=== PATIENT | male | born 1955 | race Caucasian/White ===

== ENCOUNTER → 2020-09-05 07:55 | Outpatient (REF) | payer MEDICARE, SELFPAY ==
[2020-09-05 08:21] LABS: MANUAL DIFF FLAG NO
[2020-09-05 08:33] LABS: Basophils Absolute Auto 0.1 X10*3/uL (0.0-0.2); Basophils Percent Auto 0.7 % (0-2); Eosinophils Absolute Auto 0.3 X10*3/uL (0.0-0.4); Eosinophils Percent Auto 4.3 % (0-4); Hematocrit 48.6 % (42-52); Hemoglobin 16.1 g/dl (14.0-18.0); Imm Gran Abs Auto 0.02 X10*3/uL (0.00-0.03); Imm Gran Pct Auto 0.3 % (0.0-0.4); Lymphocytes Absolute Auto 1.9 X10*3/uL (1.2-4.9); Lymphocytes Percent Auto 26.2 % (20-40); Mean Corpuscular HGB Conc 33.1 g/dl (31.0-36.0); Mean Corpuscular Hemoglobin 29.7 pg (27.0-33.0); Mean Corpuscular Volume 89.5 fL (80-98); Mean Platelet Volume 9.5 fL (9.4-12.4); Monocytes Absolute Auto 0.5 X10*3/uL (0.1-1.2); Monocytes Percent Auto 6.3 % (2-11); Neutrophils Absolute Auto 4.6 X10*3/uL (2.0-8.3); Neutrophils Percent Auto 62.2 % (45-73); Platelet Count 258 X10*3/uL (160-400); Red Blood Count 5.43 X10*6/uL (4.60-5.80); White Blood Count 7.4 X10*3/uL (4.8-10.8)
[2020-09-05 09:00] LABS: Alanine Aminotransferase 31 U/L (0-40); Albumin Level 4.6 g/dL (3.5-5.0); Alkaline Phosphatase 90 U/L (39-117); Anion Gap 13 (12-20); Aspartate Amino Transferase 25 U/L (5-37); Bilirubin Total 0.7 mg/dL (0.0-1.0); Blood Urea Nitrogen 13 mg/dL (9-16); Calcium 9.2 mg/dL (8.4-10.2); Carbon Dioxide 28 mmol/L (22-29); Chloride 104 mmol/L (96-108); Cholesterol 106 mg/dL; Estimated Glomerular Filt Rate > 60; Glucose Random 94 mg/dL (60-115); HDL Cholesterol 26 mg/dL; LDL Cholesterol Calculated 65 mg/dl; Potassium 5.2 mmol/L (3.3-5.1); Sodium 140 mmol/L (135-145); Total Protein 7.2 g/dL (6.5-8.0); Triglycerides 76 mg/dL
[2020-09-05 09:26] LABS: Prostate Specific Antigen Scr 1.62 ng/mL (<0.05-4.0); Thyroid Stimulating Hormone 0.67 uIU/mL (0.32-4.0)
--- NOTE | 2020-09-05 15:00 | CA_ITS ---
Transthoracic Echocardiogram Patient (Last, First, Middle): Neeta Zuleta D Gender: Male Date of : 1955 Age: 65 Procedure Date: 09/05/2020 Procedure Type: Transthoracic Echocardiogram Location: OP Height: 167.64 cm Weight: 89.81 kg BSA: 1.99 m2 Heart Rate: bpm BP: 119 / 75 mmHg Cloth Tester: VICKI Referring MD: Arden Bustillo MD Symptoms: I25.5 ISCHEMIC CMP, I25.10 CAD W/O ANGINA NON RHEUU I35. Study Quality: Technically Difficult ECG Rhythm: Sinus Conclusions: - The left ventricular systolic function is low normal. The visually estimated ejection fraction is between 50-55%. - The inferoseptal wall and basal inferior segment are akinetic. - There is moderate calcification of the aortic valve. There is mild aortic valve stenosis. Findings Left Ventricle Normal left ventricular cavity size. There is mildly increased left ventricular wall thickness. The left ventricular systolic function is low normal. The visually estimated ejection fraction is between 50-55%. There is evidence of regional wall motion abnormalities. Diastolic function is normal for age. Wall Motion Rest Echo Findings The inferoseptal wall and basal inferior segment are akinetic. Right Ventricle Normal right ventricular cavity size and systolic function. Atria The left atrium is normal in size. The right atrium is normal in size. Aortic Valve There is moderate calcification of the aortic valve. There is mild aortic valve stenosis. The peak aortic velocity is 2.21 m/s with a calculated peak gradient of 20 mmHg. There is no aortic valve regurgitation. Mitral Valve The mitral valve appears normal. There is trace mitral valve regurgitation. There is no mitral valve stenosis. Pulmonic Valve The pulmonic valve was not well visualized. Tricuspid Valve Normal tricuspid valve structure. There is trace tricuspid valve regurgitation. The pulmonary artery systolic pressure is normal. Great Vessels The asc aorta is normal in size. Venous The inferior vena cava is normal in size and collapses greater than 50% with inspiration. Pericardium/Pleural There is no evidence of pericardial effusion. Prior Study Comparison No significant change compared to prior study dated: 02/07/2019. Measurements M-Mode Liner Measurements Normals - Women/Men AOV Cusps: 1.70 1.5-2.6 cm/m2 2D Linear Measurements IVSd: 1.13 0.6-0.9/0.6-1.0 cm LVIDd: 5.23 3.9-5.3/4.2-5.9 cm LVIDd Index: 2.63 2.4-3.2/2.2-3.1 cm/m2 LVIDs: 4.17 2.0-3.6 cm LVPWd: 1.03 0.7-1.1 cm Ao Root: 3.70 2.1-3.5 cm LA Diam: 2.90 2.7-3.8/3.0-4.0 cm LAIDs Index: 1.46 1.5-2.3 cm/m2 LV Mass: 270.95 67-162/88-224 g LV Mass Index: 136.16 43-95/49-115 g/m2 LVOT Diam: 2.20 3.0+(-)1.3 cm 2D Systolic Function EF 4C: 63.70 >55% EF 2C: 48.10 >55% EF BiP: 56.50 >55% Mitral Valve MV Pk E: 0.68 MV PK A: 0.90 MV Decel Time: 187.00 E/A: 0.80 E'Lateral: 10.90 E'Medial: 5.11 E/E' Med: 13.30 E/E' Lat: 6.20 PHT: 55.00 MVA PHT: 4.00 Decel [place]: 3.64 Aortic Valve AoV Pk Naveen: 2.21 AoV Pk Grad: 20.00 RUBIO Cont.VTI: 1.45 LVOT LVOT Pk Naveen: 0.85 LVOT Mn Naveen: 0.57 LVOT VTI: 0.18 LVOT Pk Grad: 3.00 LVOT Mn Grad: 2.00 LVOT Diam: 2.20 LVOT Area: 3.80 Diastolic Function MV Pk E: 0.68 MV Pk A: 0.90 E/A: 0.80 E'Medial: 5.11 E/E' Med: 13.30 E' Laterial: 10.90 E/E' Lat: 6.20 Tricuspid Valve RA Press: 3.00 Great Vessels Aorta Ao Root-2D: 3.70 2.0-3.7 cm Ao Asc: 3.50 2.1-3.4 cm Pulmonary Valve PV Pk Naveen: 1.24 Peak PV Grad: 6.00 Updated in Other Vendor System with Status of Final Dima Petersen MD electronically signed on 09/07/2020 10:15:50 AM with status of Final
== END ==
LOC: HO.CARD 07:55
PROVIDERS: Absent Provider Internal Medicine; PCP Internal Medicine; Visit Provider Internal Medicine Cardiovascular Disease
DX: I25.5 Ischemic cardiomyopathy (principal); I25.10 Atherosclerotic heart disease of native coronary artery without angina pectoris; I35.0 Nonrheumatic aortic (valve) stenosis; I10 Essential (primary) hypertension; E78.00 Pure hypercholesterolemia, unspecified
CPT/HCPCS: 36415; 80053; 80061; 84153; 84443; 85025; 93306

== ENCOUNTER → 2020-09-23 11:05 | Outpatient (BNVA) | payer MEDICARE, SELFPAY | PROVIDERS: PCP Internal Medicine; Visit Provider Internal Medicine Cardiovascular Disease | DX: I25.10 Atherosclerotic heart disease of native coronary artery without angina pectoris (principal); I25.5 Ischemic cardiomyopathy; Z79.899 Other long term (current) drug therapy | CPT/HCPCS: 93005; 99212 ==

== ENCOUNTER → 2021-03-31 09:42 | Outpatient (BNVA) | payer MEDICARE, SELFPAY | PROVIDERS: PCP Internal Medicine; Referring Provider Internal Medicine; Visit Provider Internal Medicine Cardiovascular Disease | DX: I25.10 Atherosclerotic heart disease of native coronary artery without angina pectoris (principal); I25.5 Ischemic cardiomyopathy | CPT/HCPCS: 99212 ==

== ENCOUNTER 2021-06-29 09:20 | Emergency (ER) | payer MEDICARE, SELFPAY ==
[2021-06-29 10:04] VITALS: BP 142/79; PULSE 60; RESP 18; TEMP 37; O2SAT 94; BMI 30.7
[2021-06-29 11:39] VITALS: BP 122/76; PULSE 59; RESP 18; O2SAT 95
--- NOTE | 2021-06-29 11:40 | ED_ITS ---
HPI - Back Pain/Injury General Chief Complaint: Back Pain/Injury Stated Complaint: Back Pain No Injury Time Seen by Provider: 06/29/21 11:32 Source: patient Mode of arrival: ambulatory Limitations: no limitations History of Present Illness HPI Narrative: 66 yo M pmhx low back pain, obesity,COPD, CAD, brain aneurysm presents to the ED with atraumatic lower back pain X2 weeks progressively worsening. Patient tells me that he has had low back pain for a very long time, however has never been this bad. He tells me that the pain is in the lower back, and radiates down to his left leg, just above the knee. He rates the pain a 10/10 constant, and severe in nature, worse with movement better at rest. He has seen his PCP for this complaint, who gave him a medicine for pain, patient states that is not helping him. Patient tells me that the pain is so bad that he has not been able to sleep for 3 days. Denies bowel/urinary incontinence, urinary retention, sensory and motor deficits, fevers, chills, nausea, vomiting, weakness, abdominal pain, chest pain, shortness of breath, dizziness, fevers, trauma. Patient has no history of IV drug use. No previous spine surgeries. No hx of kidney stones MD elicited complaint: back pain Pertinent past history: prior back pain Onset (ago): week(s) (2) Timing: constant Severity: severe Pain scale (0-10): 10 Similar Symptoms Previously: Yes Quality: sharp Location: lumbar spine Radiation: left upper leg Exacerbating factors: movement Relieving factors: immobilization Associated symptoms: denies other symptoms Treatments prior to arrival: NSAIDS and prescription analgesics Work related injury: No Related Data Home Medications Medication Instructions Recorded Confirmed aspirin 81 mg tablet,delayed 81 mg PO DAILY 07/07/20 06/25/21 release (Adult Aspirin Regimen) fluticasone propionate 230 1 puff INHALATION BID g 07/07/20 06/25/21 mcg-salmeterol 21 mcg/actuation HFA inhaler (Advair HFA) ipratropium 20 mcg-albuterol 100 1 puff INHALATION QID 07/07/20 06/25/21 mcg/actuation mist for inhalation (Combivent Respimat) diazepam 10 mg tablet 10 mg PO TID PRN 04/14/21 06/25/21 Previous Rx's Medication Instructions Recorded atenolol 25 mg tablet 25 mg PO DAILY #90 tab 04/29/20 nitroglycerin 0.4 mg sublingual 0.4 mg SUBLINGUAL Q5M PRN #20 tab 07/07/20 tablet (Nitrostat) CPAP #1 ea 10/06/20 rosuvastatin 40 mg tablet 40 mg PO DAILY #90 tab 10/24/20 fluticasone propionate 50 2 spray INTRANASAL DAILY #3 ea 11/20/20 mcg/actuation nasal spray,suspension (Flonase Allergy Relief) fexofenadine 180 mg tablet 180 mg PO DAILY 90 Days #90 tab 01/08/21 losartan 50 mg tablet 50 mg PO DAILY 90 Days #90 tab 02/09/21 baclofen 10 mg tablet 10 mg PO BID PRN #14 tab 06/25/21 diclofenac sodium 1 % topical gel 2 g TOPICAL QID PRN 10 Days #100 g 06/25/21 (Arthritis Pain (diclofenac)) lidocaine 4 % topical patch 1 patch TOPICAL DAILY PRN #15 ea 06/25/21 (Aspercreme (lidocaine)) cyclobenzaprine 10 mg tablet 10 mg PO TID PRN #14 tab 06/29/21 lidocaine 5 % topical patch 1 patch TOPICAL DAILY PRN 10 Days 06/29/21 #15 ea oxycodone 5 mg tablet 5 mg PO Q8H PRN 5 Days #10 tab 06/29/21 prednisone 20 mg tablet 40 mg PO DAILY 5 Days #10 tab 06/29/21 Allergies Allergy/AdvReac Type Severity Reaction Status Date / Time atorvastatin [Lipitor] Allergy Unknown Leg cramps Verified 06/25/21 10:47 ezetimibe [Zetia] Allergy Unknown shoulder Verified 06/25/21 10:47 pain lisinopril Allergy Unknown cough Verified 06/25/21 10:47 rosuvastatin [Crestor] Allergy Unknown Leg cramps Verified 06/25/21 10:47 Review of Systems Review of Systems: Constitutional : No Weight loss, No Fever, No Chills, No Fatigue, No Malaise ENT/Mouth : No sore throat, No Rhinorrhea Eyes: No Eye Pain, No Swelling, No Redness Cardiovascular : No Chest Pain, No SOB, No Dyspnea on Exertion, No Orthopnea, No Edema, No Palpitations Respiratory : No Cough, No Sputum, No Wheezing Gastrointestinal : No Nausea, No Vomiting, No Diarrhea, No Constipation, No abdominal Pain, No Hematochezia, No Melena Genitourinary : No Dysuria, No Urinary Frequency, No Hematuria, Musculoskeletal : No joint pain, No Myalgias, No Joint Swelling, + back pain Skin : No Skin Lesions, No rash Neuro : No Weakness, No Numbness, No Dizziness, No Headache Psych : No Anxiety/Panic, No Depression All other systems reviewed and are negative Yes all other systems are reviewed and are negative [facility] Past Medical History Attestation statement: The following information was validated with the patient. Source: old records reviewed and nursing notes reviewed Medical History Allergic rhinitis Anxiety Chronic sinusitis COPD (chronic obstructive pulmonary disease) Coronary artery disease Hypercholesterolemia Hypertension Ischemic cardiomyopathy Lyme disease Obstructive sleep apnea Otitis media Pericarditis Pulmonary nodule Sinusitis Surgical History Brain aneurysm Family History Family History Father No problems noted. Mother CVD (cardiovascular disease) Social History Social History Housing: House Alcohol intake: current Alcohol intake frequency: holidays/special occasions only Alcohol type: beer Patient Tobacco Use Status: Never used Tobacco e-Cigarette/Vaping Use: Never Used Advance Directives: No Advance Directives Information Provided: No service: No Current occupational status: disabled Cognitive needs: No Hearing needs: No Vision needs: No Physical Exam Vital Signs: Vital Signs: Last Vital Signs Temp 97.6 F 06/29/21 12:56 Pulse 54 06/29/21 12:56 Resp 14 06/29/21 12:56 BP 127/75 06/29/21 12:56 Pulse Ox 95 06/29/21 12:56 BMI result Body Mass Index 30.7 VSS Appearance: Alert.? Oriented X3.? No acute distress.? Head: Normocephalic, atraumatic, no step-offs or deformities Eyes: Pupils equal, round and reactive to light.? ENT: Pharynx normal.? Neck: Normal inspection.? Neck supple.? CVS: Normal heart rate and rhythm.? Pulses normal.? Respiratory: No respiratory distress.? Breath sounds normal.? Abdomen: Soft and nontender.? Skin: Skin warm and dry.? Normal skin color.? Normal skin turgor.? Extremities: No lower extremity edema.? No calf ttp. 5/5 strength to bilateral upper and lower extremities + pain with getting up from wheelchair, able to ambulated with alot of pain, no ataxia Back: No midline tenderness, no C-spine tenderness, full range of motion, no CVA tenderness bilaterally. + Staight leg raise on left negative on right Neuro: Oriented X 3.? No motor deficit.? No sensory deficit. Course Reevaluation(s) Reevaluation #1: Due to patient's severe pain and IV will be put in, he will be given Dilaudid for pain. Time: 12:14 Reevaluation #2: Significant improvement after administration of Dilaudid IV. Patient's vital signs are stable. He is not able to ambulate around the room. He appears much more comfortable. At this time I feel is the patient is safe for discharge home. I have advised him to follow-up with his PCP as he will likely require more imaging. I have also advised him to return with new or worsening symptoms. Comfortable with discharge home. Time: 13:13 MDM - Back Pain/Injury MDM Narrative Medical decision making narrative: 1147 66-year-old male presents to the emergency department with atraumatic back pain x2 weeks, severe pain, 10/10 constant nature worse with movement better at rest, radiating to left leg above knee. Patient reports inability to sleep x3 days due to pain. He tells me size PCP will give him pain meds and are not working. No fevers or chills or history of IV drug use. Physical examination significant or pain with range of motion however, patient has full range of motion. No midline tenderness. 2+ reflexes to lower extremities equal bilateral. No sensory motor deficits. No saddle paresthesias. No focal neuro deficits. Ambulating with a steady gait. Based off patient history and physical examination cauda equina and epidural abscess unlikely. This is likely sciatica. Plan at this time is to obtain a COVID test. Medical Records Attestation: I reviewed the patient's medical records. Lab Data Attestation: I reviewed the patient's lab results. Labs: Lab Results 06/29/21 Range/Units 11:42 COVID-19 ([facility]) Negative (Negative) COVID-19 Clin Com See Note Critical Care Time Critical Care Time Critical Care Time: No Discharge Plan Discharge Clinical Impression: Sciatica Patient Disposition: Home, Self-Care Instructions: Sciatica (ED) Additional Instructions: Take your medications as prescribed. If you were prescribed antibiotics today, it is important that you take your medication to their entirety, do not skip any doses, do not finish them early. Stop taking baclofen. Follow-up with your primary care provider this week. Return to the emergency department with new or worsening symptoms. Such as fevers, chills, inability to control urine/stool, weakness, chest pain, shortness of breath, inability to feel lower extremitites. In case of emergency call 911 I attest that I have reviewed patients [place], and at the time prescribing the patient a controlled substance is appropriate based off of patients diagnosis and treatment plan. Prescriptions: New lidocaine 5 % adhesive patch,medicated 1 patch topical DAILY PRN (Reason: pain) 10 Days Qty: 15 RF: 0 oxycodone 5 mg tablet 5 mg PO Q8H PRN (Reason: pain) 5 Days Qty: 10 RF: 0 prednisone 20 mg tablet 40 mg PO DAILY 5 Days Qty: 10 RF: 0 cyclobenzaprine 10 mg tablet 10 mg PO TID PRN (Reason: muscle spasm) Qty: 14 RF: 0 No Action atenolol 25 mg tablet 25 mg PO DAILY Qty: 90 RF: 2 rosuvastatin 40 mg tablet 40 mg PO DAILY Qty: 90 RF: 2 fluticasone propionate [Flonase Allergy Relief] 50 mcg/actuation spray,suspension 2 spray intranasal DAILY Qty: 3 RF: 2 losartan 50 mg tablet 50 mg PO DAILY 90 Days Qty: 90 RF: 3 aspirin [Adult Aspirin Regimen] 81 mg tablet,delayed release (DR/EC) 81 mg PO DAILY RF: 0 Combivent Respimat 20-100 mcg/actuation mist 1 puff inhalation QID RF: 0 Advair HFA 230-21 mcg/actuation HFA aerosol inhaler 1 puff inhalation BID RF: 0 nitroglycerin [Nitrostat] 0.4 mg tablet, sublingual 0.4 mg sublingual Q5M PRN (Reason: chest pain) Qty: 20 RF: 0 fexofenadine 180 mg tablet 180 mg PO DAILY 90 Days Qty: 90 RF: 3 diazepam 10 mg tablet 10 mg PO TID PRNRF: 0 (DME) CPAP See Rx Instructions .Route .MEDSUPPLY Qty: 1 RF: 0 baclofen 10 mg tablet 10 mg PO BID PRN (Reason: pain) Qty: 14 RF: 0 diclofenac sodium [Arthritis Pain (diclofenac)] 1 % gel 2 g topical QID PRN (Reason: pain) 10 Days Qty: 100 RF: 0 lidocaine [Aspercreme (lidocaine HCl)] 4 % adhesive patch,medicated 1 patch topical DAILY PRN (Reason: pain) Qty: 15 RF: 0 Referrals: Po,Mariel Saunders MD [Primary Care Provider] - 2 days Stand Alone Forms: Work/School Release
[2021-06-29] MEDS: Lidocaine 4 % Patch ADH..PATCH 1 PATCH TRANSDERMA (12:12)
[2021-06-29] MEDS: Cyclobenzaprine HCl 10 MG TABLET PO (12:12)
[2021-06-29 12:20] LABS: COVID-19 Test Negative (Negative)
[2021-06-29] MEDS: HYDROmorphone HCl 0.5 MG/0.5 ML SYRINGE IVPUSH (12:25)
[2021-06-29 12:56] VITALS: BP 127/75; PULSE 54; RESP 14; TEMP 36.4; O2SAT 95
== END 2021-06-29 13:28 | disposition home or self-care (01) ==
PROVIDERS: Physician Assistant; Emergency Provider Emergency Medicine; PCP Internal Medicine
DX: M54.40 Lumbago with sciatica, unspecified side (principal); I10 Essential (primary) hypertension; J44.9 Chronic obstructive pulmonary disease, unspecified; I25.10 Atherosclerotic heart disease of native coronary artery without angina pectoris; Z20.822 Contact with and (suspected) exposure to COVID-19
CPT/HCPCS: 36415; 87635; 96374; 99284; J1170

== ENCOUNTER 2021-07-08 11:30 | Outpatient (REF) | payer MEDICARE, SELFPAY ==
--- NOTE | ~2021-07-08 | XR_ITS ---
EXAMINATION: XR LUMBOSACRAL SPINE WITH OBLIQUES CLINICAL INFORMATION: Low back pain. COMPARISON: None TECHNIQUE: AP, both oblique, and lateral views of the lumbar spine. Lateral view of the lumbosacral junction. FINDINGS: There is normal lumbar lordosis and spinal alignment. Mild degenerative disc disease and bilateral facet arthropathy is seen at L4-L5 and L5-S1. Mild to moderate multilevel marginal osteophyte formation is seen most pronounced on the right at L2-L3 and on the left at L4-L5. The vertebral bodies are intact. The neural foramina are patent. The soft tissues are unremarkable XR/XR lumbar spine 6V w bending IMPRESSION: L4-L5 and L5-S1 mild degenerative disc disease and bilateral facet arthropathy.
== END 2021-07-08 11:31 | disposition home or self-care (01) ==
LOC: HO.XRAY 11:30
PROVIDERS: Visit Provider Nurse Practitioner Acute Care
DX: M54.50 Low back pain, unspecified (principal); M79.605 Pain in left leg
CPT/HCPCS: 72114

== ENCOUNTER 2021-08-25 08:04 | Outpatient (REF) | payer MEDICARE, SELFPAY ==
[2021-08-25 08:51] LABS: MANUAL DIFF FLAG NO
[2021-08-25 09:44] LABS: Basophils Absolute Auto 0.1 X10*3/uL (0.0-0.2); Basophils Percent Auto 0.9 % (0-2); Eosinophils Absolute Auto 0.4 X10*3/uL (0.0-0.4); Eosinophils Percent Auto 4.7 % (0-4); Hemoglobin 15.4 g/dl (14.0-18.0); Imm Gran Abs Auto 0.02 X10*3/uL (0.00-0.03); Imm Gran Pct Auto 0.3 % (0.0-0.4); Lymphocytes Absolute Auto 1.8 X10*3/uL (1.2-4.9); Lymphocytes Percent Auto 23.6 % (20-40); Mean Corpuscular HGB Conc 32.8 g/dl (31.0-36.0); Mean Corpuscular Hemoglobin 29.7 pg (27.0-33.0); Mean Corpuscular Volume 90.6 fL (80.0-98.0); Mean Platelet Volume 9.7 fL (9.4-12.4); Monocytes Absolute Auto 0.5 X10*3/uL (0.1-1.2); Monocytes Percent Auto 6.6 % (2-11); Neutrophils Absolute Auto 4.9 x10*3/uL (2.0-8.3); Neutrophils Percent Auto 63.9 % (45-73); Platelet Count 236 X10*3/uL (160-400); Red Blood Count 5.19 X10*6/uL (4.60-5.80); Red Cell Distribution Width 12.7 % (11.0-16.0); White Blood Count 7.6 X10*3/uL (4.8-10.8)
[2021-08-25 10:12] LABS: Alanine Aminotransferase 40 U/L (0-40); Albumin Level 4.4 g/dL (3.5-5.0); Alkaline Phosphatase 82 U/L (39-117); Anion Gap 18 (12-20); Aspartate Amino Transferase 28 U/L (5-37); Bilirubin Total 0.7 mg/dL (0.0-1.0); Blood Urea Nitrogen 15 mg/dL (9-16); Calcium 9.4 mg/dL (8.4-10.2); Carbon Dioxide 23 mmol/L (22-29); Chloride 109 mmol/L (96-108); Cholesterol 119 mg/dL; Estimated Glomerular Filt Rate > 60; Glucose Random 94 mg/dL (60-115); HDL Cholesterol 27 mg/dL; LDL Cholesterol Calculated 77 mg/dl; Sodium 145 mmol/L (135-145); Total Protein 7.3 g/dL (6.5-8.0); Triglycerides 75 mg/dL
[2021-08-25 10:13] LABS: B Type Natriuretic Peptide 26 pg/mL (<100)
[2021-08-25 10:35] LABS: Free T4 (Free Thyroxine) 0.79 ng/dL (0.71-1.85); Prostate Specific Antigen Scr 2.31 ng/mL (<0.05-4.0); Thyroid Stimulating Hormone 1.18 uIU/mL (0.32-4.0)
[2021-08-25 10:56] LABS: Folate 8.2 ng/mL (> or = 4.0); Vitamin B12 556 pg/mL (200-900)
[2021-08-26 11:41] LABS: CRP High Sensitivity 1.4 mg/L
== END 2021-08-25 08:05 | disposition home or self-care (01) ==
LOC: HO.LAB 08:04
PROVIDERS: Internal Medicine Cardiovascular Disease; PCP Internal Medicine; Visit Provider Internal Medicine
DX: Z13.1 Encounter for screening for diabetes mellitus (principal); Z12.5 Encounter for screening for malignant neoplasm of prostate; E78.00 Pure hypercholesterolemia, unspecified; I25.5 Ischemic cardiomyopathy; I25.10 Atherosclerotic heart disease of native coronary artery without angina pectoris; E78.5 Hyperlipidemia, unspecified
CPT/HCPCS: 36415; 80053; 80061; 82607; 82746; 83880; 84153; 84439; 84443; 85025; 86141

== ENCOUNTER → 2021-09-01 13:57 | Outpatient (REF) | payer MEDICARE, SELFPAY ==
--- NOTE | 2021-09-01 13:59 | CA_ITS ---
Transthoracic Echocardiogram Patient (Last, First, Middle): Neeta Zuleta D Gender: Male Date of : 1955 Age: 66 Procedure Date: 09/01/2021 Procedure Type: Transthoracic Echocardiogram Location: OP Height: 167.64 cm Weight: 88.45 kg BSA: 1.98 m2 Heart Rate: bpm BP: 127 / 80 mmHg [place]: VH/OT Referring MD: Arden Bustillo MD Symptoms: I25.5 - Ischemic cardiomyopathy Study Quality: Fair ECG Rhythm: Sinus Conclusions: - The left ventricular systolic function is low normal. The calculated ejection fraction is 51% by biplane method. - The basal inferior and basal inferolateral segments are akinetic. - Mildly increased right ventricular cavity size. - There is moderate calcification of the aortic valve. There is mild aortic valve stenosis. - There is mild dilatation of the sinuses of Valsalva measuring 4.20 cm and no dilatation of the ascending aorta measuring 3.60 cm. Findings Left Ventricle Normal left ventricular cavity size. There is mildly increased left ventricular wall thickness. The left ventricular systolic function is low normal. The calculated ejection fraction is 51% by biplane method. E/E prime ratio is <8, consistent with normal filling pressures. Evidence suggests grade I (mild) diastolic dysfunction. Wall Motion Rest Echo Findings The basal inferior and basal inferolateral segments are akinetic. Right Ventricle Mildly increased right ventricular cavity size. There is normal right ventricular systolic function. Atria Both atria are normal in size. Aortic Valve There is moderate calcification of the aortic valve. There is mild aortic valve stenosis. The peak aortic velocity is 2.00 m/s with a calculated peak gradient of 16 mmHg. The mean gradient is 9 mmHg. The aortic valve area is 1.62 cm2. There is no aortic valve regurgitation. Dimensionless index 0.43. Mitral Valve The mitral valve appears normal. There is no mitral valve regurgitation. There is no mitral valve stenosis. Pulmonic Valve The pulmonic valve is likely normal. Tricuspid Valve Normal tricuspid valve structure. There is no tricuspid valve regurgitation. The pulmonary artery systolic pressure is normal. Great Vessels There is mild dilatation of the sinuses of Valsalva measuring 4.20 cm and no dilatation of the ascending aorta measuring 3.60 cm. Venous The inferior vena cava is normal in size and collapses greater than 50% with inspiration. Pericardium/Pleural There is no evidence of pericardial effusion. Prior Study Comparison Changes noted compared to prior study dated: 09/05/2020. Increase in ascending aortic dimension. Measurements 2D Linear Measurements IVSd: 1.04 0.6-0.9/0.6-1.0 cm LVIDd: 5.00 3.9-5.3/4.2-5.9 cm LVIDd Index: 2.53 2.4-3.2/2.2-3.1 cm/m2 LVIDs: 3.58 2.0-3.6 cm LVPWd: 1.04 0.7-1.1 cm Ao Root: 4.20 2.1-3.5 cm LA Diam: 3.80 2.7-3.8/3.0-4.0 cm LAIDs Index: 1.92 1.5-2.3 cm/m2 LV Mass: 239.09 67-162/88-224 g LV Mass Index: 120.75 43-95/49-115 g/m2 LVOT Diam: 2.50 3.0+(-)1.3 cm 2D Systolic Function EF 4C: 54.60 >55% EF 2C: 42.50 >55% EF BiP: 50.90 >55% Mitral Valve MV Pk E: 0.40 MV PK A: 0.71 MV Decel Time: 160.00 E/A: 0.60 E'Lateral: 8.16 E'Medial: 4.68 E/E' Med: 8.60 E/E' Lat: 4.90 PHT: 47.00 MVA PHT: 4.68 Decel Iron: 2.51 Aortic Valve AoV Pk Naveen: 2.00 AoV Mn Naveen: 1.37 AoV VTI: 0.50 AoV Pk Grad: 16.00 Aov Mn Grad: 9.00 RUBIO Cont.VTI: 1.62 LVOT LVOT Pk Naveen: 0.84 LVOT Mn Naveen: 0.54 LVOT VTI: 0.17 LVOT Pk Grad: 3.00 LVOT Mn Grad: 1.00 LVOT Diam: 2.50 LVOT Area: 4.91 Diastolic Function MV Pk E: 0.40 MV Pk A: 0.71 E/A: 0.60 E'Medial: 4.68 E/E' Med: 8.60 E' Laterial: 8.16 E/E' Lat: 4.90 Right Ventricle TAPSE (mm): 22.00 TVS' Naveen: 8.00 Tricuspid Valve TR Pk Naveen: 2.11 TR Pk Grad: 18.00 Great Vessels Aorta Ao Root-2D: 4.20 2.0-3.7 cm Sinus of Valsalva: 4.20 2.0-3.5 cm Ao Asc: 3.60 2.1-3.4 cm Pulmonary Valve PV Pk Naveen: 0.97 Peak PV Grad: 4.00 Updated in Other Vendor System with Status of Final Dima Petersen MD electronically signed on 09/01/2021 4:26:58 PM with status of Final
== END ==
LOC: HO.CARD 13:57
PROVIDERS: Visit Provider Internal Medicine Cardiovascular Disease
DX: I25.5 Ischemic cardiomyopathy (principal)
CPT/HCPCS: 93306

== ENCOUNTER → 2021-10-15 12:33 | Outpatient (BNVA) | payer MEDICARE, SELFPAY | PROVIDERS: PCP Internal Medicine; Referring Provider Internal Medicine; Visit Provider Internal Medicine Cardiovascular Disease | DX: I25.10 Atherosclerotic heart disease of native coronary artery without angina pectoris (principal); I25.5 Ischemic cardiomyopathy; I35.0 Nonrheumatic aortic (valve) stenosis | CPT/HCPCS: 93005; 99212 ==

== ENCOUNTER 2021-12-31 11:44 | Outpatient (REF) | payer MEDICARE, SELFPAY | END 2021-12-31 11:45 | disposition home or self-care (01) | LOC: HO.LNP 11:44 | PROVIDERS: Visit Provider Otolaryngology | DX: R82.71 Bacteriuria (principal); B48.8 Other specified mycoses; B37.9 Candidiasis, unspecified | CPT/HCPCS: 87071; 87102; 87107; 87205 ==

== ENCOUNTER 2022-02-03 08:44 | Outpatient (REF) | payer MEDICARE, SELFPAY ==
[2022-02-03 14:07] LABS: Alanine Aminotransferase 34 U/L (0-40); Albumin Level 4.6 g/dL (3.5-5.0); Alkaline Phosphatase 76 U/L (39-117); Anion Gap 15 (12-20); Aspartate Amino Transferase 30 U/L (5-37); Bilirubin Total 0.7 mg/dL (0.0-1.0); Blood Urea Nitrogen 16 mg/dL (9-16); Calcium 9.1 mg/dL (8.4-10.2); Carbon Dioxide 27 mmol/L (22-29); Chloride 105 mmol/L (96-108); Cholesterol 128 mg/dL; Estimated Glomerular Filt Rate > 60; Glucose Fasting 100 mg/dL (60-99); HDL Cholesterol 31 mg/dL; LDL Cholesterol Calculated 78 mg/dl; Potassium 5.3 mmol/L (3.3-5.1); Sodium 142 mmol/L (135-145); Total Protein 7.2 g/dL (6.5-8.0); Triglycerides 98 mg/dL
== END 2022-02-03 08:45 | disposition home or self-care (01) ==
LOC: HO.LAB 08:44
PROVIDERS: Nurse Practitioner Family; PCP Internal Medicine; Visit Provider Internal Medicine Cardiovascular Disease
DX: I25.10 Atherosclerotic heart disease of native coronary artery without angina pectoris (principal); Z13.1 Encounter for screening for diabetes mellitus
CPT/HCPCS: 36415; 80053; 80061

== ENCOUNTER 2022-02-08 08:12 | Outpatient (REF) | payer MEDICARE, SELFPAY ==
[2022-02-08 09:50] LABS: Anion Gap 13 (12-20); Blood Urea Nitrogen 8 mg/dL (9-16); Calcium 8.9 mg/dL (8.4-10.2); Carbon Dioxide 29 mmol/L (22-29); Chloride 104 mmol/L (96-108); Cholesterol 114 mg/dL; Estimated Glomerular Filt Rate > 60; Glucose Random 97 mg/dL (60-115); HDL Cholesterol 33 mg/dL; LDL Cholesterol Calculated 66 mg/dl; Potassium 5.1 mmol/L (3.3-5.1); Sodium 141 mmol/L (135-145); Triglycerides 76 mg/dL
== END 2022-02-08 08:13 | disposition home or self-care (01) ==
LOC: HO.LAB 08:12
PROVIDERS: PCP Internal Medicine; Visit Provider Nurse Practitioner Family
DX: E87.5 Hyperkalemia (principal); I25.10 Atherosclerotic heart disease of native coronary artery without angina pectoris
CPT/HCPCS: 36415; 80048; 80061

== ENCOUNTER → 2022-03-25 09:39 | Outpatient (BNVA) | payer MEDICARE, SELFPAY | PROVIDERS: PCP Internal Medicine; Referring Provider Internal Medicine; Visit Provider Internal Medicine Cardiovascular Disease | DX: I25.10 Atherosclerotic heart disease of native coronary artery without angina pectoris (principal); I25.5 Ischemic cardiomyopathy; I35.0 Nonrheumatic aortic (valve) stenosis; R07.89 Other chest pain; I77.89 Other specified disorders of arteries and arterioles | CPT/HCPCS: 99212 ==

== ENCOUNTER → 2022-06-21 10:12 | Outpatient (REF) | payer MEDICARE, SELFPAY ==
--- NOTE | 2022-06-21 10:17 | CA_ITS ---
Transthoracic Echocardiogram Patient (Last, First, Middle): Neeta Zuleta D Gender: Male Date of : 1955 Age: 67 Procedure Date: 06/21/2022 Procedure Type: Transthoracic Echocardiogram Location: OP Height: 167.64 cm Weight: 86.18 kg BSA: 1.96 m2 Heart Rate: bpm BP: 120 / 75 mmHg Technical Professional: [email or web address] Referring MD: Arden Bustillo MD Symptoms: I25.5 - Ischemic cardiomyopathy Study Quality: Adequate Conclusions: - The left ventricular systolic function is mildly decreased. The calculated ejection fraction is 52% by biplane method. - The basal inferior and basal inferolateral segments are akinetic. - Mildly increased right ventricular cavity size. - There is moderate calcification of the aortic valve. There is mild aortic valve stenosis. Findings Left Ventricle Normal left ventricular cavity size. There is normal left ventricular wall thickness. The left ventricular systolic function is mildly decreased. The calculated ejection fraction is 52% by biplane method. There is evidence of regional wall motion abnormalities. Diastolic function is normal for age. LV peak GLS -14.9%. Wall Motion Rest Echo Findings The basal inferior and basal inferolateral segments are akinetic. Right Ventricle Mildly increased right ventricular cavity size. There is normal right ventricular systolic function. Atria Mild biatrial enlargement. Aortic Valve There is moderate calcification of the aortic valve. There is mild aortic valve stenosis. The mean gradient is 13 mmHg. The aortic valve area is 1.80 cm2. There is no aortic valve regurgitation. Mitral Valve The mitral valve appears normal. There is mild mitral annular calcification. There is no mitral valve regurgitation. There is no mitral valve stenosis. Pulmonic Valve The pulmonic valve is likely normal. Tricuspid Valve There is trace tricuspid valve regurgitation. There is no evidence of pulmonary hypertension. Great Vessels Top normal ascending aortic size at 3.8cm. Venous The inferior vena cava is normal in size and collapses greater than 50% with inspiration. Pericardium/Pleural There is no evidence of pericardial effusion. Prior Study Comparison No significant change compared to prior study dated: 09/01/2021. Measurements 2D Linear Measurements IVSd: 0.94 0.6-0.9/0.6-1.0 cm LVIDd: 5.27 3.9-5.3/4.2-5.9 cm LVIDd Index: 2.69 2.4-3.2/2.2-3.1 cm/m2 LVIDs: 4.66 2.0-3.6 cm LVPWd: 0.83 0.7-1.1 cm LA Diam: 3.10 2.7-3.8/3.0-4.0 cm LAIDs Index: 1.58 1.5-2.3 cm/m2 LV Mass: 210.34 67-162/88-224 g LV Mass Index: 107.32 43-95/49-115 g/m2 LVOT Diam: 2.30 3.0+(-)1.3 cm 2D Systolic Function EF 4C: 49.20 >55% EF 2C: 54.50 >55% EF BiP: 51.70 >55% Mitral Valve MV Pk E: 0.78 MV PK A: 0.77 MV Decel Time: 193.00 E/A: 1.00 E'Lateral: 11.40 E'Medial: 8.81 E/E' Med: 8.90 E/E' Lat: 6.90 PHT: 57.00 MVA PHT: 3.86 Decel [place]: 4.05 Aortic Valve AoV Pk Naveen: 2.35 AoV Mn Naveen: 1.72 AoV VTI: 0.52 AoV Pk Grad: 22.00 Aov Mn Grad: 13.00 RUBIO Cont.VTI: 1.80 LVOT LVOT Pk Naveen: 1.00 LVOT Mn Naveen: 0.68 LVOT VTI: 0.23 LVOT Pk Grad: 4.00 LVOT Mn Grad: 2.00 LVOT Diam: 2.30 LVOT Area: 4.15 Diastolic Function MV Pk E: 0.78 MV Pk A: 0.77 E/A: 1.00 E'Medial: 8.81 E/E' Med: 8.90 E' Laterial: 11.40 E/E' Lat: 6.90 Right Ventricle TAPSE (mm): 24.40 TVS' Naveen: 10.10 Tricuspid Valve TR Pk Naveen: 1.77 TR Pk Grad: 13.00 RA Press: 3.00 RVSP: 16.00 Great Vessels Aorta Sinus of Valsalva: 4.17 2.0-3.[address] [place]: 3.58 1.7-3.4 cm Ao Asc: 3.80 2.1-3.4 cm Updated in Other Vendor System with Status of Final Dima Petersen MD electronically signed on 06/23/2022 8:38:32 AM with status of Final
== END ==
LOC: HO.CARD 10:12
PROVIDERS: PCP Internal Medicine; Visit Provider Internal Medicine Cardiovascular Disease
DX: I25.5 Ischemic cardiomyopathy (principal)
CPT/HCPCS: 93306

== ENCOUNTER → 2022-09-30 12:31 | Outpatient (BNVA) | payer MEDICARE, SELFPAY | PROVIDERS: PCP Internal Medicine; Referring Provider Internal Medicine; Visit Provider Internal Medicine Cardiovascular Disease | DX: I35.0 Nonrheumatic aortic (valve) stenosis (principal); I25.10 Atherosclerotic heart disease of native coronary artery without angina pectoris; I77.89 Other specified disorders of arteries and arterioles | CPT/HCPCS: 93005; 99212 ==

== ENCOUNTER 2022-11-21 10:02 | Emergency (ER) | payer MEDICARE, SELFPAY ==
--- NOTE | ~2022-11-21 | XR_ITS ---
EXAMINATION: XR CHEST CLINICAL INFORMATION: Cough, shortness of breath. COMPARISON: 07/17/2013. TECHNIQUE: 2 views of the chest were obtained. FINDINGS: No significant abnormality is noted involving the heart, lungs, mediastinum, bony thorax or soft tissues. XR/XR chest 2V IMPRESSION: No acute cardiopulmonary process.
[2022-11-21 10:15] VITALS: BP 136/88; PULSE 80; RESP 20; TEMP 36.8; O2SAT 91; BMI 31.8
--- NOTE | 2022-11-21 10:44 | ED.GENADULT ---
HPI - General Adult General Chief complaint: Upper Respiratory Symptoms Stated complaint: Diff breathing Time Seen by Provider: 11/21/22 10:34 Source: patient Limitations: no limitations History of Present Illness HPI narrative: 67-year-old male with longstanding history of COPD and hypertension. Patient states over the last 24-36 hours increasing cough and chest congestion and discomfort with coughing. Patient states sputum production is white nature minimal to no relief with inhaler treatments at home. Patient has a tobacco history but has quit some time ago. Patient positive sick contact at home with a similar symptoms. No recent travel history no other sick contacts. Symptoms mild to moderate no other complaints at this time. Patient is without fever or chills. Related Data Home Medications Medication Instructions Recorded Confirmed fluticasone propionate 230 1 puff inhalation BID 07/07/20 10/13/22 mcg-salmeterol 21 mcg/actuation HFA inhaler (Advair HFA) ipratropium 20 mcg-albuterol 100 1 puff inhalation QID 07/07/20 10/13/22 mcg/actuation mist for inhalation (Combivent Respimat) diazepam 10 mg tablet 10 mg PO TID PRN 04/14/21 10/13/22 atenolol 25 mg tablet 12.5 mg PO DAILY 10/15/21 10/13/22 [id number] 3.5 0 drp otic (ears) 02/09/22 10/13/22 mg-10,000 unit/mL-1 % ear drops,susp Previous Rx's Medication Instructions Recorded CPAP #1 ea 10/06/20 cyclobenzaprine 10 mg tablet 10 mg PO TID PRN muscle spasm #14 07/08/21 tabs nitroglycerin 0.4 mg sublingual 0.4 mg sublingual Q5M PRN chest 02/05/22 tablet (Nitrostat) pain #25 tabs losartan 50 mg tablet 50 mg PO DAILY #90 tabs 03/24/22 rosuvastatin 40 mg tablet 40 mg PO DAILY #90 tabs 03/24/22 aspirin 81 mg tablet,delayed 81 mg PO DAILY #30 tabs 09/30/22 release (Ecotrin Low Strength) azithromycin 250 mg tablet 250 mg PO DAILY 5 days #5 tabs 11/21/22 benzonatate 100 mg capsule 100 mg PO TID PRN cough #14 caps 11/21/22 prednisone 20 mg tablet 40 mg PO DAILY 5 days #10 tabs 11/21/22 Allergies Allergy/AdvReac Type Severity Reaction Status Date / Time atorvastatin [Lipitor] Allergy Unknown Leg cramps Verified 11/21/22 10:15 ezetimibe [Zetia] Allergy Unknown shoulder Verified 11/21/22 10:15 pain lisinopril Allergy Unknown cough Verified 11/21/22 10:15 rosuvastatin [Crestor] Allergy Unknown Leg cramps Verified 11/21/22 10:15 Review of Systems Review of Systems: General: No fever, no chills Ophthalmology: No vision changes, no discharge ENT: No sore throat, no ear pain Cardiovascular: Positive chest wall pain with coughing, intermittent shortness of breath Respiratory: Positive wheezing, positive cough, positive white sputum Muscle skeletal: No malaise, no back pain, no neck pain, no extremity pain GI: no nausea vomiting, no diarrhea Skin: No rash Immunology: No immunocompromised Hematology: No bleeding, no bruising PMFSH Past Medical History Attestation statement: The following information was validated with the patient. Medical History Allergic rhinitis Anxiety Aortic stenosis Chronic sinusitis COPD (chronic obstructive pulmonary disease) Coronary artery disease Hypercholesterolemia Hypertension Ischemic cardiomyopathy Lyme disease Obstructive sleep apnea Otitis media Pericarditis Pulmonary nodule Sinusitis Surgical History Brain aneurysm Family History Family History Father No problems noted. Mother CVD (cardiovascular disease) Social History Social History Housing: House Alcohol intake: current Alcohol intake frequency: holidays/special occasions only Alcohol type: beer Patient Tobacco Use Status: Former Tobacco user e-Cigarette/Vaping Use: Never Used Advance Directives: No Advance Directives Information Provided: Yes service: No Current occupational status: disabled Cognitive needs: No Hearing needs: No Vision needs: Yes Physical Exam ED Vital Signs: Vital Signs - 24 hr 11/21/22 10:15 11/21/22 10:59 Temperature 98.3 F Pulse Rate 80 Respiratory Rate 20 20 Blood Pressure 136/88 Pulse Oximetry 91 L Oxygen Delivery Method Room Air BMI result Body Mass Index 31.8 General appearance: Awake, alert, cooperative, in no acute distress Skin: Warm, dry, no rash Eyes: PERRL, EOMI, no icterus ENT: Oropharynx normal, uvula midline Neck: Soft supple full range of motion Pulmonary: Breath sounds coarse wheezes bilaterally, no accessory muscle use Cardiovascular: Regular rate and rhythm, no murmurs and rubs, positive chest wall tenderness with palpation no crepitus Abdomen: Soft nontender, no rebound or guarding, positive bowel sounds Extremities: No deformity, nontender, no peripheral edema noted Neuro: Alert oriented x3, no focal deficit Psych: Normal affect Course Course Course Narrative: Viral URI COVID-19 Pneumonia Acute bronchitis COPD exacerbation Patient is 67-year-old male with extensive history of COPD with baseline O2 sat 93%. Patient states worsening cough and congestion of the past 24-36 hours. presents with similar symptoms at this time. No fever chills. Decreased relief with inhalers at home. At this time chest x-ray present DuoNeb x1 60 mg prednisone p.o. 200 mg Tessalon Perles p.o. 11:38 status post treatment increased aeration. The patient's chest x-ray was read as negative but who is here with the same symptoms was read as right middle lobe pneumonia will likely treat this patient with a Z-Cristian at this time patient denies being on any blood thinners. Will also place patient on a course of steroids with Tessalon Perles for coughing. Patient encouraged to follow-up with PCP. Return if symptoms worsen Medications Administered Discontinued Medications Generic Name Dose Route Start Last Admin Trade Name Freq PRN Reason Stop Dose Admin Benzonatate 200 mg 11/21/22 10:43 11/21/22 10:56 Benzonatate 100 Mg Capsule PO 11/21/22 10:44 200 mg ONCE ONE Administration Albuterol Sulfate 2.5 mg/ 0 mg 11/21/22 10:41 11/21/22 10:57 Albuterol/Ipratropium 3 ml INHALE 11/21/22 10:42 1 each ONCE ONE Administration Prednisone 60 mg 11/21/22 10:41 11/21/22 10:56 Prednisone 20 Mg Tablet PO 11/21/22 10:42 60 mg ONCE ONE Administration Medical Decision Making Lab Data Labs: Lab Results 11/21/22 Range/Units 10:19 Influenza Type A (PCR) NEGATIVE (Negative) Influenza Type B (PCR) NEGATIVE (Negative) RSV RNA Qual (PCR) NEGATIVE (Negative) SARS-CoV-2 RNA (RT-PCR) NEGATIVE (Negative) Radiology Impression Discussion of test interpretation with radiology: I have reviewed the radiologist's reading. Radiologist Impression: Chest x-rays negative Discharge Plan Discharge Clinical Impression: COPD exacerbation Patient Disposition: Home, Self-Care Instructions: COPD (Chronic Obstructive Pulmonary Disease) (ED) Additional Instructions: Continue breathing treatments at home Start prednisone tomorrow as he overdosed here today Other medications as directed Return if symptoms worsen Follow-up with PCP Prescriptions: New benzonatate 100 mg capsule 100 mg PO TID PRN (Reason: cough) Qty: 14 0RF prednisone 20 mg tablet 40 mg PO DAILY 5 Days Qty: 10 0RF Rx Instructions: Start prednisone 11/22/2022 azithromycin 250 mg tablet 250 mg PO DAILY 5 Days Qty: 5 0RF Rx Instructions: 500 mg day 1 250 mg day 2 through 5 No Action nitroglycerin [Nitrostat] 0.4 mg tablet, sublingual 0.4 mg sublingual Q5M PRN (Reason: chest pain) Qty: 25 0RF Rx Instructions: do not exceed 3 doses per episode losartan 50 mg tablet 50 mg PO DAILY Qty: 90 3RF rosuvastatin 40 mg tablet 40 mg PO DAILY Qty: 90 3RF Combivent Respimat 20-100 mcg/actuation mist 1 puff inhalation QID Rx Instructions: space evenly during waking hours Advair HFA 230-21 mcg/actuation HFA aerosol inhaler 1 puff inhalation BID diazepam 10 mg tablet 10 mg PO TID PRN (DME) CPAP See Rx Instructions .Route .MEDSUPPLY Qty: 1 0RF Rx Instructions: As directed cyclobenzaprine 10 mg tablet 10 mg PO TID PRN (Reason: muscle spasm) Qty: 14 0RF [id number] 3.5-10,000-1 mg/mL-unit/mL-% drops,suspension 0 drp otic (ears) atenolol 25 mg tablet 12.5 mg PO DAILY aspirin [Ecotrin Low Strength] 81 mg tablet,delayed release (DR/EC) 81 mg PO DAILY Qty: 30 1RF
[2022-11-21] MEDS: Benzonatate 100 MG CAPSULE 200 MG PO (10:56)
[2022-11-21] MEDS: predniSONE 20 MG TABLET 60 MG PO (10:56)
--- NOTE | 2022-11-21 10:58 | PC.NURSE ---
pt a&ox3, lungs in/ex wheezing, pt medicated per order, RT in to give updraft, will continue to monitor
[2022-11-21 10:59] VITALS: RESP 20; O2SAT 96
[2022-11-21 11:04] LABS: Influenza A PCR NEGATIVE (Negative); Influenza B PCR NEGATIVE (Negative); Resp Syncy Virus RNA Qual PCR NEGATIVE (Negative); SARS COV2 PCR INHOUSE NEGATIVE (Negative)
== END 2022-11-21 12:01 | disposition home or self-care (01) ==
PROVIDERS: Emergency Provider Emergency Medicine Emergency Medical Services; PCP Internal Medicine
DX: J44.1 Chronic obstructive pulmonary disease with (acute) exacerbation (principal); R06.02 Shortness of breath; Z20.822 Contact with and (suspected) exposure to COVID-19; Z20.828 Contact with and (suspected) exposure to other viral communicable diseases; Z79.899 Other long term (current) drug therapy
CPT/HCPCS: 0241U; 71046; 94640; 99283

== ENCOUNTER 2022-11-30 09:38 | Emergency (ER) | payer MEDICARE, SELFPAY ==
--- NOTE | ~2022-11-30 | XR_ITS ---
EXAMINATION: XR CHEST CLINICAL INFORMATION: Cough. COMPARISON: Chest x-ray 09/21/2022 TECHNIQUE: 2 views of the chest were obtained. FINDINGS: The lungs are hyperinflated with platelike atelectasis left lung base. Heart size and perivascular is normal. There is moderate spondylosis dorsal spine. No aggressive lytic or sclerotic process seen. XR/XR chest 2V IMPRESSION: 1. Hyperinflated lungs with platelike atelectasis left lung base. 2. Moderate spondylosis dorsal spine.
[2022-11-30 09:54] VITALS: BP 127/84; PULSE 71; RESP 18; O2SAT 92; BMI 30.7
[2022-11-30] MEDS: Albuterol/Iprat 2.5/0.5MG 3 ML AMPUL.NEB INHALE (11:23)
[2022-11-30 11:51] VITALS: PULSE 68; RESP 16; O2SAT 92
[2022-11-30 12:03] LABS: COVID-19 Test Negative (Negative); IDNOW Serial# 08D9AD1C
[2022-11-30] MEDS: predniSONE 20 MG TABLET 60 MG PO (13:22)
--- NOTE | 2022-11-30 13:29 | PC.NURSE ---
pt medicated per MAR.
== END 2022-11-30 13:30 | disposition home or self-care (01) ==
PROVIDERS: Physician Assistant Medical; Emergency Provider Emergency Medicine; PCP Internal Medicine
DX: J44.1 Chronic obstructive pulmonary disease with (acute) exacerbation (principal); R06.02 Shortness of breath; I10 Essential (primary) hypertension; E78.00 Pure hypercholesterolemia, unspecified
CPT/HCPCS: 71046; 87635; 94640; 99284

== ENCOUNTER 2023-02-10 10:35 | Outpatient (AMB) | payer MEDICARE, SELFPAY ==
[2023-02-10 10:42] VITALS: BP 122/70; PULSE 63; O2SAT 95; BMI 32.0
--- NOTE | 2023-02-10 10:42 | MHC.PC.OV ---
Vital Signs 02/10/23 10:42 Height 5 ft 6 in Weight 198 lb 8 oz BMI 32.0 BP 122/70 Blood Pressure Location Lt brachial Position Sitting Pulse 63 Pulse Source Pulse Oximeter Pulse Oximetry (%) 95 Oxygen Delivery Method Room Air Intake Visit Reasons: 2mth f/u COPD Intake Note: pt is here for COPD Manager Telecom Required: No Accompanied by: Spouse Allergies atorvastatin [Lipitor] Allergy (Unknown, Verified 02/10/23 10:46) Leg cramps ezetimibe [Zetia] Allergy (Unknown, Verified 02/10/23 10:46) shoulder pain lisinopril Allergy (Unknown, Verified 02/10/23 10:46) cough rosuvastatin [Crestor] Allergy (Unknown, Verified 02/10/23 10:46) Leg cramps Tobacco use date assessed: 12/09/22 Fall risk assessment: No Falls in past year Last assessed Fall Risk: 02/10/23 Dental Screening Dental Screen Date: 02/10/23 Did you have a dental visit in the last 12 months?: Yes Did you have a dental problem in the last 6 months where you did not have access to dental care?: No Was dental information given to patient?: Patient has dentist HPI HPI Comments History of Present Illness Details 67-year-old male past medical history significant for COPD, hypercholesteremia, ischemic cardiomyopathy, CAROL, hypertension and CAD.? Patient last seen in December for hospital discharge follow-up for COPD exacerbation. Patient reports today for follow up visit. Patient states still having chest congestion times. Patient reports seen takes Mucinex with good effect and he is able to clear out. Patient reports having to use a rescue inhaler 1 time daily occasionally twice a day based on the humidity. Patient denies fever, chills, cough. Patient reports has an appointment with pulmonology in March. Seeing [place], on abx prednisone ears stopped leaking. Patient reports started back on his ciprofloxacin ear drops as the leaking reaturned when he stopped the prednisone and antibiotics. Patient advised to follow-up with ENT to notify them that he restarted on his ciprofloxacin ear drops. COUNT INCLUDES THE [facility] Medical History Allergic rhinitis Anxiety Aortic stenosis Chronic sinusitis COPD (chronic obstructive pulmonary disease) Coronary artery disease Hypercholesterolemia Hypertension Ischemic cardiomyopathy Lyme disease Obstructive sleep apnea Otitis media Pericarditis Pulmonary nodule Sinusitis Surgical History Brain aneurysm Family History Father No problems noted. Mother CVD (cardiovascular disease) Social History Housing: House Alcohol intake: current Alcohol intake frequency: holidays/special occasions only Alcohol type: beer Patient Tobacco Use Status: Former Tobacco user e-Cigarette/Vaping Use: Never Used service: No Current occupational status: disabled Cognitive needs: No Hearing needs: No Vision needs: Yes Questionnaire Thrive Questionnaire Date Thrive assessed: 12/09/22 JEREMIAH-7 AMB Questionnaire JEREMIAH-7 Date JEREMIAH - 7 assessed: 12/09/22 Source: Developed by Drs. Bhavin Arreola, Guillermina Tyler, Fadi Ty and colleagues, with an educational juan from [employer]. Review of Systems Const Denies chills, Denies fatigue, Denies fever(s) and Denies poor appetite Eyes Denies no additional complaints ENT Reports Normal hearing present Card Denies chest pain, Denies syncope, Denies rapid heart rate and Reports dyspnea Resp Denies cough, Reports dyspnea and Reports wheezing GI Denies change in stool character, Denies constipation, Denies diarrhea, Denies nausea and Denies vomiting Denies dysuria, Denies urinary frequency and Denies urinary urgency Neuro Reports Normal hearing present, Denies confusion and Denies syncope Psych Denies confusion Endo Denies fatigue Aller/Immun Reports wheezing Physical exam (Primary Care) Vital Signs: Last Vital Signs Pulse 63 02/10/23 10:42 BP 122/70 02/10/23 10:42 Pulse Ox 95 02/10/23 10:42 Oxygen Delivery Method Room Air 02/10/23 10:42 BMI result Body Mass Index 32.0 Tobacco/Smoking Status: Tobacco use Status Tobacco use date assessed 12/09/22 02/10/23 10:43 Patient Tobacco Use Status Former Tobacco user 02/10/23 10:43 e-Cigarette/Vaping Use Never Used 02/10/23 10:43 Thrive Assessment: Date of Thrive Assessment Date Thrive assessed 12/09/22 02/10/23 10:43 Const General: No confusion Orientation/consciousness: No confusion HENMT Head: Yes normocephalic and Yes atraumatic Ears: external ears normal and TM's normal bilaterally Eyes Conjunctivae: conjunctivae normal Chest Chest palpation & inspection: normal inspection of the chest Resp Effort & Inspection: normal respiratory effort Auscultation: clear to auscultation bilaterally, crackles on the right in the lower lung luna (Fine crackle RLL), no rhonchi and no wheezes Cardio Rate: regular rate Rhythm: regular rhythm Heart sounds: S1 normal heart sound present and S2 normal heart sound present GI Inspection: Yes normal to inspection Neuro General: No confusion Cranial nerves: Yes Normal hearing present Extrem General: No edema Assessment and Plan Assessment & Plan (1) Obstructive sleep apnea: Comment: CPAP using Q night > 4 hours and benefits patient (10/2021), cannot tolerate CPAP 05/2022 Code(s): G47.33 - Obstructive sleep apnea (adult) (pediatric) Plan: Continue to use CPAP nightly for greater than 4 hours a night. (2) COPD (chronic obstructive pulmonary disease): Code(s): J44.9 - Chronic obstructive pulmonary disease, unspecified Qualifiers: COPD type: emphysema Emphysema type: unspecified Qualified Code(s): J43.9 - Emphysema, unspecified Plan: Continue on current inhalers. Patient advised to follow-up if he develops any increase or worsening shortness of breath, fevers, chills, cough Patient advise can take [id number] Mucinex for chest congestion. Keep scheduled follow-up with pulmonology (3) Hypercholesterolemia: Code(s): E78.00 - Pure hypercholesterolemia, unspecified Plan: Continue on rosuvastatin Avoid fried foods, chicken skin, eggs, butter,margarine, pastries and? red meat. Plan Keep scheduled follow-up with PCP in April follow-up sooner if needed. Coding Level of Care Code Est Pt Level 3 (39260) Diagnoses Obstructive sleep apnea G47.33 COPD (chronic obstructive pulmonary disease) J43.9 COPD type: emphysema Emphysema type: unspecified Hypercholesterolemia E78.00
== END 2023-02-10 11:15 | disposition home or self-care (01) ==
PROVIDERS: PCP Internal Medicine; Visit Provider Nurse Practitioner Family
DX: G47.33 Obstructive sleep apnea (adult) (pediatric) (principal); J43.9 Emphysema, unspecified; E78.00 Pure hypercholesterolemia, unspecified
CPT/HCPCS: 99213

== ENCOUNTER 2023-03-24 07:37 | Outpatient (REF) | payer MEDICARE, SELFPAY ==
[2023-03-24 07:54] LABS: MANUAL DIFF FLAG NO
[2023-03-24 09:15] LABS: Basophils Absolute Auto 0.1 X10*3/uL (0.0-0.2); Basophils Percent Auto 1.1 % (0-2); Eosinophils Absolute Auto 0.4 X10*3/uL (0.0-0.4); Eosinophils Percent Auto 5.4 % (0-4); Hematocrit 45.7 % (42.0-52.0); Hemoglobin 15.2 g/dl (14.0-18.0); Imm Gran Abs Auto 0.02 X10*3/uL (0.00-0.03); Imm Gran Pct Auto 0.3 % (0.0-0.4); Lymphocytes Absolute Auto 1.7 X10*3/uL (1.2-4.9); Lymphocytes Percent Auto 22.1 % (20-40); Mean Corpuscular HGB Conc 33.3 g/dl (31.0-36.0); Mean Corpuscular Volume 90.3 fL (80.0-98.0); Monocytes Absolute Auto 0.5 X10*3/uL (0.1-1.2); Neutrophils Absolute Auto 4.9 x10*3/uL (2.0-8.3); Neutrophils Percent Auto 64.1 % (45-73); Platelet Count 224 X10*3/uL (160-400); Red Blood Count 5.06 X10*6/uL (4.60-5.80); Red Cell Distribution Width 12.2 % (11.0-16.0); White Blood Count 7.6 X10*3/uL (4.8-10.8)
[2023-03-24 09:19] LABS: Estimated Average Glucose 117 mg/dL; Hemoglobin A1c % 5.7 % (<6.0)
[2023-03-24 09:48] LABS: Alanine Aminotransferase 47 U/L (0-40); Albumin Level 4.1 g/dL (3.5-5.0); Alkaline Phosphatase 81 U/L (39-117); Anion Gap 14 (12-20); Aspartate Amino Transferase 32 U/L (5-37); Bilirubin Total 0.4 mg/dL (0.0-1.0); Blood Urea Nitrogen 17 mg/dL (9-16); Calcium 8.9 mg/dL (8.4-10.2); Carbon Dioxide 28 mmol/L (22-29); Chloride 105 mmol/L (96-108); Cholesterol 120 mg/dL (<200); Estimated Glomerular Filt Rate > 60; Glucose Random 97 mg/dL (60-115); HDL Cholesterol 29 mg/dL (>40); LDL Cholesterol Calculated 72 mg/dL (<100); Potassium 4.6 mmol/L (3.3-5.1); Sodium 142 mmol/L (135-145); Triglycerides 97 mg/dL (<150)
[2023-03-24 10:12] LABS: Free T4 (Free Thyroxine) 0.77 ng/dL (0.71-1.85); Thyroid Stimulating Hormone 1.15 uIU/mL (0.32-4.0)
[2023-03-24 10:22] LABS: Prostate Specific Antigen Scr 2.35 ng/mL (<0.05-4.0); Vitamin B12 399 pg/mL (200-900)
== END 2023-03-24 07:38 | disposition home or self-care (01) ==
LOC: HO.LAB 07:37
PROVIDERS: PCP Internal Medicine; Visit Provider Internal Medicine
DX: E78.00 Pure hypercholesterolemia, unspecified (principal); Z12.5 Encounter for screening for malignant neoplasm of prostate; R73.02 Impaired glucose tolerance (oral)
CPT/HCPCS: 36415; 80053; 80061; 82607; 82746; 83036; 84153; 84439; 84443; 85025

== ENCOUNTER 2023-04-14 08:19 | Outpatient (AMB) | payer MEDICARE, SELFPAY ==
[2023-04-14 08:22] VITALS: BP 104/62; PULSE 57; O2SAT 98; BMI 32.4
--- NOTE | 2023-04-14 08:22 | A.OFFPC_ITS ---
Vital Signs 04/14/23 08:22 Height 5 ft 6 in Weight 91.172 kg BMI 32.4 BP 104/62 Blood Pressure Location Lt brachial Position Sitting Pulse 57 Pulse Source Pulse Oximeter Pulse Oximetry (%) 98 Oxygen Delivery Method Room Air Intake Visit Reasons: cad Allergies atorvastatin [Lipitor] Allergy (Unknown, Verified 04/14/23 08:22) Leg cramps ezetimibe [Zetia] Allergy (Unknown, Verified 04/14/23 08:22) shoulder pain lisinopril Allergy (Unknown, Verified 04/14/23 08:22) cough rosuvastatin [Crestor] Allergy (Unknown, Verified 04/14/23 08:22) Leg cramps Medication List - Last Reconciled 04/14/23 by Mariel Smyth MD aspirin (Ecotrin Low Strength) 81 mg PO DAILY atenolol 25 mg PO DAILY azelastine 2 sprays intranasal BID [CPAP As directed] cyclobenzaprine 10 mg PO TID PRN diazepam 10 mg PO TID PRN fluticasone propion-salmeterol 230-21 mcg/actuation (Advair HFA) 2 puffs inhalation BID ipratropium-albuterol 20-100 mcg/actuation (Combivent Respimat) 1 puff inhalation QID losartan 50 mg PO DAILY nitroglycerin (Nitrostat) 0.4 mg sublingual Q5M PRN rosuvastatin 40 mg PO DAILY Tobacco use date assessed: 12/09/22 Fall risk assessment: No Falls in past year Last assessed Fall Risk: 04/14/23 Dental Screening Dental Screen Date: 04/14/23 Did you have a dental visit in the last 12 months?: Yes Did you have a dental problem in the last 6 months where you did not have access to dental care?: No Was dental information given to patient?: Patient has dentist HPI cad HPI Details 68-year-old obese male with multiple med ical problems coronary artery disease COPD hypertension obstructive sleep apnea ischemic cardiomyopathy hypercholesterolemia history of brain aneurysm aortic stenosis with large thoracic aorta coming in for follow-up. Patient was last seen in February 2023. Review of the notes patient follows up with Pulmonary seen March [address] Dowling. For the sleep apnea by Paps not been used due to postnasal drip and ear congestion patient has been advised to have low-dose CT done for lung cancer screening counseled Advair should be taking twice a day patient was given allergy nasal spray. Review of the notes patient has been seen by the nurse practitioner in December for possible hospitalization for bronchitis treated with Zithromax and prednisone. Patient also had a tele health visit in December 06 with young neuro surgery for the brain aneurysm status post coiling December 2018. Has been advised continued non operative ups revisional management MRI of the brain without contrast early December 2019 for [facility] Medical History Allergic rhinitis Anxiety Aortic stenosis Chronic sinusitis COPD (chronic obstructive pulmonary disease) Coronary artery disease Hypercholesterolemia Hypertension Ischemic cardiomyopathy Lyme disease Obstructive sleep apnea Otitis media Pericarditis Pulmonary nodule Sinusitis Surgical History Brain aneurysm Family History Father No problems noted. Mother CVD (cardiovascular disease) Social History Housing: House Alcohol intake: current Alcohol intake frequency: holidays/special occasions only Alcohol type: beer Patient Tobacco Use Status: Former Tobacco user Tobacco use type: Cigarette e-Cigarette/Vaping Use: Never Used service: No Current occupational status: disabled Cognitive needs: No Hearing needs: No Vision needs: Yes Questionnaire PHQ-9 Over the last 2 weeks, how often have you been bothered by any of the following problems? 1. Little interest or pleasure in doing things: not at all 2. Feeling down, depressed, or hopeless: not at all 3. Trouble falling or staying asleep, or sleeping too much: not at all 4. Feeling tired or having little energy: not at all 5. Poor appetite or overeating: not at all 6. Feeling bad about yourself - or that you are a failure or have let yourself or your family down: not at all 7. Trouble concentrating on things, such as reading the newspaper or watching television: not at all 8. Moving or speaking so slowly that other people could have noticed. Or the opposite - being so fidgety or restless that you have been moving around a lot more than usual: not at all 9. Thoughts that you would be better off or of hurting yourself in some way: not at all Total score: 0 Depression Screening Interpretation: Negative Depression Screening Done: Yes Source: Developed by Drs. Bhavin Arreola, Fadi Lemus and colleagues, with an educational juan from [employer]. Thrive Questionnaire Date Thrive assessed: 12/09/22 AUDIT C Alcohol Use Questionnaire (AUDIT-C) 1. How often do you have a drink containing alcohol?: Monthly or less 2. How many drinks containing alcohol do you have on a typical day when you are drinking?: 1 or 2 3. How often do you have six or more drinks on one occasion?: Never Total Score: 1 Score Reviewed/Action Taken: Yes (reviewed, no action taken) JEREMIAH-7 AMB Questionnaire JEREMIAH-7 Date JEREMIAH - 7 assessed: 12/09/22 Source: Developed by Drs. Bhavin Arreola, Fadi Lemus and colleagues, with an educational juan from [employer]. Physical exam (Primary Care) Vital Signs: Last Vital Signs Pulse 57 04/14/23 08:22 BP 104/62 04/14/23 08:22 Pulse Ox 98 04/14/23 08:22 Oxygen Delivery Method Room Air 04/14/23 08:22 BMI result Body Mass Index 32.4 Tobacco/Smoking Status: Tobacco use Status Tobacco use date assessed 12/09/22 04/14/23 08:23 Patient Tobacco Use Status Former Tobacco user 04/14/23 08:23 Tobacco use type Cigarette 04/14/23 08:23 e-Cigarette/Vaping Use Never Used 04/14/23 08:23 PHQ-9: PHQ-9 Score PHQ-9: Total score 0 04/14/23 09:02 Depression Screening Interpretation: Negative Thrive Assessment: Date of Thrive Assessment Date Thrive assessed 12/09/22 04/14/23 08:23 Const General: alert; No acute distress Eyes Conjunctivae: conjunctivae normal Resp Auscultation: clear to auscultation bilaterally Cardio Rate: regular rate Rhythm: regular rhythm GI Inspection: Yes normal to inspection Extrem General: Yes normal to inspection and No edema Office Procedures Flu Questionnaire Does the patient have a severe egg allergy?: No Does the patient have severe life threatening allergies?: No Does the patient have a fever or illness today?: No Has the patient ever had Guillain-[place] Syndrome?: No Has the patient ever had any past reaction to a flu shot?: No Immunizations flu vacc [id number] 6mos up(PF) 60 mcg(15 mcgx4)/0.5 mL IM syringe Performing Provider: Mariel Smyth MD [facility] Administered by: Jane Maldonado CMA on 04/14/23 09:31 Dose Route Admin Location Dispensed Lot Number Expiration Date NDC [employer] 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 September 2021 low normal ejection fraction mild aortic stenosis 1.6 cm2 June 2022The left ventricular systolic function is mildly decreased. The calculated ejection fraction is 52% by biplane method. - The basal inferior and basal inferolateral segments are akinetic. - Mildly increased right ventricular cavity size. - There is moderate calcification of the aortic valve. There is mild aortic valve stenosis. 1.8 Code(s): I25.10 - Atherosclerotic heart disease of [place] coronary artery without angina pectoris Qualifiers: Associated angina: without angina Coronary Disease-Associated Artery/Lesion type: [place] artery [place] vs. transplanted heart: [place] heart Qualified Code(s): I25.10 - Atherosclerotic heart disease of [place] coronary artery without angina pectoris Plan: Control the cholesterol, weight, blood pressure continue with aspirin (2) COPD (chronic obstructive pulmonary disease): Code(s): J44.9 - Chronic obstructive pulmonary disease, unspecified Qualifiers: COPD type: emphysema Emphysema type: unspecified Qualified Code(s): J43.9 - Emphysema, unspecified Plan: Patient follows up with Pulmonary and advised to increase Advair to twice a day and to rinse mouth after using patient continues on the Combivent p.r.n. (3) Hypertension: Code(s): I10 - Essential (primary) hypertension Qualifiers: Hypertension type: primary hypertension Qualified Code(s): I10 - Essential (primary) hypertension Plan: Continue with blood pressure medication. Decrease salt intake and exercise on losartan 50 mg once a day and atenolol 25 mg once a day (4) Obstructive sleep apnea: Comment: CPAP using Q night > 4 hours and benefits patient (10/2021), cannot tolerate CPAP 05/2022 Code(s): G47.33 - Obstructive sleep apnea (adult) (pediatric) Plan: Patient cannot tolerate the CPAP and has not been using it (5) Ischemic cardiomyopathy: Comment: The left ventricular systolic function is mildly decreased. The calculated ejection fraction is 52% by biplane method. - The basal inferior and basal inferolateral segments are akinetic. - Mildly increased right ventricular cavity size. - There is moderate calcification of the aortic valve. There is mild aortic valve stenosis. Code(s): I25.5 - Ischemic cardiomyopathy Plan: Continue to follow-up with cardiology (6) Hypercholesterolemia: Code(s): E78.00 - Pure hypercholesterolemia, unspecified Plan: Avoid fried foods, chicken skin, eggs, butter margarine, pastries and meat. 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, small right ICA 1.6 mm, December 2018 Code(s): I67.1 - Cerebral aneurysm, nonruptured Plan: Patient continues to follow-up with neurosurgeon and planned MRA in December 2023 (8) Obesity (BMI 30.0-34.9): Code(s): E66.9 - Obesity, unspecified Plan: Diet and exercise (9) Aortic stenosis: Comment: Echocardiogram 1.6 cm September 2021, June 2022 1.8 Code(s): I35.0 - Nonrheumatic aortic (valve) stenosis Plan: Continue to follow-up with echocardiogram (10) Impaired glucose tolerance: Code(s): R73.02 - Impaired glucose tolerance (oral) Plan: Decrease the amount of carbohydrate intake, pasta, bread, rice and potatoes are all sugar and that is aside from all the sweet stuff, remember that fruits are good but they are Sweet also. (11) Right shoulder pain: Code(s): M25.511 - Pain in right shoulder (12) Knee osteoarthritis: Code(s): M17.9 - Osteoarthritis of knee, unspecified Plan: discussed about glucosamine chondroitin and dicofenac gel (13) Nasal congestion: Code(s): R09.81 - Nasal congestion Plan: will be seeing ENT . placed on azelastine nasal spray (14) Generalized anxiety disorder: Code(s): F41.1 - Generalized anxiety disorder Orders: Orders Influenza [id number] Immunization Today Z23 - Encounter for immunization Medications: New azelastine administer into each nostril 2 sprays intranasal BID 30 mL 0RF diazepam 10 mg PO TID PRN 90 tabs 0RF anxiety F41.1 - Generalized anxiety dis order, H66.90 - Otitis media, unspecified, unspecified ear Coding Level of Care Code Est Pt Level 4 (93841) Diagnoses Coronary artery disease involving [place] coronary artery of [place] heart without angina pectoris I25.10 Associated angina: without angina Coronary Disease-Associated Artery/Lesion type: [place] artery [place] vs. transplanted heart: [place] heart Pulmonary emphysema, unspecified emphysema type J43.9 COPD type: emphysema Emphysema type: unspecified Primary hypertension I10 Hypertension type: primary hypertension Obstructive sleep apnea G47.33 Ischemic cardiomyopathy I25.5 Hypercholesterolemia E78.00 Brain aneurysm I67.1 Obesity (BMI 30.0-34.9) E66.9 Aortic stenosis I35.0 Impaired glucose tolerance R73.02 Right shoulder pain M25.511 Knee osteoarthritis M17.9 Nasal congestion R09.81 Generalized anxiety disorder F41.1 Additional Codes PHQ-9 - 73886 - PHQ-9 Billing: ([id number])
== END 2023-04-14 09:43 | disposition home or self-care (01) ==
PROVIDERS: PCP Internal Medicine; Visit Provider Internal Medicine
DX: Z23 Encounter for immunization (principal)
CPT/HCPCS: 90471; 90686; 99214

== ENCOUNTER 2023-04-27 12:13 | Outpatient (REF) | payer MEDICARE, SELFPAY | END 2023-04-27 12:14 | disposition home or self-care (01) | LOC: HO.HOSX 12:13 | PROVIDERS: Visit Provider Orthopaedic Surgery | DX: Z13.89 Encounter for screening for other disorder (principal) ==

== ENCOUNTER 2023-04-28 07:55 | Outpatient (REF) | payer MEDICARE, SELFPAY ==
--- NOTE | ~2023-04-28 | XR_ITS ---
EXAMINATION: XR SHOULDER, RIGHT CLINICAL INFORMATION: Pain in right shoulder COMPARISON: None available. TECHNIQUE: Two views of the right shoulder. FINDINGS: Mild degenerative changes in the acromioclavicular joint with joint space narrowing and hypertrophic change. Degenerative changes with hypertrophic change along the glenoid. Irregular 1.5 cm, heterogeneous calcification in the soft tissues adjacent to the humeral head of indeterminate etiology. Evaluation limited as only AP and Y transscapular views were provided for requesting physician. XR/XR shoulder RT min 2V IMPRESSION: Mild degenerative changes in the acromioclavicular and glenohumeral joints. Irregular 1.5 cm, heterogeneous calcification in the soft tissues adjacent to the humeral head of indeterminate etiology. Evaluation limited as only AP and Y transscapular views were provided for requesting physician. Dedicated series of images, CT scan or MRI should be considered for further evaluation. .
== END 2023-04-28 07:56 | disposition home or self-care (01) ==
LOC: HO.HOSX 07:55
PROVIDERS: Visit Provider Orthopaedic Surgery
DX: M25.511 Pain in right shoulder (principal); M25.811 Other specified joint disorders, right shoulder; Z79.899 Other long term (current) drug therapy
CPT/HCPCS: 20610; 73030; 99202; J3301

== ENCOUNTER 2023-04-28 10:02 | Outpatient (AMB) | payer MEDICARE, SELFPAY ==
--- NOTE | 2023-04-28 10:04 | MHC.OFFVIS ---
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 X rays were updated in the office today. The patient reports he previously had injections for cortisone 20 years ago and it helped. He would like to have injections today. He has never had physical therapy for his shoulder. He has not tried ice or heat and he takes ibuprofen as needed. He denies any weakness. He denies any numbness or tingling in either of his upper extremities. Allergies atorvastatin [Lipitor] Allergy (Unknown, Verified 04/28/23 10:04) Leg cramps ezetimibe [Zetia] Allergy (Unknown, Verified 04/28/23 10:04) shoulder pain lisinopril Allergy (Unknown, Verified 04/28/23 10:04) cough rosuvastatin [Crestor] Allergy (Unknown, Verified 04/28/23 10:04) Leg cramps Medication List - Last Reconciled 04/28/23 by Jessica Estrada RN aspirin (Ecotrin Low Strength) 81 mg PO DAILY atenolol 25 mg PO DAILY azelastine 2 sprays intranasal BID [CPAP As directed] cyclobenzaprine 10 mg PO TID PRN diazepam 10 mg PO TID PRN fluticasone propion-salmeterol 230-21 mcg/actuation (Advair HFA) 2 puffs inhalation BID ipratropium-albuterol 20-100 mcg/actuation (Combivent Respimat) 1 puff inhalation QID losartan 50 mg PO DAILY nitroglycerin (Nitrostat) 0.4 mg sublingual Q5M PRN rosuvastatin 40 mg PO DAILY [facility] Medical History Aortic stenosis Chronic sinusitis Sinusitis Otitis media Lyme disease Pericarditis Allergic rhinitis Hypercholesterolemia Ischemic cardiomyopathy Obstructive sleep apnea Anxiety Pulmonary nodule Hypertension COPD (chronic obstructive pulmonary disease) Coronary artery disease Surgical History Brain aneurysm Family History Father No problems noted. Mother CVD (cardiovascular disease) Social History Housing: House Alcohol intake: current Alcohol intake frequency: holidays/special occasions only Alcohol type: beer Patient Tobacco Use Status: Former Tobacco user Tobacco use type: Cigarette e-Cigarette/Vaping Use: Never Used service: No Current occupational status: disabled Cognitive needs: No Hearing needs: No Vision needs: Yes Physical Exam Vital Signs: BMI result Body Mass Index 32.3 Const Other: Well-nourished well-developed very friendly male awake alert and oriented x3 in no acute distress Extrem Other: Bilateral upper extremity examination shows good capillary refill, no skin lesions noted, normal sensation light touch Right shoulder examination shows slightly decreased range of motion when compared to his left shoulder, 4+ out of 5 strength with supraspinatus testing, positive impingement signs, tenderness over his acromioclavicular joint, no instability Office Procedures Joint Injection/Drain Joint Injection/Drain Primary Site: right shoulder Prep: site was prepped using aseptic technique Injected: 40 mg of, Kenalog and 1% plain lidocaine Procedure: The patient tolerated the procedure well Coding 06568 - Large joint Procedure code (CPT) selection complete Results Reviewed Results Reviewed: 04/28/23 10:22 Lidocaine HCl 2 % MPF [Xylocaine 2 % MPF] 5 ml .ROUTE .STK-MED ONE Triamcinolone Acetonide [Kenalog-40] 40 mg .ROUTE .STK-MED ONE X-rays of the patient's right shoulder taken today show severe acromioclavicular joint narrowing, a type 3 acromion, no acute bony abnormalities Assessment & Plan Assessment & Plan (1) Impingement of right shoulder: Code(s): M25.811 - Other specified joint disorders, right shoulder Plan: Mr. Zuleta presents with right shoulder pain due to impingement syndrome and rotator cuff tendinosis versus possible rotator cuff tearing. I had a lengthy discussion with the patient regarding the treatment options. He does not wish to get an MRI. The risks and benefits of a cortisone injection were discussed at length with the patient. The patient wished to proceed. He tolerated the injection well. He will continue with his home stretching program and activity modifications. He will follow up with me on an as-needed basis should his symptoms not plateau at an unacceptable level over the next few months. Feel free to call me at any time should questions regarding his orthopedic management arise. Thank you very much for asking me to see this very friendly gentleman. I spent 22 minutes in reviewing the patient's records and imaging studies, seeing the patient and documenting in the medical record. Orders: Orders XR shoulder RT min 2V Today M25.511 - Pain in right shoulder AMB Joint Injection/Aspiration Today M25.811 - Other specified joint disorders, right shoulder Coding Level of Care Code New Pt Level 2 (35731) Diagnoses Impingement of right shoulder M25.811 CPT Codes Coding - 34705 Large joint: 93560 - Large joint ([id number])
[2023-04-28 10:14] VITALS: BMI 32.3
== END 2023-04-28 10:38 | disposition home or self-care (01) ==
PROVIDERS: PCP Internal Medicine; Visit Provider Orthopaedic Surgery
DX: M25.811 Other specified joint disorders, right shoulder (principal)
CPT/HCPCS: 20610; 99204

== ENCOUNTER 2023-05-02 10:43 | Outpatient (AMB) | payer MEDICARE, SELFPAY ==
--- NOTE | 2023-05-02 10:45 | MHC.OFFVIS ---
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 This has been occurring for a few months and he did try a splint for a while but he did not feel relief. He is open to injections for this today. Allergies atorvastatin [Lipitor] Allergy (Unknown, Verified 05/02/23 10:48) Leg cramps ezetimibe [Zetia] Allergy (Unknown, Verified 05/02/23 10:48) shoulder pain lisinopril Allergy (Unknown, Verified 05/02/23 10:48) cough rosuvastatin [Crestor] Allergy (Unknown, Verified 05/02/23 10:48) Leg cramps Medication List - Last Reconciled 05/02/23 by Jessica Estrada RN aspirin (Ecotrin Low Strength) 81 mg PO DAILY atenolol 25 mg PO DAILY azelastine 2 sprays intranasal BID [CPAP As directed] cyclobenzaprine 10 mg PO TID PRN diazepam 10 mg PO TID PRN fluticasone propion-salmeterol 230-21 mcg/actuation (Advair HFA) 2 puffs inhalation BID ipratropium-albuterol 20-100 mcg/actuation (Combivent Respimat) 1 puff inhalation QID losartan 50 mg PO DAILY nitroglycerin (Nitrostat) 0.4 mg sublingual Q5M PRN rosuvastatin 40 mg PO DAILY 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 The patient reports having a trigger finger on the left index finger. She states this has been occurring for months. He confirms use of a splint, which did not give him relief. He states he is open to an injection today. [facility] Medical History Aortic stenosis Chronic sinusitis Sinusitis Otitis media Lyme disease Pericarditis Allergic rhinitis Hypercholesterolemia Ischemic cardiomyopathy Obstructive sleep apnea Anxiety Pulmonary nodule Hypertension COPD (chronic obstructive pulmonary disease) Coronary artery disease Surgical History Brain aneurysm Family History Father No problems noted. Mother CVD (cardiovascular disease) Social History Housing: House Alcohol intake: current Alcohol intake frequency: holidays/special occasions only Alcohol type: beer Patient Tobacco Use Status: Former Tobacco user Tobacco use type: Cigarette e-Cigarette/Vaping Use: Never Used service: No Current occupational status: disabled Cognitive needs: No Hearing needs: No Vision needs: Yes Review of Systems Const All systems reviewed & are unremarkable except as noted in HPI and below Physical Exam Const General: cooperative and no acute distress Orientation/consciousness: patient oriented x3 Resp Effort & Inspection: normal respiratory effort and able to speak in complete sentences Cardio Peripheral pulses: Peripheral pulses 2+ throughout Skin General skin exam: no rashes or lesions noted Neuro General: patient oriented x3 Extrem Other: Bilateral index fingers: Normal to inspection. No ecchymosis, erythema, or edema. Able to perform full finger flexion, extension, abduction, adduction, finger cross, okay sign, and thumbs up without deficit. Able to make a closed fist. Sensation intact. Capillary refill is brisk. Radial pulse intact. No active locking today. Tenderness to palpation at the A1 joceline both index fingers. Office Procedures Joint Injection/Drain Joint Injection/Drain Primary Site: right trigger finger Secondary Site: left trigger finger Prep: site was prepped using aseptic technique, ethochloride spray was applied and injection warnings given Injected: with 1 mL of (2% plain lido ) and decadron (1cc) Approach Used: other (A1 Joceline ) Procedure: The patient tolerated the procedure well, but had some pain with the injection and there was some relief with the local anesthesia Coding 45274 - Small Joint Procedure code (CPT) selection complete Results Reviewed Results Reviewed: 05/02/23 10:59 Lidocaine HCl 1 % [Xylocaine 1 %] 2 ml .ROUTE .STK-MED ONE dexAMETHasone sod phosphate [Decadron] 4 mg .ROUTE .STK-MED ONE Assessment & Plan Assessment & Plan (1) Trigger finger, right index finger: Code(s): M65.321 - Trigger finger, right index finger (2) Trigger finger, left index finger: Code(s): M65.322 - Trigger finger, left index finger Plan Mr. Zuleta is a 68-year-old male who presents in the office today for an evaluation of left hand pain. The patient reports having a trigger finger on the left index finger. She states this has been occurring for months. He confirms use of a splint, which did not give him relief. He states he is open to an injection today. The patient was offered a cortisone injection in the bilateral left index fingers. The patient was explained the risk, benefits, and alternatives to receiving this injection. After receiving consent for the injection, the patient had the procedure done while in office today. The patient tolerated the procedure well with no complications. However, the patient also reports pain over the PIP and CMC joints of the bilateral hands. I did state that trigger finger is not related to those joints and therefore, it is likely due to arthritic pain. We will try the trigger finger injections while in the office because he is convinced he has trigger fingers and to see if this helps to alleviate is symptoms. If not he will follow up accordingly. Follow up will be PRN, or sooner if needed. Patient Instructions: Scribed for Eliane Solo PA-C by Kalani Thacker, medical service representative, on 05/02/2023 at 10:59 am, EST. Coding Level of Care Code New Pt Level 4 (75265) Diagnoses Trigger finger, right index finger M65.321 Trigger finger, left index finger M65.322 CPT Codes Coding - 76378 - Small joint: 58382 - Small Joint ([id number])
== END 2023-05-02 11:15 | disposition home or self-care (01) ==
PROVIDERS: PCP Internal Medicine; Visit Provider Physician Assistant
DX: M65.321 Trigger finger, right index finger (principal); M65.322 Trigger finger, left index finger
CPT/HCPCS: 20550; 99214

== ENCOUNTER → 2023-05-02 10:43 | Outpatient (BNVA) | payer MEDICARE, SELFPAY | PROVIDERS: PCP Internal Medicine; Visit Provider Physician Assistant | DX: M65.322 Trigger finger, left index finger (principal); M65.321 Trigger finger, right index finger | CPT/HCPCS: 20600; 99212; J1100 ==

== ENCOUNTER 2023-05-30 11:36 | Outpatient (AMB) | payer MEDICARE, SELFPAY ==
[2023-05-30 13:03] VITALS: BP 118/66; PULSE 76; TEMP 36.2; O2SAT 93; BMI 32.3
--- NOTE | 2023-05-30 13:03 | MHC.OFFWIV ---
Intake Vital Signs 05/30/23 13:03 Height 5 ft 6 in Weight 200 lb BMI 32.3 BP 118/66 Blood Pressure Location Rt brachial Position Sitting Pulse 76 Pulse Source Pulse Oximeter Temp 97.2 F Temp Source Temporal Artery Scan Pulse Oximetry (%) 93 Oxygen Delivery Method Room Air Intake Visit Reasons: est/UPPSER RESP [phone] Intake Note: pt is here for c/o upper resp issues, congestion, hx of COPD Patient Tobacco Use Status: Former Tobacco user Allergies atorvastatin [Lipitor] Allergy (Unknown, Verified 05/30/23 13:03) Leg cramps ezetimibe [Zetia] Allergy (Unknown, Verified 05/30/23 13:03) shoulder pain lisinopril Allergy (Unknown, Verified 05/30/23 13:03) cough rosuvastatin [Crestor] Allergy (Unknown, Verified 05/30/23 13:03) Leg cramps Do you need a note to return to daycare/school/sports/work: Yes HPI HPI Comments History of Present Illness Details The patient presents to urgent care for evaluation of shortness of breath cough congestion. Patient feels as though he is having COPD flare for the past several days. He has been using his nebulizer a couple times today. He denies fever chills chest pain nausea vomiting PFSH Medical History Aortic stenosis Chronic sinusitis Sinusitis Otitis media Lyme disease Pericarditis Allergic rhinitis Hypercholesterolemia Ischemic cardiomyopathy Obstructive sleep apnea Anxiety Pulmonary nodule Hypertension COPD (chronic obstructive pulmonary disease) Coronary artery disease Surgical History Brain aneurysm Family History Father No problems noted. Mother CVD (cardiovascular disease) Housing: House Alcohol intake: current Alcohol intake frequency: holidays/special occasions only Alcohol type: beer Patient Tobacco Use Status: Former Tobacco user Tobacco use type: Cigarette e-Cigarette/Vaping Use: Never Used service: No Current occupational status: disabled Cognitive needs: No Hearing needs: No Vision needs: Yes Review of Systems ENT Denies dizziness, Reports nasal congestion and Reports sore throat Card Denies rapid heart rate, Denies dyspnea and Denies dyspnea on exertion Resp Denies dyspnea and Denies dyspnea on exertion GI Denies dyspepsia and Denies heartburn Musc Denies arthralgias and Denies muscle cramps Neuro Denies dizziness, Denies focal weakness and Denies Other visual disturbances Physical Exam Vital Signs: Last Vital Signs Temp 97.2 F 05/30/23 13:03 Pulse 76 05/30/23 13:03 BP 118/66 05/30/23 13:03 Pulse Ox 93 05/30/23 13:03 Oxygen Delivery Method Room Air 05/30/23 13:03 BMI result Body Mass Index 32.3 Const General: healthy appearing and no acute distress HEENT Mouth: Normal oral and palatal mucosa present Resp Other: Bilateral coarse expiratory wheezing and rhonchi Effort & Inspection: normal respiratory effort and able to speak in complete sentences Cardio Rate: regular rate Rhythm: regular rhythm Assessment & Plan Assessment & Plan (1) COPD exacerbation: Code(s): J44.1 - Chronic obstructive pulmonary disease with (acute) exacerbation Plan Symptoms consistent with COPD flare. Patient feels very strongly that he needs an antibiotic. Discussed that prednisone and azithromycin would be a good combination. Patient initially felt that ?a Zithromax and does not work on him?. I discussed that because of his previous experience of needing another antibiotic does not mean that zpack today would be ineffective. Patient was urged to return here if symptoms worsen. Medications: New prednisone Take 4 tabs p.o. daily x4 days 10 mg PO DAILY 16 tabs 0RF azithromycin For 250 mg dose pack: take 500 mg today (day 1), then 250 mg for 4 days (days 2-5) PO 6 tabs 0RF Coding Level of Care Code Est Pt Level 3 (56151) Diagnoses COPD exacerbation J44.1
== END 2023-05-30 13:48 | disposition home or self-care (01) ==
PROVIDERS: PCP Internal Medicine; Visit Provider Emergency Medicine
DX: J44.1 Chronic obstructive pulmonary disease with (acute) exacerbation (principal)
CPT/HCPCS: 99213

== ENCOUNTER 2023-06-21 14:27 | Outpatient (AMB) | payer MEDICARE, SELFPAY ==
--- NOTE | 2023-06-21 15:34 | AM.OFFWIN_ITS ---
Intake Vital Signs 06/21/23 15:39 Height 5 ft 6 in Weight 210 lb 6 oz BMI 34.0 BP 124/80 Blood Pressure Location Rt brachial Position Sitting Pulse 70 Pulse Source Pulse Oximeter Temp 97.7 F Temp Source Oral Pulse Oximetry (%) 93 Oxygen Delivery Method Room Air Intake Visit Reasons: EP sinus congestion pressure [phone] Intake Note: Pt is here today c/o sinus congestion and pressure x1week Patient Tobacco Use Status: Former Tobacco user Allergies atorvastatin [Lipitor] Allergy (Unknown, Verified 06/21/23 15:57) Leg cramps ezetimibe [Zetia] Allergy (Unknown, Verified 06/21/23 15:57) shoulder pain lisinopril Allergy (Unknown, Verified 06/21/23 15:57) cough rosuvastatin [Crestor] Allergy (Unknown, Verified 06/21/23 15:57) Leg cramps Medication List - Last Reconciled 06/21/23 by Tod Acharya MD aspirin (Ecotrin Low Strength) 81 mg PO DAILY atenolol 25 mg PO DAILY azelastine 2 sprays intranasal BID [CPAP As directed] cyclobenzaprine 10 mg PO TID PRN diazepam 10 mg PO TID PRN fluticasone propion-salmeterol 230-21 mcg/actuation (Advair HFA) 2 puffs inhalation BID ipratropium-albuterol 20-100 mcg/actuation (Combivent Respimat) 1 puff inhalation QID losartan 50 mg PO DAILY nitroglycerin (Nitrostat) 0.4 mg sublingual Q5M PRN rosuvastatin 40 mg PO DAILY HPI EP sinus congestion pressure [phone] HPI Details Patient presents for a sick visit. Reporting symptoms of sinus congestion, sore throat and difficulty swallowing. Low-grade fever. No family member is sick. No recent travel. Patient reports symptoms of malaise and fatigue. [facility] Medical History Aortic stenosis Chronic sinusitis Sinusitis Otitis media Lyme disease Pericarditis Allergic rhinitis Hypercholesterolemia Ischemic cardiomyopathy Obstructive sleep apnea Anxiety Pulmonary nodule Hypertension COPD (chronic obstructive pulmonary disease) Coronary artery disease Surgical History Brain aneurysm Family History Father No problems noted. Mother CVD (cardiovascular disease) Social History Housing: House Alcohol intake: current Alcohol intake frequency: holidays/special occasions only Alcohol type: beer Patient Tobacco Use Status: Former Tobacco user Tobacco use type: Cigarette e-Cigarette/Vaping Use: Never Used service: No Current occupational status: disabled Cognitive needs: No Hearing needs: No Vision needs: Yes Physical Exam Vital Signs: Last Vital Signs Temp 97.7 F 06/21/23 15:39 Pulse 70 06/21/23 15:39 BP 124/80 06/21/23 15:39 Pulse Ox 93 06/21/23 15:39 Oxygen Delivery Method Room Air 06/21/23 15:39 BMI result Body Mass Index 34.0 Const General: cooperative and healthy appearing Nutritional Appearance: well nourished Orientation/consciousness: patient oriented x3 Limitations: no limitations HEENT Head: Yes normal to inspection Eyes General: appearance normal, both eyes and all related structures Neck Neck: Yes normal visual inspection Chest Chest palpation & inspection: normal palpation of entire chest wall Resp Effort & Inspection: normal respiratory effort Neuro General: patient oriented x3 Assessment & Plan Assessment & Plan (1) Upper respiratory tract infection: Code(s): J06.9 - Acute upper respiratory infection, unspecified Plan: Antibiotics ordered. Increase fluid intake. Tylenol for aches and pains. If symptoms worsen, follow-up here for a recheck. Coding Level of Care Code Est Pt Level 3 (75639) Diagnoses Upper respiratory tract infection J06.9
[2023-06-21 15:39] VITALS: BP 124/80; PULSE 70; TEMP 36.5; O2SAT 93; BMI 34.0
== END 2023-06-21 16:18 | disposition home or self-care (01) ==
PROVIDERS: PCP Internal Medicine; Visit Provider Internal Medicine
DX: J06.9 Acute upper respiratory infection, unspecified (principal)
CPT/HCPCS: 99213

== ENCOUNTER 2023-07-20 08:16 | Outpatient (AMB) | payer MEDICARE, SELFPAY ==
--- NOTE | 2023-07-20 08:24 | MHC.OFFWIV ---
Intake Vital Signs 07/20/23 08:37 Height 5 ft 6 in BP 118/68 Blood Pressure Location Rt brachial Position Sitting Pulse 80 Pulse Source Pulse Oximeter Temp 97.9 F Temp Source Oral Pulse Oximetry (%) 93 Oxygen Delivery Method Room Air Intake Visit Reasons: EP, congestion, ears clogged ([phone]) Intake Note: pt is here for c.o congestion, ears leaking since tuesday Patient Tobacco Use Status: Former Tobacco user Allergies atorvastatin [Lipitor] Allergy (Unknown, Verified 07/20/23 08:25) Leg cramps ezetimibe [Zetia] Allergy (Unknown, Verified 07/20/23 08:25) shoulder pain lisinopril Allergy (Unknown, Verified 07/20/23 08:25) cough rosuvastatin [Crestor] Allergy (Unknown, Verified 07/20/23 08:25) Leg cramps Do you need a note to return to daycare/school/sports/work: No HPI HPI Comments History of Present Illness Details This is a 68-year-old male with a past medical history of COPD not currently oxygen dependent presenting for evaluation of congestion in his ears bilaterally. Patient denies having any overt ear pain, fevers, chills, sore throat or sinus tenderness. Patient is also not coughing and denies any dyspnea. Patient has not taken any medication for treatment of his discomfort. The patient's states that he has hearing loss that she feels has worsened. [facility] Medical History Aortic stenosis Chronic sinusitis Sinusitis Otitis media Lyme disease Pericarditis Allergic rhinitis Hypercholesterolemia Ischemic cardiomyopathy Obstructive sleep apnea Anxiety Pulmonary nodule Hypertension COPD (chronic obstructive pulmonary disease) Coronary artery disease Surgical History Brain aneurysm Family History Father No problems noted. Mother CVD (cardiovascular disease) Social History Housing: House Alcohol intake: current Alcohol intake frequency: holidays/special occasions only Alcohol type: beer Patient Tobacco Use Status: Former Tobacco user Tobacco use type: Cigarette e-Cigarette/Vaping Use: Never Used service: No Current occupational status: disabled Cognitive needs: No Hearing needs: No Vision needs: Yes Review of Systems Const All systems reviewed & are unremarkable except as noted in HPI and below Eyes Reports no additional complaints ENT Reports otalgia (congestion, no overt pain, bilaterally), Denies post nasal drip and Denies sore throat Card Reports as per HPI Resp Reports as per HPI Skin/Breast Reports system reviewed and no additional complaints, except as documented Psych Reports no additional complaints Physical Exam Vital Signs: Last Vital Signs Temp 97.9 F 07/20/23 08:37 Pulse 80 07/20/23 08:37 BP 118/68 07/20/23 08:37 Pulse Ox 93 07/20/23 08:37 Oxygen Delivery Method Room Air 07/20/23 08:37 afebrile Const General: cooperative, comfortable and no acute distress Nutritional Appearance: overweight Orientation/consciousness: patient oriented x3 Limitations: no limitations HEENT Head: Yes normal to inspection Ears: external ears normal, TM's abnormal bilaterally (bulging bilaterally, no erythema, no fluid level) and EAC's normal General nose exam: Normal external nose present Face and sinus: Yes normal facial exam and No sinus tenderness Mouth: Normal oral and palatal mucosa present and moist mucous membranes Throat: Yes posterior oropharynx normal and No postnasal drainage Eyes Conjunctivae: conjunctivae normal Sclerae: sclerae normal Pupils: Equal, round and reactive pupils present EOM: EOMs intact bilaterally Neck Lymphatic: no lymphadenopathy noted Resp Effort & Inspection: normal respiratory effort, able to speak in complete sentences, normal respiratory pattern and no use of accessory muscles Auscultation: diminished lung sounds (throughout) Cardio Rate: regular rate Rhythm: regular rhythm Skin General skin exam: no rashes or lesions noted Neuro General: patient oriented x3 Cranial nerves: Yes Equal, round and reactive pupils present Psych Appearance: grossly normal Mental Status: mental status grossly normal Insight: Good insight present (Psych) Judgement: Good judgement present (Psych) Assessment & Plan Assessment & Plan (1) Viral sinusitis: Code(s): J32.9 - Chronic sinusitis, unspecified; B97.89 - Other viral agents as the cause of diseases classified elsewhere Plan: OTC antihistamine such as loratadine daily for the next 7-10 days. Ibuprofen or Tylenol as needed. Coding Level of Care Code Est Pt Level 3 (55227) Diagnoses Viral sinusitis J32.9; B97.89 Time Spent (min) 20
[2023-07-20 08:37] VITALS: BP 118/68; PULSE 80; TEMP 36.6; O2SAT 93
== END 2023-07-20 09:31 | disposition home or self-care (01) ==
PROVIDERS: PCP Internal Medicine; Visit Provider Nurse Practitioner Family
DX: J32.9 Chronic sinusitis, unspecified (principal); B97.89 Other viral agents as the cause of diseases classified elsewhere; J44.1 Chronic obstructive pulmonary disease with (acute) exacerbation
CPT/HCPCS: 99213

== ENCOUNTER 2023-07-28 13:16 | Outpatient (AMB) | payer MEDICARE, SELFPAY ==
[2023-07-28 13:38] VITALS: BMI 33.9
--- NOTE | 2023-07-28 13:38 | A.OFFVIS_ITS ---
Intake Vital Signs 07/28/23 13:38 Height 5 ft 6 in Weight 210 lb BMI 33.9 Intake Visit Reasons: ov- right shoulder pain last injection 04/28/23 Intake Note: Neeta is 68 year old Male who present for a follow up Right shoulder pain. His last injection was 04/28/2023. The patient states that he got fairly good relief from the injection. He denies any weakness in his shoulder. He has resumed light weightlifting at home. Allergies atorvastatin [Lipitor] Allergy (Unknown, Verified 07/28/23 13:44) Leg cramps ezetimibe [Zetia] Allergy (Unknown, Verified 07/28/23 13:44) shoulder pain lisinopril Allergy (Unknown, Verified 07/28/23 13:44) cough rosuvastatin [Crestor] Allergy (Unknown, Verified 07/28/23 13:44) Leg cramps Medication List - Last Reconciled 07/28/23 by Kevin Escamilla MD aspirin (Ecotrin Low Strength) 81 mg PO DAILY atenolol 25 mg PO DAILY azelastine 2 sprays intranasal BID azelastine intranasal [CPAP As directed] cyclobenzaprine 10 mg PO TID PRN diazepam 10 mg PO TID PRN fluticasone propion-salmeterol 230-21 mcg/actuation (Advair HFA) 2 puffs inhalation BID ipratropium-albuterol 20-100 mcg/actuation (Combivent Respimat) 1 puff inhalati on QID losartan 50 mg PO DAILY nitroglycerin (Nitrostat) 0.4 mg sublingual Q5M PRN rosuvastatin 40 mg PO DAILY [facility] Medical History Aortic stenosis Chronic sinusitis Sinusitis Otitis media Lyme disease Pericarditis Allergic rhinitis Hypercholesterolemia Ischemic cardiomyopathy Obstructive sleep apnea Anxiety Pulmonary nodule Hypertension COPD (chronic obstructive pulmonary disease) Coronary artery disease Surgical History Brain aneurysm Family History Father No problems noted. Mother CVD (cardiovascular disease) Social History Housing: House Alcohol intake: current Alcohol intake frequency: holidays/special occasions only Alcohol type: beer Patient Tobacco Use Status: Former Tobacco user Tobacco use type: Cigarette e-Cigarette/Vaping Use: Never Used service: No Current occupational status: disabled Cognitive needs: No Hearing needs: No Vision needs: Yes Physical Exam Vital Signs: BMI result Body Mass Index 33.9 Const Other: Well-nourished well-developed very friendly male awake alert and oriented x3 in no acute distress Extrem Other: Bilateral upper extremity examination shows good capillary refill, no skin lesions noted, normal sensation light touch Right shoulder examination shows almost full range of motion when compared to his left shoulder, 4+ out of 5 strength with supraspinatus testing, positive impingement signs, tenderness over his acromioclavicular joint, no instability Results Reviewed Results Reviewed: X-rays of the patient's right shoulder show severe acromioclavicular joint narrowing, a type 3 acromion, no acute bony abnormalities Assessment & Plan Assessment & Plan (1) Impingement of right shoulder: Code(s): M25.811 - Other specified joint disorders, right shoulder Plan Mr. Zuleta presents with intermittent right shoulder discomfort due to impingement syndrome. I had a lengthy discussion with the patient regarding the treatment options. At this point the patient's symptoms are tolerable to him. He will continue with his home exercise program. The do's and don'ts of lifting were discussed at length with the patient. He will follow up with me on an as- needed basis should his symptoms worsen in any way. Feel free to call me at any time should questions regarding his orthopedic management arise. I spent 22 minutes in reviewing the patient's records and imaging studies, seeing the patient and documenting in the medical record. Coding Level of Care Code Est Pt Level 2 (27313) Diagnoses Impingement of right shoulder M25.811
== END 2023-07-28 14:06 | disposition home or self-care (01) ==
PROVIDERS: PCP Internal Medicine; Visit Provider Orthopaedic Surgery
DX: M75.41 Impingement syndrome of right shoulder (principal); M25.811 Other specified joint disorders, right shoulder
CPT/HCPCS: 99213

== ENCOUNTER → 2023-07-28 13:16 | Outpatient (BNVA) | payer MEDICARE, SELFPAY | PROVIDERS: PCP Internal Medicine; Visit Provider Orthopaedic Surgery | DX: M25.811 Other specified joint disorders, right shoulder (principal) | CPT/HCPCS: 99212 ==

== ENCOUNTER → 2023-09-06 09:50 | Outpatient (REF) | payer MEDICARE, SELFPAY ==
--- NOTE | 2023-09-06 09:52 | CA_ITS ---
Transthoracic Echocardiogram Patient (Last, First, Middle): Neeta Zuleta D Gender: Male Date of : 1955 Age: 68 Procedure Date: 09/06/2023 Procedure Type: Transthoracic Echocardiogram Location: OP Height: 167.64 cm Weight: 92.99 kg BSA: 2.02 m2 Heart Rate: bpm BP: 124 / 80 mmHg Magnetic Healer: Referring MD: Arden Bustillo MD Symptoms: I35.0 - Nonrheumatic aortic (valve) stenosis Study Quality: Fair ECG Rhythm: Sinus Conclusions: - The left ventricular systolic function is mildly decreased. The calculated ejection fraction is 50% by biplane method. - The inferoseptal wall, the basal inferior, and basal inferolateral segments are akinetic. - There is moderate calcification of the aortic valve. There is mild to moderate aortic valve stenosis. Findings Left Ventricle Normal left ventricular cavity size. There is mildly increased left ventricular wall thickness. The left ventricular systolic function is mildly decreased. The calculated ejection fraction is 50% by biplane method. There is evidence of regional wall motion abnormalities. Diastolic function is normal for age. Wall Motion Rest Echo Findings The inferoseptal wall, the basal inferior, and basal inferolateral segments are akinetic. Right Ventricle Mildly increased right ventricular cavity size. There is mildly decreased right ventricular systolic function. Atria Both atria are normal in size. Aortic Valve There is moderate calcification of the aortic valve. There is mild to moderate aortic valve stenosis. There is trace (trivial) aortic valve regurgitation. Mitral Valve The mitral valve appears normal. There is trace mitral valve regurgitation. There is no mitral valve stenosis. Pulmonic Valve The pulmonic valve is likely normal. Tricuspid Valve Normal tricuspid valve structure. There is trace tricuspid valve regurgitation. There is no evidence of pulmonary hypertension. Great Vessels The asc aorta is normal in size. Venous The inferior vena cava is normal in size and collapses greater than 50% with inspiration. Pericardium/Pleural There is a trivial pericardial effusion. Prior Study Comparison No significant change compared to prior study dated: 06/21/2022. Measurements 2D Linear Measurements IVSd: 1.21 0.6-0.9/0.6-1.0 cm LVIDd: 4.52 3.9-5.3/4.2-5.9 cm LVIDd Index: 2.24 2.4-3.2/2.2-3.1 cm/m2 LVIDs: 3.05 2.0-3.6 cm LVPWd: 1.23 0.7-1.1 cm Ao Root: 3.80 2.1-3.5 cm LA Diam: 3.20 2.7-3.8/3.0-4.0 cm LAIDs Index: 1.58 1.5-2.3 cm/m2 LV Mass: 254.60 67-162/88-224 g LV Mass Index: 126.04 43-95/49-115 g/m2 LVOT Diam: 2.00 3.0+(-)1.3 cm 2D Systolic Function EF 4C: 53.60 >55% EF 2C: 44.40 >55% EF BiP: 49.70 >55% Mitral Valve MV Pk E: 0.51 MV PK A: 0.73 MV Decel Time: 190.00 E/A: 0.70 E'Lateral: 10.20 E'Medial: 5.66 E/E' Med: 9.00 E/E' Lat: 5.00 PHT: 56.00 MVA PHT: 3.93 Decel Baker: 2.68 Aortic Valve AoV Pk Naveen: 2.10 AoV Mn Naveen: 1.32 AoV VTI: 0.46 AoV Pk Grad: 18.00 Aov Mn Grad: 9.00 RUBIO Cont.VTI: 1.28 LVOT LVOT Pk Naveen: 0.75 LVOT Mn Naveen: 0.51 LVOT VTI: 0.19 LVOT Pk Grad: 2.00 LVOT Mn Grad: 1.00 LVOT Diam: 2.00 LVOT Area: 3.14 Diastolic Function MV Pk E: 0.51 MV Pk A: 0.73 E/A: 0.70 E'Medial: 5.66 E/E' Med: 9.00 E' Laterial: 10.20 E/E' Lat: 5.00 Right Ventricle TAPSE (mm): 17.00 TVS' Naveen: 9.00 Tricuspid Valve TR Pk Naveen: 1.99 TR Pk Grad: 16.00 RA Press: 3.00 RVSP: 19.00 Great Vessels Aorta Ao Root-2D: 3.80 2.0-3.7 cm Ao Asc: 3.50 2.1-3.4 cm Pulmonary Valve PV Pk Naveen: 1.06 Peak PV Grad: 4.00 Updated in Other Vendor System with Status of Final Dima Petersen MD electronically signed on 09/06/2023 10:38:12 AM with status of Final
== END ==
LOC: HO.CARD 09:50
PROVIDERS: PCP Internal Medicine; Visit Provider Internal Medicine Cardiovascular Disease
DX: I35.0 Nonrheumatic aortic (valve) stenosis (principal)
CPT/HCPCS: 93306

== ENCOUNTER → 2023-09-06 09:52 | Outpatient (BNV) | payer MEDICARE, SELFPAY | PROVIDERS: PCP Internal Medicine; Visit Provider Internal Medicine | DX: I35.0 Nonrheumatic aortic (valve) stenosis (principal) | CPT/HCPCS: 93306 ==

== ENCOUNTER 2023-09-23 14:43 | Outpatient (AMB) | payer MEDICARE, SELFPAY ==
[2023-09-23 14:48] VITALS: BP 130/70; PULSE 84; O2SAT 91; BMI 32.0
--- NOTE | 2023-09-23 14:48 | A.OFFPC_ITS ---
Vital Signs 09/23/23 14:48 Height 5 ft 6 in Weight 198 lb BMI 32.0 BP 130/70 Blood Pressure Location Lt brachial Position Sitting Pulse 84 Pulse Source Pulse Oximeter Pulse Oximetry (%) 91 L Oxygen Delivery Method Room Air Intake Visit Reasons: COPD Intake Note: Patient is here to follow up on COPD. Stone Mason Required: No Gm Video: Present Accompanied by: Spouse Allergies atorvastatin [Lipitor] Allergy (Unknown, Verified 09/23/23 14:48) Leg cramps ezetimibe [Zetia] Allergy (Unknown, Verified 09/23/23 14:48) shoulder pain lisinopril Allergy (Unknown, Verified 09/23/23 14:48) cough rosuvastatin [Crestor] Allergy (Unknown, Verified 09/23/23 14:48) Leg cramps Tobacco use date assessed: 09/23/23 Fall risk assessment: No Falls in past year Last assessed Fall Risk: 09/23/23 Dental Screening Dental Screen Date: 09/23/23 Did you have a dental visit in the last 12 months?: Yes Did you have a dental problem in the last 6 months where you did not have access to dental care?: No Was dental information given to patient?: Patient has dentist HPI COPD HPI Details 68-year-old obese male with hypertension COPD coronary artery disease obstructive sleep apnea cardiomyopathy hypercholesterolemia history of brain aneurysm aortic stenosis impaired glucose tolerance coming in for follow-up. Patient was last seen in April 2023. Declined colonoscopy.. Review of the notes had echocardiogram September 2023The left ventricular systolic function is mildly decreased. The calculated ejection fraction is 50% by biplane method. - The inferoseptal wall, the basal infer ior, and basal inferolateral segments are akinetic. - There is moderate calcification of the aortic valve. There is mild to moderate aortic valve stenosis. Patient also has been seeing orthopedics for right shoulder pain diagnosis of impingement of the right shoulder had injections done in April 2023. Patient has had recurrent sinus problems also and in May 2023 was seen by ear nose and throat diagnosis of allergic rhinitis [facility] Medical History Aortic stenosis Chronic sinusitis Sinusitis Otitis media Lyme disease Pericarditis Allergic rhinitis Hypercholesterolemia Ischemic cardiomyopathy Obstructive sleep apnea Anxiety Pulmonary nodule Hypertension COPD (chronic obstructive pulmonary disease) Coronary artery disease Surgical History Brain aneurysm Family History Father No problems noted. Mother CVD (cardiovascular disease) Social History Housing: House Alcohol intake: current Alcohol intake frequency: holidays/special occasions only Alcohol type: beer Patient Tobacco Use Status: Former Tobacco user Tobacco use type: Cigarette e-Cigarette/Vaping Use: Never Used Second Hand Smoke Exposure: Yes service: No Current occupational status: disabled Cognitive needs: No Hearing needs: No Vision needs: Yes Questionnaire PHQ-9 Over the last 2 weeks, how often have you been bothered by any of the following problems? 1. Little interest or pleasure in doing things: not at all 2. Feeling down, depressed, or hopeless: not at all 3. Trouble falling or staying asleep, or sleeping too much: not at all 4. Feeling tired or having little energy: not at all 5. Poor appetite or overeating: not at all 6. Feeling bad about yourself - or that you are a failure or have let yourself or your family down: not at all 7. Trouble concentrating on things, such as reading the newspaper or watching television: not at all 8. Moving or speaking so slowly that other people could have noticed. Or the opposite - being so fidgety or restless that you have been moving around a lot more than usual: not at all 9. Thoughts that you would be better off or of hurting yourself in some way: not at all Total score: 0 Depression Screening Interpretation: Negative Depression Screening Done: Yes Source: Developed by Drs. Bhavin Arreola, Guillermina Tyler, Fadi Ty and colleagues, with an educational juan from [employer]. Thrive Questionnaire Date Thrive assessed: 09/23/23 I am a: Patient What is your living situation today?: I have a steady place to live Within the past 12 months, did the food you bought not last and you didn't have the money to get more?: Never true Within the past 12 months, did you worry whether your food would run out before you got money to buy more?: Never true Do you have trouble paying for medicines?: No Do you have trouble getting transportation to medical appointments?: No Do you have trouble paying your heating and electricity bill?: No Do you have trouble taking care of your child, family member or friend?: No Do you have trouble with day-to-day activities such as bathing, preparing meals, shopping, managing finances, etc.?: No Are you currently unemployed and looking for a job?: No Are you interested in more education?: No Currently or been in a relationship where the following occur: no concerns reported THRIVE Score: 0 AUDIT C Alcohol Use Questionnaire (AUDIT-C) 1. How often do you have a drink containing alcohol?: Monthly or less 2. How many drinks containing alcohol do you have on a typical day when you are drinking?: 1 or 2 Total Score: 1 JEREMIAH-7 AMB Questionnaire JEREMIAH-7 Date JEREMIAH - 7 assessed: 09/23/23 Feeling nervous, anxious, or on edge: 0 = Not at all Not being able to stop or control worryin = Not at all Worrying too much about different things: 0 = Not at all Trouble relaxin = Not at all Being so restless that it is hard to sit still: 0 = Not at all Becoming easily annoyed or irritable: 0 = Not at all Feeling afraid as if something awful might happen: 0 = Not at all Total JEREMIAH-7 score (0-4 normal; 5-9 mild; 10-14 moderate; 15-21 severe): 0 Source: Developed by Drs. Bhavin Arreola, Guillermina Tyler, Fadi Ty and colleagues, with an educational juan from [employer]. Physical exam (Primary Care) Vital Signs: Last Vital Signs Pulse 84 09/23/23 14:48 BP 130/70 09/23/23 14:48 Pulse Ox 91 L 09/23/23 14:48 Oxygen Delivery Method Room Air 09/23/23 14:48 BMI result Body Mass Index 32.0 Tobacco/Smoking Status: Tobacco use Status Tobacco use date assessed 09/23/23 09/23/23 14:50 Patient Tobacco Use Status Former Tobacco user 09/23/23 14:50 Tobacco use type Cigarette 09/23/23 14:50 e-Cigarette/Vaping Use Never Used 09/23/23 14:50 PHQ-9: PHQ-9 Score PHQ-9: Total score 0 09/23/23 14:50 Depression Screening Interpretation: Negative Thrive Assessment: Date of Thrive Assessment Date Thrive assessed 09/23/23 09/23/23 14:50 Currently or been in a relationship where the following occur: no concerns reported Const General: alert; No acute distress Eyes Conjunctivae: conjunctivae normal Resp Auscultation: clear to auscultation bilaterally Cardio Rate: regular rate Rhythm: regular rhythm GI Inspection: Yes normal to inspection Extrem General: Yes normal to inspection and No edema Assessment and Plan Assessment & Plan (1) Coronary artery disease: Comment: NSTEMI July 2013 angioplasty EF 50-55% akinetic inferobasal 01/2018, echo February 2019 low normal ejection fraction grade 1 diastolic dysfunction. September 2021 low normal ejection fraction mild aortic stenosis 1.6 cm2 June 2022The left ventricular systolic function is mildly decreased. The calculated ejection fraction is 52% by biplane method. - The basal inferior and basal inferolateral segments are akinetic. - Mildly increased right ventricular cavity size. - There is moderate calcification of the aortic valve. There is mild aortic valve stenosis. 1.8 Code(s): I25.10 - Atherosclerotic heart disease of [place] coronary artery without angina pectoris Qualifiers: Coronary Disease-Associated Artery/Lesion type: [place] artery [place] vs. transplanted heart: [place] heart Associated angina: without angina Qualified Code(s): I25.10 - Atherosclerotic heart disease of [place] coronary artery without angina pectoris Plan: Control the cholesterol, weight, blood pressure and continue with aspirin (2) COPD (chronic obstructive pulmonary disease): Code(s): J44.9 - Chronic obstructive pulmonary disease, unspecified Qualifiers: COPD type: emphysema Emphysema type: unspecified Qualified Code(s): J43.9 - Emphysema, unspecified Plan: Continue with the inhalers as needed has Jeaniet (3) Hypertension: Code(s): I10 - Essential (primary) hypertension Qualifiers: Hypertension type: primary hypertension Qualified Code(s): I10 - Essential (primary) hypertension Plan: Continue with blood pressure medication. Decrease salt intake and exercise takes losartan 50 mg once a day atenolol 25 mg once a day (4) Obstructive sleep apnea: Comment: CPAP using Q night > 4 hours and benefits patient (10/2021), cannot tolerate CPAP 05/2022 Code(s): G47.33 - Obstructive sleep apnea (adult) (pediatric) Plan: Continue with CPAP more than 4 hours a night and benefits from this (5) Ischemic cardiomyopathy: Comment: The left ventricular systolic function is mildly decreased. The calculated ejection fraction is 52% by biplane method. - The basal inferior and basal inferolateral segments are akinetic. - Mildly increased right ventricular cavity size. - There is moderate calcification of the aortic valve. There is mild aortic valve stenosis. Code(s): I25.5 - Ischemic cardiomyopathy Plan: Continued follow-up with cardiology (6) Hypercholesterolemia: Code(s): E78.00 - Pure hypercholesterolemia, unspecified Plan: Avoid fried foods, chicken skin, eggs, butter margarine, pastries and meat. Be it pork or beef they have a lot of cholesterol LDL goal of less than 70 and triglyceride of less than 150. 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 (8) Obesity (BMI 30.0-34.9): Code(s): E66.9 - Obesity, unspecified Plan: Diet and exercise (9) Aortic stenosis: Comment: Echocardiogram 1.6 cm September 2021, June 2022 1.8 Code(s): I35.0 - Nonrheumatic aortic (valve) stenosis Plan: Continue to monitor. Medications: Refilled aspirin (Ecotrin Low Strength) 81 mg PO DAILY 30 tabs 1RF diazepam 10 mg PO TID PRN 90 tabs 0RF anxiety F41.1 - Generalized anxiety disorder, H66.90 - Otitis media, unspecified, unspecified ear losartan 50 mg PO DAILY 90 tabs 3RF nitroglycerin (Nitrostat) do not exceed 3 doses per episode 0.4 mg sublingual Q5M PRN 25 tabs 0RF chest pain rosuvastatin 40 mg PO DAILY 90 tabs 3RF atenolol 25 mg PO DAILY 90 tabs 2RF Coding Level of Care Code Est Pt Level 4 (17319) Diagnoses Coronary artery disease involving [place] coronary artery of [place] heart without angina pectoris I25.10 Coronary Disease-Associated Artery/Lesion type: [place] artery [place] vs. transplanted heart: [place] heart Associated angina: without angina Pulmonary emphysema, unspecified emphysema type J43.9 COPD type: emphysema Emphysema type: unspecified Primary hypertension I10 Hypertension type: primary hypertension Obstructive sleep apnea G47.33 Ischemic cardiomyopathy I25.5 Hypercholesterolemia E78.00 Brain aneurysm I67.1 Obesity (BMI 30.0-34.9) E66.9 Aortic stenosis I35.0
== END 2023-09-23 15:41 | disposition home or self-care (01) ==
PROVIDERS: PCP Internal Medicine; Visit Provider Internal Medicine
DX: I25.10 Atherosclerotic heart disease of native coronary artery without angina pectoris (principal); J43.9 Emphysema, unspecified; E66.9 Obesity, unspecified; Z68.32 Body mass index [BMI] 32.0-32.9, adult; I10 Essential (primary) hypertension; G47.33 Obstructive sleep apnea (adult) (pediatric); I25.5 Ischemic cardiomyopathy; E78.00 Pure hypercholesterolemia, unspecified; I67.1 Cerebral aneurysm, nonruptured; I35.0 Nonrheumatic aortic (valve) stenosis
CPT/HCPCS: 99214

== ENCOUNTER 2023-09-29 10:33 | Outpatient (AMB) | payer MEDICARE, SELFPAY ==
[2023-09-29 10:42] VITALS: BP 120/80; PULSE 77; BMI 31.3
--- NOTE | 2023-09-29 10:42 | A.OFFVIS_ITS ---
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 Required: No Allergies atorvastatin [Lipitor] Allergy (Unknown, Verified 09/23/23 14:48) Leg cramps ezetimibe [Zetia] Allergy (Unknown, Verified 09/23/23 14:48) shoulder pain lisinopril Allergy (Unknown, Verified 09/23/23 14:48) cough rosuvastatin [Crestor] Allergy (Unknown, Verified 09/23/23 14:48) Leg cramps Medication List - Last Reconciled 09/29/23 by Arden Bustillo MD amoxicillin-pot clavulanate 875-125 mg 1 tab PO BID aspirin (Ecotrin Low Strength) 81 mg PO DAILY atenolol 25 mg PO DAILY azelastine intranasal ciprofloxacin-dexamethasone 0.3-0.1 % drps otic (ears) [CPAP As directed] cyclobenzaprine 10 mg PO TID PRN diazepam 10 mg PO TID PRN fluticasone propion-salmeterol 500-50 mcg/dose (Wixela Inhub) 1 inh inhalation BID ipratropium-albuterol 20-100 mcg/actuation (Combivent Respimat) 1 puff inhalation QID losartan 50 mg PO DAILY nitroglycerin (Nitrostat) 0.4 mg sublingual Q5M PRN rosuvastatin 40 mg PO DAILY HPI HPI Comments History of Present Illness Details Neeta comes for follow up. He is accompanied by his . Said recently had some exposure to coal and subsequently developed some upper respiratory symptoms and also feels congestion in his chest. He is wheezing. Did call your office yesterday and was prescribed antibiotics. Comes today. He said generally he has no new cardiac symptoms. His echocardiogram recently shows low normal LVEF about 50% with regional wall motion of the consistent with prior myocardial infarction [id number] aortic stenosis. This is not significantly changed since before. He is taking all his medications. Denies any anginal sounding chest discomfort. Does not exercise much. Denies any heart failure symptoms of orthopnea, PND, leg edema. Takes all his medications regularly. No prolonged palpitations irregular heartbeat. [facility] Medical History Aortic stenosis Chronic sinusitis Sinusitis Otitis media Lyme disease Pericarditis Allergic rhinitis Hypercholesterolemia Ischemic cardiomyopathy Obstructive sleep apnea Anxiety Pulmonary nodule Hypertension COPD (chronic obstructive pulmonary disease) Coronary artery disease Surgical History Brain aneurysm Family History Father No problems noted. Mother CVD (cardiovascular disease) Social History Housing: House Alcohol intake: current Alcohol intake frequency: holidays/special occasions only Alcohol type: beer Patient Tobacco Use Status: Former Tobacco user Tobacco use type: Cigarette e-Cigarette/Vaping Use: Never Used Second Hand Smoke Exposure: Yes service: No Current occupational status: disabled Cognitive needs: No Hearing needs: No Vision needs: Yes Review of Systems Const Denies chills, Denies fatigue, Denies fever(s), Denies frequent falls, Denies weakness, Denies weight gain and Denies weight loss ENT Denies dizziness Card Denies chest pain, Denies leg edema, Denies lightheadedness, Denies palpitations, Denies dyspnea, Denies dyspnea on exertion, Denies orthopnea and Denies other (loss of consciousness) Resp Denies cough, Denies dyspnea and Denies dyspnea on exertion GI Denies hematochezia and Denies change in stool character Musc Denies abnormal gait, Denies muscle weakness, Denies numbness, Denies radiating pain into limb and Denies tingling Neuro Denies abnormal gait, Denies dizziness, Denies frequent falls, Denies numbness, Denies tingling and Denies weakness Endo Denies fatigue and Denies palpitations Physical Exam Vital Signs: Last Vital Signs Pulse 77 09/29/23 10:42 BP 120/80 09/29/23 10:42 BMI result Body Mass Index 31.3 Const General: cooperative, comfortable, no acute distress, alert and awake Nutritional Appearance: obese Orientation/consciousness: patient oriented x3 Limitations: no limitations Neck Neck: Yes trachea midline, Yes supple and Yes no JVD Resp Effort & Inspection: normal respiratory effort Auscultation: wheezes scattered wheezes and diminished lung sounds Cardio Jugular venous distension: no JVD Palpation: normal PMI Rate: regular rate Rhythm: regular rhythm Heart sounds: S1 normal heart sound present, S2 normal heart sound present and Murmur heart sound present systolic early and soft Skin General skin exam: no rashes or lesions noted Neuro General: patient oriented x3 and no focal motor deficits Extrem General: Yes no clubbing, cyanosis or edema Psych Appearance: grossly normal Office Procedures EKG Details: EKG shows normal sinus rhythm with prior anteroseptal DE with nonspecific ST T wave changes [id number], Complete Assessment & Plan Assessment & Plan (1) Coronary artery disease: Comment: NSTEMI July 2013 angioplasty EF 50-55% akinetic inferobasal 01/2018, echo February 2019 low normal ejection fraction grade 1 diastolic dysfunction. September 2021 low normal ejection fraction mild aortic stenosis 1.6 cm2 June 2022The left ventricular systolic function is mildly decreased. The calculated ejection fraction is 52% by biplane method. - The basal inferior and basal inferolateral segments are akinetic. - Mildly increased right ventricular cavity size. - There is moderate calcification of the aortic valve. There is mild aortic valve stenosis. 1.8 Code(s): I25.10 - Atherosclerotic heart disease of [place] coronary artery without angina pectoris Qualifiers: Coronary Disease-Associated Artery/Lesion type: [place] artery [place] vs. transplanted heart: [place] heart Associated angina: without angina Qualified Code(s): I25.10 - Atherosclerotic heart disease of [place] coronary artery without angina pectoris Plan: CAD with prior myocardial infarction with no stenting. He is currently doing well from cardiac perspective. No anginal sounding chest discomfort. Continue low-dose aspirin therapy. Continue aggressive blood pressure control which is currently well optimized. Continue high-intensity statin therapy with target goal LDL closer to 60 mg/dL. Importance of regular physical activity was discussed with him. (2) Ischemic cardiomyopathy: Comment: The left ventricular systolic function is mildly decreased. The calculated ejection fraction is 52% by biplane method. - The basal inferior and basal inferolateral segments are akinetic. - Mildly increased right ventricular cavity size. - There is moderate calcification of the aortic valve. There is mild aortic valve stenosis. Code(s): I25.5 - Ischemic cardiomyopathy Plan: Ischemic cardiomyopathy without worsening symptoms or signs of heart failure. Continue current neurohormonal modulation with atenolol and losartan. His LV systolic function has remained at low end of normal. Signs and symptoms of heart failure were discussed. Continue optimization of his pulmonary function. Given his extensive wheezing may benefit from steroid therapy. This will be pursued through your office (3) Aortic stenosis: Comment: Echocardiogram 1.6 cm September 2021, June 2022 1.8 Code(s): I35.0 - Nonrheumatic aortic (valve) stenosis Plan: Aortic stenosis with mild progression with [id number] aortic stenosis. Continue aggressive vascular risk factor modifications above. No interventions required at this point time. Follow-up echocardiogram in 1 year's time. Will follow up in the clinic in 1 year's time, sooner p.r.n.. Thank you for allowing me to partake in his care Coding Level of Care Code Est Pt Level 4 (95384) Diagnoses Coronary artery disease involving [place] coronary artery of [place] heart without angina pectoris I25.10 Coronary Disease-Associated Artery/Lesion type: [place] artery [place] vs. transplanted heart: [place] heart Associated angina: without angina Ischemic cardiomyopathy I25.5 Aortic stenosis I35.0 CPT Codes EKG - CPT: [id number], Complete ([id number])
== END 2023-09-29 11:06 | disposition home or self-care (01) ==
PROVIDERS: Visit Provider Internal Medicine Cardiovascular Disease
DX: I25.10 Atherosclerotic heart disease of native coronary artery without angina pectoris (principal); I25.5 Ischemic cardiomyopathy; I35.0 Nonrheumatic aortic (valve) stenosis
CPT/HCPCS: 93010; 99214

== ENCOUNTER → 2023-09-29 10:33 | Outpatient (BNVA) | payer MEDICARE, SELFPAY | PROVIDERS: Visit Provider Internal Medicine Cardiovascular Disease | DX: I25.10 Atherosclerotic heart disease of native coronary artery without angina pectoris (principal); I25.5 Ischemic cardiomyopathy; I35.0 Nonrheumatic aortic (valve) stenosis | CPT/HCPCS: 93005; 99212 ==

== ENCOUNTER 2024-01-25 10:05 | Outpatient (AMB) | payer MEDICARE, SELFPAY ==
[2024-01-25 10:10] VITALS: BP 142/80; PULSE 79; O2SAT 95; BMI 32.1
--- NOTE | 2024-01-25 10:10 | MHC.PC.OV ---
Vital Signs 01/25/24 10:10 01/25/24 10:51 Height 5 ft 6 in Weight 199 lb BMI 32.1 BP 142/80 H 130/80 Blood Pressure Location Lt brachial Lt brachial Position Sitting Sitting Pulse 79 Pulse Source Pulse Oximeter Pulse Oximetry (%) 95 Oxygen Delivery Method Room Air Intake Visit Reasons: 3mth f/u Allergies atorvastatin [Lipitor] Allergy (Unknown, Verified 01/25/24 10:11) Leg cramps ezetimibe [Zetia] Allergy (Unknown, Verified 01/25/24 10:11) shoulder pain lisinopril Allergy (Unknown, Verified 01/25/24 10:11) cough rosuvastatin [Crestor] Allergy (Unknown, Verified 01/25/24 10:11) Leg cramps Tobacco use date assessed: 09/23/23 Fall risk assessment: No Falls in past year Last assessed Fall Risk: 01/25/24 Dental Screening Dental Screen Date: 09/23/23 HPI 3mth f/u HPI Details 69-year-old obese male with coronary artery disease and STEMI July 2013 COPD hypertension obstructive sleep apnea ischemic cardiomyopathy hypercholesterolemia brain aneurysm aortic stenosis coming in for follow-up. Last seen in 09/21/2023. Patient has declined colonoscopy. Review of the notes has been following up with the neurosurgeon telephone visit in January 02 2024 coil embolization right superior cerebellar artery December 06/2019 8 mm coiled basilar artery 5-6 years ago. 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 Patient on Wixela. Patient also has seen Cardiology in 02/21/2024 recent echo low normal ejection fraction 50% aortic valve 1.8 target LDL closer to 60. With his ear problem ENT note 09/23/2023 diagnosis of candidal otitis externa right ear clotrimazole solution with clotrimazole betamethasone cream [facility] Medical History (Updated 01/25/24 @ 10:37 by Mariel Smyth MD) Viral sinusitis Aortic stenosis Chronic sinusitis Sinusitis Otitis media Lyme disease Pericarditis Allergic rhinitis Hypercholesterolemia Ischemic cardiomyopathy Obstructive sleep apnea Anxiety Pulmonary nodule Hypertension COPD (chronic obstructive pulmonary disease) Coronary artery disease Surgical History Brain aneurysm Family History Father No problems noted. Mother CVD (cardiovascular disease) Social History Housing: House Alcohol intake: current Alcohol intake frequency: holidays/special occasions only Alcohol type: beer Patient Tobacco Use Status: Former Tobacco user Tobacco use type: Cigarette e-Cigarette/Vaping Use: Never Used Second Hand Smoke Exposure: Yes service: No Current occupational status: disabled Cognitive needs: No Hearing needs: No Vision needs: Yes Questionnaire PHQ-9 Over the last 2 weeks, how often have you been bothered by any of the following problems? 1. Little interest or pleasure in doing things: not at all 2. Feeling down, depressed, or hopeless: not at all 3. Trouble falling or staying asleep, or sleeping too much: not at all 4. Feeling tired or having little energy: not at all 5. Poor appetite or overeating: not at all 6. Feeling bad about yourself - or that you are a failure or have let yourself or your family down: not at all 7. Trouble concentrating on things, such as reading the newspaper or watching television: not at all 8. Moving or speaking so slowly that other people could have noticed. Or the opposite - being so fidgety or restless that you have been moving around a lot more than usual: not at all 9. Thoughts that you would be better off or of hurting yourself in some way: not at all Total score: 0 Depression Screening Interpretation: Negative Depression Screening Done: Yes Source: Developed by Drs. Bhavin Arreola, Guillermina Tyler, Fadi Ty and colleagues, with an educational ujan from [employer]. Thrive Questionnaire Date Thrive assessed: 09/23/23 AUDIT C Alcohol Use Questionnaire (AUDIT-C) 1. How often do you have a drink containing alcohol?: Monthly or less 2. How many drinks containing alcohol do you have on a typical day when you are drinking?: 1 or 2 Total Score: 1 JEREMIAH-7 AMB Questionnaire JEREMIAH-7 Date JEREMIAH - 7 assessed: 09/23/23 Source: Developed by Drs. Bhavin Arreola, Guillermina Tyler, Fadi Ty and colleagues, with an educational juan from [employer]. Physical exam (Primary Care) Vital Signs: Last Vital Signs Pulse 79 01/25/24 10:10 BP 142/80 H 01/25/24 10:10 Pulse Ox 95 01/25/24 10:10 Oxygen Delivery Method Room Air 01/25/24 10:10 BMI result Body Mass Index 32.1 Tobacco/Smoking Status: Tobacco use Status Tobacco use date assessed 09/23/23 01/25/24 10:11 Patient Tobacco Use Status Former Tobacco user 01/25/24 10:11 Tobacco use type Cigarette 01/25/24 10:11 e-Cigarette/Vaping Use Never Used 01/25/24 10:11 PHQ-9: PHQ-9 Score PHQ-9: Total score 0 01/25/24 10:11 Depression Screening Interpretation: Negative Thrive Assessment: Date of Thrive Assessment Date Thrive assessed 09/23/23 01/25/24 10:11 Const General: alert; No acute distress Eyes Conjunctivae: conjunctivae normal Resp Auscultation: clear to auscultation bilaterally Cardio Rate: regular rate Rhythm: regular rhythm GI Inspection: Yes normal to inspection Extrem General: Yes normal to inspection and No edema Assessment and Plan Assessment & Plan (1) Coronary artery disease: Comment: NSTEMI July 2013 angioplasty EF 50-55% akinetic inferobasal 01/2018, echo February 2019 low normal ejection fraction grade 1 diastolic dysfunction. September 2021 low normal ejection fraction mild aortic stenosis 1.6 cm2 June 2022The left ventricular systolic function is mildly decreased. The calculated ejection fraction is 52% by biplane method. - The basal inferior and basal inferolateral segments are akinetic. - Mildly increased right ventricular cavity size. - There is moderate calcification of the aortic valve. There is mild aortic valve stenosis. 1.8 Code(s): I25.10 - Atherosclerotic heart disease of mcgrath coronary artery without angina pectoris Qualifiers: Coronary Disease-Associated Artery/Lesion type: mcgrath artery [place] vs. transplanted heart: mcgrath heart Associated angina: without angina Qualified Code(s): I25.10 - Atherosclerotic heart disease of mcgrath coronary artery without angina pectoris Plan: Control the cholesterol, weight, blood pressure, diabetes continue on aspirin 81 mg once a day (2) COPD (chronic obstructive pulmonary disease): Code(s): J44.9 - Chronic obstructive pulmonary disease, unspecified Qualifiers: COPD type: emphysema Emphysema type: unspecified Qualified Code(s): J43.9 - Emphysema, unspecified Plan: Patient follows up with Pulmonary continuing with with Brooke and Lara (3) Hypertension: Code(s): I10 - Essential (primary) hypertension Qualifiers: Hypertension type: primary hypertension Qualified Code(s): I10 - Essential (primary) hypertension Plan: Continue with blood pressure medication. Decrease salt intake and exercise on atenolol 25 mg once a day losartan 50 mg once a day (4) Obstructive sleep apnea: Comment: CPAP using Q night > 4 hours and benefits patient (10/2021), cannot tolerate CPAP 05/2022 Code(s): G47.33 - Obstructive sleep apnea (adult) (pediatric) Plan: Continue to use the CPAP more than 4 hours a night and benefits from this (5) Ischemic cardiomyopathy: Comment: The left ventricular systolic function is mildly decreased. The calculated ejection fraction is 52% by biplane method. - The basal inferior and basal inferolateral segments are akinetic. - Mildly increased right ventricular cavity size. - There is moderate calcification of the aortic valve. There is mild aortic valve stenosis. Code(s): I25.5 - Ischemic cardiomyopathy Plan: Patient follows up with Cardiology continuing to monitor aortic valve stenosis. (6) Hypercholesterolemia: Code(s): E78.00 - Pure hypercholesterolemia, unspecified Plan: Avoid fried foods, chicken skin, eggs, butter margarine, pastries and meat. Be it pork or beef they have a lot of cholesterol LDL goal of less than 60 if possible. 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 Panel Today I10 - Essential (primary) hypertension Free T4 (Free Thyroxine) Today I10 - Essential (primary) hypertension Lipid Panel Today E78.00 - Pure hypercholesterolemia, unspecified, I10 - Essential (primary) hypertension Magnesium Today I10 - Essential (primary) hypertension Complete Blood Count Auto Diff Today I10 - Essential (primary) hypertension B Type Natriuretic Peptide Today I10 - Essential (primary) hypertension Thyroid Stimulating Hormone Today I10 - Essential (primary) hypertension Vitamin B12 and Folate Today I10 - Essential (primary) hypertension Prostate Specific Antigen Scr Today I10 - Essential (primary) hypertension Coding Level of Care Code Est Pt Level 4 (74282) Diagnoses Coronary artery disease involving mcgrath coronary artery of mcgrath heart without angina pectoris I25.10 Coronary Disease-Associated Artery/Lesion type: mcgrath artery [place] vs. transplanted heart: mcgrath heart Associated angina: without angina Pulmonary emphysema, unspecified emphysema type J43.9 COPD type: emphysema Emphysema type: unspecified Primary hypertension I10 Hypertension type: primary hypertension Obstructive sleep apnea G47.33 Ischemic cardiomyopathy I25.5 Hypercholesterolemia E78.00 Brain aneurysm I67.1 Otitis media H66.90
[2024-01-25 10:51] VITALS: BP 130/80
== END 2024-01-25 11:02 | disposition home or self-care (01) ==
PROVIDERS: PCP Internal Medicine; Visit Provider Internal Medicine
DX: I25.10 Atherosclerotic heart disease of native coronary artery without angina pectoris (principal); J43.9 Emphysema, unspecified; I10 Essential (primary) hypertension; G47.33 Obstructive sleep apnea (adult) (pediatric); I25.5 Ischemic cardiomyopathy; E78.00 Pure hypercholesterolemia, unspecified; I67.1 Cerebral aneurysm, nonruptured; H66.90 Otitis media, unspecified, unspecified ear
CPT/HCPCS: 99214

== ENCOUNTER 2024-04-03 08:49 | Outpatient (AMB) | payer MEDICARE, SELFPAY ==
--- NOTE | 2024-04-03 09:10 | AM.OFFVISNUR ---
Intake Visit Reasons: Flu Shot Allergies atorvastatin [Lipitor] Allergy (Unknown, Verified 01/25/24 10:11) Leg cramps ezetimibe [Zetia] Allergy (Unknown, Verified 01/25/24 10:11) shoulder pain lisinopril Allergy (Unknown, Verified 01/25/24 10:11) cough rosuvastatin [Crestor] Allergy (Unknown, Verified 01/25/24 10:11) Leg cramps Office Procedures Flu Questionnaire Does the patient have a severe egg allergy?: No Does the patient have severe life threatening allergies?: No Does the patient have a fever or illness today?: No Has the patient ever had Guillain-[place] Syndrome?: No Has the patient ever had any past reaction to a flu shot?: No Assessment & Plan Assessment & Plan Orders: Orders Influenza [id number] Immunization Today Z23 - Encounter for immunization Medications: New Fluarix Triv [id number] (PF) (flu vacc [id number] 6mos up(PF)) 0.5 mL IM ONCE 0.5 mL 0RF NS Z23 - Encounter for immunization
== END 2024-04-03 09:11 | disposition home or self-care (01) ==
PROVIDERS: PCP Internal Medicine; Visit Provider Internal Medicine
DX: Z23 Encounter for immunization (principal)

== ENCOUNTER → 2024-04-03 08:49 | Outpatient (BNVA) | payer MEDICARE, SELFPAY | PROVIDERS: PCP Internal Medicine; Visit Provider Internal Medicine | DX: Z23 Encounter for immunization (principal) | CPT/HCPCS: 90471; 90656 ==

== ENCOUNTER 2024-06-04 08:01 | Outpatient (REF) | payer MEDICARE, SELFPAY ==
[2024-06-04 08:19] LABS: MANUAL DIFF FLAG NO
[2024-06-04 08:25] LABS: Basophils Absolute Auto 0.1 X10*3/uL (0.0-0.2); Basophils Percent Auto 0.8 % (0-2); Eosinophils Absolute Auto 0.4 X10*3/uL (0.0-0.4); Hematocrit 46.6 % (42.0-52.0); Hemoglobin 15.2 g/dl (14.0-18.0); Imm Gran Abs Auto 0.01 X10*3/uL (0.00-0.03); Imm Gran Pct Auto 0.1 % (0.0-0.4); Lymphocytes Absolute Auto 1.7 X10*3/uL (1.2-4.9); Lymphocytes Percent Auto 22.9 % (20-40); Mean Corpuscular HGB Conc 32.6 g/dl (31.0-36.0); Mean Corpuscular Hemoglobin 29.2 pg (27.0-33.0); Mean Corpuscular Volume 89.6 fL (80.0-98.0); Monocytes Absolute Auto 0.6 X10*3/uL (0.1-1.2); Monocytes Percent Auto 7.5 % (2-11); Neutrophils Absolute Auto 4.8 x10*3/uL (2.0-8.3); Neutrophils Percent Auto 63.7 % (45-73); Platelet Count 211 X10*3/uL (160-400); Red Cell Distribution Width 13.1 % (11.0-16.0); White Blood Count 7.6 X10*3/uL (4.8-10.8)
[2024-06-04 08:56] LABS: B Type Natriuretic Peptide 20 pg/mL (<100)
[2024-06-04 09:02] LABS: Alanine Aminotransferase 49 U/L (0-40); Albumin Level 4.1 g/dL (3.5-5.0); Alkaline Phosphatase 98 U/L (39-117); Anion Gap 12 (12-20); Aspartate Amino Transferase 42 U/L (5-37); Bilirubin Total 0.5 mg/dL (0.0-1.0); Blood Urea Nitrogen 17 mg/dL (9-16); Carbon Dioxide 28 mmol/L (22-29); Chloride 107 mmol/L (96-108); Cholesterol 102 mg/dL (<200); Estimated Glomerular Filt Rate > 60; Glucose Random 107 mg/dL (60-115); HDL Cholesterol 24 mg/dL (>40); LDL Cholesterol Calculated 66 mg/dL (<100); Magnesium 2.1 mg/dL (1.6-2.6); Potassium 4.6 mmol/L (3.3-5.1); Sodium 142 mmol/L (135-145); Total Protein 7.2 g/dL (6.5-8.0); Triglycerides 60 mg/dL (<150)
[2024-06-04 09:16] LABS: Free T4 (Free Thyroxine) 0.84 ng/dL (0.71-1.85)
[2024-06-04 09:32] LABS: Folate 4.5 ng/mL (> or = 4.0); Prostate Specific Antigen Scr 2.57 ng/mL (<0.05-4.0); Vitamin B12 524 pg/mL (200-900)
== END 2024-06-04 08:02 | disposition home or self-care (01) ==
LOC: HO.LAB 08:01
PROVIDERS: PCP Internal Medicine; Visit Provider Internal Medicine
DX: I10 Essential (primary) hypertension (principal); E78.00 Pure hypercholesterolemia, unspecified; Z12.5 Encounter for screening for malignant neoplasm of prostate
CPT/HCPCS: 36415; 80053; 80061; 82607; 82746; 83735; 83880; 84153; 84439; 84443; 85025

== ENCOUNTER 2024-06-06 10:02 | Outpatient (AMB) | payer MEDICARE, SELFPAY ==
[2024-06-06 10:09] VITALS: BP 136/78; PULSE 79; O2SAT 96; BMI 33.7
--- NOTE | 2024-06-06 10:09 | MHC.PC.OV ---
Vital Signs 06/06/24 10:09 Height 5 ft 6 in Weight 209 lb BMI 33.7 BP 136/78 Blood Pressure Location Lt brachial Position Sitting Pulse 79 Pulse Source Pulse Oximeter Pulse Oximetry (%) 96 Oxygen Delivery Method Room Air Intake Visit Reasons: 3mth f/u Allergies atorvastatin [Lipitor] Allergy (Unknown, Verified 06/06/24 10:09) Leg cramps ezetimibe [Zetia] Allergy (Unknown, Verified 06/06/24 10:09) shoulder pain lisinopril Allergy (Unknown, Verified 06/06/24 10:09) cough rosuvastatin [Crestor] Allergy (Unknown, Verified 06/06/24 10:09) Leg cramps Medication List - Last Reconciled 06/06/24 by Mariel Smyth MD aspirin (Ecotrin Low Strength) 81 mg PO DAILY atenolol 25 mg PO DAILY azelastine intranasal diazepam 10 mg PO TID PRN fluticasone propion-salmeterol 500-50 mcg/dose (Wixela Inhub) 1 inh inhalation BID ipratropium-albuterol 20-100 mcg/actuation (Combivent Respimat) 1 puff inhalation QID losartan 50 mg PO DAILY magnesium 250 mg PO DAILY nitroglycerin (Nitrostat) 0.4 mg sublingual Q5M PRN rosuvastatin 40 mg PO DAILY Tobacco use date assessed: 06/06/24 Fall risk assessment: No Falls in past year Last assessed Fall Risk: 06/06/24 Dental Screening Dental Screen Date: 06/06/24 Did you have a dental visit in the last 12 months?: Yes Did you have a dental problem in the last 6 months where you did not have access to dental care?: No Was dental information given to patient?: Patient has dentist HPI 3mth f/u HPI Details The patient is a 69-year-old male presenting with multiple chronic conditions including coronary artery disease, COPD, hypertension, ischemic cardiomyopathy, and obstructive sleep apnea. He experiences issues with CPAP usage due to nasal congestion. The patient's history of obstructive sleep apnea has been complicated by intolerance to CPAP therapy due to persistent nasal blockage despite the use of nasal sprays and allergy medications. Surgical coiling was performed for a right intracranial aneurysm in 2018. A follow-up noted a small right ICA aneurysm. He has been diagnosed with aortic stenosis with an echocardiogram revealing a valve area of 1.8 cm? as of June 2022. There is also a noted history of elevated blood glucose and liver function tests, indicating potential glucose intolerance and hepatic steatosis. The patient has gained 11 pounds recently, possibly due to decreased activity and dietary indiscretions. Additionally, he suffers from generalized anxiety disorder and managed effectively with medication. Recent complaints include significant nasal congestion and generalized joint pain, possibly secondary to arthritis. - Reports difficulty maintaining physical activity due to joint pain. - Recently gained weight, reportedly 11 pounds, possibly related to dietary habits and decreased activity. - Discusses reliance on [id number] pain medications for joint discomfort. - Respiratory: Reports nasal congestion but no significant increase in phlegm production. - Musculoskeletal: Reports generalized joint pain but denies acute related injuries. - Gastrointestinal: Denies change in bowel movements. - Genitourinary: Reports strong-smelling urine. - Appetite/Nutrition: Reports recent decrease in appetite. - Labs: Elevated blood glucose noted at 107 mg/dL; LDL cholesterol recorded at 66 mg/dL; liver function tests mildly elevated. - Echocardiogram: Aortic stenosis with valve area at 1.8 cm? as of June 2022. [facility] Medical History (Updated 06/06/24 @ 15:46 by Mariel Smyth MD) Viral sinusitis Aortic stenosis Chronic sinusitis Sinusitis Otitis media Lyme disease Pericarditis Allergic rhinitis Hypercholesterolemia Ischemic cardiomyopathy Obstructive sleep apnea Anxiety Pulmonary nodule Hypertension COPD (chronic obstructive pulmonary disease) Coronary artery disease Surgical History Brain aneurysm Family History Father No problems noted. Mother CVD (cardiovascular disease) Social History Housing: House Alcohol intake: current Alcohol intake frequency: holidays/special occasions only Alcohol type: beer Patient Tobacco Use Status: Former Tobacco user Tobacco use type: Cigarette e-Cigarette/Vaping Use: Never Used Second Hand Smoke Exposure: Yes service: No Current occupational status: disabled Cognitive needs: No Hearing needs: No Vision needs: Yes Questionnaire PHQ-9 Over the last 2 weeks, how often have you been bothered by any of the following problems? 1. Little interest or pleasure in doing things: not at all 2. Feeling down, depressed, or hopeless: not at all 3. Trouble falling or staying asleep, or sleeping too much: not at all 4. Feeling tired or having little energy: not at all 5. Poor appetite or overeating: not at all 6. Feeling bad about yourself - or that you are a failure or have let yourself or your family down: not at all 7. Trouble concentrating on things, such as reading the newspaper or watching television: not at all 8. Moving or speaking so slowly that other people could have noticed. Or the opposite - being so fidgety or restless that you have been moving around a lot more than usual: not at all 9. Thoughts that you would be better off or of hurting yourself in some way: not at all Total score: 0 Depression Screening Interpretation: Negative Depression Screening Done: Yes Source: Developed by Drs. Bhavin Arreola, Guillermina Tyler, Fadi Ty and colleagues, with an educational juan from [employer]. Thrive Questionnaire Date Thrive assessed: 06/06/24 I am a: Patient What is your living situation today?: I have a steady place to live Within the past 12 months, did the food you bought not last and you didn't have the money to get more?: Never true Within the past 12 months, did you worry whether your food would run out before you got money to buy more?: Never true Do you have trouble paying for medicines?: No Do you have trouble getting transportation to medical appointments?: No Do you have trouble paying your heating and electricity bill?: No Do you have trouble taking care of your child, family member or friend?: No Do you have trouble with day-to-day activities such as bathing, preparing meals, shopping, managing finances, etc.?: No Are you currently unemployed and looking for a job?: No Are you interested in more education?: No Currently or been in a relationship where the following occur: No concerns reported THRIVE Score: 0 AUDIT C Alcohol Use Questionnaire (AUDIT-C) 1. How often do you have a drink containing alcohol?: Monthly or less 2. How many drinks containing alcohol do you have on a typical day when you are drinking?: 1 or 2 3. How often do you have six or more drinks on one occasion?: Never Total Score: 1 JEREMIAH-7 AMB Questionnaire JEREMIAH-7 Date JEREMIAH - 7 assessed: 06/06/24 Feeling nervous, anxious, or on edge: 0 = Not at all Not being able to stop or control worryin = Not at all Worrying too much about different things: 0 = Not at all Trouble relaxin = Not at all Being so restless that it is hard to sit still: 0 = Not at all Becoming easily annoyed or irritable: 0 = Not at all Feeling afraid as if something awful might happen: 0 = Not at all Total JEREMIAH-7 score (0-4 normal; 5-9 mild; 10-14 moderate; 15-21 severe): 0 Source: Developed by Drs. Bhavin Arreola, Guillermina Tyler, Fadi Ty and colleagues, with an educational juan from [employer]. Physical exam (Primary Care) Vital Signs: Last Vital Signs Pulse 79 06/06/24 10:09 BP 136/78 06/06/24 10:09 Pulse Ox 96 06/06/24 10:09 Oxygen Delivery Method Room Air 06/06/24 10:09 BMI result Body Mass Index 33.7 Tobacco/Smoking Status: Tobacco use Status Tobacco use date assessed 06/06/24 06/06/24 10:10 Patient Tobacco Use Status Former Tobacco user 06/06/24 10:10 Tobacco use type Cigarette 06/06/24 10:10 e-Cigarette/Vaping Use Never Used 06/06/24 10:10 PHQ-9: PHQ-9 Score PHQ-9: Total score 0 06/06/24 11:11 Depression Screening Interpretation: Negative Thrive Assessment: Date of Thrive Assessment Date Thrive assessed 06/06/24 06/06/24 10:10 Currently or been in a relationship where the following occur: No concerns reported Coding Level of Care Code Est Pt Level 4 (46625) Complex EM visit Add On G2211 Diagnoses COPD exacerbation J44.1 Coronary artery disease involving chitina coronary artery of chitina heart without angina pectoris I25.10 Coronary Disease-Associated Artery/Lesion type: chitina artery [place] vs. transplanted heart: chitina heart Associated angina: without angina Primary hypertension I10 Hypertension type: primary hypertension Obstructive sleep apnea G47.33 Ischemic cardiomyopathy I25.5 Hypercholesterolemia E78.00 Brain aneurysm I67.1 Obesity (BMI 30.0-34.9) E66.9 Nonrheumatic aortic valve stenosis I35.0 Cardiac valve disease etiology: nonrheumatic Generalized anxiety disorder F41.1 Assessment & Plan Assessment & Plan (1) COPD exacerbation: Code(s): J44.1 - Chronic obstructive pulmonary disease with (acute) exacerbation Category: Medical Plan: Patient is prescribed antibiotic. Declined steroids. Continue with the inhalers (2) Coronary artery disease: Comment: NSTEMI July 2013 angioplasty EF 50-55% akinetic inferobasal 01/2018, echo February 2019 low normal ejection fraction grade 1 diastolic dysfunction. September 2021 low normal ejection fraction mild aortic stenosis 1.6 cm2 June 2022The left ventricular systolic function is mildly decreased. The calculated ejection fraction is 52% by biplane method. - The basal inferior and basal inferolateral segments are akinetic. - Mildly increased right ventricular cavity size. - There is moderate calcification of the aortic valve. There is mild aortic valve stenosis. 1.8 Code(s): I25.10 - Atherosclerotic heart disease of chit[place] coronary artery without angina pectoris Category: Medical Qualifiers: Coronary Disease-Associated Artery/Lesion type: ch[place] artery [place] vs. transplanted heart: ch[place] heart Associated angina: without angina Qualified Code(s): I25.10 - Atherosclerotic heart disease of [place] coronary artery without angina pectoris Plan: Control the cholesterol, weight, blood pressure, continue with aspirin 81 mg once a day (3) Hypertension: Code(s): I10 - Essential (primary) hypertension Category: Medical Qualifiers: Hypertension type: primary hypertension Qualified Code(s): I10 - Essential (primary) hypertension Plan: Continue with blood pressure medication. Decrease salt intake and exercise continue with atenolol 25 mg once a day losartan 50 mg once a day (4) Obstructive sleep apnea: Comment: CPAP using Q night > 4 hours and benefits patient (10/2021), cannot tolerate CPAP 05/2022 Code(s): G47.33 - Obstructive sleep apnea (adult) (pediatric) Category: Medical Plan: Patient can not tolerate the CPAP (5) Ischemic cardiomyopathy: Comment: The left ventricular systolic function is mildly decreased. The calculated ejection fraction is 52% by biplane method. - The basal inferior and basal inferolateral segments are akinetic. - Mildly increased right ventricular cavity size. - There is moderate calcification of the aortic valve. There is mild aortic valve stenosis. Code(s): I25.5 - Ischemic cardiomyopathy Category: Medical Plan: Continue to follow up with Cardiology (6) Hypercholesterolemia: Code(s): E78.00 - Pure hypercholesterolemia, unspecified Category: Medical Plan: Avoid fried foods, chicken skin, eggs, butter margarine, pastries and meat. Be it pork or beef they have a lot of cholesterol on rosuvastatin 40 mg once a day (7) Brain aneurysm: Comment: Right cerebellar aneurysm status post coiling April 2018, small right ICA 1.6 mm, December 2018 Code(s): I67.1 - Cerebral aneurysm, nonruptured Category: Surgical Plan: Continue to follow-up with neurosurgeon (8) Obesity (BMI 30.0-34.9): Code(s): E66.9 - Obesity, unspecified Category: Medical Plan: Diet and exercise (9) Aortic stenosis: Comment: Echocardiogram 1.6 cm September 2021, June 2022 1.8 Code(s): I35.0 - Nonrheumatic aortic (valve) stenosis Category: Medical Qualifiers: Cardiac valve disease etiology: nonrheumatic Qualified Code(s): I35.0 - Nonrheumatic aortic (valve) stenosis Plan: Patient is being followed up with another echo next year. (10) Generalized anxiety disorder: Code(s): F41.1 - Generalized anxiety disorder Category: Medical Plan: Continue with present medication and is stable Plan - Coronary Artery Disease: Continue current regimen including aspirin and rosuvastatin 40 mg daily. - Chronic Obstructive Pulmonary Disease: Maintain use of Combivent and Wixela. Consider adding corticosteroids if symptoms persist. - Obstructive Sleep Apnea and Congestion: Continue azelastine nasal spray and Claritin. Discussed use of Flonase for additional relief. Suggest considering revisit to sleep specialist if CPAP intolerance continues. - Hypertension: Continue losartan 50 mg daily. - Congestion: Start doxycycline for sinus-related infection symptoms. - Generalized Anxiety Disorder: Continue current management and monitor symptoms. - Arthritis: Encourage Voltaren gel for joint pain. Educate on limiting use of ibuprofen to protect renal function. - General: Lifestyle modification for weight reduction recommended, increase physical activity as tolerated. I emphasized the importance of maintaining current medication for coronary artery disease and COPD. We discussed potential plans if congestion persists, including possible nasal corticosteroids. For the weight gain and joint pain, I reiterated the need for both physical activity and dietary modifications. We reviewed the current lipid management and agreed on the necessity of maintaining LDL below 70. I advised on the safe use of NSAIDs and recommended trying topical agents like Voltaren gel for joint pain. The decision to use doxycycline was confirmed due to prior success in alleviating sinusitis symptoms. We discussed the next echocardiogram for aortic stenosis monitoring to be scheduled. Instruction was given on increasing water intake to address urine concentration. - Use azelastine nasal spray regularly as prescribed. - Start doxycycline as instructed for congestion relief. - Apply Voltaren gel to affected joints as needed. - Continue taking all current prescribed medications. - Increase daily water intake to aid in urine dilution. - Follow a healthier diet and gradually increase physical activity. - Attend scheduled follow-up appointments, particularly for monitoring aortic stenosis. - Seek medical attention if symptoms worsen. Medications: New loratadine 10 mg PO DAILY 30 tabs 0RF doxycycline hyclate 100 mg PO BID 14 caps 0RF J44.1 - Chronic obstructive pulmonary disease with (acute) exacerbation
== END 2024-06-06 11:20 | disposition home or self-care (01) ==
PROVIDERS: PCP Internal Medicine; Visit Provider Internal Medicine
DX: J44.1 Chronic obstructive pulmonary disease with (acute) exacerbation (principal); I25.10 Atherosclerotic heart disease of native coronary artery without angina pectoris; Z68.33 Body mass index [BMI] 33.0-33.9, adult; E66.9 Obesity, unspecified; I10 Essential (primary) hypertension; G47.33 Obstructive sleep apnea (adult) (pediatric); I25.5 Ischemic cardiomyopathy; E78.00 Pure hypercholesterolemia, unspecified; I67.1 Cerebral aneurysm, nonruptured; I35.0 Nonrheumatic aortic (valve) stenosis; F41.1 Generalized anxiety disorder

== ENCOUNTER → 2024-06-06 10:02 | Outpatient (BNVA) | payer MEDICARE, SELFPAY | PROVIDERS: PCP Internal Medicine; Visit Provider Internal Medicine | DX: J44.1 Chronic obstructive pulmonary disease with (acute) exacerbation (principal); I25.10 Atherosclerotic heart disease of native coronary artery without angina pectoris; I10 Essential (primary) hypertension; I25.5 Ischemic cardiomyopathy; I67.1 Cerebral aneurysm, nonruptured; E78.00 Pure hypercholesterolemia, unspecified; G47.33 Obstructive sleep apnea (adult) (pediatric); E66.9 Obesity, unspecified; I35.0 Nonrheumatic aortic (valve) stenosis; F41.1 Generalized anxiety disorder | CPT/HCPCS: 96127; 99212 ==

== ENCOUNTER 2024-07-31 14:10 | Outpatient (REF) | payer MEDICARE, SELFPAY ==
--- OUTSIDE RECORDS SUMMARY | 2024-07-31 15:32 | XMS_ITS | Clinical Summary ---
Author Organization [facility] Address [address] [place] [address] Care Team Providers Care Drosser Name Role Phone Unknown, Primary Care Provider [...] this topic Medical Devices Implanted Type Area Real Time Trader Device Identifier Shelf Expiration Date Model / Serial / Lot Coil Hydroframe Hydrocoil V-Trak 19cm 6mm 10 Coil Stretch - [id number] - [id number] Implanted:Qty: 1 on 12/06/2018 at [facility] and [facility] 07/03/2023 7110-0 619 / / [id number] Coil Embolization [place] Ottosen V-Trak L28 Cm Od7 Mm 10 Coil - [id number] - [id number] Implanted:Qty: 1 on 12/06/2018 at [facility] and [facility] [employer] 07/03/2023 7110-0 728 / / [id number] Advance Directives For more information, please contact: [phone] Latest Code Status on File Code Status Date Activated Date Inactivated Comments Full Code 12/06/2018 11:09 AM 12/07/2018 4:28 PM This c ode status was ascertained in the following way: discussion with patient . Care Teams Drosser Relationship Specialty Start Date End Date Unknown, PCP - General 12/06/18
--- OUTSIDE RECORDS SUMMARY | 2024-07-31 15:32 | XMS_ITS | Encounter Summary ---
Author Organization [facility] and [facility] Address [address] [place] [address] Care Team Providers Care Chief Deputy Sheriff Name Role Phone Mariel Smyth MD Primary Care Provider [phone] Encounter Details Date Type Department Care Team (Late st Contact Info) Description 12/11/2018 Scanned Document [facility] at [address] [place] [phone] Josue Vaca MD [address] [place] [phone] Social History Tobacco Use Types Packs/Day Years [...] on filedocumented in this encounter Care Teams Chief Deputy Sheriff Relationship Specialty Start Date End Date Mariel Smyth MD [address] [place] [address] [place] [phone] PCP - General Internal Medicine 06/19/18 documented as of this encounter
--- OUTSIDE RECORDS SUMMARY | 2024-07-31 15:32 | XMS_ITS | Clinical Summary ---
Author Organization [address] [place] [address] Address [address] [place] [address] Phone Care Team Providers Care Status Controller Name Role Phone Mariel Smyth MD Primary Care Provider [phone] Surgical History Surgery Date Site/Laterality Comments OTHER SURGICAL HISTORY PROCEDURE:cerebral coiling Medical History Medical History Date Comments Hypertension DX:Hypertension Lyme disease DX:Lyme disease COPD (chronic obstructive pu lmonary disease) ([facility]) DX:COPD (chronic obstructive pulmonary disease) ([facility]) Coronary artery disease DX:Coron eric artery [...] this topic Medical Devices Implanted Type Area Clinical Study Manager Device Identifier Shelf Expiration Date Model / Serial / Lot Coil Hydroframe Hydrocoil V-Trak 19cm 6mm 10 Coil Stretch - [id number] Implanted:Qty: 1 on 12/06/2018 [employer] 07/03/2023 [id number] / / [id number] Coil Embolization [place] V-Trak L28 Cm Od7 Mm 10 Coil - [id number] Implanted:Qty: 1 on 12/06/2018 [employer] 07/03/2023 [id number] / / [id number] Care Teams Status Controller Relationship Specialty Start Date End Date Po, MD Mariel [address] [place] [address] [address] [facility] [place] [address] PCP - General Internal Medicine 06/25/24
--- OUTSIDE RECORDS SUMMARY | 2024-07-31 15:32 | XMS_ITS | Encounter Summary ---
Author Organization [facility] and [facility] Address [address] [place] [address] Care Team Providers Care Informatics Scientist Name Role Phone Mariel Smyth MD Primary Care Provider [phone] Encounter Details Date Type Department Care Team (Late st Contact Info) Description 12/15/2018 Scanned Document [facility] at [address] [address] Provider, Historical . Social History Tobacco Use [...] on filedocumented in this encounter Care Teams Informatics Scientist Relationship Specialty Start Date End Date Mariel Smyth MD [address] [place] [address] [place] [phone] PCP - General Internal Medicine 06/19/18 documented as of this encounter
--- OUTSIDE RECORDS SUMMARY | 2024-07-31 15:32 | XMS_ITS | Encounter Summary ---
Author Organization [facility] and [facility] Address [address] [place] [address] Care Team Providers Care Coding Validator Name Role Phone Mariel Smyth MD Primary Care Provider [phone] Encounter Details Date Type Department Care Team (Late st Contact Info) Description 11/13/2018 Scanned Document [facility] at [address] [address] Provider, Historical . Social History Tobacco Use [...] on filedocumented in this encounter Care Teams Coding Validator Relationship Specialty Start Date End Date Mariel Smyth MD [address] [place] [address] [place] [phone] PCP - General Internal Medicine 06/19/18 documented as of this encounter
--- OUTSIDE RECORDS SUMMARY | 2024-07-31 15:33 | XMS_ITS | Encounter Summary ---
Author Organization [facility] and [facility] Address [address] [place] [address] Care Team Providers Care Negotiator Sales Name Role Phone Mariel Smyth MD Primary Care Provider [phone] Reason for Referral * Imaging (Routine) - New Request Specialty Diagnoses / Procedures Referred By Yanna alford Referred To Contact Diagnostic Radiology Procedures MRA Brain without IV Contrast Neurosurgery at [address] [address] Phone: tel: fax: Referral ID Status Reason Start Date Expiration Date V isits Requested Visits Authorized [id number] New Request 12/30/2023 12/29/2024 1 1 Encounter Details Date Type Department Care Team (Late st Contact Info) Description 12/30/2023 Scanned Document Neurosurgery at [address] [address] Fna [place] . Social History Tobacco Use Types [...] on filedocumented in this encounter Care Teams Negotiator Sales Relationship Specialty Start Date End Date Mariel Smyth MD [address] [place] [address] [place] [phone] PCP - General Internal Medicine 06/19/18 documented as of this encounter
--- OUTSIDE RECORDS SUMMARY | 2024-07-31 15:33 | XMS_ITS | Encounter Summary ---
Author Organization [facility] and [facility] Address [address] [place] [address] Care Team Providers Care Inspector Production Plastic Parts Name Role Phone Mariel Smyth MD Primary Care Provider [phone] Reason for Visit * Reason Comments Triage Encounter Details Date Type Department Care Team ([facility] st Contact Info) Description 08/20/2021 Telephone [facility] at [address] [place] [address] Josue Vaca MD [address] [place] [address] [phone] Triage Social History Tobacco Use Types Packs/Day [...] regarding this. Please advise Mrs. Zuleta's Number: [phone] documented in this encounter Plan of Treatment Not on file documented as of this encounter Visit Diagnoses Not on filedocumented in this encounter Care Teams Inspector Production Plastic Parts Relationship Specialty Start Date End Date Po, MD Mariel [address] [place] [address] Dr Smith, PATRICE [phone] PCP - General Internal Medicine 06/19/18 documented as of this encounter
--- OUTSIDE RECORDS SUMMARY | 2024-07-31 15:33 | XMS_ITS | Encounter Summary ---
Author Organization [facility] and [facility] Address 20 [place] [address] Care Team Providers Care Bread Baker Name Role Phone Mariel Smyth MD Primary Care Provider [phone] Encounter Details Date Type Department Care Team (Late st Contact Info) Description 01/01/2020 Scanned Document [facility] SCHEDULING 25 [place], [place] [phone] Provider, Historical . Social History Tobacco Use [...] on filedocumented in this encounter Care Teams Bread Baker Relationship Specialty Start Date End Date Mariel Smyth MD [address] [place] [phone] PCP - General Internal Medicine 06/19/18 documented as of this encounter
--- OUTSIDE RECORDS SUMMARY | 2024-07-31 15:33 | XMS_ITS | Clinical Summary ---
Author Organization [facility] [employer] Address [address] [place] [address] Care Team Providers Care Behavioral Health Clinician Name Role Phone Mariel Smyth MD Primary Care Provider [phone] Allergies Active Allergy Reactions Criticality Noted Date [...] age to complete this topic Insurance MEDICARE [facility] MEDICARE [facility] MEDICARE BCBS Care Teams Behavioral Health Clinician Relationship Specialty Start Date End Date Mariel Smyth MD [address] [place] [address] [place] [phone] PCP - General Internal Medicine 06/19/18
--- OUTSIDE RECORDS SUMMARY | 2024-07-31 15:33 | XMS_ITS | Encounter Summary ---
Author Organization [facility] and [facility] Address [address] [place] [address] Care Team Providers Care Continuous Wave Operator Name Role Phone Mariel Smyth MD Primary Care Provider [phone] Encounter Details Date Type Department Care Team (Late st Contact Info) Description 04/25/2018 Scanned Document [facility] at [address] [place] [phone] Don Monique MD [address] [place] [phone] Social History Tobacco Use Types Packs/Day [...] on filedocumented in this encounter Care Teams Continuous Wave Operator Relationship Specialty Start Date End Date Mariel Smyth MD [address] [place] [address] [place] [phone] PCP - General Internal Medicine 06/19/18 documented as of this encounter
--- OUTSIDE RECORDS SUMMARY | 2024-07-31 15:33 | XMS_ITS | Encounter Summary ---
Author Organization [facility] and [facility] Address [address] [place] [address] Care Team Providers Care Retail Training Manager Name Role Phone Mariel Smyth MD Primary Care Provider [phone] Encounter Details Date Type Department Care Team (Late st Contact Info) Description 12/09/2020 Scanned Document [facility] at [address] [phone] Josue Vaca MD [address] [place] [address] [phone] Social History Tobacco Use Types Packs/Day Years [...] on filedocumented in this encounter Care Teams Retail Training Manager Relationship Specialty Start Date End Date Mariel Smyth MD [address] [place] [address] [place] [phone] PCP - General Internal Medicine 06/19/18 documented as of this encounter
--- OUTSIDE RECORDS SUMMARY | 2024-07-31 15:33 | XMS_ITS | Encounter Summary ---
Author Organization [facility] and [facility] Address [address] [place] [address] Care Team Providers Care Treasury Specialist Name Role Phone Mariel Smyth MD Primary Care Provider [phone] Encounter Details Date Type Department Care Team (Late st Contact Info) Description 06/07/2018 Scanned Document [facility] [address] [place] [address] [phone] Don Monique MD [address] [place] [address] [phone] Social History Tobacco Use Types Packs/Day Years [...] on filedocumented in this encounter Care Teams Treasury Specialist Relationship Specialty Start Date End Date Mariel Smyth MD [address] [place] [address] [place] [phone] PCP - General Internal Medicine 06/19/18 documented as of this encounter
--- OUTSIDE RECORDS SUMMARY | 2024-07-31 15:33 | XMS_ITS | Encounter Summary ---
Author Organization [facility] Address [address] [place] [address] Care Team Providers Care Fretted Instrument Inspector Name Role Phone Mariel Smyth MD Primary Care Provider [phone] Reason for Referral * Imaging (Routine) - Closed Specialty Diagnoses / Procedures Referred By Contac t Referred To Contact Diagnostic Radiology Procedures MRA Brain without IV Contrast Neurosurgery at [address] [address] Phone: tel: fax: Referral ID Status Reason Start Date Expiration Date Visits Re quested Visits Authorized [id number] Closed 12/03/2022 12/03/2023 1 1 Encounter Details Date Type Department Care Team (Late st Contact Info) Description 12/03/2022 Scanned Document Neurosurgery at [address] [place] [address] Fan [place] . Social History Tobacco Use [...] on filedocumented in this encounter Care Teams Fretted Instrument Inspector Relationship Specialty Start Date End Date Mariel Smyth MD [address] [place] [address] [facility] PATRICE [place] [phone] PCP - General Internal Medicine 06/19/18 documented as of this encounter
--- OUTSIDE RECORDS SUMMARY | 2024-07-31 15:33 | XMS_ITS | Encounter Summary ---
Author Organization [facility] and [facility] Address [address] [place] [address] Care Team Providers Care Tissue Recovery Technician Name Role Phone Mariel Smyth MD Primary Care Provider [phone] Encounter Details Date Type Department Care Team (Late st Contact Info) Description 12/28/2019 Scanned Document [facility] SCHEDULING [address] [place], [place] [phone] Provider, Historical . Social History Tobacco Use [...] on filedocumented in this encounter Care Teams Tissue Recovery Technician Relationship Specialty Start Date End Date Mariel Smyth MD [address] [place] [address] [place] [phone] PCP - General Internal Medicine 06/19/18 documented as of this encounter
[2024-07-31 16:02] LABS: Influenza A PCR NEGATIVE (Negative); Influenza B PCR NEGATIVE (Negative); Resp Syncy Virus RNA Qual PCR NEGATIVE (Negative); SARS COV2 PCR INHOUSE POSITIVE (Negative)
== END 2024-07-31 14:11 | disposition home or self-care (01) ==
LOC: HO.LAB 14:10
PROVIDERS: PCP Internal Medicine; Visit Provider Internal Medicine
DX: U07.1 COVID-19 (principal)
CPT/HCPCS: 0241U; 99212

== ENCOUNTER 2024-07-31 14:10 | Outpatient (AMB) | payer MEDICARE, SELFPAY ==
--- NOTE | 2024-07-31 14:14 | MHC.PC.OV ---
Vital Signs 07/31/24 14:16 Height 5 ft 6 in Weight 207 lb 8 oz BMI 33.5 BP 130/80 Blood Pressure Location Lt brachial Position Sitting Pulse 75 Pulse Source Pulse Oximeter Pulse Oximetry (%) 91 L Oxygen Delivery Method Room Air Intake Visit Reasons: sinus infection Certified Medication Technician Required: No Accompanied by: Spouse Allergies atorvastatin [Lipitor] Allergy (Unknown, Verified 07/31/24 14:29) Leg cramps ezetimibe [Zetia] Allergy (Unknown, Verified 07/31/24 14:29) shoulder pain lisinopril Allergy (Unknown, Verified 07/31/24 14:29) cough rosuvastatin [Crestor] Allergy (Unknown, Verified 07/31/24 14:29) Leg cramps Tobacco use date assessed: 07/31/24 Fall risk assessment: No Falls in past year Last assessed Fall Risk: 07/31/24 Dental Screening Dental Screen Date: 07/31/24 Did you have a dental visit in the last 12 months?: Yes Did you have a dental problem in the last 6 months where you did not have access to dental care?: No Was dental information given to patient?: Patient has dentist HPI sinus infection HPI Details states covid test last night positive The patient is a 69-year-old male presenting with a positive COVID-19 test result. The patient reported feeling weak and having taken multiple COVID-19 tests, with results ranging from positive to negative. The initial test was notably a year old. , which included earache, facial pain, and fatigue. Despite feeling unwell for several weeks, a recent fever of 101?F was noted post- services attended last Tuesday. The patient expressed concerns about developing bronchitis and potential postponement of surgery. He reported having started antibiotics in June, though symptoms of fatigue and malaise have persisted. The patient currently experiences respiratory symptoms with phlegm production, without a dry cough. The history also reveals concern over cholesterol management as the patient is on rosuvastatin, which should be temporarily halted during antiviral therapy for COVID-19. [facility] Medical History (Updated 07/31/24 @ 14:30 by Mariel Smyth MD) Viral sinusitis Aortic stenosis Chronic sinusitis Sinusitis Otitis media Lyme disease Pericarditis Allergic rhinitis Hypercholesterolemia Ischemic cardiomyopathy Obstructive sleep apnea Anxiety Pulmonary nodule Hypertension COPD (chronic obstructive pulmonary disease) Coronary artery disease Surgical History Brain aneurysm Family History Father No problems noted. Mother CVD (cardiovascular disease) Social History Housing: House Alcohol intake: current Alcohol intake frequency: holidays/special occasions only Alcohol type: beer Patient Tobacco Use Status: Former Tobacco user Tobacco use type: Cigarette e-Cigarette/Vaping Use: Never Used Second Hand Smoke Exposure: Yes service: No Current occupational status: disabled Cognitive needs: No Hearing needs: No Vision needs: Yes Questionnaire PHQ-9 Over the last 2 weeks, how often have you been bothered by any of the following problems? 1. Little interest or pleasure in doing things: not at all 2. Feeling down, depressed, or hopeless: not at all 3. Trouble falling or staying asleep, or sleeping too much: not at all 4. Feeling tired or having little energy: not at all 5. Poor appetite or overeating: not at all 6. Feeling bad about yourself - or that you are a failure or have let yourself or your family down: not at all 7. Trouble concentrating on things, such as reading the newspaper or watching television: not at all 8. Moving or speaking so slowly that other people could have noticed. Or the opposite - being so fidgety or restless that you have been moving around a lot more than usual: not at all 9. Thoughts that you would be better off or of hurting yourself in some way: not at all Total score: 0 Depression Screening Interpretation: Negative Depression Screening Done: Yes Source: Developed by Drs. Bhavin Arreola, Guillermina Tyler, Fadi Ty and colleagues, with an educational juan from [employer]. Thrive Questionnaire Date Thrive assessed: 07/31/24 I am a: Patient What is your living situation today?: I have a steady place to live Within the past 12 months, did the food you bought not last and you didn't have the money to get more?: Never true Within the past 12 months, did you worry whether your food would run out before you got money to buy more?: Never true Do you have trouble paying for medicines?: No Do you have trouble getting transportation to medical appointments?: No Do you have trouble paying your heating and electricity bill?: No Do you have trouble taking care of your child, family member or friend?: No Do you have trouble with day-to-day activities such as bathing, preparing meals, shopping, managing finances, etc.?: No Are you currently unemployed and looking for a job?: No Are you interested in more education?: No Currently or been in a relationship where the following occur: No concerns reported THRIVE Score: 0 AUDIT C Alcohol Use Questionnaire (AUDIT-C) 1. How often do you have a drink containing alcohol?: Monthly or less 2. How many drinks containing alcohol do you have on a typical day when you are drinking?: 1 or 2 3. How often do you have six or more drinks on one occasion?: Never Total Score: 1 JEREMIAH-7 AMB Questionnaire JEREMIAH-7 Date JEREMIAH - 7 assessed: 07/31/24 Feeling nervous, anxious, or on edge: 0 = Not at all Not being able to stop or control worryin = Not at all Worrying too much about different things: 0 = Not at all Trouble relaxin = Not at all Being so restless that it is hard to sit still: 0 = Not at all Becoming easily annoyed or irritable: 0 = Not at all Feeling afraid as if something awful might happen: 0 = Not at all Total JEREMIAH-7 score (0-4 normal; 5-9 mild; 10-14 moderate; 15-21 severe): 0 Source: Developed by Drs. Bhavin Arreola, Guillermina Tyler, Fadi Ty and colleagues, with an educational juan from [employer]. Physical exam (Primary Care) Vital Signs: Last Vital Signs Pulse 75 07/31/24 14:16 BP 130/80 07/31/24 14:16 Pulse Ox 91 L 07/31/24 14:16 Oxygen Delivery Method Room Air 07/31/24 14:16 BMI result Body Mass Index 33.5 Tobacco/Smoking Status: Tobacco use Status Tobacco use date assessed 07/31/24 07/31/24 14:19 Patient Tobacco Use Status Former Tobacco user 07/31/24 14:16 Tobacco use type Cigarette 07/31/24 14:16 e-Cigarette/Vaping Use Never Used 07/31/24 14:16 PHQ-9: PHQ-9 Score PHQ-9: Total score 0 07/31/24 14:22 Depression Screening Interpretation: Negative Thrive Assessment: Date of Thrive Assessment Date Thrive assessed 07/31/24 07/31/24 14:19 Currently or been in a relationship where the following occur: No concerns reported Const General: alert; No acute distress Eyes Conjunctivae: conjunctivae normal Resp Auscultation: clear to auscultation bilaterally Cardio Rate: regular rate Rhythm: regular rhythm GI Inspection: Yes normal to inspection Extrem General: Yes normal to inspection and No edema Coding Level of Care Code Est Pt Level 3 (82735) Diagnoses Coronary artery disease involving [place] coronary artery of [place] heart without angina pectoris I25.10 Associated angina: without angina Coronary Disease-Associated Artery/Lesion type: [place] artery [place] vs. transplanted heart: [place] heart Primary hypertension I10 Hypertension type: primary hypertension Hypercholesterolemia E78.00 Ischemic cardiomyopathy I25.5 Pulmonary emphysema, unspecified emphysema type J43.9 COPD type: emphysema Emphysema type: unspecified Obstructive sleep apnea G47.33 Brain aneurysm I67.1 Obesity (BMI 30.0-34.9) E66.9 Impaired glucose tolerance R73.02 Generalized anxiety disorder F41.1 COVID-19 virus infection U07.1 Assessment & Plan Assessment & Plan (1) Coronary artery disease: Comment: NSTEMI July 2013 angioplasty EF 50-55% akinetic inferobasal 01/2018, echo February 2019 low normal ejection fraction grade 1 diastolic dysfunction. September 2021 low normal ejection fraction mild aortic stenosis 1.6 cm2 June 2022The left ventricular systolic function is mildly decreased. The calculated ejection fraction is 52% by biplane method. - The basal inferior and basal inferolateral segments are akinetic. - Mildly increased right ventricular cavity size. - There is moderate calcification of the aortic valve. There is mild aortic valve stenosis. 1.8 Code(s): I25.10 - Atherosclerotic heart disease of [place] coronary artery without angina pectoris Category: Medical Qualifiers: Associated angina: without angina Coronary Disease-Associated Artery/Lesion type: [place] artery [place] vs. transplanted heart: [place] heart Qualified Code(s): I25.10 - Atherosclerotic heart disease of [place] coronary artery without angina pectoris Plan: on Aspirin, (2) Hypertension: Code(s): I10 - Essential (primary) hypertension Category: Medical Qualifiers: Hypertension type: primary hypertension Qualified Code(s): I10 - Essential (primary) hypertension (3) Hypercholesterolemia: Code(s): E78.00 - Pure hypercholesterolemia, unspecified Category: Medical (4) Ischemic cardiomyopathy: Comment: The left ventricular systolic function is mildly decreased. The calculated ejection fraction is 52% by biplane method. - The basal inferior and basal inferolateral segments are akinetic. - Mildly increased right ventricular cavity size. - There is moderate calcification of the aortic valve. There is mild aortic valve stenosis. 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 2018, small right ICA 1.6 mm, December 2018 Code(s): I67.1 - Cerebral aneurysm, nonruptured Category: Surgical (8) Obesity (BMI 30.0-34.9): Code(s): E66.9 - Obesity, unspecified Category: Medical (9) Impaired glucose tolerance: Code(s): R73.02 - Impaired glucose tolerance (oral) Category: Medical (10) Generalized anxiety disorder: Code(s): F41.1 - Generalized anxiety disorder Category: Medical (11) COVID-19 virus infection: Comment: 07/31/2024 Code(s): U07.1 - COVID-19 Category: Medical Plan - Administer antiviral medication, ensuring the patient halts rosuvastatin during the antiviral course due to potential drug interactions. - Conduct comprehensive diagnostic testing at the hospital for COVID-19, RSV, or influenza to confirm the diagnosis, given the current surge in COVID-19 and overlapping respiratory infections. - Advise symptomatic treatment, including Tylenol for muscle aches and C-Paclosia for sore throat, based on symptom presentation. - Prescribe Mucinex to assist with productive cough characterized by substantial phlegm. - Ensure adequate hydration to aid in symptom management. - Due to the significant overlap of COVID-19 and sinusitis symptoms, closely monitor symptom progression and consider further diagnostic evaluation if new symptoms develop. - Arrange for the patient's preoperative evaluation to be rescheduled post COVID-19 assessment and when the patient is cleared from infection. - Discuss test location logistics and registration process for the planned diagnostic testing. Orders: Orders SARS-CoV2/FLU/RSV Today U07.1 - COVID-19 Medications: New nirmatrelvir-ritonavir 300 mg (150 mg x 2)-100 mg (Paxlovid) take TWO 150 mg tablets of nirmatrelvir with ONE 100 mg tablet of ritonavir twice daily for 5 days PO 30 ea 0RF U07.1 - COVID-19
[2024-07-31 14:16] VITALS: BP 130/80; PULSE 75; O2SAT 91; BMI 33.5
--- OUTSIDE RECORDS SUMMARY | 2024-07-31 15:07 | XMS_ITS | Clinical Summary ---
Author Organization [address] [place] [address] Address [address] [place] [address] Phone Care Team Providers Care Examiner Rating Clerk Name Role Phone Mariel Smyth MD Primary Care Provider [phone] Surgical History Surgery Date Site/Laterality Comments OTHER SURGICAL HISTORY PROCEDURE:cerebral coiling Medical History Medical History Date Comments Hypertension DX:Hypertension Lyme disease DX:Lyme disease COPD (chronic obstructive pu lmonary disease) ([facility]/HCC) DX:COPD (chronic obstructive pulmonary disease) ([facility]) Coronary artery disease DX:Coron eric artery disease Cerebral aneurysm DX:Cerebral an eurysm Social History Tobacco Use Types Packs/Day Years Used Date Smoking Tobacco: Former Smokeless Tobacco: Never Alcohol Use Standard Drinks/Week Comments No 0 (1 standard drink = 0.6 oz pur e alcohol) Sex and Gender Information Value Date Recorded Sex Assigned at Not on file Gender Identity Not on file Sexual Orientation Not on file Obstetrics History Plan of Treatment Health Maintenance Due Date Last Done Comments DTaP,Tdap,and Td Vaccines (1 - Tdap) 01/22/1976 Zoster Vaccines (1 of 2) 2007 Pneumococcal Vaccine: 65+ Ye ars (1 of 1 - PCV) 2022 COVID-19 Vaccine ( - 2023-2 5 season) 2024 Influenza Vaccine (#1) 2024 Abdominal Aortic Aneurysm (A AA) Screen 06/25/2024 Cholesterol Screening (Lipid Panel) 06/25/2024 Colorectal Cancer Screening: Colonoscopy 06/25/2024 Depression Screening 06/25/2024 Falls Risk Assessment 06/25/2024 Hepatitis C Screening 06/25/2024 Medicare Annual Wellness Visit 06/25/2024 Social Influencers of Health Screening 06/25/2024 RSV Immunization Patients 60 + Years Old (1 - 1-dose 75+ series) 01/22/2032 HIB Vaccines Aged Out No longer eligi ble based on patient's age to complete this topic HPV Vaccines Aged Out No longer eligi ble based on patient's age to complete this topic Hepatitis A Vaccines Aged Out No long er eligible based on patient's age to complete this topic Hepatitis B Vaccines Aged Out No long er eligible based on patient's age to complete this topic IPV Vaccines Aged Out No longer eligi ble based on patient's age to complete this topic MMR Vaccines Aged Out No longer eligi ble based on patient's age to complete this topic Meningococcal ACWY Vaccine Aged Out N o longer eligible based on patient's age to complete this topic RSV Immunization Patients Un lio 20 months Aged Out No longer eligible b ased on patient's age to complete this topic Varicella Vaccines Aged Out No longer eligible based on patient's age to complete this topic Medical Devices Implanted Type Area Nutrition Representative Device Identifier Shelf Expiration Date Model / Serial / Lot Coil Hydroframe Hydrocoil V-Trak 19cm 6mm 10 Coil Stretch - [id number] Implanted:Qty: 1 on 12/06/2018 [employer] 07/03/2023 [id number] / / [id number] Coil Embolization Elverta Elverta V-Trak L28 Cm Od7 Mm 10 Coil - [id number] Implanted:Qty: 1 on 12/06/2018 [employer] 07/03/2023 [id number] / / [id number] Care Teams Examiner Rating Clerk Relationship Specialty Start Date End Date Po, MD Mariel [address] [place] [address] [address] [facility] [place] [address] PCP - General Internal Medicine 06/25/24
--- OUTSIDE RECORDS SUMMARY | 2024-07-31 15:07 | XMS_ITS | Encounter Summary ---
Author Organization [facility] Address [address] [place] [address] Care Team Providers Care Hob Mill Operator Name Role Phone Mariel Smyth MD Primary Care Provider [phone] Encounter Details Date Type Department Care Team (Late st Contact Info) Description 11/13/2018 Scanned Document [facility] [address] [address] Provider, Historical . Social History Tobacco Use Types Packs/Day Years Used Date Smoking Tobacco: Former Cigarettes Q uit: 11/2012 Smokeless Tobacco: Never Alcohol Use Standard Drinks/Week Comments Yes 0 (1 standard drink = 0.6 oz pur e alcohol) social beer drinker AUDIT-C Answer Date Recorded Frequency of Alcohol Consumption 2-4 times a tue06/19/2018 Average Number of Drinks Not on file 018 Frequency of Binge Drinking Not on file 06/03 Sex and Gender Information Value Date Recorded Sex Assigned at Not on file Legal Sex Male 2:04 PM EDT Gender Identity Not on file Sexual Orientation Not on file documented as of this encounter Plan of Treatment Not on file documented as of this encounter Procedures Procedure Name Priority Date/Time Associated Diagnosis Comments IR RESULT SCAN Routine 10/24/2018 documented in this encounter Results * IR Result Scan (10/24/2018) us Historical Provider IMG SCAN REPORTS Final Resul t documented in this encounter Visit Diagnoses Not on filedocumented in this encounter Care Teams Hob Mill Operator Relationship Specialty Start Date End Date Mariel Smyth MD [address] [place] [address] [place] [phone] PCP - General Internal Medicine 06/19/18 documented as of this encounter
--- OUTSIDE RECORDS SUMMARY | 2024-07-31 15:07 | XMS_ITS | Clinical Summary ---
Author Organization [facility] [address] Address [address] [place] [address] Care Team Providers Care Jointer Machine Name Role Phone Mariel Smyth MD Primary Care Provider [phone] Allergies Active Allergy Reactions Criticality Noted Date Comments Atorvastatin Other (See Comments) High 12/06/2018 Pt states it messes with my joints. Pt states it messes with my joints. Environmental Allergies 06/19/2018 Medications atenolol (TENORMIN) 25 MG tablet Take 0.5 tablets (12.5 mg total) by mouth daily. Patient taking 1/2 tab 12.5mg 1 8 Active diazePAM (VALIUM) 10 MG tablet Take 1 tablet (10 mg total) by mouth every 8 (eight) hours as needed. 5 8 Active COMBIVENT RESPIMAT 20-100 mcg/actuation inhaler Inhale 1 puff into the lungs 4 (four) times daily. 3 8 Active nitroGLYCERIN (NITROSTAT) 0.[address] 1 tablet (0.4 mg total) under the tongue as needed. 2 8 Active losartan (COZAAR) 50 MG tablet Take 1 tablet (50 mg total) by mouth daily. 5 8 Active rosuvastatin (CRESTOR) 40 MG tablet Take 1 tablet (40 mg total) by mouth daily. 6 8 Active aspirin 81 MG EC tablet Take 1 tablet (81 mg total) by mouth daily. Active fluticasone propionate (FLONASE) 50 mcg/actuation nasal spray Use 2 sprays in each nostril 2 (two) times daily. 1 Active albuterol (PROVENTIL, VENTOLIN) 2.5 mg /3 mL (0.083 %) nebulizer solution Take 3 mLs by nebulization every 6 (six) hours as needed for shortness of breath. 2 Active hydrocortisone- acetic acid (VOSOL-HC) otic solution Place 3 drops into both ears 2 (two) times daily. 1 Active ipratropium (ATROVENT) 0.02 % nebulizer solution Take 2.5 mLs (0.5 mg total) by nebulization every 6 (six) hours as needed. 2 Active neomycin-polymy rakan-hydrocortis one (CORTISPORIN) otic solution Place 3 drops into both ears 3 (three) times daily. 2 Active benzonatate (TESSALON) 200 mg capsule Take 1 capsule (200 mg total) by mouth 2 (two) times daily as needed. 3 Active ciprofloxacin-d examethasone (CIPRODEX) 0.3-0.1 % otic suspension Place 4 drops into the right ear 2 (two) times daily. 3 Active doxycycline hyclate (VIBRAMYCIN) 100 mg capsule Take 1 capsule (100 mg total) by mouth daily. 3 Active WIXELA INHUB 500-50 mcg/dose blister powder for inhalation Inhale 1 puff into the lungs 2 (two) times daily. 4 Active Active Problems Problem Noted Date Diagnosed Date Class 1 obesity 12/07/2021 HLD (hyperlipidemia) 12/07/2021 Hypertension 12/07/2021 COPD, mild 12/07/2021 Chest pain 11/13/2012 Tobacco use disorder 10/11/2012 Cerebral aneurysm, nonruptured Family History Medical History Relation Name Comments Colon cancer Father Coronary Artery Disease Mother Stroke Mother Coronary Artery Disease Sister 1 Heart attack Sister 1 High cholesterol Sister 1 Hypertension Sister 1 Diabetes Sister 2 Heart failure Sister 2 Relation Name Status Comments Father Mother Sister 1 Sister 2 Social History Tobacco Use Types Packs/Day Years Used Date Smoking Tobacco: Former Cigarettes Q uit: 11/2012 Smokeless Tobacco: Never Tobacco Cessation:Counseling Given: Not Answered Alcohol Use Standard Drinks/Week Comments Yes 0 [...] on file Sexual Orientation Not on file Last Filed Vital Signs Vital Sign Reading Time Taken Comments Blood Pressure 130/84 06/11/2019 9:47 AM EST Pulse - - Temperature 36.5 ??C (97.7 ??F) 06/19/2018 9:24 AM ES T Respiratory Rate - - Oxygen Saturation - - Inhaled Oxygen Concentration - - Weight 134.3 kg (296 lb) 01/02/2024 8:23 AM EDT Height 167.6 cm (5' 6 ) 01/02/2024 8:23 AM EDT Body Mass Index 47.78 01/02/2024 8:23 AM EDT Plan of Treatment Health Maintenance Due Date Last Done Comments HIV screening 1970 Diabetes screening 1975 Hepatitis C screening 1975 Tetanus adult (Td q 10,TDAP once) 1977 Lipid disorder screening 1997 Colon cancer screening, Colonoscopy 2002 Shingles vaccine (Shingrix) (1 of 2 - Shingrix (RZV) 2 Dose Standard Series) 2007 Pneumo Vaccine 65+ (2 of 2 - PCV) 01/20/2012 011 RSV Discussion (1 - Risk 60- 74 years 1-dose series) 2017 Aortic Aneurysm screening 2022 Influenza vaccine 02/02/2024 Covid-19 vaccine series ( - 2023- season) 2024 Meningococcal Vaccine Aged Out No mark deepika eligible based on patient's age to complete this topic Insurance MEDICARE [facility] MEDICARE [facility] MEDICARE BCBS Care Teams Jointer Machine Relationship Specialty Start Date End Date Mariel Smyth MD [address] [place] [address] [place] [phone] PCP - General Internal Medicine 06/19/18
--- OUTSIDE RECORDS SUMMARY | 2024-07-31 15:07 | XMS_ITS | Encounter Summary ---
Author Organization [facility] Address [address] [place] [address] Care Team Providers Care Technical Solutions Engineer Name Role Phone Mariel Smyth MD Primary Care Provider [phone] Reason for Referral * Imaging (Routine) - New Request Specialty Diagnoses / Procedures Referred By Yanna alford Referred To Contact Diagnostic Radiology Procedures MRA Brain without IV Contrast Neurosurgery at [address] [address] Phone: tel: fax: Referral ID Status Reason Start Date Expiration Date V isits Requested Visits Authorized [id number] New Request 12/30/2023 12/29/2024 1 1 Encounter Details Date Type Department Care Team (Late st Contact Info) Description 12/30/2023 Scanned Document Neurosurgery at [address] [address] [place] . Social History Tobacco Use Types Packs/Day [...] Procedure Name Priority Date/Time Associated Diagnosis Comments MRA BRAIN WO IV CONTRAST Routine 12/30/2023 9:09 AM EDT documented in this encounter Results * MRA Brain without IV Contrast (12/30/2023 9:09 AM EDT) Anatomical Region Laterality Modality Head, Vascular Magnetic Resonan ce Historical Provider IMG MRI ORDERABLES Final Res ult documented in this encounter Visit Diagnoses Not on filedocumented in this encounter Care Teams Technical Solutions Engineer Relationship Specialty Start Date End Date Mariel Smyth MD [address] [place] [address] [place] [phone] PCP - General Internal Medicine 06/19/18 documented as of this encounter
--- OUTSIDE RECORDS SUMMARY | 2024-07-31 15:07 | XMS_ITS | Encounter Summary ---
Author Organization [facility] Address [address] [place] [address] Care Team Providers Care Hot Roll Laminator Name Role Phone Mariel Smyth MD Primary Care Provider [phone] Encounter Details Date Type Department Care Team (Late st Contact Info) Description 12/11/2018 Scanned Document [facility] at [address] [place] [id number] Josue Vaca MD [address] [place] [phone] Social History Tobacco Use Types Packs/Day Years [...] on file documented as of this encounter Visit Diagnoses Not on filedocumented in this encounter Care Teams Hot Roll Laminator Relationship Specialty Start Date End Date Mariel Smyth MD [address] [place] [address] [place] [phone] PCP - General Internal Medicine 06/19/18 documented as of this encounter
--- OUTSIDE RECORDS SUMMARY | 2024-07-31 15:07 | XMS_ITS | Encounter Summary ---
Author Organization [facility] and [facility] Address 20 [place] [address] Care Team Providers Care Extrusion Technician Name Role Phone Mariel Smyth MD Primary Care Provider [phone] Reason for Referral * Imaging (Routine) - Closed Specialty Diagnoses / Procedures Referred By Contac t Referred To Contact Diagnostic Radiology Procedures MRA Brain without IV Contrast Neurosurgery at [address] [address] Phone: tel: fax: Referral ID Status Reason Start Date Expiration Date Visits Re quested Visits Authorized [id number] Closed 12/03/2022 12/03/2023 1 1 Encounter Details Date Type Department Care Team (Late st Contact Info) Description 12/03/2022 Scanned Document Neurosurgery at [address] [place] [address] [place] . Social History Tobacco Use [...] Comments MRA BRAIN WO IV CONTRAST Routine 11/24/2022 documented in this encounter Results * MRA Brain without IV Contrast (11/24/2022) Anatomical Region Laterality Modality Head, Vascular Magnetic Resonan ce us Historical Provider IMG MRI ORDERABLES Final Res ult documented in this encounter Visit Diagnoses Not on filedocumented in this encounter Care Teams Extrusion Technician Relationship Specialty Start Date End Date Mariel Smyth MD [address] [place] [address] Dr Bowser [facility] PATRICE [place] [phone] PCP - General Internal Medicine 06/19/18 documented as of this encounter
--- OUTSIDE RECORDS SUMMARY | 2024-07-31 15:07 | XMS_ITS | Encounter Summary ---
Author Organization [facility] and [facility] Address 20 [place] [address] Care Team Providers Care Ice Skating Teacher Name Role Phone Mariel Smyth MD Primary Care Provider [phone] Encounter Details Date Type Department Care Team (Late st Contact Info) Description 06/07/2018 Scanned Document [facility] at [address] [place] [address] [phone] Don Monique MD [address] [place] [phone] Social History Tobacco Use Types Packs/Day Years Used Date Smoking Tobacco: Never Assessed Sex and Gender Information Value Date Recorded Sex Assigned at Not on file Legal Sex Male 2:04 PM EDT Gender Identity Not on file Sexual Orientation Not on file documented as of this encounter Plan of Treatment Not on file documented as of this encounter Visit Diagnoses Not on filedocumented in this encounter Care Teams Ice Skating Teacher Relationship Specialty Start Date End Date Mariel Smyth MD [address] [place] [address] [place] [phone] PCP - General Internal Medicine 06/19/18 documented as of this encounter
--- OUTSIDE RECORDS SUMMARY | 2024-07-31 15:07 | XMS_ITS | Encounter Summary ---
Author Organization [facility] and [facility] Address 20 [place] [address] Care Team Providers Care Hand Clipper Name Role Phone Mariel Smyth MD Primary Care Provider [phone] Encounter Details Date Type Department Care Team (Late st Contact Info) Description 04/25/2018 Scanned Document [facility] at [address] [place] [phone] Don Monique MD [address] [place] [phone] Social History Tobacco Use Types Packs/Day Years [...] Procedure Name Priority Date/Time Associated Diagnosis Comments [facility] MRA HEAD Routine 04/21/2018 documented in this encounter Results * [facility] MRA Head (04/21/2018) Anatomical Region Laterality Modality Head, Vascular, Ortho Head Magne tic Resonance us Historical Provider IMG [facility] NON REP ORDERABLES F inal Result documented in this encounter Visit Diagnoses Not on filedocumented in this encounter Care Teams Hand Clipper Relationship Specialty Start Date End Date Mariel Smyth MD [address] [place] [address] [place] [phone] PCP - General Internal Medicine 06/19/18 documented as of this encounter
--- OUTSIDE RECORDS SUMMARY | 2024-07-31 15:07 | XMS_ITS | Encounter Summary ---
Author Organization [facility] and [facility] Address 20 [place] [address] Care Team Providers Care Rubbish Collector Name Role Phone Mariel Smyth MD Primary Care Provider [phone] Reason for Visit * Reason Comments Triage Encounter Details Date Type Department Care Team ([facility] st Contact Info) Description 08/20/2021 Telephone [facility] at [address] [place] [address] Josue Vaca MD [address] [place] [phone] Triage Social History Tobacco Use Types Packs/Day Years [...] on file documented as of this encounter Miscellaneous Notes * Telephone Encounter - Yuliana Larkin - 08/20/2021 8:41 AM EST Pt's called in asking if Dr. Vaca can give her a call back regarding pt. She stated that that his ears are still leaking fluid. She's not sure if this has to do with his coil but would like to speak with Dr. Vaca regarding this. Please advise Mrs. Zuleta's Number: [phone] documented in this encounter Plan of Treatment Not on file documented as of this encounter Visit Diagnoses Not on filedocumented in this encounter Care Teams Rubbish Collector Relationship Specialty Start Date End Date Po, MD Mariel [address] [place] [address] Dr Smith, PATRICE [phone] PCP - General Internal Medicine 06/19/18 documented as of this encounter
--- OUTSIDE RECORDS SUMMARY | 2024-07-31 15:07 | XMS_ITS | Encounter Summary ---
Author Organization [facility] and [facility] Address [address] [place] [address] Care Team Providers Care Airplane Tester Name Role Phone Mariel Smyth MD Primary Care Provider [phone] Encounter Details Date Type Department Care Team (Late st Contact Info) Description 12/28/2019 Scanned Document [facility] SCHEDULING 25 [place], [place] [phone] Provider, Historical . Social History Tobacco Use [...] Procedure Name Priority Date/Time Associated Diagnosis Comments LAB SCAN Routine 12/26/2019 documented in this encounter Results * Lab Scan (12/26/2019) us Historical Provider LAB BLOOD ORDERABLES Final R esult documented in this encounter Visit Diagnoses Not on filedocumented in this encounter Care Teams Airplane Tester Relationship Specialty Start Date End Date Mariel Smyth MD [address] [place] [address] [place] [phone] PCP - General Internal Medicine 06/19/18 documented as of this encounter
--- OUTSIDE RECORDS SUMMARY | 2024-07-31 15:07 | XMS_ITS | Encounter Summary ---
Author Organization [facility] and [facility] Address [address] [place] [address] Care Team Providers Care Proposal Specialist Name Role Phone Mariel Smyth MD Primary Care Provider [phone] Encounter Details Date Type Department Care Team (Late st Contact Info) Description 12/09/2020 Scanned Document [facility] at [address] [phone] Josue Vaca MD [address] [place] [phone] Social History Tobacco Use Types Packs/Day Years [...] on filedocumented in this encounter Care Teams Proposal Specialist Relationship Specialty Start Date End Date Mariel Smyth MD [address] [place] [address] [place] [phone] PCP - General Internal Medicine 06/19/18 documented as of this encounter
--- OUTSIDE RECORDS SUMMARY | 2024-07-31 15:07 | XMS_ITS | Encounter Summary ---
Author Organization [facility] and [facility] Address [address] [place] [address] Care Team Providers Care Director Cardiovascular Name Role Phone Mariel Smyth MD Primary Care Provider [phone] Encounter Details Date Type Department Care Team (Late st Contact Info) Description 01/01/2020 Scanned Document [facility] SCHEDULING 25 [place], [place] [phone] Provider, Historical . Social History Tobacco Use [...] Name Priority Date/Time Associated Diagnosis Comments [facility] IR ANGIOGRAM Routine 01/01/2020 documented in this encounter Results * [facility] IR Angiogram (01/01/2020) Anatomical Region Laterality Modality X-Ray Angiograph y us Historical Provider IMG [facility] NON REP ORDERABLES F inal Result documented in this encounter Visit Diagnoses Not on filedocumented in this encounter Care Teams Director Cardiovascular Relationship Specialty Start Date End Date Mariel Smyth MD [address] [facility] [place] [phone] PCP - General Internal Medicine 06/19/18 documented as of this encounter
--- OUTSIDE RECORDS SUMMARY | 2024-07-31 15:07 | XMS_ITS | Clinical Summary ---
Author Organization [facility] Address [address] [place] [address] Care Team Providers Care Crankshaft Balancer Name Role Phone Unknown, Primary Care Provider Unavailabl e Allergies Active Allergy Reactions Criticality Noted Date Comments Atorvastatin Other (See Comments) High 12/06/2018 Pt states it messes with my joints. Medications Medication Sig Dispensed Refills Start Date End Date Status fluticasone-salmeter ol (ADVAIR DISKUS) 500-50 MCG/DOSE DISKUS 1 inhalation by Inhaled route 2 (two) times a day. 0 Active ipratropium-albutero l (COMBIVENT RESPIMAT) 20-100 MCG/ACT inhaler Inhale 1 puff into the lungs 4 (four) times a day. 0 Active atenolol (TENORMIN) tablet 25 mg Take 25 mg by mouth daily. 0 Active diazePAM (VALIUM) 10 MG tablet Take 10 mg by mouth every 6 (six) hours as needed for anxiety. 0 Active losartan (COZAAR) tablet 50 mg Take 50 mg by mouth daily. 0 Active aspirin EC 81 MG tablet Take 81 mg by mouth daily. 0 Active rosuvastatin (CRESTOR) tablet 40 mg Take 40 mg by mouth daily. 0 Active nitroglycerin (NITROSTAT) 0.[address] 0.4 mg under the tongue every 5 (five) minutes as needed for chest pain. 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 Social History Tobacco Use Types Packs/Day Years Used Date Smoking Tobacco: Former Smokeless Tobacco: Never Alcohol Use Standard Drinks/Week Comments No 0 (1 standard drink = 0.6 oz pur e alcohol) Sex and Gender Information Value Date Recorded Sex Assigned at Male 10/23/2018 11:29 AM EDT Gender Identity Male 10/24/2018 8:53 AM EDT Sexual Orientation Not on file Last Filed Vital Signs Vital Sign Reading Time Taken Comments Blood Pressure 131/80 01/01/2020 1:00 PM EDT Pulse 65 01/01/2020 1:00 PM EDT Temperature 37.1 ??C (98.8 ??F) 01/01/2020 9:15 AM ED T Respiratory Rate 18 01/01/2020 1:00 PM EDT Oxygen Saturation 91% 01/01/2020 1:00 PM EDT Inhaled Oxygen Concentration - - Weight 88.9 kg (196 lb) 01/01/2020 9:15 AM EDT Height 167.6 cm (5' 6 ) 01/01/2020 9:15 AM EDT Body Mass Index 31.64 01/01/2020 9:15 AM EDT Plan of Treatment Health Maintenance Due Date Last Done Comments Hepatitis C Screening 1957 COVID-19 Vaccine (#1) 1957 Pneumococcal Vaccine (1 of 2 - PCV) 1963 Depression Screening 1969 BMI Counseling 1975 Preventative Health Evaluation 1975 DTap / Tdap / Td (1 - Tdap) 01/22/1976 Colon Cancer Screening (Colonoscopy) 2002 Shingrix-Zoster Vaccine (1 of 2) 2007 Fall Risk Assessment 2022 Influenza Vaccine (#1) 2024 RSV Adult > 60+ Yrs or Pregn ant (1 - 1-dose 75+ series) 01/22/2032 Hepatitis B Vaccines Aged Out No long er eligible based on patient's age to complete this topic RSV Ped < 20 months Aged Out No longe r eligible based on patient's age to complete this topic Medical Devices Implanted Type Area Marketing Research Coordinator Device Identifier Shelf Expiration Date Model / Serial / Lot Coil Hydroframe Hydrocoil V-Trak 19cm 6mm 10 Coil Stretch - [id number] - [id number] Implanted:Qty: 1 on 12/06/2018 at [facility] and [facility] 07/03/2023 7110-0 619 / / [id number] Coil Embolization [place] V-Trak L28 Cm Od7 Mm 10 Coil - [id number] - [id number] Implanted:Qty: 1 on 12/06/2018 at [facility] and [facility] [employer] 07/03/2023 7110-0 728 / / [id number] Advance Directives For more information, please contact: [phone] Latest Code Status on File Code Status Date Activated Date Inactivated Comments Full Code 12/06/2018 11:09 AM 12/07/2018 4:28 PM This c ode status was ascertained in the following way: discussion with patient . Care Teams Crankshaft Balancer Relationship Specialty Start Date End Date Unknown, PCP - General 12/06/18
--- OUTSIDE RECORDS SUMMARY | 2024-07-31 15:07 | XMS_ITS | Encounter Summary ---
Author Organization [facility] and [facility] Address [address] [place] [address] Care Team Providers Care Business Services Associate Name Role Phone Mariel Smyth MD Primary Care Provider [phone] Encounter Details Date Type Department Care Team (Late st Contact Info) Description 12/15/2018 Scanned Document [facility] at [address] [address] Provider, Historical . Social History Tobacco Use [...] Associated Diagnosis Comments IR RESULT SCAN Routine 12/06/2018 documented in this encounter Results * IR Result Scan (12/06/2018) us Historical Provider IMG SCAN REPORTS Final Resul t documented in this encounter Visit Diagnoses Not on filedocumented in this encounter Care Teams Business Services Associate Relationship Specialty Start Date End Date Mariel Smyth MD [address] [place] [address] [place] [phone] PCP - General Internal Medicine 06/19/18 documented as of this encounter
== END 2024-07-31 15:08 | disposition home or self-care (01) ==
PROVIDERS: PCP Internal Medicine; Visit Provider Internal Medicine
DX: I25.10 Atherosclerotic heart disease of native coronary artery without angina pectoris (principal); J43.9 Emphysema, unspecified; E66.9 Obesity, unspecified; Z68.33 Body mass index [BMI] 33.0-33.9, adult; I10 Essential (primary) hypertension; E78.00 Pure hypercholesterolemia, unspecified; I25.5 Ischemic cardiomyopathy; G47.33 Obstructive sleep apnea (adult) (pediatric); I67.1 Cerebral aneurysm, nonruptured; R73.02 Impaired glucose tolerance (oral); F41.1 Generalized anxiety disorder; U07.1 COVID-19

== ENCOUNTER 2024-08-22 09:17 | Outpatient (REF) | payer MEDICARE, SELFPAY ==
--- OUTSIDE RECORDS SUMMARY | 2024-08-22 10:15 | XMS_ITS | Encounter Summary ---
Author Organization [facility] and [facility] Address [address] [place] [address] Care Team Providers Care Director Of Annual Giving Name Role Phone Mariel Smyth MD Primary Care Provider [phone] Reason for Referral * Imaging (Routine) - Closed Specialty Diagnoses / Procedures Referred By Contac t Referred To Contact Diagnostic Radiology Procedures MRA Brain without IV Contrast Neurosurgery at [address] [address] Phone: tel: fax: Referral ID Status Reason Start Date Expiration Date Visits Re quested Visits Authorized [id number] Closed 12/03/2022 12/03/2023 1 1 Encounter Details Date Type Department Care Team (Late st Contact Info) Description 12/03/2022 Scanned Document Neurosurgery at [address] [place] [phone] [place] . Social History Tobacco Use [...] filedocumented in this encounter Care Teams Director Of Annual Giving Relationship Specialty Start Date End Date Mariel Smyth MD [address] [place] [address] Dr Bowser [facility] [place] [phone] PCP - General Internal Medicine 06/19/18 documented as of this encounter
--- OUTSIDE RECORDS SUMMARY | 2024-08-22 10:15 | XMS_ITS | Encounter Summary ---
Author Organization [facility] and [facility] Address [address] [place] [address] Care Team Providers Care Bullet Assembly Press Setter Operator Name Role Phone Mariel Smyth MD Primary Care Provider [phone] Encounter Details Date Type Department Care Team (Late st Contact Info) Description 11/13/2018 Scanned Document [facility] at [address] [address] Provider, Historical . Social History Tobacco Use [...] on filedocumented in this encounter Care Teams Bullet Assembly Press Setter Operator Relationship Specialty Start Date End Date Mariel Smyth MD [address] [place] [address] [place] [phone] PCP - General Internal Medicine 06/19/18 documented as of this encounter
--- OUTSIDE RECORDS SUMMARY | 2024-08-22 10:15 | XMS_ITS | Encounter Summary ---
Author Organization [facility] and [facility] Address [address] [place] [address] Care Team Providers Care Child Protective Investigator Name Role Phone Mariel Smyth MD Primary Care Provider [phone] Reason for Visit * Reason Comments Triage Encounter Details Date Type Department Care Team ([facility] st Contact Info) Description 08/20/2021 Telephone [facility] at [address] [place] [address] Josue Vaca MD [address] [place] [phone] Triage Social History Tobacco Use Types Packs/Day [...] regarding this. Please advise Mrs. Zuleta's Number: [phone] documented in this encounter Plan of Treatment Not on file documented as of this encounter Visit Diagnoses Not on filedocumented in this encounter Care Teams Child Protective Investigator Relationship Specialty Start Date End Date Po, MD Mariel [address] [place] [address] Dr [place], PATR[place] [phone] PCP - General Internal Medicine 06/19/18 documented as of this encounter
--- OUTSIDE RECORDS SUMMARY | 2024-08-22 10:15 | XMS_ITS | Encounter Summary ---
Author Organization [facility] and [facility] Address [address] [place] [address] Care Team Providers Care Motorcycle Service Technician Name Role Phone Mariel Smyth MD Primary Care Provider [phone] Encounter Details Date Type Department Care Team (Late st Contact Info) Description 06/07/2018 Scanned Document [facility] at [address] [place] [phone] Don Monique MD [address] [place] [phone] Social History Tobacco Use Types Packs/Day Years [...] on filedocumented in this encounter Care Teams Motorcycle Service Technician Relationship Specialty Start Date End Date Mariel Smyth MD [address] [place] [address] [place] [phone] PCP - General Internal Medicine 06/19/18 documented as of this encounter
--- OUTSIDE RECORDS SUMMARY | 2024-08-22 10:15 | XMS_ITS | Encounter Summary ---
Author Organization [facility] and [facility] Address [address] [place] [address] Care Team Providers Care Chief Librarian Work With Blind Name Role Phone Mariel Smyth MD Primary Care Provider [phone] Reason for Referral * Imaging (Routine) - New Request Specialty Diagnoses / Procedures Referred By Yanna alford Referred To Contact Diagnostic Radiology Procedures MRA Brain without IV Contrast Neurosurgery at [address] [address] Phone: tel: fax: Referral ID Status Reason Start Date Expiration Date V isits Requested Visits Authorized [id number] New Request 12/30/2023 12/29/2024 1 1 Encounter Details Date Type Department Care Team (Late st Contact Info) Description 12/30/2023 Scanned Document Neurosurgery at [address] [address] [place] . Social History Tobacco Use [...] filedocumented in this encounter Care Teams Chief Librarian Work With Blind Relationship Specialty Start Date End Date Mariel Smyth MD [address] [place] [address] [place] [phone] PCP - General Internal Medicine 06/19/18 documented as of this encounter
--- OUTSIDE RECORDS SUMMARY | 2024-08-22 10:15 | XMS_ITS | Encounter Summary ---
Author Organization [facility] and [facility] Address [address] [place] [address] Care Team Providers Care Washer Machine Name Role Phone Mariel Smyth MD Primary Care Provider Encounter Details Date Type Department Care Team (Late st Contact Info) Description 12/11/2018 Scanned Document [facility] at [address] [place] [phone] Josue Vaca MD [address] [place] [phone] Social History Tobacco Use Types Packs/Day Years [...] on filedocumented in this encounter Care Teams Washer Machine Relationship Specialty Start Date End Date Mariel Smyth MD [address] [place] [address] [place] [phone] PCP - General Internal Medicine 06/19/18 documented as of this encounter
--- OUTSIDE RECORDS SUMMARY | 2024-08-22 10:15 | XMS_ITS | Encounter Summary ---
Author Organization [facility] and [facility] Address [address] [place] [address] Care Team Providers Care Librarian Special Collections Name Role Phone Mariel mSyth MD Primary Care Provider [phone] Encounter Details Date Type Department Care Team (Late st Contact Info) Description 04/25/2018 Scanned Document [facility] at [address] [place] [phone] Don Monique MD [address] [place] [phone] Social History Tobacco Use Types Packs/Day [...] on filedocumented in this encounter Care Teams Librarian Special Collections Relationship Specialty Start Date End Date Mariel Smyth MD [address] [place] [address] [place] [phone] PCP - General Internal Medicine 06/19/18 documented as of this encounter
--- OUTSIDE RECORDS SUMMARY | 2024-08-22 10:15 | XMS_ITS | Clinical Summary ---
Author Organization [facility] Address [address] [place] [address] Care Team Providers Care Regeneration Operator Name Role Phone Mariel Smyth MD Primary Care Provider [phone] Allergies Active Allergy Reactions Criticality Noted Date [...] Team Description 08/13/2024 Telephone [facility] at [address] [place] [address] Abhijeet Romero MD Letter for [...] age to complete this topic Insurance MEDICARE [facility] MEDICARE [facility] MEDICARE [facility] Care Teams Regeneration Operator Relationship Specialty Start Date End Date Mariel Smyth MD [address] [place] [address] [place] [phone] PCP - General Internal Medicine 06/19/18
--- OUTSIDE RECORDS SUMMARY | 2024-08-22 10:15 | XMS_ITS | Clinical Summary ---
Author Organization [address] [facility] Address [address] [place] [address] Phone Care Team Providers Care Data Examination Clerk Name Role Phone Mariel Smyth MD Primary Care Provider [phone] Surgical History Surgery Date Site/Laterality Comments OTHER SURGICAL HISTORY PROCEDURE:cerebral coiling Medical History Medical History Date Comments Hypertension DX:Hypertension Lyme disease DX:Lyme disease COPD (chronic obstructive pu lmonary disease) ([facility]) DX:COPD (chronic obstructive pulmonary disease) ([facility] [...] Upcoming Encounters Date Type Department Care Team ([facility] Contact Info) Description 08/22/2024 2:00 PM EST Consult Orthopedic Surgery - [place] [address] [address] Hubert Lombardo MD [address] [place] [address] Health Maintenance Due Date Last Done Comments [...] this topic Medical Devices Implanted Type Area Blueprint Maker Device Identifier Shelf Expiration Date Model / Serial / Lot Coil Hydroframe Hydrocoil V-Trak 19cm 6mm 10 Coil Stretch - [id number] Implanted:Qty: 1 on 12/06/2018 [employer] 07/03/2023 [id number] / / [id number] Coil Embolization [place] V-Trak L28 Cm Od7 Mm 10 Coil - [id number] Implanted:Qty: 1 on 12/06/2018 [employer] 07/03/2023 [id number] / / [id number] Insurance MEDICARE [place]ICA[place] - [place] [facility] Care Teams Data Examination Clerk Relationship Specialty Start Date End Date Mariel Smyth MD [address] [place] [address] [address] [facility] [place] [address] PCP - General Internal Medicine 06/25/24
--- OUTSIDE RECORDS SUMMARY | 2024-08-22 10:15 | XMS_ITS | Clinical Summary ---
Author Organization [facility] Address [address] [place] [address] Care Team Providers Care Manager Primary Name Role Phone Unknown, Primary Care Provider [...] this topic Medical Devices Implanted Type Area Sound System Installer Device Identifier Shelf Expiration Date Model / Serial / Lot Coil Hydroframe Hydrocoil V-Trak 19cm 6mm 10 Coil Stretch - [id number] - [id number] Implanted:Qty: 1 on 12/06/2018 at [facility] 07/03/2023 [id number] / / [id number] Coil Embolization [place] V-Trak L28 Cm Od7 Mm 10 Coil - [id number] - [id number] Implanted:Qty: 1 on 12/06/2018 at [facility] and [facility] [employer] 07/03/2023 [id number] [id number] / / [id number] Advance Directives For more information, please contact: [phone] Latest Code Status on File Code Status Date Activated Date Inactivated Comments Full Code 12/06/2018 11:09 AM 12/07/2018 4:28 PM This c ode status was ascertained in the following way: discussion with patient . Care Teams Manager Primary Relationship Specialty Start Date End Date Unknown, PCP - General 12/06/18
--- OUTSIDE RECORDS SUMMARY | 2024-08-22 10:15 | XMS_ITS | Encounter Summary ---
Author Organization [facility] and [facility] Address [address] [place] [address] Care Team Providers Care Cake Icer Name Role Phone Mariel Smyth MD Primary Care Provider [phone] Encounter Details Date Type Department Care Team (Late st Contact Info) Description 12/09/2020 Scanned Document [facility] at [address] [phone] Josue Vaca MD [address] [place] [phone] Social History Tobacco Use Types Packs/Day Years [...] on filedocumented in this encounter Care Teams Cake Icer Relationship Specialty Start Date End Date Mariel Smyth MD [address] [place] [address] [place] [phone] PCP - General Internal Medicine 06/19/18 documented as of this encounter
--- OUTSIDE RECORDS SUMMARY | 2024-08-22 10:16 | XMS_ITS | Encounter Summary ---
Author Organization [facility] and [facility] Address [address] [place] [address] Care Team Providers Care Game Attendant Name Role Phone Mariel Smyth MD Primary Care Provider [phone] Encounter Details Date Type Department Care Team (Late st Contact Info) Description 01/01/2020 Scanned Document [facility]ENTER SCHEDULING [address] [place], [place] [phone] Provider, Historical . Social History Tobacco Use [...] on filedocumented in this encounter Care Teams Game Attendant Relationship Specialty Start Date End Date Mariel Smyth MD [address] [facility] [place] [phone] PCP - General Internal Medicine 06/19/18 documented as of this encounter
--- OUTSIDE RECORDS SUMMARY | 2024-08-22 10:16 | XMS_ITS | Encounter Summary ---
Author Organization [facility] and [facility] Address [address] [place] [address] Care Team Providers Care Market Director Name Role Phone Mariel Smyth MD Primary Care Provider [phone] Reason for Visit * Reason Onset Date Comments Letter for School/Work 08/13/2024 Encounter Details Date Type Department Care Team (Late st Contact Info) Description 08/13/2024 Telephone [facility] at [address] [place] [address] Abhijeet Romero MD [address] [place] [address] [place] [phone] Letter for School/Work Social History Tobacco [...] on file, patient could be reached at [phone]. documented in this encounter Plan of Treatment Not on file documented as of this encounter Visit Diagnoses Not on filedocumented in this encounter Care Teams Market Director Relationship Specialty Start Date End Date Mariel Smyth MD [address] [place] [address] [place] [phone] PCP - General Internal Medicine 06/19/18 documented as of this encounter
--- OUTSIDE RECORDS SUMMARY | 2024-08-22 10:16 | XMS_ITS | Encounter Summary ---
Author Organization [facility] and [facility] Address [address] [place] [address] Care Team Providers Care Precinct Captain Name Role Phone Mariel Smyth MD Primary Care Provider [phone] Encounter Details Date Type Department Care Team (Late st Contact Info) Description 12/28/2019 Scanned Document [facility] SCHEDULING [address] [place], [place] [phone] Provider, Historical . Social History Tobacco Use [...] on filedocumented in this encounter Care Teams Precinct Captain Relationship Specialty Start Date End Date Mariel Smyth MD [address] [place] [address] [place] [phone] PCP - General Internal Medicine 06/19/18 documented as of this encounter
[2024-08-22 13:54] LABS: Influenza A PCR NEGATIVE (Negative); Influenza B PCR NEGATIVE (Negative); Resp Syncy Virus RNA Qual PCR NEGATIVE (Negative); SARS COV2 PCR INHOUSE NEGATIVE (Negative)
== END 2024-08-22 09:18 | disposition home or self-care (01) ==
LOC: HO.LAB 09:17
PROVIDERS: PCP Internal Medicine; Visit Provider Physician Assistant
DX: J01.00 Acute maxillary sinusitis, unspecified (principal); H66.002 Acute suppurative otitis media without spontaneous rupture of ear drum, left ear; Z86.16 Personal history of COVID-19
CPT/HCPCS: 0241U; 99212

== ENCOUNTER 2024-08-22 09:17 | Outpatient (AMB) | payer MEDICARE, SELFPAY ==
--- NOTE | 2024-08-22 09:29 | MHC.OFFWIV ---
Intake Vital Signs 08/22/24 09:31 BP 124/80 Blood Pressure Location Rt brachial Position Sitting Pulse 76 Pulse Source Pulse Oximeter Temp 97.9 F Temp Source Oral Pulse Oximetry (%) 94 Oxygen Delivery Method Room Air Intake Visit Reasons: EP-stuffy nose, sinus issues Intake Note: Patient here for sinus pressure and congestion that has been present for a couple of weeks. Patient Tobacco Use Status: Former Tobacco user Allergies atorvastatin [Lipitor] Allergy (Unknown, Verified 08/22/24 09:30) Leg cramps ezetimibe [Zetia] Allergy (Unknown, Verified 08/22/24 09:30) shoulder pain lisinopril Allergy (Unknown, Verified 08/22/24 09:30) cough rosuvastatin [Crestor] Allergy (Unknown, Verified 08/22/24 09:30) Leg cramps HPI HPI Comments History of Present Illness Details History - The patient is a 69-year-old male presenting with sinus pain, ear-related symptoms, including pressure and fluid leakage, [id number] episode on 07/31 - Initial COVID-19 symptomatology included body aches, but cleared with ongoing ear issues potentially indicating a secondary bacterial infection. - Compliance with nasal spray usage provided by a inspector outside production is noted, though residual symptoms persist unmitigated. - History of recurrent ear infections due to eustachian tube dysfunction is recorded, sees ENT - Current symptoms present for approximately five days. - Denies shortness of breath or wheezing Physical Exam General: Cooperative, healthy appearing, comfortable and no acute distress Orientation/consciousness: Patient oriented x3 Limitations: No limitations Head: Normal to inspection Ears: Hearing grossly normal bilaterally, external ears normal, bilat TM's with fluid, bulging, erythema and loss of landmarks noted. Nose: Normal external nose present, Normal nares present and No nasal discharge present Face and sinus: Normal facial exam and Yes sinuses nontender Mouth: Normal oral and palatal mucosa present and moist mucous membranes Throat: Yes tonsils normal, Yes uvula midline. Posterior oropharynx erythema Eyes: Appearance normal, both eyes and all related structures Neck: Normal visual inspection Respiratory: slight exp wheeze on right side. Normal respiratory effort, able to speak in complete sentences, Actively coughing, no respiratory distress, not tachypneic, no tripod positioning and no use of accessory muscles. Cardiovascular: Regular rate and rhythm. Normal S1 and S2 Skin: No rashes or lesions noted Neuro: Patient oriented x3 Extremities: Normal to inspection and Yes no clubbing, cyanosis or edema [facility] Medical History (Updated 08/22/24 @ 09:57 by Ayesha López PA-C) Otitis media Viral sinusitis Aortic stenosis Chronic sinusitis Sinusitis Lyme disease Pericarditis Allergic rhinitis Hypercholesterolemia Ischemic cardiomyopathy Obstructive sleep apnea Anxiety Pulmonary nodule Hypertension COPD (chronic obstructive pulmonary disease) Coronary artery disease Surgical History Brain aneurysm Family History Father No problems noted. Mother CVD (cardiovascular disease) Social History Housing: House Alcohol intake: current Alcohol intake frequency: holidays/special occasions only Alcohol type: beer Patient Tobacco Use Status: Former Tobacco user Tobacco use type: Cigarette e-Cigarette/Vaping Use: Never Used Second Hand Smoke Exposure: Yes service: No Current occupational status: disabled Cognitive needs: No Hearing needs: No Vision needs: Yes Review of Systems Const All systems reviewed & are unremarkable except as noted in HPI and below Physical Exam Vital Signs: Last Vital Signs Temp 97.9 F 08/22/24 09:31 Pulse 76 08/22/24 09:31 BP 124/80 08/22/24 09:31 Pulse Ox 94 08/22/24 09:31 Oxygen Delivery Method Room Air 08/22/24 09:31 Assessment & Plan Assessment & Plan (1) Sinusitis, acute: Code(s): J01.90 - Acute sinusitis, unspecified Qualifiers: Sinusitis location: maxillary Recurrence: non-recurrent Qualified Code(s): J01.00 - Acute maxillary sinusitis, unspecified Plan: Plan The patient should continue with nasal spray treatments to manage sinus congestion. Due to symptoms suggestive of a secondary bacterial ear infection [id number], Augmentin has been prescribed. A course of oral steroids has also been prepared in the event of symptom exacerbation, with instructions to monitor symptoms closely and use the steroid burst only if wheezing or increased breath difficulty occurs. It is crucial to resume any previously halted COPD treatments, particularly the Wixelaa. Adherence to full treatment regimens, antibiotic course completion, and steroid administration guidelines was emphasized, in anticipation of improving current ear discomfort and preventing further complications, with planned follow-up for ongoing evaluation. Patient was informed and verbally consented to the use of an ambient scribe for clinic note documentation during this visit (2) Otitis media: Code(s): H66.90 - Otitis media, unspecified, unspecified ear Qualifiers: Otitis media type: suppurative Chronicity: acute Laterality: left Recurrence: non-recurrent Spontaneous tympanic membrane rupture: without spontaneous rupture Qualified Code(s): H66.002 - Acute suppurative otitis media without spontaneous rupture of ear drum, left ear Plan: as above Orders: Orders SARS-CoV2/FLU/RSV Today J01.90 - Acute sinusitis, unspecified Medications: New amoxicillin-pot clavulanate 875-125 mg 1 tab PO Q12H 14 tabs 0RF prednisone 40 mg (2 x 20 mg) PO DAILY 10 tabs 0RF Coding Level of Care Code Est Pt Level 3 (82606) Diagnoses Acute non-recurrent maxillary sinusitis J01.00 Sinusitis location: maxillary Recurrence: non-recurrent Non-recurrent acute suppurative otitis media of left ear without spontaneous rupture of tympanic membrane H66.002 Otitis media type: suppurative Chronicity: acute Laterality: left Recurrence: non-recurrent Spontaneous tympanic membrane rupture: without spontaneous rupture
--- OUTSIDE RECORDS SUMMARY | 2024-08-22 09:29 | XMS_ITS | Encounter Summary ---
Author Organization [facility] and [facility] Address [address] [place] [address] Care Team Providers Care Medical Anthropologist Name Role Phone Mariel Smyth MD Primary Care Provider [phone] Encounter Details Date Type Department Care Team (Late st Contact Info) Description 01/01/2020 Scanned Document [facility] SCHEDULING [address] [place], [place] [phone] Provider, Historical . Social History Tobacco Use [...] on filedocumented in this encounter Care Teams Medical Anthropologist Relationship Specialty Start Date End Date Mariel Smyth MD [address] [facility] [place] [phone] PCP - General Internal Medicine 06/19/18 documented as of this encounter
--- OUTSIDE RECORDS SUMMARY | 2024-08-22 09:29 | XMS_ITS | Encounter Summary ---
Author Organization [facility] and [facility] Address [address] [place] [address] Care Team Providers Care Field Hand Name Role Phone Mariel Smyth MD Primary Care Provider [phone] Encounter Details Date Type Department Care Team (Late st Contact Info) Description 12/11/2018 Scanned Document [facility] at [address] [place] [address] [phone] Josue Vaca MD [address] [place] [phone] Social History Tobacco Use Types Packs/Day Years [...] on filedocumented in this encounter Care Teams Field Hand Relationship Specialty Start Date End Date Mariel Smyth MD [address] [place] [address] [place] [phone] PCP - General Internal Medicine 06/19/18 documented as of this encounter
--- OUTSIDE RECORDS SUMMARY | 2024-08-22 09:29 | XMS_ITS | Clinical Summary ---
Author Organization [facility] Address [address] [place] [address] Phone Care Team Providers Care Environmental Engineering Aide Name Role Phone Mariel Smyth MD Primary Care Provider [phone] Surgical History Surgery Date Site/Laterality Comments OTHER SURGICAL HISTORY PROCEDURE:cerebral coiling Medical History Medical History Date Comments Hypertension DX:Hypertension Lyme disease DX:Lyme disease COPD (chronic obstructive pu lmonary disease) ([facility]) DX:COPD (chronic obstructive pulmonary disease) ([facility]) Coronary artery disease DX:Coron eric artery disease Cerebral aneurysm DX:Cerebral an eurysm Social History Tobacco Use Types Packs/Day Years Used Date Smoking Tobacco: Former Smokeless Tobacco: Never Alcohol Use Standard Drinks/Week Comments No 0 (1 standard drink = 0.6 oz pur e alcohol) Sex and Gender Information Value Date Recorded Sex Assigned at Not on file Legal Sex Male 10:21 AM EST Gender Identity Not on file Sexual Orientation Not on file Obstetrics History Plan of Treatment Upcoming Encounters Date Type Department Care Team ([facility] Contact Info) Description 08/22/2024 2:00 PM EST Consult Orthopedic Surgery - [place] [address] [address] Hubert Lombardo MD [address] [place] [phone] Health Maintenance Due Date Last Done Comments DTaP,Tdap,and Td Vaccines (1 - Tdap) 01/22/1976 Pneumococcal Vaccine: 50+ Ye ars (1 of 1 - PCV) 2007 Zoster Vaccines (1 of 2) 2007 COVID-19 Vaccine ( - 2023-2 5 season) [...] patient's age to complete this topic Meningococcal B Vacine Aged Out No lo nger eligible based on patient's age to complete this topic RSV Immunization Patients Un lio 20 months Aged Out No longer eligible b ased on patient's age to complete this topic Varicella Vaccines Aged Out No longer eligible based on patient's age to complete this topic Medical Devices Implanted Type Area Rocket Motor Mechanic Device Identifier Shelf Expiration Date Model / Serial / Lot Coil Hydroframe Hydrocoil V-Trak 19cm 6mm 10 Coil Stretch - [id number] Implanted:Qty: 1 on 12/06/2018 [employer] 07/03/2023 [id number] / / [id number] Coil Embolization [place] V-Trak L28 Cm Od7 Mm 10 Coil - [id number] Implanted:Qty: 1 on 12/06/2018 [employer] 07/03/2023 [id number] / / [id number] Insurance MEDICARE [place] - [place] [facility] Care Teams Environmental Engineering Aide Relationship Specialty Start Date End Date Mariel Smyth MD [address] [place] [address] [address] [facility] [place] [address] PCP - General Internal Medicine 06/25/24
--- OUTSIDE RECORDS SUMMARY | 2024-08-22 09:29 | XMS_ITS | Encounter Summary ---
Author Organization [facility] and [facility] Address [address] [place] [address] Care Team Providers Care Bending Machine Operator Name Role Phone Mariel Smyth MD Primary Care Provider [phone] Encounter Details Date Type Department Care Team (Late st Contact Info) Description 06/07/2018 Scanned Document [facility] at [address] [place] [phone] Don Monique MD [address] [place] [phone] Social History Tobacco Use Types Packs/Day Years [...] on filedocumented in this encounter Care Teams Bending Machine Operator Relationship Specialty Start Date End Date Mariel Smyth MD [address] [place] [address] [place] [phone] PCP - General Internal Medicine 06/19/18 documented as of this encounter
--- OUTSIDE RECORDS SUMMARY | 2024-08-22 09:29 | XMS_ITS | Encounter Summary ---
Author Organization [facility] and [facility] Address [address] [place] [address] Care Team Providers Care Pipe Fitter Soft Copper Name Role Phone Mariel Smyth MD Primary Care Provider [phone] Reason for Referral * Imaging (Routine) - Closed Specialty Diagnoses / Procedures Referred By Contac t Referred To Contact Diagnostic Radiology Procedures MRA Brain without IV Contrast Neurosurgery at [address] [address] Phone: tel: fax: Referral ID Status Reason Start Date Expiration Date Visits Re quested Visits Authorized [id number] Closed 12/03/2022 12/03/2023 1 1 Encounter Details Date Type Department Care Team (Late st Contact Info) Description 12/03/2022 Scanned Document Neurosurgery at [address] [place] [address] Fan [place] . Social History Tobacco Use [...] on filedocumented in this encounter Care Teams Pipe Fitter Soft Copper Relationship Specialty Start Date End Date Mariel Smyth MD [address] [place] [address] Dr Bowser [facility] PATRICE [place] [phone] PCP - General Internal Medicine 06/19/18 documented as of this encounter
--- OUTSIDE RECORDS SUMMARY | 2024-08-22 09:29 | XMS_ITS | Encounter Summary ---
Author Organization [facility] and [facility] Address [address] [place] [address] Care Team Providers Care Accounts Receivable Accountant Name Role Phone Mariel Smyth MD Primary Care Provider [phone] Encounter Details Date Type Department Care Team (Late st Contact Info) Description 12/28/2019 Scanned Document [facility] SCHEDULING [address] [place], [place] [phone] Provider, Historical . Social History Tobacco Use [...] on filedocumented in this encounter Care Teams Accounts Receivable Accountant Relationship Specialty Start Date End Date Mariel Smyth MD [address] [place] [address] [place] [phone] PCP - General Internal Medicine 06/19/18 documented as of this encounter
--- OUTSIDE RECORDS SUMMARY | 2024-08-22 09:29 | XMS_ITS | Clinical Summary ---
Author Organization [facility] Address [address] [place] [address] Care Team Providers Care Interior Decorator Paperhanging Name Role Phone Unknown, Primary Care Provider [...] this topic Medical Devices Implanted Type Area Forming Mill Operator Device Identifier Shelf Expiration Date Model / Serial / Lot Coil Hydroframe Hydrocoil V-Trak 19cm 6mm 10 Coil Stretch - [id number] - [id number] Implanted:Qty: 1 on 12/06/2018 at [facility] 07/03/2023 [id number] / / [id number] Coil Embolization [place] F[place] V-Trak L28 Cm Od7 Mm 10 Coil - [id number] - [id number] Implanted:Qty: 1 on 12/06/2018 at [facility] [employer] 07/03/2023 [id number] / / [id number] Advance Directives For more information, please contact: [phone] Latest Code Status on File Code Status Date Activated Date Inactivated Comments Full Code 12/06/2018 11:09 AM 12/07/2018 4:28 PM This c ode status was ascertained in the following way: discussion with patient . Care Teams Interior Decorator Paperhanging Relationship Specialty Start Date End Date Unknown, PCP - General 12/06/18
--- OUTSIDE RECORDS SUMMARY | 2024-08-22 09:29 | XMS_ITS | Encounter Summary ---
Author Organization [facility] Address [address] [place] [address] Care Team Providers Care Major Account Manager Name Role Phone Mariel Smyth MD Primary Care Provider [phone] Reason for Visit * Reason Onset Date Comments Letter for School/Work 08/13/2024 Encounter Details Date Type Department Care Team (Late st Contact Info) Description 08/13/2024 Telephone [facility] [address] [place] [address] Abhijeet Romero MD [address] [place] [address] [place] [address] Letter for School/Work Social History Tobacco Use Types Packs/Day Years [...] encounter Miscellaneous Notes * Telephone Encounter - Shobha Whitney - 08/13/2024 1:55 PM EST Patient of , patient and calling in requesting a letter be mailed to their home. Said patient is being summoned for jury duty and wanted to writing a letter regarding his condition and excusing him from duty. Please mail to address on file, patient could be reached at [phone]. documented in this encounter Plan of Treatment Not on file documented as of this encounter Visit Diagnoses Not on filedocumented in this encounter Care Teams Major Account Manager Relationship Specialty Start Date End Date Mariel Smyth MD [address] [place] [address] [place] [phone] PCP - General Internal Medicine 06/19/18 documented as of this encounter
--- OUTSIDE RECORDS SUMMARY | 2024-08-22 09:29 | XMS_ITS | Encounter Summary ---
Author Organization [facility] Address [address] [place] [address] Care Team Providers Care Continuous Miner Name Role Phone Mariel Smyth MD Primary Care Provider Reason for Referral * Imaging (Routine) - New Request Specialty Diagnoses / Procedures Referred By Yanna alford Referred To Contact Diagnostic Radiology Procedures MRA Brain without IV Contrast Neurosurgery at [address] [address] Phone: tel: fax: Referral ID Status Reason Start Date Expiration Date V isits Requested Visits Authorized [id number] New Request 12/30/2023 12/29/2024 1 1 Encounter Details Date Type Department Care Team (Late st Contact Info) Description 12/30/2023 Scanned Document Neurosurgery at [address] [address] Fan [place] . Social History Tobacco Use [...] filedocumented in this encounter Care Teams Continuous Miner Relationship Specialty Start Date End Date Mariel Smyth MD [address] [place] [address] [place] [phone] PCP - General Internal Medicine 06/19/18 documented as of this encounter
--- OUTSIDE RECORDS SUMMARY | 2024-08-22 09:29 | XMS_ITS | Encounter Summary ---
Author Organization [facility] and [facility] Address [address] [place] [address] Care Team Providers Care Scanning Clerk Name Role Phone Mariel Smyth MD Primary Care Provider [phone] Encounter Details Date Type Department Care Team (Late st Contact Info) Description 12/09/2020 Scanned Document [facility] at [address] [phone] Josue Vaca MD [address] [place] [address] [phone] Social History Tobacco Use Types Packs/Day Years [...] on filedocumented in this encounter Care Teams Scanning Clerk Relationship Specialty Start Date End Date Mariel Smyth MD [address] [place] [address] [place] [phone] PCP - General Internal Medicine 06/19/18 documented as of this encounter
--- OUTSIDE RECORDS SUMMARY | 2024-08-22 09:29 | XMS_ITS | Encounter Summary ---
Author Organization [facility] Address [address] [place] [address] Care Team Providers Care Ux Developer Name Role Phone Mariel Smyth MD Primary Care Provider [phone] Encounter Details Date Type Department Care Team (Late st Contact Info) Description 11/13/2018 Scanned Document [facility] at [address] [address] Provider, Historical . Social History Tobacco Use [...] on filedocumented in this encounter Care Teams Ux Developer Relationship Specialty Start Date End Date Mariel Smyth MD [address] [place] [address] [place] [phone] PCP - General Internal Medicine 06/19/18 documented as of this encounter
--- OUTSIDE RECORDS SUMMARY | 2024-08-22 09:29 | XMS_ITS | Encounter Summary ---
Author Organization [facility] and [facility] Address [address] [place] [address] Care Team Providers Care Frame Feeder Name Role Phone Mariel Smyth MD Primary Care Provider [phone] Encounter Details Date Type Department Care Team (Late st Contact Info) Description 12/15/2018 Scanned Document [facility] at [address] [address] Provider, Historical . Social History Tobacco Use [...] on filedocumented in this encounter Care Teams Frame Feeder Relationship Specialty Start Date End Date Mariel Smyth MD [address] [place] [address] [place] [phone] PCP - General Internal Medicine 06/19/18 documented as of this encounter
--- OUTSIDE RECORDS SUMMARY | 2024-08-22 09:29 | XMS_ITS | Encounter Summary ---
Author Organization [facility] and [facility] Address [address] [place] [address] Care Team Providers Care Cloth Neutralizer Name Role Phone Mariel Smyth MD Primary Care Provider [phone] Encounter Details Date Type Department Care Team (Late st Contact Info) Description 04/25/2018 Scanned Document [facility] at [address] [place] [phone] Don Monique MD [address] [place] [phone] Social History Tobacco Use Types Packs/Day [...] on filedocumented in this encounter Care Teams Cloth Neutralizer Relationship Specialty Start Date End Date Mariel Smyth MD [address] [place] [address] [place] [phone] PCP - General Internal Medicine 06/19/18 documented as of this encounter
--- OUTSIDE RECORDS SUMMARY | 2024-08-22 09:29 | XMS_ITS | Encounter Summary ---
Author Organization [facility] and [facility] Address [address] [place] [address] Care Team Providers Care Technician Support Association Name Role Phone Mariel Smyth MD Primary Care Provider [phone] Reason for Visit * Reason Comments Triage Encounter Details Date Type Department Care Team ([facility] st Contact Info) Description 08/20/2021 Telephone [facility] [address] [place] [address] Josue Vaca MD [address] [place] [phone] Triage Social History Tobacco Use Types Packs/Day [...] regarding this. Please advise Mrs. Zuleta's Number: [phone] documented in this encounter Plan of Treatment Not on file documented as of this encounter Visit Diagnoses Not on filedocumented in this encounter Care Teams Technician Support Association Relationship Specialty Start Date End Date Po, MD Mariel [address] [place] [address] Dr [place], PATRICE [phone] PCP - General Internal Medicine 06/19/18 documented as of this encounter
--- OUTSIDE RECORDS SUMMARY | 2024-08-22 09:29 | XMS_ITS | Clinical Summary ---
Author Organization [facility] [employer] Address [address] [place] [address] Care Team Providers Care Centerpuncher Name Role Phone Mariel Smyth MD Primary Care Provider [phone] Allergies Active Allergy Reactions Criticality Noted Date [...] Tobacco use disorder 10/11/2012 Cerebral aneurysm, nonruptured Encounters Date Type Department Care Team Description 08/13/2024 Telephone [facility] at [address], [address] [place] [address] Abhijeet Romero MD Letter for School/Work from Last 3 Months Family History Medical History Relation Name Comments [...] Shingrix (RZV) 2 Dose Standard Series) 2007 Pneumococcal Vaccine (50+ ye ars) (2 of 2 - PCV) 01/20/2012 01/19/2011 RSV Discussion (1 - Risk 60- 74 years 1-dose series) 2017 Aortic Aneurysm screening 2022 Influenza vaccine 02/02/2024 Covid-19 vaccine series ( - 2023- season) 2024 Meningococcal Vaccine Aged Out No mark deepika eligible based on patient's age to complete this topic Insurance MEDICARE [facility] MEDICARE [facility] MEDICARE [facility] Care Teams Centerpuncher Relationship Specialty Start Date End Date Mariel Smyth MD [address] [place] [address] [place] [phone] PCP - General Internal Medicine 06/19/18
[2024-08-22 09:31] VITALS: BP 124/80; PULSE 76; TEMP 36.6; O2SAT 94
== END 2024-08-22 10:14 | disposition home or self-care (01) ==
PROVIDERS: PCP Internal Medicine; Visit Provider Physician Assistant
DX: J01.00 Acute maxillary sinusitis, unspecified (principal); H66.002 Acute suppurative otitis media without spontaneous rupture of ear drum, left ear

== ENCOUNTER → 2024-09-18 09:59 | Outpatient (REF) | payer MEDICARE, SELFPAY ==
--- NOTE | 2024-09-18 10:01 | CA_ITS ---
Transthoracic Echocardiogram Patient (Last, First, Middle): Neeta Zuleta D Gender: Male Date of : 1955 Age: 69 Procedure Date: 09/18/2024 Procedure Type: Transthoracic Echocardiogram Location: OP Height: 167.64 cm Weight: 92.99 kg BSA: 2.02 m2 Heart Rate: bpm BP: 124 / 86 mmHg Land Surveyor Manager: MATEUSZ Referring MD: Arden Bustillo MD Symptoms: I35.0 - Nonrheumatic aortic (valve) stenosis Study Quality: Fair Conclusions: - 1. Mildly reduced LV ejection fraction 45-50% with impaired relaxation filling pattern with underlying wall motion abnormality consistent with coronary artery disease 2. Mild aortic stenosis 3. Normal RV systolic pressure 4. Upper limits of normal ascending aortic size 5. No gross pericardial effusion Findings Left Ventricle Normal left ventricular size, thickness, and systolic function. The visually estimated ejection fraction is between 45-50%. Spectral Doppler is indicative of an impaired relaxation filling pattern. E/E prime ratio is between 8 and 15 consistent with indeterminate filling pressures. Wall Motion Rest Echo Findings The mid inferoseptal segment is hypokinetic. The inferolateral wall, the basal inferior, and basal inferoseptal segments are akinetic. All other scored wall segments showed normal motion. Right Ventricle Normal right ventricular cavity size. There is normal right ventricular systolic function. Atria The left atrium is normal in size. Interatrial shunt cannot be excluded. The right atrium is normal in size. Aortic Valve There is moderate calcification of the aortic valve. There is mild thickening of the aortic valve. There is mild aortic valve stenosis. The peak aortic gradient is 18 mmHg.The mean gradient is 8 mmHg. The aortic valve area is 1.59 cm2. There is no aortic valve regurgitation. Mitral Valve There is mild anterior and posterior mitral leaflet thickening. There is trace mitral valve regurgitation. There is no mitral valve stenosis. Pulmonic Valve The pulmonic valve was not well visualized. Tricuspid Valve Likely normal tricuspid valve structure and function. There is mild tricuspid valve regurgitation. The right ventricular systolic pressure is normal. The right ventricular systolic pressure is 15 mmHg. Normal right atrial pressure. There is no evidence of pulmonary hypertension. Great Vessels The pulmonary artery was not well visualized. Small plaque is seen in the ascending aorta. Venous The inferior vena cava is normal in size and collapses greater than 50% with inspiration. Pericardium/Pleural There is no evidence of pericardial effusion. Prior Study Comparison No significant change compared to prior study dated: 09/06/2023. Measurements 2D Linear Measurements IVSd: 0.91 0.6-0.9/0.6-1.0 cm LVIDd: 5.07 3.9-5.3/4.2-5.9 cm LVIDd Index: 2.51 2.4-3.2/2.2-3.1 cm/m2 LVIDs: 4.01 2.0-3.6 cm LVPWd: 0.88 0.7-1.1 cm LA Diam: 3.10 2.7-3.8/3.0-4.0 cm LAIDs Index: 1.53 1.5-2.3 cm/m2 LV Mass: 201.09 67-162/88-224 g LV Mass Index: 99.55 43-95/49-115 g/m2 LVOT Diam: 2.10 3.0+(-)1.3 cm 2D Systolic Function EF 4C: 55.40 >55% EF 2C: 43.20 >55% EF BiP: 49.10 >55% Mitral Valve MV Pk E: 0.60 MV PK A: 0.87 MV Decel Time: 246.00 E/A: 0.70 E'Lateral: 9.68 E'Medial: 6.31 E/E' Med: 9.60 E/E' Lat: 6.20 PHT: 72.00 MVA PHT: 3.06 Decel [place]: 2.46 Aortic Valve AoV Pk Naveen: 2.15 AoV Mn Naveen: 1.31 AoV VTI: 0.44 AoV Pk Grad: 18.00 Aov Mn Grad: 8.00 RUBIO Cont.VTI: 1.59 LVOT LVOT Pk Naveen: 0.92 LVOT Mn Naveen: 0.69 LVOT VTI: 0.20 LVOT Pk Grad: 3.00 LVOT Mn Grad: 2.00 LVOT Diam: 2.10 LVOT Area: 3.46 Diastolic Function MV Pk E: 0.60 MV Pk A: 0.87 E/A: 0.70 E'Medial: 6.31 E/E' Med: 9.60 E' Laterial: 9.68 E/E' Lat: 6.20 Right Ventricle TAPSE (mm): 23.50 TVS' Naveen: 12.40 Tricuspid Valve TR Pk Naveen: 1.74 TR Pk Grad: 12.00 RA Press: 3.00 RVSP: 15.00 Great Vessels Aorta Sinus of Valsalva: 4.14 2.0-3.[address] [place]: 3.25 1.7-3.4 cm Ao Asc: 3.50 2.1-3.4 cm Updated in Other Vendor System with Status of Final Arden Bustillo MD electronically signed on 09/18/2024 12:01:39 PM with status of Final
--- OUTSIDE RECORDS SUMMARY | 2024-09-18 11:18 | XMS_ITS | Encounter Summary ---
Author Organization [facility] Address [address] [place] [address] Care Team Providers Care Java Front End Web Developer Name Role Phone Mariel Smyth MD Primary Care Provider [phone] Encounter Details Date Type Department Care Team (Late st Contact Info) Description 06/07/2018 Scanned Document [facility] at [address] [place] [address] [phone] Don Monique MD [address] [place] [address] [phone] Social History Tobacco Use Types Packs/Day Years [...] on filedocumented in this encounter Care Teams Java Front End Web Developer Relationship Specialty Start Date End Date Mariel Smyth MD [address] [place] [address] [place] [phone] PCP - General Internal Medicine 06/19/18 documented as of this encounter
--- OUTSIDE RECORDS SUMMARY | 2024-09-18 11:18 | XMS_ITS | Clinical Summary ---
Author Organization [address] [place] [address] Address [address] [place] [address] Phone Care Team Providers Care Front End Manager Name Role Phone Mariel Smyth MD Primary Care Provider [phone] Allergies Active Allergy Reactions Criticality Noted Date Comments Atorvastatin Other,Unknown High 12/06/2018 Pt states it messes with my joints. Medications atenoloL (TENORMIN) 25 mg tablet take 1 tablet (25 mg) orally daily Active losartan (COZAAR) 50 mg tablet Take 1 tablet (50 mg total) by mouth 1 (one) time each day. Active rosuvastatin (CRESTOR) 40 mg tablet Take 1 tablet (40 mg total) by mouth 1 (one) time each day. Active aspirin 81 mg EC tablet Take 1 tablet (81 mg total) by mouth daily. Active Combivent Respimat 20-100 mcg/actuation inhaler 1 PUFFS INHALATION 4 TIMES A DAY Active Wixela Inhub 500-50 mcg/dose diskus inhaler TAKE 1 INHALATION 2 TIMES A DAY FOR 90 DAYS RINSE MOUTH AND THROAT AFTER USE Active diazePAM (VALIUM) 10 mg tablet Take 1 tablet (10 mg total) by mouth 3 (three) times a day if needed for anxiety. Max Daily Amount: 30 mg Active Hospital, Clinic, or Other Facility Administered Medication Ordered Dose Route Frequency Start Date End Date Status triamcinolone acetonide (KENALOG-40) 40 mg/mL injection 40 mgIndications:Subacr omial bursitis of right shoulder joint 40 mg IAtc Once PRN Procedure 08/22/2024 08/22/2024 Ended Encounters Date Type Department Care Team Description 08/22/2024 2:00 PM EST Consult Orthopedic Surgery [facility] [address] [facility] [address] [place] [address] Hubert Lombardo MD Other specified joint disorders, right shoulder (Primary Dx); Subacromial bursitis of right shoulder joint from Last 3 Months Surgical History Surgery Date Site/Laterality Comments OTHER SURGICAL HISTORY PROCEDURE:cerebral coiling Medical History Medical History Date Comments Hypertension DX:Hypertension Lyme disease DX:Lyme disease COPD (chronic obstructive pu lmonary disease) (CMS/HCC) DX:COPD (chronic obstructive pulmonary disease) (HCC) Coronary artery disease DX:Coron eric artery disease [...] Sexual Orientation Not on file Obstetrics History Last Filed Vital Signs Vital Sign Reading Time Taken Comments Blood Pressure - - Pulse - - Temperature - - Respiratory Rate - - Oxygen Saturation - - Inhaled Oxygen Concentration - - Weight 93.4 kg (206 lb) 08/22/2024 2:09 PM EST Height 167.6 cm (5' 6 ) 08/22/2024 2:09 PM EST Body Mass Index 33.25 08/22/2024 2:09 PM EST Plan of Treatment Health Maintenance Due Date Last Done Comments Zoster Vaccines (1 of 2) 2007 Pneumococcal Vaccine: 50+ Years (2 of 2 - PCV) 01/20/2012 01/19/2011 RSV Immunization Patients 60+ Years Old (1 - Risk 60-74 years 1-dose series) 2017 COVID-19 Vaccine ( season) 2024 10/16/2021, 05/18/2021, 11/03/2020, Additional history exists Abdominal Aortic Aneurysm (AAA) Screen 06/25/2024 Cholesterol Screening (Lipid Panel) 06/25/2024 Colorectal Cancer Screening: Colonoscopy 06/25/2024 Depression Screening 06/25/2024 Falls Risk Assessment 06/25/2024 Hepatitis C Screening 06/25/2024 Medicare Annual Wellness Visit 06/25/2024 Social Influencers of Health Screening 06/25/2024 Hypertension/CHF/CAD Annual BMP Blood Test 08/22/2024 DTaP,Tdap,and Td Vaccines (3 - Td or Tdap) 01/25/2029 01/25/2019, 01/19/2011 Influenza Vaccine Completed 04/03/2024, , 04/05/2022, Additional history exists HIB Vaccines Aged Out No longer eligi [...] to complete this topic RSV Immunization Patients Under 20 months Aged Out No longer eligible based on patient's age to complete this topic Varicella Vaccines Aged Out No longer eligible based on patient's age to complete this topic Medical Devices Implanted Type Area Pharmacy Services Director Device Identifier Shelf Expiration Date Model / Serial / Lot Coil Hydroframe Hydrocoil V-Trak 19cm 6mm 10 Coil Stretch - [id number] Implanted:Qty: 1 on 12/06/2018 [employer] 07/03/2023 [id number] / / [id number] Coil Embolization [place] V-Trak L28 Cm Od7 Mm 10 Coil - [id number] Implanted:Qty: 1 on 12/06/2018 [employer] 07/03/2023 [id number] / / [id number] Procedures Procedure Name Priority Date/Time Associated Diagnosis Comments XR SHOULDER 2+ VIEWS RIGHT Routine 08/22/2024 2:29 PM EST Other specified joint disorders, right shoulder OR ARTHROCENTESIS/ASPI RATION/INJECTION MAJOR JOINT/BURSA W/O U/S GUIDANCE Routine 08/22/2024 2:00 PM EST Subacromial bursitis of right shoulder joint from Last 3 Months Results * XR Shoulder 2+ Views Right (08/22/2024 2:29 PM EST) Anatomical Region Laterality Modality Upper Extremities, Shoulder Right Comp uted Radiography Narrative 08/22/2024 5:50 PM EST 4 view x-rays of the right shoulder done today shows no acute fracture dislocations, there are moderate degenerative changes at the acromioclavicular and glenohumeral joint with osteophyte formation at the superior acromion and inferior glenoid. ??There is no osteophytes formed at the greater tuberosity of the humerus. ??1 cm radiopaque density in the soft tissues posterior to the humeral head possibly consistent with soft tissue or vascular calcification. No surrounding osseous lesions, appears well demarcated and may represent heterotopic ossification Impression: Moderate degenerative changes of the acromioclavicular and glenohumeral joints with radiopaque density posterior to the humeral head Hubert Lombardo MD IMG XR PROCEDURES Edited Result - Final * OR ARTHROCENTESIS/ASPIRATION/INJECTION MAJOR JOINT/BURSA W/O U/S GUIDANCE (08/22/2024 2:00 PM EST) Narrative Hubert Lombardo MD - 08/22/2024 2:00 PM EST Hubert Lombardo MD ? 08/22/2024 ??5:57 PM L Inj/Asp: R subacromial bursa Indications: pain Details: 22 G needle, posterior approach Medications: 40 mg triamcinolone acetonide 40 mg/mL Outcome: tolerated well, no immediate complications Site was prepped in standard fashion using alcohol swab, sterile technique was used to perform the injection, the patient tolerated the procedure well and a band-aid dressing was applied Informed Consent: ??Site: ??Right subacromial ??Laterality: ??Right ??Relevant images/test results available and reviewed: yes ?Health status cleared: ??Yes ??Procedure/treatment, purpose, treatment alternatives, risks/potential complications and benefits explained: yes ?Risk/complications/benefits details: ??Risk/complications/benefits details: ??Risks and benefits of corticosteroid injection were discussed, including risk of pain, bleeding, infection, tissue attenuation, tendon rupture, changes in skin color, and injury to surrounding structures such as arteries, veins and nerves. We also discussed the patient may develop worsening pain for a few days before having improvement in their symptoms. ??Patient questions answered: yes ?Patient agrees, verbalizes understanding, and wants to proceed: yes ?Consent given by: ??Patient ??Informed consent discussion completed by Physician/MARY with patient: ?? Verbal ??Pre-procedure timeout performed: yes ?? Hubert Lombardo MD IN CLINIC/BEDSIDE ORDERABLES Fin al Result from Last 3 Months Insurance MEDICARE MEDICAID - [place] [facility] Care Teams Front End Manager Relationship Specialty Start Date End Date Mariel Smyth MD [address] [place] [address] [address] [facility] [place] [address] PCP - General Internal Medicine 06/25/24
--- OUTSIDE RECORDS SUMMARY | 2024-09-18 11:18 | XMS_ITS | Encounter Summary ---
Author Organization [facility] Address [address] [place] [address] Care Team Providers Care Zoning Administrator Name Role Phone Mariel Smyth MD Primary Care Provider [phone] Encounter Details Date Type Department Care Team (Late st Contact Info) Description 12/11/2018 Scanned Document [facility] at [address] [place] [address] [phone] Josue Vaca MD [address] [place] [phone] Social History Tobacco Use Types Packs/Day Years [...] on filedocumented in this encounter Care Teams Zoning Administrator Relationship Specialty Start Date End Date Mariel Smyth MD [address] [place] [address] [place] [phone] PCP - General Internal Medicine 06/19/18 documented as of this encounter
--- OUTSIDE RECORDS SUMMARY | 2024-09-18 11:18 | XMS_ITS | Encounter Summary ---
Author Organization [facility] Address [address] [place] [address] Care Team Providers Care Fingerprint Technician Name Role Phone Mariel Smyth MD Primary Care Provider [phone] Encounter Details Date Type Department Care Team (Late st Contact Info) Description 04/25/2018 Scanned Document [facility] at [address] [place] [address] [phone] Don Monique MD [address] [place] [phone] Social History Tobacco Use Types Packs/Day [...] on filedocumented in this encounter Care Teams Fingerprint Technician Relationship Specialty Start Date End Date Mariel Smyth MD [address] [place] [address] [place] [phone] PCP - General Internal Medicine 06/19/18 documented as of this encounter
--- OUTSIDE RECORDS SUMMARY | 2024-09-18 11:18 | XMS_ITS | Encounter Summary ---
Author Organization [facility] Address [address] [place] [address] Care Team Providers Care Clinical Dietitian Name Role Phone Mariel Smyth MD Primary Care Provider Reason for Referral * Imaging (Routine) - New Request Specialty Diagnoses / Procedures Referred By Yanna alford Referred To Contact Diagnostic Radiology Procedures MRA Brain without IV Contrast Neurosurgery at [address] [address] Phone: tel: fax: Referral ID Status Reason Start Date Expiration Date V isits Requested Visits Authorized [id number] New Request 12/30/2023 12/29/2024 1 1 Encounter Details Date Type Department Care Team (Late st Contact Info) Description 12/30/2023 Scanned Document Neurosurgery at [address] [phone] [place] . Social History Tobacco Use [...] on filedocumented in this encounter Care Teams Clinical Dietitian Relationship Specialty Start Date End Date Mariel Smyth MD [address] [place] [address] [place] [phone] PCP - General Internal Medicine 06/19/18 documented as of this encounter
--- OUTSIDE RECORDS SUMMARY | 2024-09-18 11:18 | XMS_ITS | Continuity of Care Document ---
Author Organization [facility] Address [address] [place] [phone] Care Team Providers Care Crib Pad Maker Name Role Phone Mariel Smyth MD Primary Care Physician [phone] [place] [facility] [id number] Date(s): 05/10/24 - 09/07/24 [facility] [address] [place] [id number] Attending Physician: Matt Dowling MD Admitting Physician: Matt Dowling MD Referring Physician: Mariel Smyth MD Encounter Type: Pre-OutPatient One Time Allergies, Adverse Reactions, Alerts Substance Criticality Severity Reaction Reaction Severity Status Lipitor Active Immunizations Given and Recorded Vaccine Date Status Refusal Reason Tet/Diphth/Acel, Pertussis (oldterm) 1 01/19/11 Gi sridhar pneumococcal 23-valent vaccine 2 01/19/11 Given 1Admin Note: vis given 05/21/08 2Admin Note: vis given 04/08/09 Medications Albuterol NEBULIZER, 0 Refills, Maintenance, 08/27/13 12:59:00 PM EST Start Date: 08/27/13 Status: Ordered Repeat number: 1 albuterol 0.083% inhalation solution 3 mL = 2.5 mg, Inhalation, Every 6 hours, PRN for wheezing, J44.9, # 360 mL, 3 Refills, Maintenance, 10/01/22 1:52:00 PM EDT, Solution, [id number], Partial fill upon patient request if the prescription is for a schedule II opioid drug., 168, cm, 10/06/21 10:34:00 EDT, Height Start Date: 10/01/22 Status: Ordered Quantity: 360.0 Unit: mL Repeat number: 4 Aspirin = 81 mg, Daily, 0 Refills, Maintenance, 08/27/13 12:57:30 PM EST Start Date: 08/27/13 Status: Ordered Repeat number: 1 atenolol 25 mg oral tablet 1 tablet = 25 mg, By Mouth, Daily, 0 Refills, Maintenance, 10/24/13 1:54:17 PM EDT Start Date: 10/24/13 Status: Ordered Repeat number: 1 azelastine 137 mcg/inh (0.1%) nasal spray See Instructions, INHALE 2 SPRAYS INTO EACH NOSTRIL TWICE A DAY, # 90 Unknown, 1 Refills, Maintenance, 08/15/24 1:22:00 PM EST, [facility][id number], INHALE 2 SPRAYS INTO EACH NOSTRIL TWICE A DAY, 168, cm, 09/21/23 9:55:00 EDT, Height Start Date: 08/15/24 Status: Ordered Quantity: 90.0 Unit: Unknown Repeat number: 2 azelastine 137 mcg/inh (0.1%) nasal spray See Instructions, INHALE 2 SPRAYS INTO EACH NOSTRIL TWICE A DAY, # 90 Unknown, 1 Refills, Maintenance, 08/15/24 1:22:00 PM EST, [id number], 90, INHALE 2 SPRAYS INTO EACH NOSTRIL TWICE A DAY, 168,cm, 09/21/23 9:55:00 EDT, Height Start Date: 08/15/24 Status: Ordered Quantity: 90.0 Unit: Unknown Repeat number: 1 Azithromycin 5 Day Dose Pack 250 mg oral tablet 1 pack/packet, By Mouth, Once, # 6 tablet, 0 Refills, Soft Stop, 06/04/16 10:45:22 AM EST, Tablet, [facility][id number] Start Date: 06/04/16 Status: Ordered Quantity: 6.0 Unit: tablet Repeat number: 1 Breo Ellipta 200 mcg-25 mcg/inh inhalation powder 1 puffs, Inhalation, Daily, # 3 each, 3 Refills, Maintenance, 01/21/20 10:20:00 AM EDT, Powder, [facility] #1230, 1 puffs Inhalation Daily,x90 days, 168, cm, 01/21/20 10:13:00 EDT, Height Start Date: 01/21/20 Stop Date: 01/15/21 Status: Ordered Quantity: 3.0 Unit: each Repeat number: 4 Combivent Respimat 20 mcg-100 mcg/inh inhalation aerosol 1 puffs, Inhalation, 4 times a day, # 12 mL, 3 Refills, Maintenance, 04/30/24 8:33:00 AM EDT, [id number], 90, 1 PUFFS INHALATION 4 TIMES A DAY, 168, cm, 09/21/23 9:55:00 EDT, Height Start Date: 04/30/24 Status: Ordered Quantity: 12.0 Unit: mL Repeat number: 1 Crestor 40 mg oral tablet 1 tablet = 40 mg, By Mouth, Daily at bedtime, 0 Refills, Maintenance, 10/24/13 1:54:33 PM EDT Start Date: 10/24/13 Status: Ordered Repeat number: 1 dexamethasone 2 mg oral tablet = 2 mg, By Mouth, 3 times a day with meals, # 15 tablet, 0 Refills, Maintenance, 10/27/17 9:59:02 AMEDT, Tablet Start Date: 10/27/17 Status: Ordered Quantity: 15.0 Unit: tablet Repeat number: 1 diazepam 5 mg oral tablet 1 tablet = 5 mg, By Mouth, 2 times a day, 0 Refills, Maintenance, 08/27/13 12:58:10 PM EST Start Date: 08/27/13 Status: Ordered Repeat number: 1 docusate sodium 100 mg oral capsule 100 mg, 1, capsule, By Mouth, 2 times a day, Refills 0, Maintenance, 10/27/17 9:58:29 AM EDT Start Date: 10/27/17 Status: Ordered Repeat number: 1 famotidine 20 mg oral tablet 20 mg, By Mouth, 2 times a day, # 10 tablet, Refills 0, Tot. Refills 0, Maintenance, 10/27/17 9:59:05 AM EDT, Print Requisition Start Date: 10/27/17 Status: Ordered Quantity: 10.0 Unit: tablet Repeat number: 1 ipratropium 500 mcg/2.5 mL inhalation solution 500 mcg, 2.5, mL, Inhalation, 4 times a day, J44.9, # 120 each, Refills 3, Tot. Refills 3, Maintenance, 10/28/21 5:18:00 PM EDT, Inhalation Solution, Route to Pharmacy Electronically, [id number], [facility]/pharmacy #[id number], J44.9, 168, cm, 10/06/21 10:34:00 EDT, Height Start Date: 10/28/21 Status: Ordered Quantity: 120.0 Unit: each Repeat number: 4 losartan 50 mg oral tablet 1 tablet = 50 mg, By Mouth, Daily, 0 Refills, Maintenance, 10/24/13 1:54:23 PM EDT Start Date: 10/24/13 Status: Ordered Repeat number: 1 nitroglycerin 0.4 mg sublingual tablet 1 tablet = 0.4 mg, Sublingual, Every 5 minutes, 0 Refills, Maintenance, 08/27/13 12:57:57 PM EST Start Date: 08/27/13 Status: Ordered Repeat number: 1 ondansetron 4 mg oral tablet, disintegrating 1 tablet = 4 mg, By Mouth, Every 8 hours, PRN Nausea & Vomiting, # 10 tablet, 0 Refills, Maintenance, 10/27/17 9:58:56 AM EDT, Tablet Start Date: 10/27/17 Status: Ordered Quantity: 10.0 Unit: tablet Repeat number: 1 oxyCODONE 5 mg oral tablet 5 mg, By Mouth, Every 6 hours, PRN, # 20 tablet, Refills 0, Tot. Refills 0, Maintenance, Pain , Moderate, 10/27/17 9:59:08 AM EDT, Print Requisition Start Date: 10/27/17 Status: Ordered Quantity: 20.0 Unit: tablet Repeat number: 1 ProAir HFA 90 mcg/inh inhalation aerosol with adapter 2 puffs, Inhalation, 4 times a day, as directed 15 minutes before exercise, # 3 each, 4 Refills, Maintenance, 10/23/14 2:00:49 PM EDT, [facility]/pharmacy #[id number], 2 puffs Inhalation 4 times a day,Instr:as directed 15 minutes before exercise Start Date: 10/23/14 Status: Ordered Quantity: 3.0 Unit: each Repeat number: 5 Ventolin 90 mcg Inhaler 2, puffs, Inhalation, 4 times a day, Maintenance, 08/27/13 12:57:45 PM EST Start Date: 08/27/13 Status: Ordered Repeat number: 1 Brooke Inhub 500 mcg-50 mcg inhalation powder 1 inhalation, Inhalation, 2 times a day, AND THROAT AFTER USE., # 180 each, 3 Refills, Maintenance,07/02/24 10:19:00 AM EST, [id number], 90, TAKE 1 INHALATION 2 TIMES A DAY FOR 90 DAYS RINSE MOUTH AND THROAT AFTER USE, 168, cm, 09/21/23 9:55:00 EDT, Height Start Date: 07/02/24 Stop Date: 09/30/24 Status: Ordered Quantity: 180.0 Unit: each Repeat number: 1 Problem List Condition Confirmation Course Effective Dates Status Health St atus Informant Chest Pain Confirmed 11/13/12 Active HLD (hyperlipidemia) Confirmed Active Hypertension Confirmed Active COPD, mild Confirmed Active Obese class I Confirmed Active Tobacco Use Disorder Confirmed 10/11/12 Active Social History Social History Type Response Smoking Status Former smoker; Tobac co user in household: No; Other: quit November 2012; entered on: 10/24/13 Sex Male Sex Representation Male (finding) Patient Care team information Care Team Personnel Name: Mariel Smyth MD Position: Reference Physician Member Role: PCP Address: [address] [place] [address] Telecom: Name: Carmen Naik RN Position: [facility] OB RN Member Role: Primary Care Nurse Care Team Related Persons Name: CJ INGRAM Insurance Providers Guarantor name: ML REYNAGANEO Health Plan Information #: 1 Payer: MEDICARE PART B OUTPT Member Number: [id number] Policy Number: NA Group Number: NA Health Plan Information #: 2 Payer: MEDEX Member Number: [id number] Policy Number: NA Group Number: NA
--- OUTSIDE RECORDS SUMMARY | 2024-09-18 11:18 | XMS_ITS | Clinical Summary ---
Author Organization [facility] [address] [place] [address] Care Team Providers Care Health Occupations Instructor Name Role Phone Mariel Smyth MD Primary Care Provider [phone] Allergies Active Allergy Reactions Criticality Noted Date [...] Team Description 08/13/2024 Telephone [facility] at [address], [address] [place] [address] Abhijeet Romero MD Letter for [...] age to complete this topic Insurance MEDICARE [facility] MEDICARE [facility] MEDICARE [facility] Care Teams Health Occupations Instructor Relationship Specialty Start Date End Date Mariel Smyth MD [address] [place] [address] [place] [phone] PCP - General Internal Medicine 06/19/18
--- OUTSIDE RECORDS SUMMARY | 2024-09-18 11:18 | XMS_ITS | Encounter Summary ---
Author Organization [facility] and [facility] Address [address] [place] [address] Care Team Providers Care Traveling Nurse Name Role Phone Mariel Smyth MD Primary Care Provider [phone] Encounter Details Date Type Department Care Team (Late st Contact Info) Description 11/13/2018 Scanned Document [facility] at [address] [address] Provider, Historical . Social History Tobacco Use [...] on filedocumented in this encounter Care Teams Traveling Nurse Relationship Specialty Start Date End Date Mariel Smyth MD [address] [place] [address] [place] [phone] PCP - General Internal Medicine 06/19/18 documented as of this encounter
--- OUTSIDE RECORDS SUMMARY | 2024-09-18 11:18 | XMS_ITS | Encounter Summary ---
Author Organization [facility] and [facility] Address [address] [place] [address] Care Team Providers Care Shipping And Receiving Clerk Name Role Phone Mariel Smyth MD Primary Care Provider [phone] Encounter Details Date Type Department Care Team (Late st Contact Info) Description 12/09/2020 Scanned Document [facility] [address] [id number] Josue Vaca MD [address] [place] [phone] Social History Tobacco Use Types Packs/Day Years [...] on filedocumented in this encounter Care Teams Shipping And Receiving Clerk Relationship Specialty Start Date End Date Mariel Smyth MD [address] [place] [address] [place] [phone] PCP - General Internal Medicine 06/19/18 documented as of this encounter
--- OUTSIDE RECORDS SUMMARY | 2024-09-18 11:18 | XMS_ITS | Encounter Summary ---
Author Organization [facility] and [facility] Address [address] [place] [address] Care Team Providers Care Planer Chain Offbearer Name Role Phone Mariel Smyth MD Primary Care Provider [phone] Encounter Details Date Type Department Care Team (Late st Contact Info) Description 12/15/2018 Scanned Document [facility] [address] [address] Provider, Historical . Social History Tobacco Use [...] on filedocumented in this encounter Care Teams Planer Chain Offbearer Relationship Specialty Start Date End Date Mariel Smyth MD [address] [place] [address] [place] [phone] PCP - General Internal Medicine 06/19/18 documented as of this encounter
--- OUTSIDE RECORDS SUMMARY | 2024-09-18 11:18 | XMS_ITS | Encounter Summary ---
Author Organization [facility] and [facility] Address [address] [place] [address] Care Team Providers Care Tourist Information Officer Name Role Phone Mariel Smyth MD Primary Care Provider [phone] Reason for Referral * Imaging (Routine) - Closed Specialty Diagnoses / Procedures Referred By Contac t Referred To Contact Diagnostic Radiology Procedures MRA Brain without IV Contrast Neurosurgery at [address] [address] Phone: tel: fax: Referral ID Status Reason Start Date Expiration Date Visits Re quested Visits Authorized [id number] Closed 12/03/2022 12/03/2023 1 1 Encounter Details Date Type Department Care Team (Late st Contact Info) Description 12/03/2022 Scanned Document Neurosurgery at [address] [place] [phone] [address] [place] . Social History Tobacco Use [...] on filedocumented in this encounter Care Teams Tourist Information Officer Relationship Specialty Start Date End Date Mariel Smyth MD [address] [place] [address] Dr Bowser [facility] [place] [phone] PCP - General Internal Medicine 06/19/18 documented as of this encounter
--- OUTSIDE RECORDS SUMMARY | 2024-09-18 11:18 | XMS_ITS | Encounter Summary ---
Author Organization [facility] and [facility] Address [address] [place] [address] Care Team Providers Care Passport Support Associate Name Role Phone Mariel Smyth MD Primary Care Provider [phone] Reason for Visit * Reason Onset Date Comments Letter for School/Work 08/13/2024 Encounter Details Date Type Department Care Team (Late st Contact Info) Description 08/13/2024 Telephone [facility] at [address] [place] [address] Abhijeet Romero MD [address] [place] [address] [place] [address] Letter for School/Work Social History Tobacco [...] on file, patient could be reached at [phone]. documented in this encounter Plan of Treatment Not on file documented as of this encounter Visit Diagnoses Not on filedocumented in this encounter Care Teams Passport Support Associate Relationship Specialty Start Date End Date Mariel Smyth MD [address] [place] [address] [place] [phone] PCP - General Internal Medicine 06/19/18 documented as of this encounter
--- OUTSIDE RECORDS SUMMARY | 2024-09-18 11:18 | XMS_ITS | Encounter Summary ---
Author Organization [facility] and [facility] Address [address] [place] [address] Care Team Providers Care Human Resources Hr Representative Name Role Phone Mariel Smyth MD Primary Care Provider Encounter Details Date Type Department Care Team (Late st Contact Info) Description 01/01/2020 Scanned Document [facility] SCHEDULING [address] [place], [place] [id number] Provider, Historical . Social History Tobacco Use [...] on filedocumented in this encounter Care Teams Human Resources Hr Representative Relationship Specialty Start Date End Date Mariel Smyth MD [address] [facility] [place] [phone] PCP - General Internal Medicine 06/19/18 documented as of this encounter
--- OUTSIDE RECORDS SUMMARY | 2024-09-18 11:18 | XMS_ITS | Encounter Summary ---
Author Organization [facility] and [facility] Address [address] [place] [address] Care Team Providers Care Relief Salesperson Name Role Phone Mariel Smyth MD Primary Care Provider [phone] Reason for Visit * Reason Comments Triage Encounter Details Date Type Department Care Team ([facility] st Contact Info) Description 08/20/2021 Telephone [facility] [address] [place] [address] Josue Vaca MD [address] [place] [phone] Triage Social History Tobacco Use Types Packs/Day [...] regarding this. Please advise Mrs. Zuleta's Number: [phone] documented in this encounter Plan of Treatment Not on file documented as of this encounter Visit Diagnoses Not on filedocumented in this encounter Care Teams Relief Salesperson Relationship Specialty Start Date End Date Po, MD Mariel [address] [place] [address] Dr [place], [place] [phone] PCP - General Internal Medicine 06/19/18 documented as of this encounter
--- OUTSIDE RECORDS SUMMARY | 2024-09-18 11:18 | XMS_ITS | Clinical Summary ---
Author Organization [facility] Address [address] [place] [address] Care Team Providers Care Soubrette Name Role Phone Unknown, Md Primary Care Provider Unavailabl e Allergies Active [...] this topic Medical Devices Implanted Type Area Granulator Operator Device Identifier Shelf Expiration Date Model / Serial / Lot Coil Hydroframe Hydrocoil V-Trak 19cm 6mm 10 Coil Stretch - [id number] - [id number] Implanted:Qty: 1 on 12/06/2018 at [facility] 07/03/2023 7110-0 619 / / [id number] Coil Emb[employer] V-Trak L28 Cm Od7 Mm 10 Coil - [id number] - [id number] Implanted:Qty: 1 on 12/06/2018 at [facility] [employer] 07/03/2023 7110-0 728 / / [id number] Advance Directives For more information, please contact: [phone] Latest Code Status on File Code Status Date Activated Date Inactivated Comments Full Code 12/06/2018 11:09 AM 12/07/2018 4:28 PM This c ode status was ascertained in the following way: discussion with patient . Care Teams Soubrette Relationship Specialty Start Date End Date Unknown, PCP - General 12/06/18
--- OUTSIDE RECORDS SUMMARY | 2024-09-18 11:18 | XMS_ITS | Encounter Summary ---
Author Organization [facility] and [facility] Address [address] [place] [address] Care Team Providers Care Sales Review Clerk Name Role Phone Mariel Smyth MD Primary Care Provider [phone] Encounter Details Date Type Department Care Team (Late st Contact Info) Description 12/28/2019 Scanned Document [facility] SCHEDULING [address] [place], [place] [phone] Provider, Historical . Social History Tobacco Use [...] on filedocumented in this encounter Care Teams Sales Review Clerk Relationship Specialty Start Date End Date Mariel Smyth MD [address] [place] [address] [place] [phone] PCP - General Internal Medicine 06/19/18 documented as of this encounter
--- OUTSIDE RECORDS SUMMARY | 2024-09-18 11:18 | XMS_ITS | Encounter Summary ---
Author Organization [facility] Address [address] [place] [address] Care Team Providers Care Drafter Detail Name Role Phone Mariel Smyth MD Primary Care Provider [phone] Reason for Referral * Orthopedic (Routine) - Authorized Specialty Diagnoses / Procedures Referred By Yanna alford Referred To Contact Orthopedic Surgery / Orthopaedic Surgery Diagnoses Subacromial bursitis of right shoulder joint Procedures L Inj/Asp: R subacromial bursa Hubert Lombardo MD [address] [address] Phone: tel: fax: Referral ID Status Reason Start Date Expiration Date V isits Requested Visits Authorized [id number] Authorized 08/22/2024 08/22/2025 1 1 Reason for Visit * Reason Comments Consult Pain, limited mobili ty * Consultation (Routine) - Closed Specialty Diagnoses / Procedures Referred By Yanna alford Referred To Contact Hand Surgery / Orthopaedic Surgery Diagnoses Other specified joint disorders, right shoulder Mariel Smyth MD [address] [place] [address] [address] [facility] [place] [address] Phone: tel: fax: Hubert Lombardo MD [address] [address] Phone: tel: fax: Referral ID Status Reason Start Date Expiration Date V isits Requested Visits Authorized [id number] Closed Specialty Services Required 06/25/2024 06/25/2025 1 1 Encounter Details Date Type Department Care Team (Late st Contact Info) Description 08/22/2024 2:00 PM EST Consult Orthopedic Surgery - [place] 175 [facility] [address] [place] [phone] Hubert Lombardo MD 175 [facility] [address] [place] [address] Other specified joint disorders, right shoulder (Primary Dx); Subacromial bursitis of right shoulder joint Social History Tobacco Use Types Packs/Day Years [...] on file documented as of this encounter Last Filed Vital Signs Vital Sign Reading Time Taken Comments Blood Pressure - - Pulse - - Temperature - - Respiratory Rate - - Oxygen Saturation - - Inhaled Oxygen Concentration - - Weight 93.4 kg (206 lb) 08/22/2024 2:09 PM EST Height 167.6 cm (5' 6 ) 08/22/2024 2:09 PM EST Body Mass Index 33.25 08/22/2024 2:09 PM EST documented in this encounter Progress Notes * Hubert Lombardo MD - 08/22/2024 2:00 PM ESTAssociated Order(s): L Inj/Asp: R subacromial bursa Post-Procedure Diagnose(s): Subacromial bursitis of right shoulder joint Date: August 22, 2024 Chief Complaint: Right shoulder pain Date of injury/duration of symptoms: Chronic, worse in last 3 months, atraumatic HPI: Neeta Zuleta is a [id number]-[id number] 69 y.o. male presenting for right shoulder pain which has been chronic and worse in the last 3 months. Denies any injury or trauma to the shoulder. He reports his pain is worst with raising his arm overhead especially with abduction and reaching behind his back. He does admit to pain that keeps him up at night. Patient reports a past history of corticosteroidinjection into the right shoulder. His first was about 30 years ago with very good relief until 2 years ago. His last injection 2 years ago only provided him some temporary relief. This was done at [facility]. He has not been taking much Motrin or Tylenol for pain relief. He reports that physical therapy at this time would be very difficult due to other life stressors. However, he is motivated to do a home exercise regimen to stretch and strengthen his shoulder. Referral from 06/25/[address] Floyd reviewed today Past Medical History: Diagnosis Date Cerebral aneurysm DX:Cerebral aneurysm COPD (chronic obstructive pulmonary disease) ([facility]/HCC) DX:COPD (chronic obstructive pulmonary disease) (HCC) Coronary artery disease DX:Coronary artery disease Hypertension DX:Hypertension Lyme disease DX:Lyme disease Past Surgical History: Procedure Laterality Date OTHER SURGICAL HISTORY PROCEDURE:cerebral coiling No family history on file. Social History Socioeconomic History Marital status: Spouse name: Not on file Number of children: Not on file Years of education: Not on file Highest education level: Not on file Occupational History Not on file Tobacco Use Smoking status: Former Smokeless tobacco: Never Substance and Sexual Activity Alcohol use: No Drug use: No Sexual activity: Not on file Other Topics Concern Not on file Social History Narrative Not on file No current outpatient medications on file. Not on File Objective Right UE AROM FF/abduction/ER/IR: 150 /130 /50/L5 PROM FF/abduction 160/150 painful but 5/5 strength with rotator cuff strength testing at 0 and 90 degrees of abduction Supraspinatus: negative Maryellen's Test Subscapularis: negative Bear hug Impingement: positive Neer's Test positive Hawkin's Test AC Joint: no TTP pain with cross-body adduction Biceps: pain with Speed's test negative Yergason's test Labrum pain with O'briens Imaging/diagnostic studies: 4 view x-rays of the right shoulder done today shows no acute fracture dislocations, there are moderate degenerative changes at the acromioclavicular and glenohumeral joint with osteophyte formation at the superior acromion and inferior glenoid. There is no osteophytes formed at the greater tuberosity of the humerus. 1 cm radiopaque density in the soft tissues posterior to the humeral head consistent with possible soft tissue or vascular calcification. Impression: Moderate degenerative changes of the acromioclavicular and glenohumeral joints with 1 cm adiopaque density posterior to the humeral head Medical Decision Making (base on 2 out of 3 elements): Problems Addressed: Low- 1 stable chronic illness Tests Ordered and/or Reviewed: Low-Review of external notes: Note and referral from 06/25/2024 reviewed today and Low-Ordering of each test: To the right shoulder done today Risk Level: Low risk Assessment: Neeta Zuleta presents with right shoulder pain worsening in the last 3 months. X-rays done today show moderate degenerative changes of the acromioclavicular joint and glenohumeral joint. There is also a radiopaque density located in the soft tissue shadows posterior to the humeral head could she could be consistent with a soft tissue or vascular calcification. We reviewed his radiographs and explained his diagnosis and treatment options. I discussed the risk and benefits of nonoperative treatment with corticosteroid injections for symptomatic relief. I recommended a trial of a repeat corticosteroid injection at his last was 2 years ago. We discussed the potential for surgical treatment options down the line if he has persistent symptoms with MRI to better evaluation his shoulder pathologyand possibly undergoing shoulder arthroscopy. However recommend nonsurgical treatment options at this time. I did also provide the patient with a regimen of home exercises to strengthen his rotator cuff muscles as well as improve his mobility. I stressed the importance of doing these exercises daily. Risks and benefits of corticosteroid injection were discussed, including risk of pain, bleeding, infection, tissue attenuation, tendon rupture, changes in skin color, and injury to surrounding structures such as arteries, veins and nerves. We also discussed the patient may develop worsening pain for a few days before having improvement in their symptoms. Patient agreed to undergo a right subacromial corticosteroid injection today. We can follow-up withhim for any new, persistent, worsening symptoms. All the questions were answered at this time. L Inj/Asp: R subacromial bursa Indications: pain Details: 22 G needle, posterior approach Medications: 40 mg triamcinolone acetonide 40 mg/mL Outcome: tolerated well, no immediate complications Site was prepped in standard fashion using alcohol swab, sterile technique was used to perform the injection, the patient tolerated the procedure well and a band-aid dressing was applied Informed Consent: Site: Right subacromial Laterality: Right Relevant images/test results available and reviewed: yes Health status cleared: Yes Procedure/treatment, purpose, treatment alternatives, risks/potential complications and benefits explained: yes Risk/complications/benefits details: Risk/complications/benefits details: Risks and benefits of corticosteroid injection were discussed, including risk of pain, bleeding, infection, tissue attenuation, tendon rupture, changes in skin color, and injury to surrounding structures such as arteries, veins and nerves. We also discussed the patient may develop worsening pain for a few days before having improvement in their symptoms. Patient questions answered: yes Patient agrees, verbalizes understanding, and wants to proceed: yes Consent given by: Patient Informed consent discussion completed by Physician/MARY with patient: Verbal Pre-procedure timeout performed: yes Plan: Right shoulder acromioclavicular and glenohumeral arthritis -Right shoulder subacromial corticosteroid injection -Follow home regimen as provided for rotator cuff strengthening and stretching -follow-up six weeks Follow-up for any new, persistent, worsening symptoms Hubert Lombardo MD documented in this encounter Plan of Treatment Not on file documented as of this encounter Procedures Procedure Name Priority Date/Time Associated Diagnosis Comments NV ARTHROCENTESIS/ASPI RATION/INJECTION MAJOR JOINT/BURSA W/O U/S GUIDANCE Routine 08/22/2024 2:00 PM EST Subacromial bursitis of right shoulder joint documented in this encounter Results * XR Shoulder 2+ Views Right [...] radiopaque density posterior to the humeral head us Hubert Lombardo MD IMG XR PROCEDURES Edited Result - Final * NV ARTHROCENTESIS/ASPIRATION/INJECTION MAJOR JOINT/BURSA W/O U/S GUIDANCE (08/22/2024 2:00 PM EST) Hubert Hayes MD - 08/22/2024 2:00 PM EST Hubert [...] MD IN CLINIC/BEDSIDE ORDERABLES Fin al Result documented in this encounter Visit Diagnoses Diagnosis Other specified joint disorders, right shoulder- Primary Subacromial bursitis of right shoulder joint documented in this encounter Administered Medications Inactive Administered Medications - up to 3 most recent administrations Medication Order MAR Action Action Date Dose Rate Site triamcinolone acetonide (KENALOG-40) 40 mg/mL injection 40 mg 40 mg, intra-articular, Once PRN Procedure, Starting on Tue08/22/24 at 1400, For 1 doseIndications:Subacromial bursitis of right shoulder joint Given 08/22/2024 2:00 PM EST 40 mg documented in this encounter Historical Medications * This list may reflect changes made after this encounter. diazePAM (VALIUM) 10 mg tablet Take 1 tablet (10 mg total) by mouth 3 (three) times a day if needed for anxiety. Max Daily Amount: 30 mg Wixela Inhub 500-50 mcg/dose diskus inhaler TAKE 1 INHALATION 2 TIMES A DAY FOR 90 DAYS RINSE MOUTH AND THROAT AFTER USE Combivent Respimat 20-100 mcg/actuation inhaler 1 PUFFS INHALATION 4 TIMES A DAY aspirin 81 mg EC tablet Take 1 tablet (81 mg total) by mouth daily. rosuvastatin (CRESTOR) 40 mg tablet Take 1 tablet (40 mg total) by mouth 1 (one) time each day. losartan (COZAAR) 50 mg tablet Take 1 tablet (50 mg total) by mouth 1 (one) time each day. atenoloL (TENORMIN) 25 mg tablet take 1 tablet (25 mg) orally daily added in this encounter Orders Outpatient Referral Count Last Ordered Date Fir st Ordered Date AMB REFERRAL TO HAND SURGERY 1 08/22/2024 documented in this encounter Care Teams Drafter Detail Relationship Specialty Start Date End Date Mariel Smyth MD [address] [place] [address] Dr [address] [facility] [place] [address] PCP - General Internal Medicine 06/25/24 documented as of this encounter
--- OUTSIDE RECORDS SUMMARY | 2024-09-18 11:18 | XMS_ITS | Continuity of Care Document ---
Author Organization [facility] Address [address] [place] [address]- Care Team Providers Care Band Saw Filer Name Role Phone Po Mariel GUTIÉRREZ Primary Care Physician [phone] Encounter [facility] Date(s): 08/15/24 - 09/14/24 [facility] [address] [place] [address] Encounter Type: Triage Allergies, Adverse Reactions, Alerts Substance Criticality Severity [...] 1 Refills, Maintenance, 08/15/24 1:22:00 PM EST, [facility]/pharmacy #[id number], INHALE 2 SPRAYS INTO EACH NOSTRIL TWICE A DAY, 168, cm, 09/21/23 9:55:00 EDT, Height Start Date: 08/15/24 Status: Ordered Quantity: 90.0 Unit: Unknown Repeat number: 2 azelastine 137 mcg/inh (0.1%) nasal spray See Instructions, INHALE 2 SPRAYS INTO EACH NOSTRIL TWICE A DAY, # 90 Unknown, 1 Refills, Maintenance, 08/15/24 1:22:00 PM EST, [facility] STORE [id number], 90, INHALE 2 SPRAYS INTO EACH NOSTRIL TWICE A DAY, 168,cm, 09/21/23 9:55:00 EDT, Height Start Date: 08/15/24 Status: Ordered Quantity: 90.0 Unit: Unknown Repeat number: 1 Azithromycin 5 Day Dose Pack 250 mg oral tablet 1 pack/packet, By Mouth, Once, # 6 tablet, 0 Refills, Soft Stop, 06/04/16 10:45:22 AM EST, Tablet, [facility]/pharmacy #[id number] Start Date: 06/04/16 Status: Ordered Quantity: 6.0 Unit: tablet Repeat number: 1 Breo Ellipta 200 mcg-25 mcg/inh inhalation powder 1 puffs, Inhalation, Daily, # 3 each, 3 Refills, Maintenance, 01/21/20 10:20:00 AM EDT, Powder, [facility]/pharmacy #1230, 1 puffs Inhalation Daily,x90 days, 168, cm, 01/21/20 10:13:00 EDT, Height Start Date: 01/21/20 Stop Date: 01/15/21 Status: Ordered Quantity: 3.0 Unit: each Repeat number: 4 Combivent Respimat 20 mcg-100 mcg/inh inhalation aerosol 1 puffs, Inhalation, 4 times a day, # 12 mL, 3 Refills, Maintenance, 04/30/24 8:33:00 AM EDT, [id number], 90, 1 PUFFS INHALATION 4 TIMES A [...] EDT, Inhalation Solution, Route to Pharmacy Electronically, [id number], [facility]/pharmacy #1230, J44.9, 168, cm, 10/06/21 10:34:00 [...] 4 Refills, Maintenance, 10/23/14 2:00:49 PM EDT, [facility]/pharmacy #1230, 2 puffs Inhalation 4 times a day,Instr:as directed 15 minutes before exercise Start Date: 10/23/14 Status: Ordered Quantity: 3.0 Unit: each Repeat number: 5 Ventolin 90 mcg Inhaler 2, puffs, Inhalation, 4 times a day, Maintenance, 08/27/13 12:57:45 PM EST Start Date: 08/27/13 Status: Ordered Repeat number: 1 Wixela Inhub 500 mcg-50 mcg inhalation powder 1 inhalation, Inhalation, 2 times a day, AND THROAT AFTER USE., # 180 each, 3 Refills, Maintenance,07/02/24 10:19:00 AM EST, [id number], 90, TAKE 1 INHALATION 2 TIMES A [...] Position: Reference Physician Member Role: PCP Address: [address] [place] [address] Telecom: Name: Heena GONZALEZ, Carmen Position: [facility] RN Member Role: Primary Care Nurse Care Team Related Persons Name: CJ INGRAM Insurance Providers Guarantor name: ML NATALY Health Plan Information #: 1 Payer: MEDICARE PART B OUTPT Member Number: NA Policy Number: NA Group Number: NA Health Plan Information #: 2 Payer: MEDEX Member Number: NA Policy Number: NA Group Number: NA
== END ==
LOC: HO.CARD 09:59
PROVIDERS: PCP Internal Medicine; Visit Provider Internal Medicine Cardiovascular Disease
DX: I35.0 Nonrheumatic aortic (valve) stenosis (principal)
CPT/HCPCS: 93306

== ENCOUNTER → 2024-09-18 10:01 | Outpatient (BNV) | payer MEDICARE, SELFPAY | PROVIDERS: PCP Internal Medicine; Visit Provider Internal Medicine Cardiovascular Disease | DX: I25.10 Atherosclerotic heart disease of native coronary artery without angina pectoris (principal); I35.0 Nonrheumatic aortic (valve) stenosis; I36.1 Nonrheumatic tricuspid (valve) insufficiency; I70.0 Atherosclerosis of aorta | CPT/HCPCS: 93306 ==

== ENCOUNTER 2024-09-19 09:37 | Outpatient (AMB) | payer MEDICARE, SELFPAY ==
--- NOTE | 2024-09-19 09:44 | MHC.PC.OV ---
Vital Signs 09/19/24 09:45 Height 5 ft 6 in Weight 199 lb 6 oz BMI 32.2 BP 130/72 Blood Pressure Location Lt brachial Position Sitting Pulse 78 Pulse Source Pulse Oximeter Temp 97.1 F Temp Source Temporal Artery Scan Pulse Oximetry (%) 96 Oxygen Delivery Method Room Air Intake Visit Reasons: COPD,IGT Intake Note: Patient is here to follow up on COPD, IGT. Architecture Intern Required: No Casing Trimmer: Present Accompanied by: Spouse Allergies atorvastatin [Lipitor] Allergy (Unknown, Verified 09/19/24 09:45) Leg cramps ezetimibe [Zetia] Allergy (Unknown, Verified 09/19/24 09:45) shoulder pain lisinopril Allergy (Unknown, Verified 09/19/24 09:45) cough rosuvastatin [Crestor] Allergy (Unknown, Verified 09/19/24 09:45) Leg cramps Tobacco use date assessed: 09/19/24 Fall risk assessment: No Falls in past year Last assessed Fall Risk: 09/19/24 Dental Screening Dental Screen Date: 07/31/24 [facility] Medical History (Updated 09/19/24 @ 10:37 by Mariel Smyth MD) Otitis media Viral sinusitis Aortic stenosis Chronic sinusitis Sinusitis Lyme disease Pericarditis Allergic rhinitis Hypercholesterolemia Ischemic cardiomyopathy Obstructive sleep apnea Anxiety Pulmonary nodule Hypertension COPD (chronic obstructive pulmonary disease) Coronary artery disease Surgical History Brain aneurysm Family History Father No problems noted. Mother CVD (cardiovascular disease) Social History Housing: House Alcohol intake: current Alcohol intake frequency: holidays/special occasions only Alcohol type: beer Patient Tobacco Use Status: Former Tobacco user Tobacco use type: Cigarette e-Cigarette/Vaping Use: Never Used Second Hand Smoke Exposure: Yes service: No Current occupational status: disabled Cognitive needs: No Hearing needs: No Vision needs: Yes Questionnaire Thrive Questionnaire Date Thrive assessed: 07/31/24 JEREMIAH-7 AMB Questionnaire JEREMIAH-7 Date JEREMIAH - 7 assessed: 07/31/24 Source: Developed by Drs. Bhavin Arreola, GuillerminaFadi Ernst and colleagues, with an educational juan from [employer]. Physical exam (Primary Care) Vital Signs: Last Vital Signs Temp 97.1 F 09/19/24 09:45 Pulse 78 09/19/24 09:45 BP 130/72 09/19/24 09:45 Pulse Ox 96 09/19/24 09:45 Oxygen Delivery Method Room Air 09/19/24 09:45 BMI result Body Mass Index 32.2 Tobacco/Smoking Status: Tobacco use Status Tobacco use date assessed 09/19/24 09/19/24 09:51 Patient Tobacco Use Status Former Tobacco user 09/19/24 09:51 Tobacco use type Cigarette 09/19/24 09:51 e-Cigarette/Vaping Use Never Used 09/19/24 09:51 Thrive Assessment: Date of Thrive Assessment Date Thrive assessed 07/31/24 09/19/24 09:51 Const General: alert; No acute distress Eyes Conjunctivae: conjunctivae normal Resp Auscultation: clear to auscultation bilaterally Cardio Rate: regular rate Rhythm: regular rhythm GI Inspection: Yes normal to inspection Extrem General: Yes normal to inspection and No edema Coding Level of Care Code Est Pt Level 4 (26650) Complex EM visit Add On G2211 Diagnoses Coronary artery disease involving [place] coronary artery of [place] heart without angina pectoris I25.10 Associated angina: without angina Coronary Disease-Associated Artery/Lesion type: [place] artery [place] vs. transplanted heart: [place] heart Pulmonary emphysema, unspecified emphysema type J43.9 COPD type: emphysema Emphysema type: unspecified Primary hypertension I10 Hypertension type: primary hypertension Obstructive sleep apnea G47.33 Ischemic cardiomyopathy I25.5 Hypercholesterolemia E78.00 Brain aneurysm I67.1 Obesity (BMI 30.0-34.9) E66.9 Nonrheumatic aortic valve stenosis I35.0 Cardiac valve disease etiology: nonrheumatic Impaired glucose tolerance R73.02 Generalized anxiety disorder F41.1 Arthritis of right shoulder M19.011 Actinic keratoses L57.0 Assessment & Plan Assessment & Plan (1) Coronary artery disease: Comment: NSTEMI July 2013 angioplasty EF 50-55% akinetic inferobasal 01/2018, echo February 2019 low normal ejection fraction grade 1 diastolic dysfunction. September 2021 low normal ejection fraction mild aortic stenosis 1.6 cm2 June 2022The left ventricular systolic function is mildly decreased. The calculated ejection fraction is 52% by biplane method. - The basal inferior and basal inferolateral segments are akinetic. - Mildly increased right ventricular cavity size. - There is moderate calcification of the aortic valve. There is mild aortic valve stenosis. 1.8 Code(s): I25.10 - Atherosclerotic heart disease of [place] coronary artery without angina pectoris Category: Medical Qualifiers: Associated angina: without angina Coronary Disease-Associated Artery/Lesion type: [place] artery [place] vs. transplanted heart: [place] heart Qualified Code(s): I25.10 - Atherosclerotic heart disease of [place] coronary artery without angina pectoris Plan: Control the cholesterol, weight, blood pressure, continue with aspirin 81 mg once a day (2) COPD (chronic obstructive pulmonary disease): Code(s): J44.9 - Chronic obstructive pulmonary disease, unspecified Category: Medical Qualifiers: COPD type: emphysema Emphysema type: unspecified Qualified Code(s): J43.9 - Emphysema, unspecified Plan: On Wixela and Combivent (3) Hypertension: Code(s): I10 - Essential (primary) hypertension Category: Medical Qualifiers: Hypertension type: primary hypertension Qualified Code(s): I10 - Essential (primary) hypertension Plan: Continue with blood pressure medication. Decrease salt intake and exercise losartan 50 mg once a day atenolol 25 mg once a (4) Obstructive sleep apnea: Comment: CPAP using Q night > 4 hours and benefits patient (10/2021), cannot tolerate CPAP 05/2022 Code(s): G47.33 - Obstructive sleep apnea (adult) (pediatric) Category: Medical Plan: Patient can not tolerate CPAP. (5) Ischemic cardiomyopathy: Comment: The left ventricular systolic function is mildly decreased. The calculated ejection fraction is 52% by biplane method. - The basal inferior and basal inferolateral segments are akinetic. - Mildly increased right ventricular cavity size. - There is moderate calcification of the aortic valve. There is mild aortic valve stenosis. Code(s): I25.5 - Ischemic cardiomyopathy Category: Medical Plan: Continue with aspirin and atenolol (6) Hypercholesterolemia: Code(s): E78.00 - Pure hypercholesterolemia, unspecified Category: Medical Plan: Avoid fried foods, chicken skin, eggs, butter margarine, pastries and meat. 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, small right ICA 1.6 mm, December 2018 Code(s): I67.1 - Cerebral aneurysm, nonruptured Category: Surgical Plan: Continue to follow-up with neurosurgery (8) Obesity (BMI 30.0-34.9): Code(s): E66.9 - Obesity, unspecified Category: Medical Plan: Diet and exercise (9) Aortic stenosis: Comment: Echocardiogram 1.6 cm September 2021, June 2022 1.8 08/2024 1.59 cm Code(s): I35.0 - Nonrheumatic aortic (valve) stenosis Category: Medical Qualifiers: Cardiac valve disease etiology: nonrheumatic Qualified Code(s): I35.0 - Nonrheumatic aortic (valve) stenosis Plan: Continue to monitor August last echocardiogram. (10) Impaired glucose tolerance: Code(s): R73.02 - Impaired glucose tolerance (oral) Category: Medical Plan: Decrease the amount of carbohydrate intake, pasta, bread, rice and potatoes are all sugar and that is aside from all the sweet stuff, remember that fruits are good but they are Sweet also. (11) Generalized anxiety disorder: Code(s): F41.1 - Generalized anxiety disorder Category: Medical Plan: Continue with diazepam as needed (12) Arthritis of right shoulder: Code(s): M19.011 - Primary osteoarthritis, right shoulder Category: Medical Plan: Patient follows up with ortho and just had some injections. (13) Actinic keratoses: Comment: R chest Code(s): L57.0 - Actinic keratosis Category: Medical Plan History of Present Illness The patient is a 69-year-old male presenting with a follow-up appointment for management of chronic coronary artery disease, COPD, hypertension, and monitoring of aortic stenosis. He has a persistent history of ischemic cardiomyopathy with a recently documented mildly reduced ejection fraction and mild aortic stenosis noted on an echocardiogram done in September 2024. Chronic management includes the use of losartan and atenolol for hypertension, along with rosuvastatin aimed at maintaining LDL goals of less than 70 mg/dL. His complex medical history includes treatment for a brain aneurysm in 2017 with subsequent monitoring. The patient has discontinued CPAP treatment due to intolerance and continues to manage obstructive sleep apnea. He experienced a sinus infection previously treated with Augmentin, correlating with his high anxiety levels managed by diazepam as needed. Health Maintenance - Continuous monitoring of coronary artery disease status and ischemic cardiomyopathy. - Maintenance of controlled LDL levels, with treatment regimen including rosuvastatin 40 mg daily. - Management of hypertension with losartan 50 mg and atenolol 25 mg once daily. - Encourage regular follow-up for evaluation of anxiety and reinforcement of coping strategies. - Initiated recent echocardiogram for close observation of cardiac function and aortic stenosis. - Periodic orthopedic evaluations for degenerative joint disease and pain management. - Routine monitoring of blood glucose and liver function tests. Social History - Patient reported intolerance to CPAP therapy for obstructive sleep apnea. - No further specific social determinants or lifestyle information provided during the conversation. Review of Systems - Respiratory: Reports no new symptoms or worsening of COPD. - Cardiovascular: Denies any new chest pain or significant changes in exertional capacity. - Musculoskeletal: Reports right shoulder pain attributed to degenerative joint changes. - Psychiatric: Reports anxiety typically managed with diazepam. Physical Exam Results - Echocardiogram (September 18, 2024): Mildly reduced left ventricular ejection fraction (45% to 50%); mild aortic stenosis (1.59 cm). - Shoulder X-ray (August 2024): Moderate degenerative changes of the acromioclavicular and glenohumeral joints with density noted posterior to the humeral head. - Laboratory Results (June): Normal blood counts, elevated blood glucose (107 mg/dL), normal PSA, liver function test mildly elevated, LDL at 66 mg/dL, B12 and folic acid normal. Plan Continued management of the patient?s chronic conditions will rely on pharmacologic strategies, including losartan, atenolol, and rosuvastatin to control hypertension and cholesterol levels, respectively. For COPD, regular use of bronchodilators like Wixela and Combivent is advised, with considerations given to the CPAP alternatives if apnea symptoms escalate. Given recent sinus issues, antibiotics as used previously will be prescribed if necessary. Current shoulder pathology warrants orthopedic involvement, with interventions like injections on the table. A potts focus is monitoring cardiovascular function through echocardiograms and other follow-up tests. The patient's anxiety is addressed with diazepam as a supportive measure. Regular evaluation and coherence with neurology and neurosurgery clinics are crucial for managing the history of a brain aneurysm. Ensuring blood glucose control and overall metabolic monitoring remains vital, given the previous elevated level. Patient was informed and verbally consented to the use of an ambient scribe for clinic note documentation during this visit. Discussion Notes During our discussion, I emphasized the necessity of managing the patient's diverse chronic conditions with a structured treatment regimen. We reviewed his echocardiogram results and plan regular monitoring of cardiac health through consistent follow-up and testing. Management of anxiety was discussed, with diazepam continuing as needed to manage symptoms effectively. The patient and I explored available interventions for his orthopedic concerns, with potential surgical consultations if injections prove insufficient. For his LDL management with rosuvastatin, we evaluated the benefits of maintaining levels below 70 mg/dL to mitigate cardiovascular risks. Strategies to manage hypertension and COPD were reaffirmed. The patient verbally acknowledged understanding and consented to the proposed management plan, including ongoing neurology supervision for his aneurysm. Patient Instructions - Continue taking losartan, atenolol, and rosuvastatin as prescribed. - Use Wixela and Combivent inhalers as directed for COPD management. - Monitor blood pressure regularly at home and report any significant changes. - Follow up with orthopedics for ongoing shoulder pain management. - Use diazepam for anxiety as prescribed, if needed. - Maintain routine follow-ups for echocardiograms and other cardiac evaluations. - Report any recurrent sinus symptoms early for possible antibiotic treatment. - Follow a heart-healthy diet and exercise as tolerated. - Attend all scheduled appointments for continued monitoring and management. History of Present Illness The patient is a 69-year-old male presenting with follow-up for recent lab work, including findings of increased eosinophils suggestive of allergies, a slightly elevated fasting glucose level at 107 mg/dL, and persistently elevated liver enzymes. The conversation reaffirms the elevated eosinophil count without specifying the management plan, noting awareness of allergy symptoms. The patient is surprised by the glucose elevation, as he does not consume sugar directly, yet the discussion includes dietary considerations and acknowledges carbohydrate intake which may contribute to glucose elevation, without specific lifestyle changes noted. Routine follow-up on the lipid profile shows an LDL level of 66 mg/dL, which is within acceptable limits. Liver enzyme evaluation raised similar concerns, although without aggravation, and monitoring continues. The conversation concludes with other lab results, such as renal function and electrolytes, showing normalcy and reinforces medication routine adjustments for conditions addressed in previous consults. Plan Managing the patient's laboratory results involves addressing several potts aspects. Eosinophilia, likely linked to allergies, needs symptom monitoring, while the patient was informed of dietary influences on glucose levels, emphasizing carbohydrate management and recommending increased vegetable intake. Liver enzymes, though elevated, require continuous observation without current intervention escalation. An LDL of 66 mg/dL confirmed a stable cholesterol profile, not requiring adjustment. Normal results in renal function and electrolytes were acknowledged as positive. Overall management continues with adherence to advised medication and routine observational strategies, maintaining vigilance on chronic conditions through dietary and lifestyle advice provided in the current care context. Patient was informed and verbally consented to the use of an ambient scribe for clinic note documentation during this visit. Orders: Referrals Dermatology Referral L57.0 - Actinic keratosis
[2024-09-19 09:45] VITALS: BP 130/72; PULSE 78; TEMP 36.2; O2SAT 96; BMI 32.2
--- OUTSIDE RECORDS SUMMARY | 2024-09-19 10:43 | XMS_ITS | Encounter Summary ---
Author Organization [facility] and [facility] Address [address] [place] [address] Care Team Providers Care Tubular Products Fabricator Name Role Phone Mariel Smyth MD Primary Care Provider Reason for Referral * Imaging (Routine) - Closed Specialty Diagnoses / Procedures Referred By Contac t Referred To Contact Diagnostic Radiology Procedures MRA Brain without IV Contrast Neurosurgery at [address] [address] Phone: tel: fax: Referral ID Status Reason Start Date Expiration Date Visits Re quested Visits Authorized [id number] Closed 12/03/2022 12/03/2023 1 1 Encounter Details Date Type Department Care Team (Late st Contact Info) Description 12/03/2022 Scanned Document Neurosurgery at [address] [place] [id number] [address] [place] . Social History Tobacco Use [...] on filedocumented in this encounter Care Teams Tubular Products Fabricator Relationship Specialty Start Date End Date Mariel Smyth MD [address] [place] [address] Dr Bowser [facility] PATRICE [place] [phone] PCP - General Internal Medicine 06/19/18 documented as of this encounter
--- OUTSIDE RECORDS SUMMARY | 2024-09-19 10:43 | XMS_ITS | Encounter Summary ---
Author Organization [facility] and [facility] Address [address] [place] [address] Care Team Providers Care Manufacturing Scheduler Name Role Phone Mariel Smyth MD Primary Care Provider [phone] Reason for Visit * Reason Onset Date Comments Letter for School/Work 08/13/2024 Encounter Details Date Type Department Care Team (Late st Contact Info) Description 08/13/2024 Telephone [facility] at [address] [place] [address] Abhijeet Romero MD [address] [place] [address] [place] [address] Letter for School/Work Social History Tobacco [...] on file, patient could be reached at [phone]. documented in this encounter Plan of Treatment Not on file documented as of this encounter Visit Diagnoses Not on filedocumented in this encounter Care Teams Manufacturing Scheduler Relationship Specialty Start Date End Date Mariel Smyth MD [address] [place] [address] [place] [phone] PCP - General Internal Medicine 06/19/18 documented as of this encounter
--- OUTSIDE RECORDS SUMMARY | 2024-09-19 10:43 | XMS_ITS | Clinical Summary ---
Author Organization [facility] [address] Address [address] [address] Care Team Providers Care Tray Line Supervisor Name Role Phone Mariel Smyth MD Primary Care Provider [phone] Allergies Active Allergy Reactions Criticality Noted Date [...] Team Description 08/13/2024 Telephone [facility] at [address], [address] [place] [address] Abhijeet Romero MD Letter for [...] age to complete this topic Insurance MEDICARE [facility] MEDICARE [facility] MEDICARE [facility] Care Teams Tray Line Supervisor Relationship Specialty Start Date End Date Mariel Smyth MD [address] [place] [address] [place] [phone] PCP - General Internal Medicine 06/19/18
--- OUTSIDE RECORDS SUMMARY | 2024-09-19 10:43 | XMS_ITS | Encounter Summary ---
Author Organization [facility] and [facility] Address [address] [place] [address] Care Team Providers Care Build Manager Name Role Phone Mariel Smyth MD Primary Care Provider [phone] Encounter Details Date Type Department Care Team (Late st Contact Info) Description 01/01/2020 Scanned Document [facility] SCHEDULING [address] [place], [place] [id number] Provider, Historical . Social History Tobacco Use [...] on filedocumented in this encounter Care Teams Build Manager Relationship Specialty Start Date End Date Mariel Smyth MD [address] [place] [place] [phone] PCP - General Internal Medicine 06/19/18 documented as of this encounter
--- OUTSIDE RECORDS SUMMARY | 2024-09-19 10:43 | XMS_ITS | Encounter Summary ---
Author Organization [facility] and [facility] Address [address] [place] [address] Care Team Providers Care Black Top Paver Operator Name Role Phone Mariel Smyth MD Primary Care Provider Encounter Details Date Type Department Care Team (Late st Contact Info) Description 11/13/2018 Scanned Document [facility] at [address] [address] Provider, Historical . Social History Tobacco Use [...] on filedocumented in this encounter Care Teams Black Top Paver Operator Relationship Specialty Start Date End Date Mariel Smyth MD [address] [place] [address] [place] [phone] PCP - General Internal Medicine 06/19/18 documented as of this encounter
--- OUTSIDE RECORDS SUMMARY | 2024-09-19 10:43 | XMS_ITS | Encounter Summary ---
Author Organization [facility] and [facility] Address [address] [place] [address] Care Team Providers Care Roll Tube Setter Name Role Phone Mariel Smyth MD Primary Care Provider Encounter Details Date Type Department Care Team (Late st Contact Info) Description 12/11/2018 Scanned Document [facility] at [address] [place] [address] [phone] Josue Vaca MD [address] [place] [address] [phone] Social History Tobacco Use Types Packs/Day Years [...] on filedocumented in this encounter Care Teams Roll Tube Setter Relationship Specialty Start Date End Date Mariel Smyth MD [address] [place] [address] [place] [phone] PCP - General Internal Medicine 06/19/18 documented as of this encounter
--- OUTSIDE RECORDS SUMMARY | 2024-09-19 10:43 | XMS_ITS | Encounter Summary ---
Author Organization [facility] and [facility] Address [address] [place] [address] Care Team Providers Care Ham Clerk Name Role Phone Mariel Smyth MD Primary Care Provider [phone] Encounter Details Date Type Department Care Team (Late st Contact Info) Description 06/07/2018 Scanned Document [facility] at [address] [place] [address] [phone] Don Monique MD [address] [place] [phone] Social History Tobacco Use Types Packs/Day Years [...] on filedocumented in this encounter Care Teams Ham Clerk Relationship Specialty Start Date End Date Mariel Smyth MD [address] [place] [address] [place] [phone] PCP - General Internal Medicine 06/19/18 documented as of this encounter
--- OUTSIDE RECORDS SUMMARY | 2024-09-19 10:43 | XMS_ITS | Clinical Summary ---
Author Organization [facility] Address [address] [place] [address] Care Team Providers Care Application Operations Engineer Name Role Phone Unknown, [place] Primary Care [...] this topic Medical Devices Implanted Type Area Scene Painter Device Identifier Shelf Expiration Date Model / Serial / Lot Coil Hydroframe Hydrocoil V-Trak 19cm 6mm 10 Coil Stretch - [id number] - [id number] Implanted:Qty: 1 on 12/06/2018 at [facility] and [facility] 07/03/2023 [id number] [id number] / / [id number] Coil Embolization [place] V-Trak L28 Cm Od7 Mm 10 Coil - [id number] - [id number] Implanted:Qty: 1 on 12/06/2018 at [facility] and [facility] [employer] 07/03/2023 [id number] / / [id number] Advance Directives For more information, please contact: [phone] Latest Code Status on File Code Status Date Activated Date Inactivated Comments Full Code 12/06/2018 11:09 AM 12/07/2018 4:28 PM This c ode status was ascertained in the following way: discussion with patient . Care Teams Application Operations Engineer Relationship Specialty Start Date End Date Unknown, PCP - General 12/06/18
--- OUTSIDE RECORDS SUMMARY | 2024-09-19 10:43 | XMS_ITS | Encounter Summary ---
Author Organization [facility] and [facility] Address [address] [place] [address] Care Team Providers Care Taxi Driver Supervisor Name Role Phone Mariel Smyth MD Primary Care Provider [phone] Encounter Details Date Type Department Care Team (Late st Contact Info) Description 12/15/2018 Scanned Document [facility] at [address] [address] Provider, Historical . Social History Tobacco Use [...] on filedocumented in this encounter Care Teams Taxi Driver Supervisor Relationship Specialty Start Date End Date Mariel Smyth MD [address] [place] [address] [place] [phone] PCP - General Internal Medicine 06/19/18 documented as of this encounter
--- OUTSIDE RECORDS SUMMARY | 2024-09-19 10:43 | XMS_ITS | Encounter Summary ---
Author Organization [facility] and [facility] Address [address] [place] [address] Care Team Providers Care Window Framer Name Role Phone Mariel Smyth MD Primary Care Provider [phone] Encounter Details Date Type Department Care Team (Late st Contact Info) Description 12/09/2020 Scanned Document [facility] at [address] [phone] Josue Vaca MD [address] [place] [address] [phone] Social History Tobacco Use Types Packs/Day Years [...] on filedocumented in this encounter Care Teams Window Framer Relationship Specialty Start Date End Date Mariel Smyth MD [address] [place] [address] [place] [phone] PCP - General Internal Medicine 06/19/18 documented as of this encounter
--- OUTSIDE RECORDS SUMMARY | 2024-09-19 10:43 | XMS_ITS | Encounter Summary ---
Author Organization [facility] and [facility] Address [address] [place] [address] Care Team Providers Care Sprinkler Inspector Name Role Phone Mariel Smyth MD Primary Care Provider [phone] Reason for Visit * Reason Comments Triage Encounter Details Date Type Department Care Team ([facility] st Contact Info) Description 08/20/2021 Telephone [facility] [address] [place] [address] Josue Vaca MD [address] [place] [address] [phone] Triage Social History Tobacco Use Types Packs/Day [...] regarding this. Please advise Mrs. Zuleta's Number: [phone] documented in this encounter Plan of Treatment Not on file documented as of this encounter Visit Diagnoses Not on filedocumented in this encounter Care Teams Sprinkler Inspector Relationship Specialty Start Date End Date Po, MD Mariel [address] [place] [address] Dr Smith, PATRICE [phone] PCP - General Internal Medicine 06/19/18 documented as of this encounter
--- OUTSIDE RECORDS SUMMARY | 2024-09-19 10:43 | XMS_ITS | Encounter Summary ---
Author Organization [facility] Address [address] [place] [address] Care Team Providers Care Plug Wirer Name Role Phone Mariel Smyth MD Primary Care Provider Reason for Referral * Orthopedic (Routine) - Authorized Specialty Diagnoses / Procedures Referred By Yanna alford Referred To Contact Orthopedic Surgery / Orthopaedic Surgery Diagnoses Subacromial bursitis of right shoulder joint Procedures L Inj/Asp: R subacromial bursa Hubert Lombardo MD [address] [address] Phone: tel: fax: Referral ID Status Reason Start Date Expiration Date V isits Requested Visits Authorized [id number] Authorized 08/22/2024 08/22/2025 1 1 Reason for Visit * Reason Comments Consult Pain, limited mobili ty * Consultation (Routine) - Closed Specialty Diagnoses / Procedures Referred By Yanna alford Referred To Contact Hand Surgery / Orthopaedic Surgery Diagnoses Other specified joint disorders, right shoulder Mariel Smyth MD [address] [place] [address] [address] [facility] [place] [address] Phone: tel: fax: Hubert Lombardo MD [address] [address] Phone: tel: fax: Referral ID Status Reason Start Date Expiration Date V isits Requested Visits Authorized [id number] Closed Specialty Services Required 06/25/2024 06/25/2025 1 1 Encounter Details Date Type Department Care Team (Late st Contact Info) Description 08/22/2024 2:00 PM EST Consult Orthopedic Surgery - [place] 175 [facility] 140 [place] [phone] Hubert Lombardo MD 175 [facility] 140 [place] [address] Other specified joint disorders, right shoulder (Primary [...] months, atraumatic HPI: Neeta Zuleta is a gnzph-eyrm-jqahsrur 69 y.o. male presenting for right shoulder [...] some temporary relief. This was done at [facility]. He has not been taking much Motrin [...] DX:Cerebral aneurysm COPD (chronic obstructive pulmonary disease) ([facility]/HCC) DX:COPD (chronic obstructive pulmonary disease) [...] Procedure Name Priority Date/Time Associated Diagnosis Comments [place] ARTHROCENTESIS/ASPI RATION/INJECTION MAJOR JOINT/BURSA W/O U/S GUIDANCE [...] XR PROCEDURES Edited Result - Final * [place] ARTHROCENTESIS/ASPIRATION/INJECTION MAJOR JOINT/BURSA W/O U/S GUIDANCE (08/22/2024 [...] 08/22/2024 documented in this encounter Care Teams Plug Wirer Relationship Specialty Start Date End Date Mariel Smyth MD [address] [place] [address] Dr Mims [address] [facility] [place] [address] PCP - General Internal Medicine 06/25/24 documented as of this encounter
--- OUTSIDE RECORDS SUMMARY | 2024-09-19 10:43 | XMS_ITS | Clinical Summary ---
Author Organization [address] [place] [address] Address [address] [place] [address] Phone Care Team Providers Care Digester Operator Helper Name Role Phone Mariel Smyth MD Primary Care Provider [phone] Allergies Active Allergy Reactions Criticality Noted Date [...] 08/22/2024 2:00 PM EST Consult Orthopedic Surgery [address] [place] [address] Hubert Lombardo MD Other specified [...] this topic Medical Devices Implanted Type Area Post Closer Device Identifier Shelf Expiration Date Model / Serial / Lot Coil Hydroframe Hydrocoil V-Trak 19cm 6mm 10 Coil Stretch - [id number] Implanted:Qty: 1 on 12/06/2018 [employer] 07/03/2023 [id number] / / [id number] Coil Embolization [place] V-Trak L28 Cm Od7 Mm 10 Coil - [id number] Implanted:Qty: 1 on 12/06/2018 [employer] 07/03/2023 [id number] / / [id number] Procedures Procedure Name Priority Date/Time Associated Diagnosis Comments XR SHOULDER 2+ VIEWS RIGHT Routine 08/22/2024 2:29 PM EST Other specified joint disorders, right shoulder [place] ARTHROCENTESIS/ASPI RATION/INJECTION MAJOR JOINT/BURSA W/O U/S GUIDANCE [...] XR PROCEDURES Edited Result - Final * [place] ARTHROCENTESIS/ASPIRATION/INJECTION MAJOR JOINT/BURSA W/O U/S GUIDANCE (08/22/2024 [...] 3 Months Insurance MEDICARE [place]ICA[place] - [place] [facility] Care Teams Digester Operator Helper Relationship Specialty Start Date End Date Mariel Smyth MD [address] [place] [address] [address] [facility] [place] [address] PCP - General Internal Medicine 06/25/24
--- OUTSIDE RECORDS SUMMARY | 2024-09-19 10:43 | XMS_ITS | Encounter Summary ---
Author Organization [facility] and [facility] Address [address] [place] [address] Care Team Providers Care Caster Investment Casting Name Role Phone Mariel Smyth MD Primary Care Provider [phone] Reason for Referral * Imaging (Routine) - New Request Specialty Diagnoses / Procedures Referred By Yanna alford Referred To Contact Diagnostic Radiology Procedures MRA Brain without IV Contrast Neurosurgery at [address] [address] Phone: tel: fax: Referral ID Status Reason Start Date Expiration Date V isits Requested Visits Authorized [id number] New Request 12/30/2023 12/29/2024 1 1 Encounter Details Date Type Department Care Team (Late st Contact Info) Description 12/30/2023 Scanned Document Neurosurgery at 800 [facility] [address] [place] [address] [place] . Social History Tobacco Use [...] on filedocumented in this encounter Care Teams Caster Investment Casting Relationship Specialty Start Date End Date Mariel Smyth MD [address] [place] [address] [place] [phone] PCP - General Internal Medicine 06/19/18 documented as of this encounter
--- OUTSIDE RECORDS SUMMARY | 2024-09-19 10:43 | XMS_ITS | Encounter Summary ---
Author Organization [facility] and [facility] Address [address] [place] [address] Care Team Providers Care Clerical Clerk Name Role Phone Mariel Smyth MD Primary Care Provider [phone] Encounter Details Date Type Department Care Team (Late st Contact Info) Description 12/28/2019 Scanned Document [facility] SCHEDULING [address] [place], [place] [phone] Provider, Historical . Social History Tobacco Use [...] on filedocumented in this encounter Care Teams Clerical Clerk Relationship Specialty Start Date End Date Mariel Smyth MD [address] [place] [address] [place] [phone] PCP - General Internal Medicine 06/19/18 documented as of this encounter
--- OUTSIDE RECORDS SUMMARY | 2024-09-19 10:43 | XMS_ITS | Encounter Summary ---
Author Organization [facility] and [facility] Address [address] [place] [address] Care Team Providers Care Travel Registered Nurse Pacu Name Role Phone Mariel Smyth MD Primary Care Provider [phone] Encounter Details Date Type Department Care Team (Late st Contact Info) Description 04/25/2018 Scanned Document [facility] at [address] [place] [phone] Don Monique MD [address] [place] [phone] Social History Tobacco Use Types Packs/Day [...] on filedocumented in this encounter Care Teams Travel Registered Nurse Pacu Relationship Specialty Start Date End Date Mariel Smyth MD [address] [place] [address] [place] [phone] PCP - General Internal Medicine 06/19/18 documented as of this encounter
== END 2024-09-19 10:43 | disposition home or self-care (01) ==
LOC: HO.HMCH 09:37
PROVIDERS: PCP Internal Medicine; Visit Provider Internal Medicine
DX: I25.10 Atherosclerotic heart disease of native coronary artery without angina pectoris (principal); J43.9 Emphysema, unspecified; E66.9 Obesity, unspecified; Z68.32 Body mass index [BMI] 32.0-32.9, adult; I10 Essential (primary) hypertension; G47.33 Obstructive sleep apnea (adult) (pediatric); I25.5 Ischemic cardiomyopathy; E78.00 Pure hypercholesterolemia, unspecified; I67.1 Cerebral aneurysm, nonruptured; I35.0 Nonrheumatic aortic (valve) stenosis; R73.02 Impaired glucose tolerance (oral); F41.1 Generalized anxiety disorder

== ENCOUNTER → 2024-09-19 09:37 | Outpatient (BNVA) | payer MEDICARE, SELFPAY | PROVIDERS: PCP Internal Medicine; Visit Provider Internal Medicine | DX: I25.10 Atherosclerotic heart disease of native coronary artery without angina pectoris (principal); J43.9 Emphysema, unspecified; I10 Essential (primary) hypertension; G47.33 Obstructive sleep apnea (adult) (pediatric); I25.5 Ischemic cardiomyopathy; E78.00 Pure hypercholesterolemia, unspecified; E66.9 Obesity, unspecified; I35.0 Nonrheumatic aortic (valve) stenosis; R73.02 Impaired glucose tolerance (oral); F41.1 Generalized anxiety disorder; M19.011 Primary osteoarthritis, right shoulder; L57.0 Actinic keratosis | CPT/HCPCS: 99212 ==

== ENCOUNTER 2024-10-01 15:22 | Outpatient (AMB) | payer MEDICARE, SELFPAY ==
[2024-10-01 15:36] VITALS: BP 120/80; PULSE 78; BMI 32.0
--- NOTE | 2024-10-01 15:36 | MHC.OFFVIS ---
Vital Signs 10/01/24 15:36 Height 5 ft 6 in Weight 198 lb 6.656 oz BMI 32.0 BP 120/80 Blood Pressure Location Lt brachial Position Sitting Pulse 78 Intake Visit Reasons: 1 yr f/up after echo Intake Note: 1 year follow-up with ekg after echo feeling good Traffic Engineer Required: No Allergies atorvastatin [Lipitor] Allergy (Unknown, Verified 09/19/24 09:45) Leg cramps ezetimibe [Zetia] Allergy (Unknown, Verified 09/19/24 09:45) shoulder pain lisinopril Allergy (Unknown, Verified 09/19/24 09:45) cough rosuvastatin [Crestor] Allergy (Unknown, Verified 09/19/24 09:45) Leg cramps Medication List - Last Reconciled 10/01/24 by Arden Bustillo MD aspirin (Ecotrin Low Strength) 81 mg PO DAILY atenolol 25 mg PO DAILY azelastine intranasal diazepam 10 mg PO TID PRN fluticasone propion-salmeterol 500-50 mcg/dose (Wixela Inhub) 1 inh inhalation BID ipratropium-albuterol 20-100 mcg/actuation (Combivent Respimat) 1 puff inhalation QID loratadine 10 mg PO DAILY losartan 50 mg PO DAILY magnesium 250 mg PO DAILY nitroglycerin (Nitrostat) 0.4 mg sublingual Q5M PRN rosuvastatin 40 mg PO DAILY HPI Comments Details: Neeta comes for follow-up. No new cardiac symptoms. He has not been exercising over the winter and says now recently started getting to exercise program notice some more shortness of breath. Denies any orthopnea, PND, leg edema. No exertional chest pain. Takes all his medications. No bleeding issues or neurologic event. Echocardiogram recently shows preserved LV ejection fraction. [facility] Medical History Otitis media Viral sinusitis Aortic stenosis Chronic sinusitis Sinusitis Lyme disease Pericarditis Allergic rhinitis Hypercholesterolemia Ischemic cardiomyopathy Obstructive sleep apnea Anxiety Pulmonary nodule Hypertension COPD (chronic obstructive pulmonary disease) Coronary artery disease Surgical History Brain aneurysm Family History Father No problems noted. Mother CVD (cardiovascular disease) Social History Housing: House Alcohol intake: current Alcohol intake frequency: holidays/special occasions only Alcohol type: beer Patient Tobacco Use Status: Former Tobacco user Tobacco use type: Cigarette e-Cigarette/Vaping Use: Never Used Second Hand Smoke Exposure: Yes service: No Current occupational status: disabled Cognitive needs: No Hearing needs: No Vision needs: Yes Review of Systems Const Denies chills, Denies fatigue, Denies fever(s), Denies frequent falls, Denies weakness, Denies weight gain and Denies weight loss ENT Denies dizziness Card Denies chest pain, Denies leg edema, Denies lightheadedness, Denies palpitations, Denies dyspnea, Denies dyspnea on exertion, Denies orthopnea and Denies other (loss of consciousness) Resp Denies cough, Denies dyspnea and Denies dyspnea on exertion GI Denies hematochezia and Denies change in stool character Musc Denies abnormal gait, Denies muscle weakness, Denies numbness, Denies radiating pain into limb and Denies tingling Neuro Denies abnormal gait, Denies dizziness, Denies frequent falls, Denies numbness, Denies tingling and Denies weakness Endo Denies fatigue and Denies palpitations Physical Exam Vital Signs: Last Vital Signs Pulse 78 10/01/24 15:36 BP 120/80 10/01/24 15:36 BMI result Body Mass Index 32.0 Const General: cooperative, comfortable, no acute distress, alert and awake Nutritional Appearance: obese Orientation/consciousness: patient oriented x3 Limitations: no limitations Neck Neck: Yes trachea midline, Yes supple and Yes no JVD Resp Effort & Inspection: normal respiratory effort Auscultation: wheezes scattered wheezes and diminished lung sounds Cardio Jugular venous distension: no JVD Palpation: normal PMI Rate: regular rate Rhythm: regular rhythm Heart sounds: S1 normal heart sound present, S2 normal heart sound present and Murmur heart sound present systolic early and soft Skin General skin exam: no rashes or lesions noted Neuro General: patient oriented x3 and no focal motor deficits Extrem General: Yes no clubbing, cyanosis or edema Psych Appearance: grossly normal Office Procedures EKG Details: EKG shows normal sinus rhythm with small Q-waves in inferior leads with poor R-wave progression [id number], Complete Assessment & Plan Assessment & Plan (1) Coronary artery disease: Comment: NSTEMI July 2013 angioplasty EF 50-55% akinetic inferobasal 01/2018, echo February 2019 low normal ejection fraction grade 1 diastolic dysfunction. September 2021 low normal ejection fraction mild aortic stenosis 1.6 cm2 June 2022The left ventricular systolic function is mildly decreased. The calculated ejection fraction is 52% by biplane method. - The basal inferior and basal inferolateral segments are akinetic. - Mildly increased right ventricular cavity size. - There is moderate calcification of the aortic valve. There is mild aortic valve stenosis. 1.8 Code(s): I25.10 - Atherosclerotic heart disease of assinibo[place] and sioux coronary artery without angina pectoris Category: Medical Qualifiers: Coronary Disease-Associated Artery/Lesion type: assinibo[place] and si[place] artery [place] vs. transplanted heart: assiniboine and sioux heart Associated angina: without angina Qualified Code(s): I25.10 - Atherosclerotic heart disease of assinibo[place] and si[place] coronary artery without angina pectoris Plan: CAD with prior inferior inferolateral AK with no significant recurrent chest pain syndrome. At this point time symptoms are most likely related to deconditioning and COPD. Continue aggressive medical therapy. Continue low-dose aspirin therapy for life. Continue current high-intensity statin therapy with target goal LDL less than 70 mg/dL. Continue aggressive blood pressure control. Encouraged to maintain activity level as tolerated. (2) Ischemic cardiomyopathy: Comment: The left ventricular systolic function is mildly decreased. The calculated ejection fraction is 52% by biplane method. - The basal inferior and basal inferolateral segments are akinetic. - Mildly increased right ventricular cavity size. - There is moderate calcification of the aortic valve. There is mild aortic valve stenosis. Code(s): I25.5 - Ischemic cardiomyopathy Category: Medical Plan: Ischemic cardiomyopathy with improved LV ejection fraction on current neurohormonal modulation with losartan as atenolol therapy. Continue the same. Importance of good medical therapy was discussed. Signs and symptoms of heart failure were discussed. Continue to optimize pulmonary function with management. (3) Aortic stenosis: Comment: Echocardiogram 1.6 cm September 2021, June 2022 1.8 08/2024 1.59 cm Code(s): I35.0 - Nonrheumatic aortic (valve) stenosis Category: Medical Qualifiers: Cardiac valve disease etiology: nonrheumatic Qualified Code(s): I35.0 - Nonrheumatic aortic (valve) stenosis Plan: Echocardiogram which has remained stable. Continue low-dose aspirin therapy as above. Continue aggressive vascular risk factor modification. Follow-up echocardiogram in 1-2 years. Will follow up in the clinic in 1 year's time, sooner p.r.n.. Thank you for allowing me to partake in his care Coding Level of Care Code Est Pt Level 4 (93722) Complex EM visit Add On G2211 Diagnoses Coronary artery disease involving assinibo[place] sioux coronary artery of assinibo[place] and si[place] heart without angina pectoris I25.10 Coronary Disease-Associated Artery/Lesion type: [place] artery [place] vs. transplanted heart: ass[place] and sioux heart Associated angina: without angina Ischemic cardiomyopathy I25.5 Nonrheumatic aortic valve stenosis I35.0 Cardiac valve disease etiology: nonrheumatic CPT Codes EKG - CPT: 90175-[id number], Complete ([id number])
--- OUTSIDE RECORDS SUMMARY | 2024-10-01 17:23 | XMS_ITS | Encounter Summary ---
Author Organization [facility] and [facility] Address [address] [place] [address] Care Team Providers Care Yard Switcher Name Role Phone Mariel Smyth MD Primary Care Provider [phone] Encounter Details Date Type Department Care Team (Late st Contact Info) Description 12/15/2018 Scanned Document [facility] [address] [address] Provider, Historical . Social History Tobacco Use [...] on filedocumented in this encounter Care Teams Yard Switcher Relationship Specialty Start Date End Date Mariel Smyth MD [address] [place] [address] [place] [phone] PCP - General Internal Medicine 06/19/18 documented as of this encounter
--- OUTSIDE RECORDS SUMMARY | 2024-10-01 17:23 | XMS_ITS | Clinical Summary ---
Author Organization [facility] [employer] Address [address] [place] [address] Care Team Providers Care Chief Cook Name Role Phone Mariel Smyth MD Primary Care Provider [phone] Allergies Active Allergy Reactions Criticality Noted Date [...] Team Description 08/13/2024 Telephone [facility] at [address] [place] [address] Abhijeet Romero MD Letter for [...] 2 - PCV) 01/20/2012 01/19/2011 RSV Immunization (1 - Risk 6 0-74 years 1-dose series) 2017 Aortic Aneurysm screening 2022 Influenza vaccine 02/02/2024 Covid-19 vaccine series (1 - 2023- season) 2024 Meningococcal Vaccine Aged Out No mark deepika eligible based on patient's age to complete this topic Insurance [facility]IC[facility]IC[facility] Care Teams Chief Cook Relationship Specialty Start Date End Date Mariel Smyth MD [address] [place] [address] [place] [phone] PCP - General Internal Medicine 06/19/18
--- OUTSIDE RECORDS SUMMARY | 2024-10-01 17:23 | XMS_ITS | Encounter Summary ---
Author Organization [facility] and [facility] Address [address] [place] [address] Care Team Providers Care Handyman Name Role Phone Mariel Smyth MD Primary Care Provider [phone] Encounter Details Date Type Department Care Team (Late st Contact Info) Description 04/25/2018 Scanned Document [facility] at [address] [place] [phone] Don Monique MD [address] [place] [phone] Social History Tobacco Use Types Packs/Day [...] on filedocumented in this encounter Care Teams Handyman Relationship Specialty Start Date End Date Mariel Smyth MD [address] [place] [address] [place] [phone] PCP - General Internal Medicine 06/19/18 documented as of this encounter
--- OUTSIDE RECORDS SUMMARY | 2024-10-01 17:23 | XMS_ITS | Encounter Summary ---
Author Organization [facility] Address [address] [place] [address] Care Team Providers Care Plastic Press Operator Name Role Phone Mariel Smyth MD Primary Care Provider [phone] Encounter Details Date Type Department Care Team (Late st Contact Info) Description 11/13/2018 Scanned Document [facility] [address] [address] Provider, Historical . Social History Tobacco Use [...] on filedocumented in this encounter Care Teams Plastic Press Operator Relationship Specialty Start Date End Date Mariel Smyth MD [address] [place] [address] [place] [phone] PCP - General Internal Medicine 06/19/18 documented as of this encounter
--- OUTSIDE RECORDS SUMMARY | 2024-10-01 17:23 | XMS_ITS | Encounter Summary ---
Author Organization [facility] and [facility] Address [address] [place] [address] Care Team Providers Care Day Care Teacher Name Role Phone Mariel Smyth MD Primary Care Provider [phone] Encounter Details Date Type Department Care Team (Late st Contact Info) Description 12/09/2020 Scanned Document [facility] [address] [id number] Josue Vaca MD [address] [place] [phone] Social History Tobacco Use Types Packs/Day Years [...] on filedocumented in this encounter Care Teams Day Care Teacher Relationship Specialty Start Date End Date Mariel Smyth MD [address] [place] [address] [place] [phone] PCP - General Internal Medicine 06/19/18 documented as of this encounter
--- OUTSIDE RECORDS SUMMARY | 2024-10-01 17:23 | XMS_ITS | Encounter Summary ---
Author Organization [facility] and [facility] Address [address] [place] [address] Care Team Providers Care Dog Sitter Name Role Phone Mariel Smyth MD Primary Care Provider [phone] Encounter Details Date Type Department Care Team (Late st Contact Info) Description 12/11/2018 Scanned Document [facility] at [address] [place] [phone] Josue Vaca MD [address] [place] [phone] Social History Tobacco Use Types Packs/Day Years [...] on filedocumented in this encounter Care Teams Dog Sitter Relationship Specialty Start Date End Date Mariel Smyth MD [address] [place] [address] [place] [phone] PCP - General Internal Medicine 06/19/18 documented as of this encounter
--- OUTSIDE RECORDS SUMMARY | 2024-10-01 17:23 | XMS_ITS | Encounter Summary ---
Author Organization [facility] Address [address] [place] [address] Care Team Providers Care Well Digger Name Role Phone Mariel Smyth MD Primary Care Provider [phone] Reason for Visit * Reason Comments Triage Encounter Details Date Type Department Care Team ([facility] st Contact Info) Description 08/20/2021 Telephone [facility] [address] [place] [address] Josue Vaca MD [address] [place] [phone] Triage Social History Tobacco Use Types Packs/Day [...] regarding this. Please advise Mrs. Zuleta's Number: [phone] documented in this encounter Plan of Treatment Not on file documented as of this encounter Visit Diagnoses Not on filedocumented in this encounter Care Teams Well Digger Relationship Specialty Start Date End Date Po, MD Mariel [address] [place] [address] Dr [place], [place] [phone] PCP - General Internal Medicine 06/19/18 documented as of this encounter
--- OUTSIDE RECORDS SUMMARY | 2024-10-01 17:23 | XMS_ITS | Encounter Summary ---
Author Organization [facility] and [facility] Address [address] [place] [address] Care Team Providers Care Actuarial Technician Name Role Phone Mariel Smyth MD Primary Care Provider [phone] Encounter Details Date Type Department Care Team (Late st Contact Info) Description 12/28/2019 Scanned Document [facility] SCHEDULING [address] [place], [place] [phone] Provider, Historical . Social History Tobacco Use [...] on filedocumented in this encounter Care Teams Actuarial Technician Relationship Specialty Start Date End Date Mariel Smyth MD [address] [place] [address] [place] [phone] PCP - General Internal Medicine 06/19/18 documented as of this encounter
--- OUTSIDE RECORDS SUMMARY | 2024-10-01 17:23 | XMS_ITS | Clinical Summary ---
Author Organization [facility] Address [address] [place] [address] Care Team Providers Care Computer Hardware Designer Name Role Phone Unknown, Md Primary Care [...] this topic Medical Devices Implanted Type Area Material Flow Engineer Device Identifier Shelf Expiration Date Model / Serial / Lot Coil Hydroframe Hydrocoil V-Trak 19cm 6mm 10 Coil Stretch - [id number] - [id number] Implanted:Qty: 1 on 12/06/2018 at [facility] and [facility] 07/03/2023 [id number] / / [id number] Coil Embolization [place] V-Trak L28 Cm Od7 Mm 10 Coil - [id number] - [id number] Implanted:Qty: 1 on 12/06/2018 at [facility] and [facility] [employer] 07/03/2023 [id number] / / [id number] Advance Directives For more information, please contact: [phone] Latest Code Status on File Code Status Date Activated Date Inactivated Comments Full Code 12/06/2018 11:09 AM 12/07/2018 4:28 PM This c ode status was ascertained in the following way: discussion with patient . Care Teams Computer Hardware Designer Relationship Specialty Start Date End Date Unknown, PCP - General 12/06/18
--- OUTSIDE RECORDS SUMMARY | 2024-10-01 17:23 | XMS_ITS | Encounter Summary ---
Author Organization [facility] and [facility] Address [address] [place] [address] Care Team Providers Care Jewel Corner Brushing Machine Operator Name Role Phone Mariel Smyth MD Primary Care Provider Reason for Referral * Imaging (Routine) - Closed Specialty Diagnoses / Procedures Referred By Contac t Referred To Contact Diagnostic Radiology Procedures MRA Brain without IV Contrast Neurosurgery at [address] [address] Phone: tel: fax: Referral ID Status Reason Start Date Expiration Date Visits Re quested Visits Authorized [id number] Closed 12/03/2022 12/03/2023 1 1 Encounter Details Date Type Department Care Team (Late st Contact Info) Description 12/03/2022 Scanned Document Neurosurgery at [address] [place] [phone] [place] . Social History Tobacco Use [...] on filedocumented in this encounter Care Teams Jewel Corner Brushing Machine Operator Relationship Specialty Start Date End Date Mariel Smyth MD [address] [place] [address] [facility] [address] [place] [phone] PCP - General Internal Medicine 06/19/18 documented as of this encounter
--- OUTSIDE RECORDS SUMMARY | 2024-10-01 17:23 | XMS_ITS | Encounter Summary ---
Author Organization [facility] and [facility] Address [address] [place] [address] Care Team Providers Care Balance Assembler Name Role Phone Mariel Smyth MD Primary Care Provider [phone] Encounter Details Date Type Department Care Team (Late st Contact Info) Description 06/07/2018 Scanned Document [facility] at [address] [place] [phone] Don Monique MD [address] [place] [phone] Social History Tobacco Use Types Packs/Day Years [...] on filedocumented in this encounter Care Teams Balance Assembler Relationship Specialty Start Date End Date Mariel Smyth MD [address] [place] [address] [place] [phone] PCP - General Internal Medicine 06/19/18 documented as of this encounter
--- OUTSIDE RECORDS SUMMARY | 2024-10-01 17:23 | XMS_ITS | Clinical Summary ---
Author Organization [address] [place] [address] [place] [phone] Phone Care Team Providers Care Ride Assembly Supervisor Name Role Phone Mariel Smyth MD Primary Care Provider Allergies Active Allergy Reactions Criticality Noted Date [...] anxiety. Max Daily Amount: 30 mg Active Encounters Date Type Department Care Team Description 08/22/2024 2:00 PM EST Consult Orthopedic Surgery - [address] [place] [phone] Hubert Lombardo MD Other specified joint [...] this topic Medical Devices Implanted Type Area Utilities Manager Device Identifier Shelf Expiration Date Model / Serial / Lot Coil Hydroframe Hydrocoil V-Trak 19cm 6mm 10 Coil Stretch - [id number] Implanted:Qty: 1 on 12/06/2018 [employer] 07/03/2023 [id number] / / [id number] Coil Embolization [place] V-Trak L28 Cm Od7 Mm 10 Coil - [id number] Implanted:Qty: 1 on 12/06/2018 [employer] 07/03/2023 [id number] / / [id number] Procedures Procedure Name Priority Date/Time Associated Diagnosis Comments XR SHOULDER 2+ VIEWS RIGHT Routine 08/22/2024 2:29 PM EST Other specified joint disorders, right shoulder TX ARTHROCENTESIS/ASPI RATION/INJECTION MAJOR JOINT/BURSA W/O U/S GUIDANCE [...] XR PROCEDURES Edited Result - Final * TX ARTHROCENTESIS/ASPIRATION/INJECTION MAJOR JOINT/BURSA W/O U/S GUIDANCE (08/22/2024 [...] ?? Verbal ??Pre-procedure timeout performed: yes ?? us Hubert Lombardo MD IN CLINIC/BEDSIDE ORDERABLES Fin al Result from Last 3 Months Insurance MEDICARE [place] [facility] Care Teams Ride Assembly Supervisor Relationship Specialty Start Date End Date Mariel Smyth MD [address] [place] [address] Dr [address] [facility] [place] [address] PCP - General Internal Medicine 06/25/24
--- OUTSIDE RECORDS SUMMARY | 2024-10-01 17:23 | XMS_ITS | Encounter Summary ---
Author Organization [facility] and [facility] Address [address] [place] [address] Care Team Providers Care Oral And Maxillofacial Surgery Name Role Phone Mariel Smyth MD Primary Care Provider [phone] Encounter Details Date Type Department Care Team (Late st Contact Info) Description 01/01/2020 Scanned Document [facility] SCHEDULING [address] [place], [place] [phone] Provider, Historical . Social History Tobacco Use [...] on filedocumented in this encounter Care Teams Oral And Maxillofacial Surgery Relationship Specialty Start Date End Date Mariel Smyth MD [address] [place] [phone] PCP - General Internal Medicine 06/19/18 documented as of this encounter
--- OUTSIDE RECORDS SUMMARY | 2024-10-01 17:23 | XMS_ITS | Encounter Summary ---
Author Organization [facility] and [facility] Address [address] [place] [address] Care Team Providers Care Offal Icer Poultry Name Role Phone Mariel Smyth MD Primary Care Provider [phone] Reason for Visit * Reason Onset Date Comments Letter for School/Work 08/13/2024 Encounter Details Date Type Department Care Team (Late st Contact Info) Description 08/13/2024 Telephone [facility] at [address] [place] [address] Abhijeet Romero MD [address] [place] [address] [place] [phone] Letter for School/Work Social History Tobacco [...] on file, patient could be reached at [phone]. documented in this encounter Plan of Treatment Not on file documented as of this encounter Visit Diagnoses Not on filedocumented in this encounter Care Teams Offal Icer Poultry Relationship Specialty Start Date End Date Mariel Smyth MD [address] [place] [address] [place] [phone] PCP - General Internal Medicine 06/19/18 documented as of this encounter
--- OUTSIDE RECORDS SUMMARY | 2024-10-01 17:23 | XMS_ITS | Encounter Summary ---
Author Organization [facility] and [facility] Address [address] [place] [address] Care Team Providers Care Court Abstractor Name Role Phone Mariel Smyth MD Primary Care Provider [phone] Reason for Referral * Imaging (Routine) - New Request Specialty Diagnoses / Procedures Referred By Yanna alford Referred To Contact Diagnostic Radiology Procedures MRA Brain without IV Contrast Neurosurgery at [address] [address] Phone: tel: fax: Referral ID Status Reason Start Date Expiration Date V isits Requested Visits Authorized [id number] New Request 12/30/2023 12/29/2024 1 1 Encounter Details Date Type Department Care Team (Late st Contact Info) Description 12/30/2023 Scanned Document Neurosurgery at [address] [address] [place] . Social History Tobacco Use [...] on filedocumented in this encounter Care Teams Court Abstractor Relationship Specialty Start Date End Date Mariel Smyth MD [address] [place] [address] [place] [phone] PCP - General Internal Medicine 06/19/18 documented as of this encounter
== END 2024-10-01 16:00 | disposition home or self-care (01) ==
PROVIDERS: PCP Internal Medicine; Visit Provider Internal Medicine Cardiovascular Disease
DX: I25.10 Atherosclerotic heart disease of native coronary artery without angina pectoris (principal); I25.5 Ischemic cardiomyopathy; I35.0 Nonrheumatic aortic (valve) stenosis
CPT/HCPCS: 93010; 99214; G2211

== ENCOUNTER → 2024-10-01 15:22 | Outpatient (BNVA) | payer MEDICARE, SELFPAY | PROVIDERS: PCP Internal Medicine; Visit Provider Internal Medicine Cardiovascular Disease | DX: I25.5 Ischemic cardiomyopathy (principal); I25.10 Atherosclerotic heart disease of native coronary artery without angina pectoris; I35.0 Nonrheumatic aortic (valve) stenosis; R94.31 Abnormal electrocardiogram [ECG] [EKG] | CPT/HCPCS: 93005; 99212 ==

== ENCOUNTER 2025-01-15 09:23 | Outpatient (AMB) | payer MEDICARE, SELFPAY ==
--- NOTE | 2025-01-15 09:25 | MHC.PC.OV ---
Vital Signs 01/15/25 09:39 Height 5 ft 6 in Weight 196 lb 6 oz BMI 31.7 BP 120/78 Blood Pressure Location Lt brachial Position Sitting Pulse 68 Pulse Source Pulse Oximeter Pulse Oximetry (%) 96 Oxygen Delivery Method Room Air Intake Visit Reasons: 3 month f/u Intake Note: Patient here for a 3 month follow up Retail And Promotions Coordinator Required: No Accompanied by: Spouse Allergies atorvastatin (Lipitor) Allergy (Unknown, Verified 01/15/25 09:29) Leg cramps ezetimibe (Zetia) Allergy (Unknown, Verified 01/15/25 09:29) shoulder pain lisinopril Allergy (Unknown, Verified 01/15/25 09:29) cough rosuvastatin (Crestor) Allergy (Unknown, Verified 01/15/25 09:29) Leg cramps Medication List - Last Reconciled 01/15/25 by Mariel Smyth MD aspirin (Ecotrin Low Strength) 81 mg PO DAILY atenolol 25 mg PO DAILY azelastine intranasal diazepam 10 mg PO TID PRN fluticasone propion-salmeterol 500-50 mcg/dose (Wixela Inhub) 1 inh inhalation BID ipratropium-albuterol 20-100 mcg/actuation (Combivent Respimat) 1 puff inhalation QID loratadine 10 mg PO DAILY losartan 50 mg PO DAILY magnesium 250 mg PO DAILY nitroglycerin (Nitrostat) 0.4 mg sublingual Q5M PRN rosuvastatin 40 mg PO DAILY Tobacco use date assessed: 09/19/24 Fall risk assessment: No Falls in past year Last assessed Fall Risk: 01/15/25 Dental Screening Dental Screen Date: 01/15/25 Did you have a dental visit in the last 12 months?: Yes Did you have a dental problem in the last 6 months where you did not have access to dental care?: No Was dental information given to patient?: Patient has dentist HPI 3 month f/u HPI Details seen neurosurgeon and had the test done. Dr. Wiley- PAtient also follow up with ENT with ear leaking and was told allergy problem. History of Present Illness The patient is a 69-year-old male presenting for a follow-up visit. The patient has a history of coronary artery disease, having experienced a non-ST elevation myocardial infarction in 2013, which was treated with angioplasty. He continues to follow up with cardiology, with his last visit in September 2024. He has chronic obstructive pulmonary disease and is stable on Wixela, with a reminder to rinse his mouth after use. The patient also uses a CPAP machine for obstructive sleep apnea but reports difficulty tolerating it. Hypertension is managed with losartan 50 mg once daily and atenolol 25 mg once daily. His blood pressure control is part of his ongoing management plan. The patient has a history of ischemic cardiomyopathy, with the last echocardiogram in September showing an ejection fraction of 45-50% and impaired relaxation. Mild aortic stenosis was also noted. Hypercholesterolemia is managed with rosuvastatin 40 mg daily, aiming for an LDL goal of less than 60 mg/dL. The patient has a history of a brain aneurysm, which was coiled in 2017. Generalized anxiety disorder is noted, and the patient continues to manage this condition. Recent blood work in June showed normal blood count and electrolytes, with renal function within normal limits. Blood sugar was elevated at 107 mg/dL, and liver function tests were mildly elevated. Chronic LDL was recorded at 66 mg/dL. Health Maintenance - Patient has declined colonoscopy for colorectal cancer screening. Social History Review of Systems Physical Exam Results - Echocardiogram (September 2024): Ejection fraction 45-50%, impaired relaxation, mild aortic stenosis. - Blood work (June): Normal blood count, normal electrolytes, renal function normal, blood sugar elevated at 107 mg/dL, liver function mildly elevated, LDL 66 mg/dL. Plan The patient will continue with current management for hypertension, including losartan 50 mg once daily and atenolol 25 mg once daily, to maintain blood pressure control. For hypercholesterolemia, the patient will remain on rosuvastatin 40 mg daily, with an LDL goal of less than 60 mg/dL. The patient is advised to continue using the CPAP machine for obstructive sleep apnea, despite difficulties in tolerance, as it provides benefits when used for more than 4 hours a night. For chronic obstructive pulmonary disease, the patient is stable on Wixela and should continue its use with proper oral hygiene post-inhalation. Follow-up with cardiology is recommended to monitor ischemic cardiomyopathy and aortic stenosis, with the last echocardiogram showing an ejection fraction of 45-50% and mild aortic stenosis. The patient should continue regular blood work to monitor blood sugar and liver function, given the previous elevation in June. Patient was informed and verbally consented to the use of an ambient scribe for clinic note documentation during this visit. Discussion Notes Patient Instructions - Continue taking losartan 50 mg and atenolol 25 mg daily for blood pressure control. - Maintain rosuvastatin 40 mg daily to manage cholesterol levels. - Use CPAP machine for more than 4 hours nightly for sleep apnea management. - Continue using Wixela and rinse mouth after use. - Follow up with cardiology for heart condition monitoring. - Schedule regular blood work to monitor blood sugar and liver function. [facility] Medical History Otitis media Viral sinusitis Aortic stenosis Chronic sinusitis Sinusitis Lyme disease Pericarditis Allergic rhinitis Hypercholesterolemia Ischemic cardiomyopathy Obstructive sleep apnea Anxiety Pulmonary nodule Hypertension COPD (chronic obstructive pulmonary disease) Coronary artery disease Surgical History Brain aneurysm Family History Father No problems noted. Mother CVD (cardiovascular disease) Social History Housing: House Alcohol intake: current Alcohol intake frequency: holidays/special occasions only Alcohol type: beer Patient Tobacco Use Status: Former Tobacco user Tobacco use type: Cigarette e-Cigarette/Vaping Use: Never Used Second Hand Smoke Exposure: Yes service: No Current occupational status: disabled Cognitive needs: No Hearing needs: No Vision needs: Yes Questionnaire PHQ-9 Over the last 2 weeks, how often have you been bothered by any of the following problems? 1. Little interest or pleasure in doing things: not at all 2. Feeling down, depressed, or hopeless: not at all 3. Trouble falling or staying asleep, or sleeping too much: not at all 4. Feeling tired or having little energy: not at all 5. Poor appetite or overeating: not at all 6. Feeling bad about yourself - or that you are a failure or have let yourself or your family down: not at all 7. Trouble concentrating on things, such as reading the newspaper or watching television: not at all 8. Moving or speaking so slowly that other people could have noticed. Or the opposite - being so fidgety or restless that you have been moving around a lot more than usual: not at all 9. Thoughts that you would be better off or of hurting yourself in some way: not at all Total score: 0 Depression Screening Interpretation: Negative Depression Screening Done: Yes Source: Developed by Drs. Bhavin Arreola, Guillermina Tyler, Fadi Ty and colleagues, with an educational juan from [employer]. Thrive Questionnaire Date Thrive assessed: 01/15/25 I am a: Patient What is your living situation today?: I have a steady place to live Within the past 12 months, did the food you bought not last and you didn't have the money to get more?: Never true Within the past 12 months, did you worry whether your food would run out before you got money to buy more?: Never true Do you have trouble paying for medicines?: No Do you have trouble getting transportation to medical appointments?: No Do you have trouble paying your heating and electricity bill?: No Do you have trouble taking care of your child, family member or friend?: No Do you have trouble with day-to-day activities such as bathing, preparing meals, shopping, managing finances, etc.?: No Are you currently unemployed and looking for a job?: Yes Are you interested in more education?: Yes Please select the resources that you would like help with: None Currently or been in a relationship where the following occur: No concerns reported THRIVE Score: 0 AUDIT C Alcohol Use Questionnaire (AUDIT-C) 1. How often do you have a drink containing alcohol?: Never Total Score: 0 JEREMIAH-7 AMB Questionnaire JEREMIAH-7 Date JEREMIAH - 7 assessed: 01/15/25 Feeling nervous, anxious, or on edge: 0 = Not at all Not being able to stop or control worryin = Not at all Worrying too much about different things: 0 = Not at all Trouble relaxin = Not at all Being so restless that it is hard to sit still: 0 = Not at all Becoming easily annoyed or irritable: 0 = Not at all Feeling afraid as if something awful might happen: 0 = Not at all Total JEREMIAH-7 score (0-4 normal; 5-9 mild; 10-14 moderate; 15-21 severe): 0 Source: Developed by Guillermina Ross Kurt Kroenke and colleagues, with an educational juan from [employer]. Physical exam (Primary Care) Vital Signs: Last Vital Signs Pulse 68 01/15/25 09:39 BP 120/78 01/15/25 09:39 Pulse Ox 96 01/15/25 09:39 Oxygen Delivery Method Room Air 01/15/25 09:39 BMI result Body Mass Index 31.7 Tobacco/Smoking Status: Tobacco use Status Tobacco use date assessed 09/19/24 01/15/25 09:30 Patient Tobacco Use Status Former Tobacco user 01/15/25 09:30 Tobacco use type Cigarette 01/15/25 09:30 e-Cigarette/Vaping Use Never Used 01/15/25 09:30 PHQ-9: PHQ-9 Score PHQ-9: Total score 0 01/15/25 09:54 Depression Screening Interpretation: Negative Thrive Assessment: Date of Thrive Assessment Date Thrive assessed 01/15/25 01/15/25 09:30 Currently or been in a relationship where the following occur: No concerns reported Const General: alert; No acute distress Eyes Conjunctivae: conjunctivae normal Resp Auscultation: clear to auscultation bilaterally Cardio Rate: regular rate Rhythm: regular rhythm GI Inspection: Yes normal to inspection Extrem General: Yes normal to inspection and No edema Coding Level of Care Code Est Pt Level 4 (39276) Complex EM visit Add On G2211 Diagnoses Coronary artery disease involving [place] coronary artery of [place] heart without angina pectoris I25.10 Associated angina: without angina Coronary Disease-Associated Artery/Lesion type: [place] artery [place] vs. transplanted heart: [place] heart Nonrheumatic aortic valve stenosis I35.0 Cardiac valve disease etiology: nonrheumatic Ischemic cardiomyopathy I25.5 Primary hypertension I10 Hypertension type: primary hypertension Hypercholesterolemia E78.00 Impaired glucose tolerance R73.02 Obesity (BMI 30.0-34.9) E66.9 Brain aneurysm I67.1 Pulmonary emphysema, unspecified emphysema type J43.9 COPD type: emphysema Emphysema type: unspecified Obstructive sleep apnea G47.33 Non-recurrent acute suppurative otitis media of left ear without spontaneous rupture of tympanic membrane H66.002 Chronicity: acute Laterality: left Otitis media type: suppurative Recurrence: non-recurrent Spontaneous tympanic membrane rupture: without spontaneous rupture Assessment & Plan Assessment & Plan (1) Coronary artery disease: Comment: NSTEMI July 2013 angioplasty EF 50-55% akinetic inferobasal 01/2018, echo February 2019 low normal ejection fraction grade 1 diastolic dysfunction. September 2021 low normal ejection fraction mild aortic stenosis 1.6 cm2 June 2022The left ventricular systolic function is mildly decreased. The calculated ejection fraction is 52% by biplane method. - The basal inferior and basal inferolateral segments are akinetic. - Mildly increased right ventricular cavity size. - There is moderate calcification of the aortic valve. There is mild aortic valve stenosis. 1.8 Code(s): I25.10 - Atherosclerotic heart disease of [place] coronary artery without angina pectoris Category: Medical Qualifiers: Associated angina: without angina Coronary Disease-Associated Artery/Lesion type: [place] artery [place] vs. transplanted heart: [place] heart Qualified Code(s): I25.10 - Atherosclerotic heart disease of [place] coronary artery without angina pectoris Plan: Control the cholesterol, weight, blood pressure, on aspirin (2) Aortic stenosis: Comment: Echocardiogram 1.6 cm September 2021, June 2022 1.8 08/2024 1.59 cm Code(s): I35.0 - Nonrheumatic aortic (valve) stenosis Category: Medical Qualifiers: Cardiac valve disease etiology: nonrheumatic Qualified Code(s): I35.0 - Nonrheumatic aortic (valve) stenosis Plan: Continue to monitor had an echocardiogram in September 2024 (3) Ischemic cardiomyopathy: Comment: The left ventricular systolic function is mildly decreased. The calculated ejection fraction is 52% by biplane method. - The basal inferior and basal inferolateral segments are akinetic. - Mildly increased right ventricular cavity size. - There is moderate calcification of the aortic valve. There is mild aortic valve stenosis. Code(s): I25.5 - Ischemic cardiomyopathy Category: Medical Plan: Continue to follow up with Cardiology continue with blood pressure control on losartan 50 mg once a day [id number] mg once a day (4) Hypertension: Code(s): I10 - Essential (primary) hypertension Category: Medical Qualifiers: Hypertension type: primary hypertension Qualified Code(s): I10 - Essential (primary) hypertension Plan: Continue with blood pressure medication. Decrease salt intake and exercise atenolol 25 mg once a day with losartan 50 mg once a day (5) Hypercholesterolemia: Code(s): E78.00 - Pure hypercholesterolemia, unspecified Category: Medical Plan: Avoid fried foods, chicken skin, eggs, butter margarine, pastries and meat. Be it pork or beef they have a lot of cholesterol LDL goal of less than 60 on rosuvastatin 40 mg once a day (6) Impaired glucose tolerance: Code(s): R73.02 - Impaired glucose tolerance (oral) Category: Medical Plan: Decrease the amount of carbohydrate intake, pasta, bread, rice and potatoes are all sugar and that is aside from all the sweet stuff, remember that fruits are good but they are Sweet also. (7) Obesity (BMI 30.0-34.9): Code(s): E66.9 - Obesity, unspecified Category: Medical Plan: Diet and exercise (8) Brain aneurysm: Comment: Right cerebellar aneurysm status post coiling April 2018, small right ICA 1.6 mm, December 2018 Code(s): I67.1 - Cerebral aneurysm, nonruptured Category: Surgical Plan: Continue to monitor with the neurosurgeon. (9) COPD (chronic obstructive pulmonary disease): Code(s): J44.9 - Chronic obstructive pulmonary disease, unspecified Category: Medical Qualifiers: COPD type: emphysema Emphysema type: unspecified Qualified Code(s): J43.9 - Emphysema, unspecified Plan: Stable on Wixela and reminded to rinse mouth after using (10) Obstructive sleep apnea: Comment: CPAP using Q night > 4 hours and benefits patient (10/2021), cannot tolerate CPAP 05/2022 Code(s): G47.33 - Obstructive sleep apnea (adult) (pediatric) Category: Medical Plan: Patient can not tolerate CPAP (11) Otitis media: Code(s): H66.90 - Otitis media, unspecified, unspecified ear Category: Medical Qualifiers: Chronicity: acute Laterality: left Otitis media type: suppurative Recurrence: non-recurrent Spontaneous tympanic membrane rupture: without spontaneous rupture Qualified Code(s): H66.002 - Acute suppurative otitis media without spontaneous rupture of ear drum, left ear Plan History of Present Illness The patient is a 69-year-old male presenting with concerns related to ear fluid accumulation and allergies. The patient reports persistent fluid accumulation in the ears, which shifts sides depending on his head position, and has been attributed to allergies by his ENT specialist. Despite taking Claritin, the symptoms persist, and alternative medications like Kajal and Zyrtec have been discussed, though Kajal was ineffective. The patient has a history of aortic stenosis, which is currently stable and not severe, but requires monitoring. He also has heart failure with reduced ejection fraction, with a recent echocardiogram showing borderline weakness at 45-50%. Blood pressure management is emphasized, and a follow-up fasting blood work is planned to monitor cholesterol levels. The patient experiences shoulder pain, for which he received an injection in October. He has been advised against using ibuprofen due to potential liver and kidney effects, given his current medications. Health Maintenance - Follow-up fasting blood work for cholesterol monitoring Social History Review of Systems - Ears: Reports fluid accumulation in ears, shifting with head position - Allergic/Immunologic: Reports persistent allergy symptoms despite medication Physical Exam - Respiratory: Auscultation performed with instruction to breathe in and out Results - Echocardiogram: Borderline heart weakness with ejection fraction 45-50% Plan The patient will continue with allergy management, considering alternative medications such as Zyrtec, given the ineffectiveness of Kajal. Monitoring of aortic stenosis and heart failure will continue, with emphasis on maintaining blood pressure control and regular follow-up echocardiograms. A fasting blood work is scheduled to assess cholesterol levels, and the patient is advised to avoid ibuprofen due to potential adverse effects on liver and kidneys. Patient was informed and verbally consented to the use of an ambient scribe for clinic note documentation during this visit. Discussion Notes I discussed with the patient the importance of managing his allergies and the potential benefits of trying Zyrtec as an alternative medication. We reviewed the current status of his aortic stenosis and heart failure, emphasizing the need for regular monitoring and blood pressure control. I advised him on the necessity of a fasting blood work to monitor cholesterol levels and the reasons for avoiding ibuprofen due to its potential effects on liver and kidneys. Patient Instructions - Continue taking allergy medications as prescribed and consider trying Zyrtec. - Monitor blood pressure regularly and follow up with echocardiograms as advised. - Schedule and complete fasting blood work for cholesterol assessment. - Avoid using ibuprofen due to potential liver and kidney effects. Orders: Orders Comprehensive Met. Panel Today E78.00 - Pure hypercholesterolemia, unspecified Free T4 (Free Thyroxine) Today E78.00 - Pure hypercholesterolemia, unspecified Hemoglobin A1c Today E78.00 - Pure hypercholesterolemia, unspecified B Type Natriuretic Peptide Today E78.00 - Pure hypercholesterolemia, unspecified Complete Blood Count Auto Diff Today E78.00 - Pure hypercholesterolemia, unspecified Thyroid Stimulating Hormone Today E78.00 - Pure hypercholesterolemia, unspecified Lipid Panel Today E78.00 - Pure hypercholesterolemia, unspecified Vitamin B12 and Folate Today E78.00 - Pure hypercholesterolemia, unspecified Prostate Specific Antigen Scr Today E78.00 - Pure hypercholesterolemia, unspecified Medications: New amoxicillin-pot clavulanate 875-125 mg 1 tab PO BID 14 tabs 0RF H66.002 - Acute suppurative otitis media without spontaneous rupture of ear drum, left ear
[2025-01-15 09:39] VITALS: BP 120/78; PULSE 68; O2SAT 96; BMI 31.7
--- OUTSIDE RECORDS SUMMARY | 2025-01-15 09:54 | XMS_ITS | Clinical Summary ---
Author Organization [facility] Address [address] [place] [address] Care Team Providers Care Special Education Itinerant Teacher Name Role Phone Unknown, Primary Care Provider [...] 67 01/01/2020 1:00 PM EDT Temperature 37.1 C (98.8 F) 01/01/2020 9:15 AM EDT Respiratory Rate 18 01/01/2020 1:00 PM EDT [...] Fall Risk Assessment 2022 Influenza Vaccine (#1) 2025 RSV Adult > 60+ Yrs or Pregn ant (1 - 1-dose 75+ series) 01/22/2032 Hepatitis B Vaccines Aged Out No long er eligible based on patient's age to complete this topic RSV Ped < 20 months Aged Out No longe r eligible based on patient's age to complete this topic Medical Devices Implanted Type Area Building Maintenance Mechanic Device Identifier Shelf Expiration Date Model / Serial / Lot Coil Hydroframe Hydrocoil V-Trak 19cm 6mm 10 Coil Stretch - [id number] - [id number] Implanted:Qty: 1 on 12/06/2018 at [facility] [employer] 07/03/2023 [id number] 619 / / [id number] Coil Embolization [employer]a [employer] V-Trak L28 Cm Od7 Mm 10 Coil - [id number] - [id number] Implanted:Qty: 1 on 12/06/2018 at [facility] [employer] 07/03/2023 [id number] / / [id number] Advance Directives For more information, please contact: [phone] Latest Code Status on File Code Status Date Activated Date Inactivated Comments Full Code 12/06/2018 11:09 AM 12/07/2018 4:28 PM This c ode status was ascertained in the following way: discussion with patient . Care Teams Special Education Itinerant Teacher Relationship Specialty Start Date End Date Unknown, PCP - General 12/06/18
--- OUTSIDE RECORDS SUMMARY | 2025-01-15 09:54 | XMS_ITS | Encounter Summary ---
Author Organization [facility] Address [address] [place] [address] Care Team Providers Care Highway Maintenance Technician Name Role Phone Mariel Smyth MD Primary Care Provider [phone] Encounter Details Date Type Department Care Team (Late st Contact Info) Description 12/15/2018 Scanned Document [facility] [address] [address] Provider, Historical . Social History Tobacco Use [...] on file documented as of this encounter Functional Status documented as of this encounter Plan of Treatment Not on file documented as of this encounter Procedures Procedure Name Priority Date/Time Associated Diagnosis Comments IR RESULT SCAN Routine 12/06/2018 documented in this encounter Results * IR Result Scan (12/06/2018) us Historical Provider IMG SCAN REPORTS Final Resul t documented in this encounter Visit Diagnoses Not on filedocumented in this encounter Care Teams Highway Maintenance Technician Relationship Specialty Start Date End Date Mariel Smyth MD [address] [place] [address] [place] [phone] PCP - General Internal Medicine 06/19/18 documented as of this encounter
--- OUTSIDE RECORDS SUMMARY | 2025-01-15 09:54 | XMS_ITS | Clinical Summary ---
Author Organization [address] [place] [address] Address [address] [place] [address] Phone Care Team Providers Care Picked Edge Sewing Machine Operator Name Role Phone Mariel Smyth MD Primary Care Provider [phone] Allergies Active Allergy Reactions Criticality Noted Date [...] anxiety. Max Daily Amount: 30 mg Active Surgical History Surgery Date Site/Laterality Comments OTHER SURGICAL HISTORY PROCEDURE:cerebral coiling Medical History Medical History Date Comments Hypertension DX:Hypertension Lyme disease DX:Lyme disease COPD (chronic obstructive pu lmonary disease) (CMS/HCC V24, CMS/HCC V28) DX:COPD (chronic o bstructive pulmonary disease) ([facility]) Coronary artery disease DX:Coron eric artery disease [...] 2 - PCV) 01/20/2012 01/19/2011 RSV Immunization Adult Patients (1 - Risk 60-74 years 1-dose series) 2017 COVID-19 Vaccine ( season) 2024 10/16/2021, 05/18/2021, 11/03/2020, Additional history exists Abdominal Aortic Aneurysm (AAA) Screen 06/25/2024 Cholesterol Screening (Lipid Panel) 06/25/2024 Colorectal Cancer Screening: Colonoscopy 06/25/2024 Depression Screening 06/25/2024 Falls Risk Assessment 06/25/2024 Hepatitis C Screening 06/25/2024 Medicare Annual Wellness Visit 06/25/2024 Social Influencers of Health Screening 06/25/2024 Hypertension/CHF/CAD Annual BMP Blood Test 08/22/2024 Influenza Vaccine (#1) 2025 , 04/14/2023, 04/05/2022, Additional history exists DTaP,Tdap,and Td Vaccines (3 - Td or Tdap) 01/25/2029 01/25/2019, 01/19/2011 HIB Vaccines Aged Out No longer eligi [...] age to complete this topic Meningococcal B Vaccine Aged Out No l onger eligible based on patient's age to complete this topic RSV Immunization Patients Under 20 months Aged Out No longer eligible based on patient's age to complete this topic Varicella Vaccines Aged Out No longer eligible based on patient's age to complete this topic Medical Devices Implanted Type Area Rework Machine Operator Device Identifier Shelf Expiration Date Model / Serial / Lot Coil Hydroframe Hydrocoil V-Trak 19cm 6mm 10 Coil Stretch - [id number] Implanted:Qty: 1 on 12/06/2018 [employer] 07/03/2023 [id number] / / [id number] Coil Embolization [place] V-Trak L28 Cm Od7 Mm 10 Coil - [id number] Implanted:Qty: 1 on 12/06/2018 [employer] 07/03/2023 [id number] / / [id number] Insurance MEDICARE [place] - [place] [facility] Care Teams Picked Edge Sewing Machine Operator Relationship Specialty Start Date End Date Mariel Smyth MD [address] [place] [address] [address] [facility] [place] [address] PCP - General Internal Medicine 06/25/24
== END 2025-01-15 10:24 | disposition home or self-care (01) ==
LOC: HO.HMCH 09:24
PROVIDERS: PCP Internal Medicine; Visit Provider Internal Medicine
DX: I25.10 Atherosclerotic heart disease of native coronary artery without angina pectoris (principal); J43.9 Emphysema, unspecified; E66.9 Obesity, unspecified; Z68.31 Body mass index [BMI] 31.0-31.9, adult; I35.0 Nonrheumatic aortic (valve) stenosis; I25.5 Ischemic cardiomyopathy; R73.02 Impaired glucose tolerance (oral); I10 Essential (primary) hypertension; E78.00 Pure hypercholesterolemia, unspecified; I67.1 Cerebral aneurysm, nonruptured; G47.33 Obstructive sleep apnea (adult) (pediatric); H66.002 Acute suppurative otitis media without spontaneous rupture of ear drum, left ear

== ENCOUNTER → 2025-01-15 09:23 | Outpatient (BNVA) | payer MEDICARE, SELFPAY | PROVIDERS: PCP Internal Medicine; Visit Provider Internal Medicine | DX: I25.10 Atherosclerotic heart disease of native coronary artery without angina pectoris (principal); I35.0 Nonrheumatic aortic (valve) stenosis; I25.5 Ischemic cardiomyopathy; I10 Essential (primary) hypertension; E78.00 Pure hypercholesterolemia, unspecified; R73.02 Impaired glucose tolerance (oral); I67.1 Cerebral aneurysm, nonruptured; J43.9 Emphysema, unspecified; G47.33 Obstructive sleep apnea (adult) (pediatric); H66.002 Acute suppurative otitis media without spontaneous rupture of ear drum, left ear; E66.9 Obesity, unspecified; Z68.31 Body mass index [BMI] 31.0-31.9, adult; Z71.3 Dietary counseling and surveillance; Z87.891 Personal history of nicotine dependence | CPT/HCPCS: 99212 ==

== ENCOUNTER 2025-02-11 08:18 | Outpatient (REF) | payer MEDICARE, SELFPAY ==
--- OUTSIDE RECORDS SUMMARY | 2025-02-11 08:35 | XMS_ITS | Clinical Summary ---
Author Organization [facility] Address [address] [place] [address] Care Team Providers Care Automatic Hemmer Name Role Phone Unknown, Md Primary Care [...] topic Medical Devices Implanted Type Area Clinical Investigator Device Identifier Shelf Expiration Date Model / Serial / Lot Coil Hydroframe Hydrocoil V-Trak 19cm 6mm 10 Coil Stretch - [id number] - [id number] Implanted:Qty: 1 on 12/06/[address] [facility] [place] [facility] [employer] 07/03/2023 [id number] 619 / / [id number] Coil Embolization [place] V-Trak L28 Cm Od7 Mm 10 Coil - [id number] - [id number] Implanted:Qty: 1 on 12/06/[address] [facility] [employer] 07/03/2023 [id number] [id number] / / [id number] Advance Directives For more information, please contact: [phone] Latest Code Status on File Code Status Date Activated Date Inactivated Comments Full Code 12/06/2018 11:09 AM 12/07/2018 4:28 PM This c ode status was ascertained in the following way: discussion with patient . Care Teams Automatic Hemmer Relationship Specialty Start Date End Date Unknown, PCP - General 12/06/18
--- OUTSIDE RECORDS SUMMARY | 2025-02-11 08:35 | XMS_ITS | Encounter Summary ---
Author Organization [facility] and [facility] Address [address] [place] [address] Care Team Providers Care Excelsior Picker Name Role Phone Mariel Smyth MD Primary Care Provider [phone] Encounter Details Date Type Department Care Team (Late st Contact Info) Description 12/15/2018 Scanned Document [facility] [address] [address] Provider, Historical . Social History Tobacco Use [...] on filedocumented in this encounter Care Teams Excelsior Picker Relationship Specialty Start Date End Date Mariel Smyth MD [address] [place] [address] [place] [phone] PCP - General Internal Medicine 06/19/18 documented as of this encounter
--- OUTSIDE RECORDS SUMMARY | 2025-02-11 08:35 | XMS_ITS | Clinical Summary ---
Author Organization [address] [place] [address] Address [address] [place] [address] Phone Care Team Providers Care Factory Maintenance Technician Name Role Phone Mariel Smyth MD Primary Care Provider [phone] Allergies Active Allergy Reactions Criticality Noted Date [...] V28) DX:COPD (chronic o bstructive pulmonary disease) ([facility]) Coronary artery disease DX:Coron eric [...] Panel) 06/25/2024 Colorectal Cancer Screening: Colonoscopy 06/25/2024 Falls Risk Assessment 06/25/2024 Hepatitis C Screening 06/25/2024 Medicare Annual Wellness Visit 06/25/2024 Social Influencers of Health Screening 06/25/2024 Depression Screening 07/04/2024 Hypertension/CHF/CAD Annual BMP Blood Test 08/22/2024 Influenza Vaccine (#1) 2025 4, 04/14/2023, 04/05/2022, Additional history exists DTaP,Tdap,and Td [...] this topic Medical Devices Implanted Type Area Crab Meat Processor Device Identifier Shelf Expiration Date Model / Serial / Lot Coil Hydroframe Hydrocoil V-Trak 19cm 6mm 10 Coil Stretch - [id number] Implanted:Qty: 1 on 12/06/2018 [employer] 07/03/2023 [id number] / / [id number] Coil Embolization [place] V-Trak L28 Cm Od7 Mm 10 Coil - [id number] Implanted:Qty: 1 on 12/06/2018 [employer] 07/03/2023 [id number] / / [id number] Insurance MEDICARE [place] - [place] [facility] Care Teams Factory Maintenance Technician Relationship Specialty Start Date End Date Mariel Smyth MD [address] [place] [address] [address] [facility] [place] [address] PCP - General Internal Medicine 06/25/24
[2025-02-11 08:38] LABS: MANUAL DIFF FLAG NO
[2025-02-11 09:09] LABS: Hematocrit 45.4 % (42.0-52.0); Hemoglobin 15.0 g/dl (14.0-18.0); Imm Gran Abs Auto 0.02 X10*3/uL (0.00-0.03); Imm Gran Pct Auto 0.3 % (0.0-0.4); Lymphocytes Absolute Auto 1.7 X10*3/uL (1.2-4.9); Mean Corpuscular HGB Conc 33.0 g/dl (31.0-36.0); Mean Corpuscular Hemoglobin 29.6 pg (27.0-33.0); Mean Corpuscular Volume 89.5 fL (80.0-98.0); NRBC Abs Auto 0.000 X10*3/uL (0.0-0.012); NRBC Pct Auto 0.0 /100WBC (0.0-0.2); Platelet Count 233 X10*3/uL (160-400); Red Blood Count 5.07 X10*6/uL (4.60-5.80); White Blood Count 7.9 X10*3/uL (4.8-10.8)
[2025-02-11 09:19] LABS: Hemoglobin A1C 165.2544 umol/L; Total Hemoglobin (HGBA1C) 3956.9802 umol/L
[2025-02-11 09:33] LABS: B Type Natriuretic Peptide 43 pg/mL (<100)
[2025-02-11 09:45] LABS: Alanine Aminotransferase 48 U/L (0-40); Albumin Level 4.4 g/dL (3.5-5.0); Alkaline Phosphatase 83 U/L (39-117); Anion Gap 9 (12-20); Aspartate Amino Transferase 37 U/L (5-37); Blood Urea Nitrogen 13 mg/dL (9-16); Calcium 8.8 mg/dL (8.4-10.2); Carbon Dioxide 30 mmol/L (22-29); Chloride 108 mmol/L (96-108); Cholesterol 117 mg/dL (<200); Estimated Glomerular Filt Rate > 60; HDL Cholesterol 29 mg/dL (>40); Potassium 5.0 mmol/L (3.3-5.1); Sodium 142 mmol/L (135-145); Total Protein 7.2 g/dL (6.5-8.0); Triglycerides 75 mg/dL (<150)
[2025-02-11 10:03] LABS: Free T4 (Free Thyroxine) 0.94 ng/dL (0.71-1.85); Thyroid Stimulating Hormone 0.99 uIU/mL (0.32-4.0)
[2025-02-11 10:06] LABS: Folate 5.2 ng/mL (> or = 4.0); Vitamin B12 378 pg/mL (200-900)
== END 2025-02-11 08:19 | disposition home or self-care (01) ==
LOC: HO.LAB 08:18
PROVIDERS: PCP Internal Medicine; Visit Provider Internal Medicine
DX: E78.00 Pure hypercholesterolemia, unspecified (principal); Z12.5 Encounter for screening for malignant neoplasm of prostate; Z13.1 Encounter for screening for diabetes mellitus
CPT/HCPCS: 36415; 80053; 80061; 82607; 82746; 83036; 83880; 84153; 84439; 84443; 85025

== ENCOUNTER 2025-03-14 08:20 | Outpatient (REF) | payer MEDICARE, SELFPAY ==
--- OUTSIDE RECORDS SUMMARY | 2025-03-14 09:19 | XMS_ITS | Encounter Summary ---
Author Organization [facility] and [facility] Address [address] [place] [address] Care Team Providers Care Registered Public Surveyor Name Role Phone Mariel Smyth MD Primary Care Provider [phone] Encounter Details Date Type Department Care Team (Late st Contact Info) Description 12/11/2018 Scanned Document [facility] at [address] [place] [address] [phone] Josue Vaca MD [address] [place] [phone] Social History Tobacco Use Types Packs/Day Years [...] on filedocumented in this encounter Care Teams Registered Public Surveyor Relationship Specialty Start Date End Date Mariel Smyth MD [address] [place] [address] [place] [phone] PCP - General Internal Medicine 06/19/18 documented as of this encounter
--- OUTSIDE RECORDS SUMMARY | 2025-03-14 09:19 | XMS_ITS | Encounter Summary ---
Author Organization [facility] and [facility] Address [address] [place] [address] Care Team Providers Care Neck Fitter Name Role Phone Mariel Smyth MD Primary Care Provider [phone] Encounter Details Date Type Department Care Team (Late st Contact Info) Description 12/15/2018 Scanned Document [facility] [address] [address] Provider, Historical . Social History Tobacco Use [...] on filedocumented in this encounter Care Teams Neck Fitter Relationship Specialty Start Date End Date Mariel Smyth MD [address] [place] [address] [place] [phone] PCP - General Internal Medicine 06/19/18 documented as of this encounter
--- OUTSIDE RECORDS SUMMARY | 2025-03-14 09:19 | XMS_ITS | Clinical Summary ---
Author Organization [address] [place] [address] Address [address] [place] [address] Phone Care Team Providers Care Curriculum Writer Name Role Phone Mariel Smyth MD Primary Care Provider [phone] Allergies Active Allergy Reactions Criticality Noted Date [...] V28) DX:COPD (chronic o bstructive pulmonary disease) ([facility]) Coronary artery disease DX:Coron eric artery [...] - Risk 60-74 years 1-dose series) 2017 Abdominal Aortic Aneurysm (AAA) Screen 06/25/2024 Cholesterol Screening (Lipid Panel) 06/25/2024 Colorectal Cancer Screening: Colonoscopy 06/25/2024 Falls Risk Assessment 06/25/2024 Hepatitis C Screening 06/25/2024 Medicare Annual Wellness Visit 06/25/2024 Social Influencers of Health Screening 06/25/2024 Depression Screening 07/04/2024 Hypertension/CHF/CAD Annual BMP Blood Test 08/22/2024 COVID-19 Vaccine ( season) 2025 10/16/2021, 05/18/2021, 11/03/2020, Additional history exists Influenza Vaccine (#1) 2025 , 04/14/2023, 04/05/2022, [...] this topic Medical Devices Implanted Type Area Upholstery Parts Sorter Device Identifier Shelf Expiration Date Model / Serial / Lot Coil Hydroframe Hydrocoil V-Trak 19cm 6mm 10 Coil Stretch - [id number] Implanted:Qty: 1 on 12/06/2018 [employer] 07/03/2023 [id number] / / [id number] Coil Embolization [place] V-Trak L28 Cm Od7 Mm 10 Coil - [id number] Implanted:Qty: 1 on 12/06/2018 [employer] 07/03/2023 [id number] / / [id number] Insurance MED[place]ARE [place] - [place] [facility] Care Teams Curriculum Writer Relationship Specialty Start Date End Date Mariel Smyth MD [address] [place] [address] [address] [facility] [place] [address] PCP - General Internal Medicine 06/25/24
--- OUTSIDE RECORDS SUMMARY | 2025-03-14 09:19 | XMS_ITS | Encounter Summary ---
Author Organization [facility] and [facility] Address [address] [place] [address] Care Team Providers Care Technical Support 1 Software Engineer Name Role Phone Mariel Smyth MD Primary Care Provider [phone] Encounter Details Date Type Department Care Team (Late st Contact Info) Description 11/13/2018 Scanned Document [facility] [address] [address] Provider, Historical . Social History Tobacco Use [...] filedocumented in this encounter Care Teams Technical Support 1 Software Engineer Relationship Specialty Start Date End Date Mariel Smyth MD [address] [place] [address] [place] [phone] PCP - General Internal Medicine 06/19/18 documented as of this encounter
--- OUTSIDE RECORDS SUMMARY | 2025-03-14 09:20 | XMS_ITS | Encounter Summary ---
Author Organization [facility] and [facility] Address [address] [place] [address] Care Team Providers Care Catalyst Supervisor Name Role Phone Mariel Smyth MD Primary Care Provider [phone] Reason for Referral * Imaging (Routine) - Closed Specialty Diagnoses / Procedures Referred By Contac t Referred To Contact Diagnostic Radiology Procedures MRA Brain without IV Contrast Neurosurgery at [address] [address] Phone: tel: fax: Referral ID Status Reason Start Date Expiration Date Visits Re quested Visits Authorized [id number] Closed 12/03/2022 12/03/2023 1 1 Encounter Details Date Type Department Care Team (Late st Contact Info) Description 12/03/2022 Scanned Document Neurosurgery at [address] [place] [address] [place] . Social History Tobacco Use [...] on filedocumented in this encounter Care Teams Catalyst Supervisor Relationship Specialty Start Date End Date Mariel Smyth MD [address] [place] [address] [address] [facility] [place] [phone] PCP - General Internal Medicine 06/19/18 documented as of this encounter
--- OUTSIDE RECORDS SUMMARY | 2025-03-14 09:20 | XMS_ITS | Encounter Summary ---
Author Organization [facility] and [facility] Address [address] [place] [address] Care Team Providers Care School Physical Therapist Name Role Phone Mariel Smyth MD Primary Care Provider Reason for Referral * Imaging (Routine) - Closed Specialty Diagnoses / Procedures Referred By Contac t Referred To Contact Diagnostic Radiology Procedures MRA Brain without IV Contrast Neurosurgery at [address] [address] Phone: tel: fax: Referral ID Status Reason Start Date Expiration Date Visits Re quested Visits Authorized [id number] Closed 12/30/2023 12/29/2024 1 1 Encounter Details Date Type Department Care Team (Late st Contact Info) Description 12/30/2023 Scanned Document Neurosurgery at [address] [address] [place] . Social History Tobacco Use [...] on filedocumented in this encounter Care Teams School Physical Therapist Relationship Specialty Start Date End Date Haja, MD Mariel [address] [place] [address] [place] [phone] PCP - General Internal Medicine 06/19/18 documented as of this encounter
--- OUTSIDE RECORDS SUMMARY | 2025-03-14 09:20 | XMS_ITS | Encounter Summary ---
Author Organization [facility] and [facility] Address [address] [place] [address] Care Team Providers Care Teller Coordinator Name Role Phone Mariel Smyth MD Primary Care Provider [phone] Encounter Details Date Type Department Care Team (Late st Contact Info) Description 12/09/2020 Scanned Document [facility] [address] [address] Josue Vaca MD [address] [place] [phone] Social History Tobacco Use Types Packs/Day Years [...] on filedocumented in this encounter Care Teams Teller Coordinator Relationship Specialty Start Date End Date Mariel Smyth MD [address] [place] [address] [place] [phone] PCP - General Internal Medicine 06/19/18 documented as of this encounter
--- OUTSIDE RECORDS SUMMARY | 2025-03-14 09:20 | XMS_ITS | Encounter Summary ---
Author Organization [facility] and [facility] Address [address] [place] [address] Care Team Providers Care Director Of Product Management Name Role Phone Mariel Smyth MD Primary Care Provider [phone] Reason for Visit * Reason Onset Date Comments Letter for School/Work 08/13/2024 Encounter Details Date Type Department Care Team (Late st Contact Info) Description 08/13/2024 Telephone [facility] at [address] [phone] Abhijeet Romero MD [address] [place] [address] [place] [address] Letter for School/Work Social History Tobacco [...] on file, patient could be reached at [phone]. documented in this encounter Plan of Treatment Not on file documented as of this encounter Visit Diagnoses Not on filedocumented in this encounter Care Teams Director Of Product Management Relationship Specialty Start Date End Date Mariel Smyth MD [address] [place] [address] [place] [phone] PCP - General Internal Medicine 06/19/18 documented as of this encounter
--- OUTSIDE RECORDS SUMMARY | 2025-03-14 09:20 | XMS_ITS | Clinical Summary ---
Author Organization [facility] [address] [address] Care Team Providers Care Alterations Manager Name Role Phone Mariel Smyth MD Primary Care Provider [phone] Allergies Active Allergy Reactions Criticality Noted Date [...] Encounters Date Type Department Care Team Description 01/31/2025 Orders Only Neurosurgery at [address] [place] [address], [place] [address] Mayo Lipscomb MD Cerebral aneurysm, nonruptured (HC CODE) (Primary Dx); MRI-safe endovascular aneurysm coil present 01/28/2025 Telephone Neurosurgery at [address] [place] [address] [address] [place] [address] Abhijeet Romero MD Results; Appointment from Last 3 Months Family History Medical [...] AM EST Pulse - - Temperature 36.5 C (97.7 F) 06/19/2018 9:24 AM EST Respiratory Rate - - Oxygen Saturation - [...] 1-dose series) 2017 Aortic Aneurysm screening 2022 Covid-19 vaccine series (1 - 2023- season) 2025 Influenza vaccine 03/04/2025 Meningococcal B Vaccine Aged Out No l onger eligible based on patient's age to complete this topic Meningococcal Vaccine Aged Out No mark deepika eligible based on patient's age to complete this topic Insurance MEDICARE [facility] MEDICARE [facility] MEDICARE [facility] Care Teams Alterations Manager Relationship Specialty Start Date End Date Mariel Smyth MD [address] [place] [address] [place] [phone] PCP - General Internal Medicine 06/19/18
--- OUTSIDE RECORDS SUMMARY | 2025-03-14 09:20 | XMS_ITS | Encounter Summary ---
Author Organization [facility] and [facility] Address [address] [place] [address] Care Team Providers Care Proc Tech Name Role Phone Mariel Smyth MD Primary Care Provider [phone] Encounter Details Date Type Department Care Team (Late st Contact Info) Description 12/28/2019 Scanned Document [facility] SCHEDULING [address] [place], [place] [phone] Provider, Historical . Social History Tobacco Use [...] on filedocumented in this encounter Care Teams Proc Tech Relationship Specialty Start Date End Date Mariel Smyth MD [address] [place] [address] [place] [phone] PCP - General Internal Medicine 06/19/18 documented as of this encounter
--- OUTSIDE RECORDS SUMMARY | 2025-03-14 09:20 | XMS_ITS | Encounter Summary ---
Author Organization [facility] and [facility] Address [address] [place] [address] Care Team Providers Care Robotics Engineer Name Role Phone Mariel Smyth MD Primary Care Provider [phone] Reason for Visit * Reason Comments Triage Encounter Details Date Type Department Care Team ([facility] st Contact Info) Description 08/20/2021 Telephone [facility] [address] [place] [address] Josue Vaca MD [address] [place] [phone] Triage Social History Tobacco Use Types Packs/Day [...] regarding this. Please advise Mrs. Zuleta's Number: [phone] documented in this encounter Plan of Treatment Not on file documented as of this encounter Visit Diagnoses Not on filedocumented in this encounter Care Teams Robotics Engineer Relationship Specialty Start Date End Date Po, MD Mariel [address] [place] [address] Dr [place], PATR[place] [phone] PCP - General Internal Medicine 06/19/18 documented as of this encounter
--- OUTSIDE RECORDS SUMMARY | 2025-03-14 09:20 | XMS_ITS | Clinical Summary ---
Author Organization [facility] Address [address] [place] [address] Care Team Providers Care Space Engineer Name Role Phone Unknown, Primary Care Provider [...] this topic Medical Devices Implanted Type Area Mottle Lay Up Operator Device Identifier Shelf Expiration Date Model / Serial / Lot Coil Hydroframe Hydrocoil V-Trak 19cm 6mm 10 Coil Stretch - [id number] - [id number] Implanted:Qty: 1 on 12/06/2018 at [facility] [employer] 07/03/2023 7110-0 619 / / [id number] Coil Embolization [place] V-Trak L28 Cm Od7 Mm 10 Coil - [id number] - [id number] Implanted:Qty: 1 on 12/06/2018 at [facility] [employer] 07/03/2023 7110-0 728 / / [id number] Advance Directives For more information, please contact: [phone] Latest Code Status on File Code Status Date Activated Date Inactivated Comments Full Code 12/06/2018 11:09 AM 12/07/2018 4:28 PM This c ode status was ascertained in the following way: discussion with patient . Care Teams Space Engineer Relationship Specialty Start Date End Date Unknown, PCP - General 12/06/18
--- OUTSIDE RECORDS SUMMARY | 2025-03-14 09:20 | XMS_ITS | Encounter Summary ---
Author Organization [facility] and [facility] [place] [facility] Address [address] [place] [address] Care Team Providers Care Cyber Transport Systems Specialist Name Role Phone Mariel Smyth MD Primary Care Provider [phone] Encounter Details Date Type Department Care Team (Late st Contact Info) Description 06/07/2018 Scanned Document [facility] at [address] [place] [phone] Don Monique MD [address] [place] [phone] Social History Tobacco Use Types Packs/Day Years [...] on filedocumented in this encounter Care Teams Cyber Transport Systems Specialist Relationship Specialty Start Date End Date Mariel Smyth MD [address] [place] [address] [place] [phone] PCP - General Internal Medicine 06/19/18 documented as of this encounter
--- OUTSIDE RECORDS SUMMARY | 2025-03-14 09:20 | XMS_ITS | Encounter Summary ---
Author Organization [facility] and [facility] Address [address] [place] [address] Care Team Providers Care Cad Design Engineer Name Role Phone Mariel Smyth MD Primary Care Provider [phone] Encounter Details Date Type Department Care Team (Late st Contact Info) Description 01/01/2020 Scanned Document [facility] SCHEDULING [address] [place], [place] [phone] Provider, Historical . Social History Tobacco Use [...] on filedocumented in this encounter Care Teams Cad Design Engineer Relationship Specialty Start Date End Date Mariel Smyth MD [address] [facility] [phone] PCP - General Internal Medicine 06/19/18 documented as of this encounter
--- OUTSIDE RECORDS SUMMARY | 2025-03-14 09:20 | XMS_ITS | Encounter Summary ---
Author Organization [facility] and [facility] Address [address] [place] [address] Care Team Providers Care Stockroom Attendant Name Role Phone Mariel Smyth MD Primary Care Provider [phone] Encounter Details Date Type Department Care Team (Late st Contact Info) Description 04/25/2018 Scanned Document [facility] at [address] [place] [phone] Don Monique MD [address] [place] [phone] Social History Tobacco Use Types Packs/Day [...] on filedocumented in this encounter Care Teams Stockroom Attendant Relationship Specialty Start Date End Date Mariel Smyth MD [address] [place] [address] [place] [phone] PCP - General Internal Medicine 06/19/18 documented as of this encounter
[2025-03-14 10:47] LABS: PSA,Total (Free>4and<10) 3.73 ng/mL (0.00-4.00)
== END 2025-03-14 08:21 | disposition home or self-care (01) ==
LOC: HO.LAB 08:20
PROVIDERS: PCP Internal Medicine; Visit Provider Internal Medicine
DX: Z12.5 Encounter for screening for malignant neoplasm of prostate (principal); R97.20 Elevated prostate specific antigen [PSA]
CPT/HCPCS: 36415; 84153

== ENCOUNTER 2025-05-08 09:43 | Outpatient (REF) | payer MEDICARE, SELFPAY ==
--- NOTE | ~2025-05-08 | XR_ITS ---
EXAMINATION: X-ray bilateral hands CLINICAL INFORMATION: Pain COMPARISON: None TECHNIQUE: Left hand 3 views. Right hand 3 views. FINDINGS: Left hand: No visible acute fracture, dislocation or suspicious bony lesion. Mild triscaphe joint arthritis. Mild arthritis of the DIP joints, more prominently involving the fifth DIP joint. No erosions. No abnormal soft tissue calcification. Right hand: No acute fracture, dislocation or suspicious bony lesion. Mild DIP joint arthritis. No erosions. No abnormal soft tissue calcification. 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 Electronically signed by: Chaparro Salcido MD 05/09/2025 09:56 AM EST
--- OUTSIDE RECORDS SUMMARY | 2025-05-08 12:26 | XMS_ITS | Encounter Summary ---
Author Organization [facility] Address [address] [place] [address] Care Team Providers Care Metallurgist Process Name Role Phone Mariel Smyth MD Primary Care Provider [phone] Encounter Details Date Type Department Care Team (Late st Contact Info) Description 11/13/2018 Scanned Document [facility] [address] [address] Provider, Historical . Social History Tobacco Use [...] on filedocumented in this encounter Care Teams Metallurgist Process Relationship Specialty Start Date End Date Mariel Smyth MD [address] [place] [address] [place] [phone] PCP - General Internal Medicine 06/19/18 documented as of this encounter
--- OUTSIDE RECORDS SUMMARY | 2025-05-08 12:26 | XMS_ITS | Encounter Summary ---
Author Organization [facility] and [facility] Address [address] [place] [address] Care Team Providers Care Ear Nose And Throat Specialist Name Role Phone Mariel Smyth MD Primary Care Provider [phone] Encounter Details Date Type Department Care Team (Late st Contact Info) Description 12/11/2018 Scanned Document [facility] [address] [place] [address] [phone] Josue Vaca MD [address] [place] [address] [phone] Social History Tobacco Use Types Packs/Day Years [...] on filedocumented in this encounter Care Teams Ear Nose And Throat Specialist Relationship Specialty Start Date End Date Mariel Smyth MD [address] [place] [address] [place] [phone] PCP - General Internal Medicine 06/19/18 documented as of this encounter
--- OUTSIDE RECORDS SUMMARY | 2025-05-08 12:26 | XMS_ITS | Encounter Summary ---
Author Organization [facility] and [facility] Address [address] [place] [address] Care Team Providers Care Racebook Writer Name Role Phone Mariel Smyth MD Primary Care Provider [phone] Encounter Details Date Type Department Care Team (Late st Contact Info) Description 04/25/2018 Scanned Document [facility] at [address] [place] [address] [phone] Don Monique MD [address] [place] [phone] Social History Tobacco Use Types Packs/Day [...] on filedocumented in this encounter Care Teams Racebook Writer Relationship Specialty Start Date End Date Mariel Smyth MD [address] [place] [address] [place] [phone] PCP - General Internal Medicine 06/19/18 documented as of this encounter
--- OUTSIDE RECORDS SUMMARY | 2025-05-08 12:26 | XMS_ITS | Encounter Summary ---
Author Organization [facility] and [facility] Address [address] [place] [address] Care Team Providers Care Ammonia Worker Name Role Phone Mariel Smyth MD Primary Care Provider [phone] Encounter Details Date Type Department Care Team (Late st Contact Info) Description 06/07/2018 Scanned Document [facility] at [address] [place] [address] [phone] Don Monique MD [address] [place] [address] [phone] Social History Tobacco Use Types Packs/Day Years [...] on filedocumented in this encounter Care Teams Ammonia Worker Relationship Specialty Start Date End Date Mariel Smyth MD [address] [place] [address] [place] [phone] PCP - General Internal Medicine 06/19/18 documented as of this encounter
--- OUTSIDE RECORDS SUMMARY | 2025-05-08 12:26 | XMS_ITS | Encounter Summary ---
Author Organization [facility] and [facility] Address [address] [place] [address] Care Team Providers Care Accounting Recruiter Name Role Phone Mariel Smyth MD Primary Care Provider Encounter Details Date Type Department Care Team (Late st Contact Info) Description 12/15/2018 Scanned Document [facility] at [address] [address] Provider, Historical . Social History Tobacco Use [...] on filedocumented in this encounter Care Teams Accounting Recruiter Relationship Specialty Start Date End Date Mariel Smyth MD [address] [place] [address] [place] [phone] PCP - General Internal Medicine 06/19/18 documented as of this encounter
--- OUTSIDE RECORDS SUMMARY | 2025-05-08 12:27 | XMS_ITS | Encounter Summary ---
Author Organization [facility] and [facility] Address [address] [place] [address] Care Team Providers Care Drapery Estimator Name Role Phone Mariel Smyth MD Primary Care Provider [phone] Reason for Visit * Reason Onset Date Comments Letter for School/Work 08/13/2024 Encounter Details Date Type Department Care Team (Late st Contact Info) Description 08/13/2024 Telephone [facility] [address] [phone] Abhijeet Romero MD [address] [place] [address] [place] [phone] Letter for School/Work Social History Tobacco [...] on file, patient could be reached at [phone]. documented in this encounter Plan of Treatment Not on file documented as of this encounter Visit Diagnoses Not on filedocumented in this encounter Care Teams Drapery Estimator Relationship Specialty Start Date End Date Mariel Smyth MD [address] [place] [address] [place] [phone] PCP - General Internal Medicine 06/19/18 documented as of this encounter
--- OUTSIDE RECORDS SUMMARY | 2025-05-08 12:27 | XMS_ITS | Encounter Summary ---
Author Organization [facility] and [facility] Address [address] [place] [address] Care Team Providers Care Vacuum Applicator Operator Name Role Phone Mariel Smyth MD Primary Care Provider [phone] Encounter Details Date Type Department Care Team (Late st Contact Info) Description 12/09/2020 Scanned Document [facility] at [address] [phone] Josue Vaca MD [address] [place] [address] [phone] Social History Tobacco Use Types Packs/Day Years [...] on filedocumented in this encounter Care Teams Vacuum Applicator Operator Relationship Specialty Start Date End Date Mariel Smyth MD [address] [place] [address] [place] [phone] PCP - General Internal Medicine 06/19/18 documented as of this encounter
--- OUTSIDE RECORDS SUMMARY | 2025-05-08 12:27 | XMS_ITS | Encounter Summary ---
Author Organization [facility] and [facility] Address [address] [place] [address] Care Team Providers Care Die Maintenance Technician Name Role Phone Mariel Smyth MD Primary Care Provider [phone] Reason for Referral * Imaging (Routine) - Closed Specialty Diagnoses / Procedures Referred By Contac t Referred To Contact Diagnostic Radiology Procedures MRA Brain without IV Contrast Neurosurgery at [address] [address] Phone: tel: fax: Referral ID Status Reason Start Date Expiration Date Visits Re quested Visits Authorized [id number] Closed 12/03/2022 12/03/2023 1 1 Encounter Details Date Type Department Care Team (Late st Contact Info) Description 12/03/2022 Scanned Document Neurosurgery at [address] [place] [phone] [place] . Social History Tobacco Use [...] on filedocumented in this encounter Care Teams Die Maintenance Technician Relationship Specialty Start Date End Date Mariel Smyth MD [address] [place] [address] Dr Bowser [facility] [place] [phone] PCP - General Internal Medicine 06/19/18 documented as of this encounter
--- OUTSIDE RECORDS SUMMARY | 2025-05-08 12:27 | XMS_ITS | Clinical Summary ---
Author Organization [facility] Address [address] [place] [address] Care Team Providers Care Estate Manager Name Role Phone Mariel Smyth MD Primary Care Provider [phone] Allergies Active Allergy Reactions Criticality Noted Date [...] screening 1997 Colon cancer screening, Colonoscopy 2002 RSV Immunization (1 - Risk 5 0-74 years 1-dose series) 2007 Shingles vaccine (Shingrix) (1 of 2 - Shingrix (RZV) 2 Dose Standard Series) 2007 Pneumococcal Vaccine (50+ ye ars) (2 of 2 - PCV) 01/20/2012 01/19/2011 Aortic Aneurysm screening 2022 Influenza vaccine 02/01/2025 Covid-19 vaccine series ( - season) 2025 Meningococcal B Vaccine Aged Out No l onger eligible based on patient's age to complete this topic Meningococcal Vaccine Aged Out No mark deepika eligible based on patient's age to complete this [place] [address] MEDICARE [facility] MEDICARE [facility] MEDICARE [facility] Care Teams Estate Manager Relationship Specialty Start Date End Date Mariel Smyth MD [address] [place] [address] [place] [phone] PCP - General Internal Medicine 06/19/18
--- OUTSIDE RECORDS SUMMARY | 2025-05-08 12:27 | XMS_ITS | Encounter Summary ---
Author Organization [facility] and [facility] Address [address] [place] [address] Care Team Providers Care Oil Heaterman Name Role Phone Mariel Smyth MD Primary Care Provider [phone] Reason for Visit * Reason Comments Triage Encounter Details Date Type Department Care Team ([facility] st Contact Info) Description 08/20/2021 Telephone [facility] at [address] [place] [address] Josue Vaca MD [address] [place] [phone] Triage Social History Tobacco Use Types Packs/Day [...] regarding this. Please advise Mrs. Zuleta's Number: [phone] documented in this encounter Plan of Treatment Not on file documented as of this encounter Visit Diagnoses Not on filedocumented in this encounter Care Teams Oil Heaterman Relationship Specialty Start Date End Date Po, MD Mariel [address] [place] [address] Dr Smith, [place] [phone] PCP - General Internal Medicine 06/19/18 documented as of this encounter
--- OUTSIDE RECORDS SUMMARY | 2025-05-08 12:27 | XMS_ITS | Encounter Summary ---
Author Organization [facility] and [facility] Address [address] [place] [address] Care Team Providers Care Thermograph Operator Name Role Phone Mariel Smyth MD Primary Care Provider [phone] Reason for Referral * Imaging (Routine) - Closed Specialty Diagnoses / Procedures Referred By Contac t Referred To Contact Diagnostic Radiology Procedures MRA Brain without IV Contrast Neurosurgery at [address] [address] Phone: tel: fax: Referral ID Status Reason Start Date Expiration Date Visits Re quested Visits Authorized [id number] Closed 12/30/2023 12/29/2024 1 1 Encounter Details Date Type Department Care Team (Late st Contact Info) Description 12/30/2023 Scanned Document Neurosurgery at [address] [address] [place] . Social History Tobacco Use [...] on filedocumented in this encounter Care Teams Thermograph Operator Relationship Specialty Start Date End Date Haja, MD Mariel [address] [place] [address] [place] [phone] PCP - General Internal Medicine 06/19/18 documented as of this encounter
--- OUTSIDE RECORDS SUMMARY | 2025-05-08 12:27 | XMS_ITS | Encounter Summary ---
Author Organization [facility] and [facility] Address [address] [place] [address] Care Team Providers Care Arch Support Technician Name Role Phone Mariel Smyth MD Primary Care Provider [phone] Encounter Details Date Type Department Care Team (Late st Contact Info) Description 01/01/2020 Scanned Document [facility] SCHEDULING [address] [place], [place] [phone] Provider, Historical . Social History Tobacco Use [...] on filedocumented in this encounter Care Teams Arch Support Technician Relationship Specialty Start Date End Date Mariel Smyth MD [address] [place] [phone] PCP - General Internal Medicine 06/19/18 documented as of this encounter
--- OUTSIDE RECORDS SUMMARY | 2025-05-08 12:27 | XMS_ITS | Encounter Summary ---
Author Organization [facility] and [facility] Address [address] [place] [address] Care Team Providers Care Termite Inspector Name Role Phone Mariel Smyth MD Primary Care Provider [phone] Encounter Details Date Type Department Care Team (Late st Contact Info) Description 12/28/2019 Scanned Document [facility] SCHEDULING [address] [place], [place] [phone] Provider, Historical . Social History Tobacco Use [...] on filedocumented in this encounter Care Teams Termite Inspector Relationship Specialty Start Date End Date Mariel Smyth MD [address] [place] [address] [place] [phone] PCP - General Internal Medicine 06/19/18 documented as of this encounter
== END 2025-05-08 09:44 | disposition home or self-care (01) ==
LOC: HO.XRAY 09:43
PROVIDERS: PCP Internal Medicine; Visit Provider Internal Medicine
DX: M79.641 Pain in right hand (principal); M79.642 Pain in left hand; M79.643 Pain in unspecified hand; I10 Essential (primary) hypertension; I25.5 Ischemic cardiomyopathy; I35.0 Nonrheumatic aortic (valve) stenosis; I25.10 Atherosclerotic heart disease of native coronary artery without angina pectoris; E78.00 Pure hypercholesterolemia, unspecified; R73.02 Impaired glucose tolerance (oral); E66.9 Obesity, unspecified; R97.20 Elevated prostate specific antigen [PSA]; I67.1 Cerebral aneurysm, nonruptured; J43.9 Emphysema, unspecified; G47.33 Obstructive sleep apnea (adult) (pediatric); R73.03 Prediabetes; Z99.89 Dependence on other enabling machines and devices; Z68.32 Body mass index [BMI] 32.0-32.9, adult
CPT/HCPCS: 73120; 96127; 99212

== ENCOUNTER 2025-05-08 09:43 | Outpatient (AMB) | payer MEDICARE, SELFPAY ==
[2025-05-08 09:45] VITALS: BP 122/70; PULSE 74; O2SAT 93; BMI 32.6
--- NOTE | 2025-05-08 09:45 | A.OFFPC_ITS ---
Vital Signs 05/08/25 09:45 Height 5 ft 6 in Weight 202 lb BMI 32.6 BP 122/70 Blood Pressure Location Lt brachial Position Sitting Pulse 74 Pulse Source Pulse Oximeter Pulse Oximetry (%) 93 Oxygen Delivery Method Room Air Intake Visit Reasons: 3 mo follow up Allergies atorvastatin (Lipitor) Allergy (Unknown, Verified 05/08/25 09:46) Leg cramps ezetimibe (Zetia) Allergy (Unknown, Verified 05/08/25 09:46) shoulder pain lisinopril Allergy (Unknown, Verified 05/08/25 09:46) cough rosuvastatin (Crestor) Allergy (Unknown, Verified 05/08/25 09:46) Leg cramps Medication List - Last Reconciled 05/08/25 by Mariel Smyth MD aspirin (Ecotrin Low Strength) 81 mg PO DAILY atenolol 25 mg PO DAILY azelastine intranasal diazepam 10 mg PO TID PRN fluticasone propion-salmeterol 500-50 mcg/dose (Wixela Inhub) 1 inh inhalation BID ipratropium-albuterol 20-100 mcg/actuation (Combivent Respimat) 1 puff inhalation QID loratadine 10 mg PO DAILY losartan 50 mg PO DAILY magnesium 250 mg PO DAILY nitroglycerin (Nitrostat) 0.4 mg sublingual Q5M PRN rosuvastatin 40 mg PO DAILY Tobacco use date assessed: 09/19/24 Fall risk assessment: No Falls in past year Last assessed Fall Risk: 05/08/25 Dental Screening Dental Screen Date: 01/15/25 [facility] Medical History Otitis media Viral sinusitis Aortic stenosis Chronic sinusitis Sinusitis Lyme disease Pericarditis Allergic rhinitis Hypercholesterolemia Ischemic cardiomyopathy Obstructive sleep apnea Anxiety Pulmonary nodule Hypertension COPD (chronic obstructive pulmonary disease) Coronary artery disease Surgical History Brain aneurysm Family History Father No problems noted. Mother CVD (cardiovascular disease) Social History Housing: House Alcohol intake: current Alcohol intake frequency: holidays/special occasions only Alcohol type: beer Patient Tobacco Use Status: Former Tobacco user Tobacco use type: Cigarette e-Cigarette/Vaping Use: Never Used Second Hand Smoke Exposure: Yes service: No Current occupational status: disabled Cognitive needs: No Hearing needs: No Vision needs: Yes Questionnaire PHQ-9 Over the last 2 weeks, how often have you been bothered by any of the following problems? 1. Little interest or pleasure in doing things: not at all 2. Feeling down, depressed, or hopeless: not at all 3. Trouble falling or staying asleep, or sleeping too much: not at all 4. Feeling tired or having little energy: not at all 5. Poor appetite or overeating: not at all 6. Feeling bad about yourself - or that you are a failure or have let yourself or your family down: not at all 7. Trouble concentrating on things, such as reading the newspaper or watching television: not at all 8. Moving or speaking so slowly that other people could have noticed. Or the opposite - being so fidgety or restless that you have been moving around a lot more than usual: not at all 9. Thoughts that you would be better off or of hurting yourself in some way: not at all Total score: 0 Depression Screening Interpretation: Negative Depression Screening Done: Yes Source: Developed by Drs. Bhavin Arreola, Guillermina Tyler, Fadi Ty and colleagues, with an educational juan from [employer]. Thrive Questionnaire Date Thrive assessed: 01/15/25 I am a: Patient What is your living situation today?: I have a steady place to live Within the past 12 months, did the food you bought not last and you didn't have the money to get more?: Never true Within the past 12 months, did you worry whether your food would run out before you got money to buy more?: Never true Do you have trouble paying for medicines?: No Do you have trouble getting transportation to medical appointments?: No Do you have trouble paying your heating and electricity bill?: No Do you have trouble taking care of your child, family member or friend?: No Do you have trouble with day-to-day activities such as bathing, preparing meals, shopping, managing finances, etc.?: No Are you currently unemployed and looking for a job?: Yes Are you interested in more education?: Yes Please select the resources that you would like help with: None Currently or been in a relationship where the following occur: No concerns reported THRIVE Score: 0 JEREMIAH-7 AMB Questionnaire JEREMIAH-7 Date JEREMIAH - 7 assessed: 01/15/25 Source: Developed by Drs. Bhavin Arreola, Guillermina Tyler, Fadi Ty and colleagues, with an educational juan from [employer]. Physical exam (Primary Care) Vital Signs: Last Vital Signs Pulse 74 05/08/25 09:45 BP 122/70 05/08/25 09:45 Pulse Ox 93 05/08/25 09:45 Oxygen Delivery Method Room Air 05/08/25 09:45 BMI result Body Mass Index 32.6 Tobacco/Smoking Status: Tobacco use Status Tobacco use date assessed 09/19/24 05/08/25 09:46 Patient Tobacco Use Status Former Tobacco user 05/08/25 09:46 Tobacco use type Cigarette 05/08/25 09:46 e-Cigarette/Vaping Use Never Used 05/08/25 09:46 PHQ-9: PHQ-9 Score PHQ-9: Total score 0 05/08/25 09:57 Depression Screening Interpretation: Negative Thrive Assessment: Date of Thrive Assessment Date Thrive assessed 01/15/25 05/08/25 09:46 Currently or been in a relationship where the following occur: No concerns reported Const General: alert; No acute distress Eyes Conjunctivae: conjunctivae normal Resp Auscultation: clear to auscultation bilaterally Cardio Rate: regular rate Rhythm: regular rhythm GI Inspection: Yes normal to inspection Extrem General: Yes normal to inspection and No edema Coding Level of Care Code Est Pt Level 4 (06171) Complex EM visit Add On G2211 Diagnoses Primary hypertension I10 Hypertension type: primary hypertension Ischemic cardiomyopathy I25.5 Nonrheumatic aortic valve stenosis I35.0 Cardiac valve disease etiology: nonrheumatic Coronary artery disease involving [place] coronary artery of [place] heart without angina pectoris I25.10 Associated angina: without angina Coronary Disease-Associated Artery/Lesion type: [place] artery [place] vs. transplanted heart: [place] heart Hypercholesterolemia E78.00 Impaired glucose tolerance R73.02 Obesity (BMI 30.0-34.9) E66.9 PSA elevation R97.20 Brain aneurysm I67.1 Pulmonary emphysema, unspecified emphysema type J43.9 COPD type: emphysema Emphysema type: unspecified Obstructive sleep apnea G47.33 Hand pain M79.643 Assessment & Plan Assessment & Plan (1) Hypertension: Code(s): I10 - Essential (primary) hypertension Category: Medical Qualifiers: Hypertension type: primary hypertension Qualified Code(s): I10 - Essential (primary) hypertension Plan: Continue with blood pressure medication. Decrease salt intake and exercise on atenolol 25 mg once a day losartan 50 mg once a day (2) Ischemic cardiomyopathy: Comment: The left ventricular systolic function is mildly decreased. The calculated ejection fraction is 52% by biplane method. - The basal inferior and basal inferolateral segments are akinetic. - Mildly increased right ventricular cavity size. - There is moderate calcification of the aortic valve. There is mild aortic valve stenosis. Code(s): I25.5 - Ischemic cardiomyopathy Category: Medical Plan: Continue to monitor last EF normal. Continue with the beta robert (3) Aortic stenosis: Comment: Echocardiogram 1.6 cm September 2021, June 2022 1.8 08/2024 1.59 cm Code(s): I35.0 - Nonrheumatic aortic (valve) stenosis Category: Medical Qualifiers: Cardiac valve disease etiology: nonrheumatic Qualified Code(s): I35.0 - Nonrheumatic aortic (valve) stenosis Plan: August 2004 last test and will continue to monitor. (4) Coronary artery disease: Comment: NSTEMI July 2013 angioplasty EF 50-55% akinetic inferobasal 01/2018, echo February 2019 low normal ejection fraction grade 1 diastolic dysfunction. September 2021 low normal ejection fraction mild aortic stenosis 1.6 cm2 June 2022The left ventricular systolic function is mildly decreased. The calculated ejection fraction is 52% by biplane method. - The basal inferior and basal inferolateral segments are akinetic. - Mildly increased right ventricular cavity size. - There is moderate calcification of the aortic valve. There is mild aortic valve stenosis. 1.8 Code(s): I25.10 - Atherosclerotic heart disease of [place] coronary artery without angina pectoris Category: Medical Qualifiers: Associated angina: without angina Coronary Disease-Associated Artery/Lesion type: [place] artery [place] vs. transplanted heart: [place] heart Qualified Code(s): I25.10 - Atherosclerotic heart disease of [place] coronary artery without angina pectoris Plan: Control the cholesterol, weight, blood pressure, patient is on aspirin 81 mg once a day (5) Hypercholesterolemia: Code(s): E78.00 - Pure hypercholesterolemia, unspecified Category: Medical Plan: Avoid fried foods, chicken skin, eggs, butter margarine, pastries and meat. Be it pork or beef they have a lot of cholesterol LDL goal of less than 70 and triglyceride of less than 150 on rosuvastatin 40 mg once a day (6) Impaired glucose tolerance: Code(s): R73.02 - Impaired glucose tolerance (oral) Category: Medical Plan: Decrease the amount of carbohydrate intake, pasta, bread, rice and potatoes are all sugar and that is aside from all the sweet stuff, remember that fruits are good but they are Sweet also. Discussed increasing A1c (7) Obesity (BMI 30.0-34.9): Code(s): E66.9 - Obesity, unspecified Category: Medical Plan: Diet and exercise (8) PSA elevation: Code(s): R97.20 - Elevated prostate specific antigen [PSA] Category: Medical Plan: Repeat testing back to normal. Will continue to monitor (9) Brain aneurysm: Comment: Right cerebellar aneurysm status post coiling April 2018, small right ICA 1.6 mm, December 2018 Code(s): I67.1 - Cerebral aneurysm, nonruptured Category: Surgical Plan: Received notes from the neuro endovascular and continue to monitor discussed about doing an rim MRA in 2 years (10) COPD (chronic obstructive pulmonary disease): Code(s): J44.9 - Chronic obstructive pulmonary disease, unspecified Category: Medical Qualifiers: COPD type: emphysema Emphysema type: unspecified Qualified Code(s): J43.9 - Emphysema, unspecified Plan: On Combivent and Wixela inhaler. (11) Obstructive sleep apnea: Comment: CPAP using Q night > 4 hours and benefits patient (10/2021), cannot tolerate CPAP 05/2022 Code(s): G47.33 - Obstructive sleep apnea (adult) (pediatric) Category: Medical Plan: cannot tolerate CPAP. (12) Hand pain: Code(s): M79.643 - Pain in unspecified hand Category: Medical Plan History of Present Illness The patient is a 70-year-old obese male presenting for a follow-up visit for management of multiple chronic conditions. His past medical history is significant for coronary artery disease, COPD, obstructive sleep apnea, hypertension, ischemic cardiomyopathy with a normal ejection fraction in August 2024, hypercholesterolemia, aortic stenosis, prediabetes, and Generalized Anxiety Disorder. 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 A neuroendovascular follow-up in March 2025 found everything to be stable, with a recommendation for a follow-up MRA in two years. The patient's HbA1c has risen from 5.7% in 2022 to 6.0% on recent labs, and his fasting blood sugar was 106 mg/dL. His LDL cholesterol increased from 66 to 73 mg/dL, which is above the potato pancake frier's goal of less than 70 mg/dL. The patient is on the highest dose of rosuvastatin (40 mg). He also reports recent weight gain. For coronary artery disease prevention, he is prescribed aspirin 81 mg daily but self-discontinued it for three weeks due to experiencing easy bruising on his arms. His hypertension is managed with atenolol 25 mg and losartan 50 mg daily. For his COPD, the patient uses Combivent and Wixela inhalers and rinses his mouth after use. He is non-adherent with his CPAP therapy for obstructive sleep apnea, citing intolerance and ear problems. He reports persistent itchy ears, which were previously diagnosed as allergy-related, and he takes Claritin for relief. The patient has a new complaint of significant joint pain in his hands (knuckles), shoulders, and feet, which can be severe enough to impair function, such as turning a doorknob. He has tried Tylenol and Voltaren gel with minimal relief. He has never had X-rays of his hands. Other history includes an elevated PSA that peaked at 5.39 and subsequently decreased to 3.73 on a follow-up test; his father had prostate problems. He has chronically elevated liver function tests related to a fatty liver. Regarding health maintenance, he declined his last Cologuard test. Health Maintenance - Colon Cancer Screening: Patient declined a Cologuard test. - Vaccinations: Patient is up to date on his tetanus shot and has received the flu shot. - He declined the pneumonia and shingles vaccines. - Diet and Lifestyle: Discussed recent weight gain and the need for dietary modifications to manage rising cholesterol and blood sugar levels. - Recommendations included increasing green vegetables and reducing intake of sugar, certain fruits like oranges, and red meat. - Screening Labs: Recent labs showed an HbA1c of 6.0% and an LDL of 73 mg/dL, both of which have slightly increased. Social History - Nutritional Intake: The patient's diet has recently included more beef and hamburger, which he had avoided for several years. - He typically consumes ground turkey and chicken. - He has been eating a lot of oranges. - He eats oatmeal for breakfast but reports it causes gastrointestinal distress. - Weight Management: The patient acknowledges recent weight gain. - Functional Status: Engages in activities such as working on cars. Review of Systems - General: Reports weight gain. - Ears: Reports intermittent itchy ears. - Respiratory: Reports breathing has been okay. - Gastrointestinal: Denies abdominal pain and constipation. - Reports gastrointestinal distress with oatmeal. - Skin: Reports easy bruising on his arms from minor bumps. - Musculoskeletal: Reports significant pain in his hands, knuckles, shoulders, and feet. - He reports difficulty with tasks such as turning a doorknob. - Reports popping and cracking in his knees, but states they are not bad. Physical Exam - General: Patient is an obese male. - Abdomen: Non-tender on examination. - Skin: Ecchymosis observed on the patient's arm. Results - Labs (February 2025): - CBC: Normal, with no anemia. - Chemistry Panel: Electrolytes and renal function are normal. - Glucose: 106 mg/dL. - Hemoglobin A1c: 6.0%. - Liver Function Test: Elevated, which is a chronic finding. - Lipid Panel: LDL is 73 mg/dL. - Prostate-Specific Antigen (PSA): Follow-up test showed a level of 3.73, down from a previous 5.39. - Vitamin B12, Folic Acid, Thyroid: Normal. - Tests and Diagnostics: - Echocardiogram (August 2024): Normal ejection fraction. - Neuroendovascular Note (March 2025): Aneurysms are stable. Plan Patient was informed and verbally consented to the use of an ambient scribe for clinic note documentation during this visit. 1. Hypercholesterolemia The patient's LDL cholesterol has increased to 73 mg/dL, which is above the goal of <70 mg/dL. He is currently on the maximum dose of rosuvastatin 40 mg daily. Options discussed included adding a second medication, such as Zetia, or attempting dietary modifications. The patient has opted to focus on dietary changes. A follow-up lipid panel will be checked in three months. 2. Prediabetes The patient's hemoglobin A1c has increased from 5.7% to 6.0%, indicating worsening glucose tolerance. The importance of diet and exercise was discussed to prevent progression to diabetes. Labs, including HbA1c, will be repeated in three months to monitor his status. 3. Arthralgia The patient reports new, significant joint pain in his hands, shoulders, and feet, for which Tylenol and topical Voltaren gel have been ineffective. NSAIDs like ibuprofen are contraindicated due to their interaction with aspirin. A prescription for tramadol was sent, to be taken at night for pain relief. An X- ray of the hands has been ordered to evaluate the severity of his arthritis. 4. Coronary Artery Disease The patient recently stopped his aspirin 81 mg daily due to easy bruising. The critical importance of continuing aspirin for secondary prevention of heart attack was emphasized, advising that the benefits outweigh the risk of skin bruising. The patient was instructed not to stop the aspirin again. 5. Hypertension The patient will continue his current blood pressure regimen of atenolol 25 mg once daily and losartan 50 mg once daily. 6. Chronic Obstructive Pulmonary Disease The patient will continue using his Combivent and Wixela inhalers as prescribed. 7. Obstructive Sleep Apnea Encouraged the patient to try using his CPAP for more than 4 hours per night, though he reports non-adherence due to intolerance. 8. History Of Cerebral Aneurysm Reviewed recent neuroendovascular notes, which indicate stability. Will follow the recommendation for a repeat MRA in two years. 9. Elevated Prostate-Specific Antigen Noted that the patient's PSA level has decreased to 3.73 from a high of 5.39. Will continue to monitor this with repeat testing in three months. Discussion Notes I reviewed the patient's recent lab work, noting the increase in his HbA1c to 6.0% and his LDL cholesterol to 73 mg/dL. We discussed that the potato pancake frier's goal for his LDL is below 70, and I explained that while we could add a medication like Zetia, we would first try dietary changes. We also discussed the rising A1c and the importance of diet to prevent progression to diabetes. I strongly advised the patient against stopping his daily aspirin, explaining that preventing a heart attack is a much higher priority than preventing skin bruising, which is a known side effect. Regarding his new complaint of severe joint pain, I explained that he should not take NSAIDs like ibuprofen as they can interfere with aspirin. I prescribed tramadol as a safer alternative for pain and ordered an X-ray of his hands to assess for arthritis. I provided a lab requisition for follow-up bloodwork in three months to re- evaluate his cholesterol and blood sugar. We reviewed his vaccination status, and I discussed the option for the shingles vaccine, which he declined at this time. Patient Instructions - Do not stop taking your daily aspirin 81 mg. - This medicine is very important for preventing heart attacks, even if it causes some bruising. - For your joint pain, you have a new prescription for tramadol. - Take one tablet at nighttime with food as needed for pain. - Do not take ibuprofen (Advil) or Aleve. - Please go for an X-ray of your hands to check for arthritis. - Focus on improving your diet to help lower your blood sugar and cholesterol. - This includes eating more green vegetables and reducing your intake of sugar, red meat, and certain fruits like oranges. - You have a lab form for blood tests in about 3 months to recheck your numbers. - Continue taking your other prescribed medications for blood pressure and cholesterol. - Try to use your CPAP machine every night to help with your sleep apnea. Orders: Orders Lipid Panel 3 Months E78.00 - Pure hypercholesterolemia, unspecified XR Hand Javier 2V Today M79.643 - Pain in unspecified hand Hemoglobin A1c 3 Months R73.02 - Impaired glucose tolerance (oral) Comprehensive Met. Panel 3 Months E78.00 - Pure hypercholesterolemia, unspecified Prostate Specific Antigen Scr 3 Months E78.00 - Pure hypercholesterolemia, unspecified Medications: New tramadol 50 mg PO BEDTIME 7 tabs 0RF M79.643 - Pain in unspecified hand
--- OUTSIDE RECORDS SUMMARY | 2025-05-08 11:02 | XMS_ITS | Clinical Summary ---
Author Organization [facility] Address [address] [place] [address] Care Team Providers Care Coin Wrapping Machine Operator Name Role Phone Unknown, Primary Care Provider [...] this topic Medical Devices Implanted Type Area Production Packager Device Identifier Shelf Expiration Date Model / Serial / Lot Coil Hydroframe Hydrocoil V-Trak 19cm 6mm 10 Coil Stretch - [id number] - [id number] Implanted:Qty: 1 on 12[place]06[place] [facility] [place] [facility] [employer] 07/03/2023 7110-0 619 / / [id number] Coil Embolization [place] Clear[place] V-Trak L28 Cm Od7 Mm 10 Coil - [id number] - [id number] Implanted:Qty: 1 on 12/06/2018 [place] [facility] [employer] 07/03/2023 [id number] [id number] / / [id number] Advance Directives For more information, please contact: [phone] Latest Code Status on File Code Status Date Activated Date Inactivated Comments Full Code 12/06/2018 11:09 AM 12/07/2018 4:28 PM This c ode status was ascertained in the following way: discussion with patient . Care Teams Coin Wrapping Machine Operator Relationship Specialty Start Date End Date Unknown, PCP - General 12/06/18
--- OUTSIDE RECORDS SUMMARY | 2025-05-08 11:02 | XMS_ITS | Clinical Summary ---
Author Organization [address] [place] [address] Address [address] [place] [address] Phone Care Team Providers Care 3D Animator Name Role Phone Mariel Smyth MD Primary Care Provider [phone] Allergies Active Allergy Reactions Criticality Noted Date [...] V28) DX:COPD (chronic o bstructive pulmonary disease) ([facility]) Coronary artery disease DX:Coron eric artery disease [...] Health Maintenance Due Date Last Done Comments Colorectal Cancer Screening: Colonoscopy 1955 RSV Immunization Adult Patients (1 - Risk 50-74 years 1-dose series) 2007 Zoster Vaccines (1 of 2) 2007 Pneumococcal Vaccine: 50+ Years (2 of 2 - PCV) 01/20/2012 01/19/2011 Abdominal Aortic Aneurysm (AAA) Screen 06/25/2024 Cholesterol Screening (Lipid Panel) 06/25/2024 Falls Risk Assessment 06/25/2024 Hepatitis C [...] this topic Medical Devices Implanted Type Area Animal Skinner Device Identifier Shelf Expiration Date Model / Serial / Lot Coil Hydroframe Hydrocoil V-Trak 19cm 6mm 10 Coil Stretch - [id number] Implanted:Qty: 1 on 12/06/2018 [employer] 07/03/2023 [id number] / / [id number] Coil Embolization [place] Bailey V-Trak L28 Cm Od7 Mm 10 Coil - [id number] Implanted:Qty: 1 on 12/06/2018 [employer] 07/03/2023 [id number] / / [id number] Insurance MEDICARE MEDICA[place] - [place] [facility] Care Teams 3D Animator Relationship Specialty Start Date End Date Mariel Smyth MD [address] [place] [address] [address] [facility] [place] [address] PCP - General Internal Medicine 06/25/24
== END 2025-05-08 10:30 | disposition home or self-care (01) ==
LOC: HO.HMCH 09:43
PROVIDERS: PCP Internal Medicine; Visit Provider Internal Medicine
DX: I10 Essential (primary) hypertension (principal); J43.9 Emphysema, unspecified; I25.5 Ischemic cardiomyopathy; I35.0 Nonrheumatic aortic (valve) stenosis; I25.10 Atherosclerotic heart disease of native coronary artery without angina pectoris; E78.00 Pure hypercholesterolemia, unspecified; E66.9 Obesity, unspecified; R73.02 Impaired glucose tolerance (oral); M79.641 Pain in right hand; M79.642 Pain in left hand; R97.20 Elevated prostate specific antigen [PSA]; I67.1 Cerebral aneurysm, nonruptured

== ENCOUNTER → 2025-05-08 10:44 | Outpatient (BNV) | payer MEDICARE, SELFPAY | PROVIDERS: PCP Internal Medicine; Visit Provider Radiology Diagnostic Ultrasound | DX: M19.041 Primary osteoarthritis, right hand (principal); M19.042 Primary osteoarthritis, left hand | CPT/HCPCS: 73120 ==

== ENCOUNTER 2025-06-12 11:35 | Outpatient (AMB) | payer MEDICARE, SELFPAY ==
[2025-06-12 12:27] VITALS: BP 120/80; PULSE 86; TEMP 37.1; O2SAT 92; BMI 32.8
--- NOTE | 2025-06-12 12:27 | AM.OFFWIN_ITS ---
Intake Vital Signs 06/12/25 12:27 Height 5 ft 6 in Weight 203 lb BMI 32.8 BP 120/80 Blood Pressure Location Lt brachial Position Sitting Pulse 86 Pulse Source Pulse Oximeter Temp 98.8 F Temp Source Oral Pulse Oximetry (%) 92 Oxygen Delivery Method Room Air Intake Visit Reasons: EP Cough Intake Note: pt presents with chest congestion with productive coughing, SOB (h/o COPD) for about a week Patient Tobacco Use Status: Former Tobacco user Allergies atorvastatin (Lipitor) Allergy (Unknown, Verified 06/12/25 12:31) Leg cramps ezetimibe (Zetia) Allergy (Unknown, Verified 06/12/25 12:31) shoulder pain lisinopril Allergy (Unknown, Verified 06/12/25 12:31) cough rosuvastatin (Crestor) Allergy (Unknown, Verified 06/12/25 12:31) Leg cramps Do you need a note to return to daycare/school/sports/work: No HPI HPI Comments History of Present Illness Details This is a 70-year-old male with a past medical history of COPD not currently oxygen dependent, obstructive sleep apnea, hypertension, coronary artery disease and hyperlipidemia presenting for evaluation of a dry cough and chest congestion that he has had for the past 1 week. Patient denies having any fevers, chills, sick contacts, otalgia, pharyngitis, chest pain or hemoptysis. Patient does report feeling more short of breath as of yesterday. [facility] Medical History Otitis media Viral sinusitis Aortic stenosis Chronic sinusitis Sinusitis Lyme disease Pericarditis Allergic rhinitis Hypercholesterolemia Ischemic cardiomyopathy Obstructive sleep apnea Anxiety Pulmonary nodule Hypertension COPD (chronic obstructive pulmonary disease) Coronary artery disease Surgical History Brain aneurysm Family History Father No problems noted. Mother CVD (cardiovascular disease) Social History Housing: House Alcohol intake: current Alcohol intake frequency: holidays/special occasions only Alcohol type: beer Patient Tobacco Use Status: Former Tobacco user Tobacco use type: Cigarette e-Cigarette/Vaping Use: Never Used Second Hand Smoke Exposure: Yes service: No Current occupational status: disabled Cognitive needs: No Hearing needs: No Vision needs: Yes Review of Systems Const All systems reviewed & are unremarkable except as noted in HPI and below Denies body aches, Denies chills, Denies fatigue and Denies fever(s) Eyes Reports no additional complaints ENT Denies otalgia and Denies sore throat Card Denies chest pain, Denies chest pain with activity and Reports dyspnea Resp Reports cough, Denies hemoptysis and Reports dyspnea GI Reports no additional complaints Reports no additional complaints Musc Reports no additional complaints Skin/Breast Reports system reviewed and no additional complaints, except as documented Neuro Reports no additional complaints Psych Reports no additional complaints Endo Reports no additional complaints and Denies fatigue Can/Lymph Reports no additional complaints Aller/Immun Reports no additional complaints Physical Exam Vital Signs: Last Vital Signs Temp 98.8 F 06/12/25 12:27 Pulse 86 06/12/25 12:27 BP 120/80 06/12/25 12:27 Pulse Ox 92 06/12/25 12:27 Oxygen Delivery Method Room Air 06/12/25 12:27 BMI result Body Mass Index 32.8 Patient is afebrile, POX 92% on room air. Const General: cooperative, healthy appearing, comfortable, no acute distress, well developed, alert, awake and Physically active; No acute distress, ill appearing or lethargic Nutritional Appearance: overweight Orientation/consciousness: patient oriented x3 and No lethargic Limitations: no limitations HEENT Head: Yes normal to inspection and Yes normocephalic Ears: hearing grossly normal bilaterally, external ears normal, TM's normal bilaterally and EAC's normal General nose exam: Normal external nose present Face and sinus: Yes normal facial exam Mouth: Normal oral and palatal mucosa present, oropharynx normal and moist mucous membranes Throat: Yes posterior oropharynx normal and No postnasal drainage Eyes General: appearance normal, both eyes and all related structures Neck Lymphatic: no lymphadenopathy noted Resp Effort & Inspection: normal respiratory effort, able to speak in complete sentences, no audible wheezes, no cough, respiratory effort not decreased, no stridor, not tachypneic and no use of accessory muscles Auscultation: wheezes expiratory wheezes and lower bilaterally Cardio Rate: regular rate Rhythm: regular rhythm Skin General skin exam: no rashes or lesions noted Neuro General: patient oriented x3 Psych Appearance: grossly normal Mental Status: mental status grossly normal Insight: Good insight present (Psych) Judgement: Good judgement present (Psych) Assessment & Plan Assessment & Plan (1) Bronchitis: Comment: Patient has COPD and is mildly hypoxic however is not tachypneic or febrile. Patient is not using accessory muscles to breathe in his comfortable-appearing. Imaging is deferred at this time. Patient will be discharged home with a prednisone burst. Code(s): J40 - Bronchitis, not specified as acute or chronic Plan: Prednisone 40mg daily x 4 days. Medications: New prednisone 40 mg (2 x 20 mg) PO DAILY 8 tabs 0RF Coding Level of Care Code Est Pt Level 3 (09568) Diagnoses Bronchitis J40 Time Spent (min) 20
== END 2025-06-12 13:27 | disposition home or self-care (01) ==
PROVIDERS: PCP Internal Medicine; Visit Provider Physician Assistant
DX: J40 Bronchitis, not specified as acute or chronic (principal)

== ENCOUNTER → 2025-06-12 11:35 | Outpatient (BNVA) | payer MEDICARE, SELFPAY | PROVIDERS: PCP Internal Medicine; Visit Provider Physician Assistant | DX: J40 Bronchitis, not specified as acute or chronic (principal); R05.9 Cough, unspecified | CPT/HCPCS: 99212 ==